=== PATIENT | female | born 1940 | race Caucasian/White ===

== ENCOUNTER 2016-04-15 19:35 | Emergency (ER) | payer OTHER ==
[~2016-04-15] VITALS: Ht 162.6 cm; Wt 80.0 kg
[~2016-04-15 19:35] MED LIST: ASPI81TA28 PO; CHOL100010 PO; CPR500 PO; FURO-85 PO; GABA800T PO; GLC5 PO; LVMI SC; MAGN400T6 PO; NORT10CA4 PO; PRAV20TA PO; SACC250C PO; ZNTT/150 PO
[2016-04-15 19:46] VITALS: TEMP 36.6; Ht 162.6 cm; Wt 80.0 kg
[2016-04-15] MEDS ORDERED: GLIP1TAB85 PO (20:13)
--- NOTE | 2016-04-15 20:48 | DIAGNOSTIC IMAGING REPORT ---
RIGHT TIBIA/FIBULA 2 VIEWS ROUTINE CLINICAL HISTORY: Right leg pain COMPARISON: None. DISCUSSION: No fractures are visualized. There are no erosive or destructive changes. There are postsurgical changes of a total right knee arthroplasty. THERE IS NO EVIDENCE FOR SOFT TISSUE SWELLING. IMPRESSION: 1. Postsurgical changes 2. No evidence of fracture. No destructive lesions are visualized. Electronically signed by: Brandon Kaye M.D. 04/15/2016 8:47 PM Dictated Date/Time: 04/15/2016 8:46 PM
--- NOTE | 2016-04-15 20:50 | DIAGNOSTIC IMAGING REPORT ---
RIGHT FOOT MIN 3 VIEWS ROUTINE CLINICAL HISTORY: Right foot pain COMPARISON: None. 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 There are osteophytic changes the level of the distal interphalangeal joints of the third and fourth toes. There are no acute fractures. Degenerative changes are also present the level the second metatarsal phalangeal joint. Also degenerative changes the level the first tarsometatarsal joint. There is slight flattening the plantar arch. There is a prominent plantar calcaneal spur. IMPRESSION: Degenerative and postsurgical changes. No acute fractures. Electronically signed by: Brandon Kaye M.D. 04/15/2016 8:48 PM Dictated Date/Time: 04/15/2016 8:47 PM
--- NOTE | 2016-04-15 21:06 | DIAGNOSTIC IMAGING REPORT ---
ULTRASOUND RIGHT VENOUS DOPP LOWER EXT UNILAT CLINICAL HISTORY: Right leg pain COMPARISON STUDY: No previous studies for comparison. FINDINGS: Real-time and color flow Doppler imaging were performed. Flow was seen within the femoral, popliteal and calf veins with no intraluminal thrombus demonstrated. The saphenous vein is patent. There is a 34 x 24 x 8 mm right popliteal fossa cyst IMPRESSION: No evidence of right lower extremity DVT. Electronically signed by: Brandon Kaye M.D. 04/15/2016 9:04 PM Dictated Date/Time: 04/15/2016 9:03 PM
[2016-04-15] MEDS ORDERED: AMOX500C3 PO (21:50)
[2016-04-15] MEDS ORDERED: NORCO 5/325MG HOME PACK PO STA (22:13)
--- NOTE | 2016-04-15 22:16 | EMERGENCY ROOM VISIT NOTE ---
History First contact with patient: 19:54 Chief Complaint: FOOT PAIN Stated Complaint: STABBING R FOOT PAIN UP THE LEG, CONFUSION History of Present Illness The patient is a 75 year old female who presents to the Emergency Room via private vehicle with complaints of "stabbing right foot pain up the leg, confusion". The patient is accompanied by her daughter and both state that the patient has been complaining of pain in the right lateral foot that radiates up the leg that is intermittent. This has begun within the past day. No trauma is noted. She has an appointment tomorrow with the diabetic foot Center and try to keep that but was unable to do so secondary to pain and therefore her daughter brought her here for evaluation. The patient is unable to put weight on this leg. Pain radiates up into the mid schmidt region. The patient also has an appointment with her infectious disease doctor, Dr. Sullivan tomorrow. The patient's foot pain is worse with standing but is now much better when sitting. The pain began overnight. Again there is no trauma or fall, and no urinary symptoms. I asked the daughter about the confusion she states that on the way here her mother was saying some odd words. The patient is currently on medication for a UTI and has been for the past few years. She rotates between 3 UTI meds each week. She just finished Cefdinir and is beginning amoxicillin. Review of Systems A complete 6-point Review of Systems was discussed with the patient, with pertinent positives and negatives listed in the History of Present Illness. All remaining Review of Systems questions can be considered negative unless otherwise specified. Past Medical/Surgical History Medical Problems: (1) DIAB W NEURO MANIFEST, TYPE II OR UNSPEC TYPE, UNCONTROLLED (2) Diabetic foot infection (3) Diabetic neuropathy (4) HYPERLIPIDEMIA NEC/NOS (5) SCIATICA Family History Diabetes mellitus Social History Smoking Status: Never Smoker Alcohol Use: none Drug Use: none Marital Status: Housing Status: lives with significant other Occupation Status: unemployed Current/Historical Medications Scheduled Amoxicillin (Amoxil), 500 MG PO DAILY Aspirin (Aspirin Ec), 81 MG PO QAM Cholecalciferol (Vitamin D), 2,000 INTER.UNIT PO QAM Gabapentin (Neurontin), 800 MG PO TID Glipizide Xl (Glucotrol Xl), 10 MG PO DAILY Insulin Detemir (Levemir), 20 UNITS SC QAM Insulin Detemir (Levemir), 10 UNITS SC QPM Magnesium Oxide (Mag-Ox), 400 MG PO DAILY Nortriptyline HCl (Nortriptyline HCl), 10 MG PO DAILY Pravastatin (Pravachol ), 20 MG PO QPM Ranitidine (Zantac), 1 TAB PO BID Saccharomyces Boulardii (Florastor), 250 MG PO DAILY Allergies Coded Allergies: Iodinated Diagnostic Agents (Verified Allergy, Unknown, HIVES AND HOT FLASHES, 04/15/16) Macrolides (Verified Allergy, Unknown, ERYTHROMYCIN, 04/15/16) Oxycodone (Verified Adverse Reaction, Severe, CONFUSION LAKSHMI WHEN SHE TAKES 2 TABS- , 04/15/16) PT HAD TO COME TO ED AFTER TAKING 2 TABS -SO CONFUSED Physical Exam Vital Signs Date Time Temp Pulse Resp B/P Pulse Ox O2 Delivery O2 Flow Rate FiO2 04/15/16 22:34 97 18 158/73 97 04/15/16 21:33 102 18 168/76 96 Room Air 04/15/16 19:46 36.6 89 20 178/73 97 Room Air Physical Exam VITAL SIGNS - Vital signs and nursing notes were reviewed. Patient is afebrile , she is hypertensive at 178/73, she is not tachycardic and is saturating well on room air 97%. GENERAL -75-year-old female appearing her stated age who is in no acute distress. Communicates well with provider and answers questions appropriately. SKIN - Without rashes. There is slight erythema to the left lateral foot at the base of the fifth metatarsal that extends into the superior portion of the foot. There is a small little edematous area region noted. HEAD - NC/AT. EYES - PERRL with EOMI bilaterally. Sclera anicteric. Palpebral conjunctiva pink and moist with no injection noted. EARS - No deformities of external structures noted on gross examination bilaterally. NOSE - Midline and without cyanosis. No epistaxis or purulent drainage noted. Septum midline without deviation or septal hematoma noted. MOUTH/OROPHARYNX - Without perioral cyanosis. LUNGS - Chest wall symmetric without accessory muscle use, intercostals retractions, or central cyanosis. Normal vesicular breath sounds CTA B/L. No wheezes, rales, or rhonchi appreciated. CARDIAC - RRR with S1/S2. No murmur, rubs, or gallops appreciated. EXTREMITIES - No clubbing or peripheral cyanosis. No pretibial edema present. Patient is vascularly intact. +5/5 strength noted in UE/LE bilaterally. No evidence of neurologic deficit appreciated throughout the body. There is evidence of diabetic peripheral neuropathy. There is no tenderness to palpation overlying the patient is experiencing pain in. NEUROLOGIC - Cranial nerves II through XII grossly intact. PSYCH - A&Ox3 and cooperates fully with examiner. Pt is very pleasant and interacts well with examiner. Patient was able to recall where she is at, the year and her date of . Medical Decision & Procedures ER Provider Diagnostic Interpretation: RIGHT FOOT MIN 3 VIEWS ROUTINE CLINICAL HISTORY: Right foot pain COMPARISON: None. 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 There are osteophytic changes the level of the distal interphalangeal joints of the third and fourth toes. There are no acute fractures. Degenerative changes are also present the level the second metatarsal phalangeal joint. Also degenerative changes the level the first tarsometatarsal joint. There is slight flattening the plantar arch. There is a prominent plantar calcaneal spur. IMPRESSION: Degenerative and postsurgical changes. No acute fractures. Electronically signed by: Brandon Kaye M.D. 04/15/2016 8:48 PM Dictated Date/Time: 04/15/2016 8:47 PM ULTRASOUND RIGHT VENOUS DOPP LOWER EXT UNILAT CLINICAL HISTORY: Right leg pain COMPARISON STUDY: No previous studies for comparison. FINDINGS: Real-time and color flow Doppler imaging were performed. Flow was seen within the femoral, popliteal and calf veins with no intraluminal thrombus demonstrated. The saphenous vein is patent. There is a 34 x 24 x 8 mm right popliteal fossa cyst IMPRESSION: No evidence of right lower extremity DVT. Electronically signed by: Brandon Kaye M.D. 04/15/2016 9:04 PM Dictated Date/Time: 04/15/2016 9:03 PM RIGHT TIBIA/FIBULA 2 VIEWS ROUTINE CLINICAL HISTORY: Right leg pain COMPARISON: None. DISCUSSION: No fractures are visualized. There are no erosive or destructive changes. There are postsurgical changes of a total right knee arthroplasty. THERE IS NO EVIDENCE FOR SOFT TISSUE SWELLING. IMPRESSION: 1. Postsurgical changes 2. No evidence of fracture. No destructive lesions are visualized. Electronically signed by: Brandon Kaye M.D. 04/15/2016 8:47 PM Dictated Date/Time: 04/15/2016 8:46 PM Medications Administered Medications (Trade) Dose Ordered Sig/Claudia Route Start Time Stop Time Status Last Admin Dose Admin Acetaminophen/ Hydrocodone Bitart ([place] 5/325mg Home Pack) 1 [facility] UD STAT PO 04/15/16 22:13 04/15/16 22:14 DC 04/15/16 22:25 1 [facility] Medical Decision Patient was seen and evaluated as above. The patient appears to be experiencing pain in the right leg that is nontraumatic in nature and may be related to diabetic peripheral neuropathy. I wanted to rule out any fractures therefore radiographs were obtained of the affected regions an ultrasound was obtained to rule out blood clot as the patient had noted some pain in the calf region. These were both negative. Results were discussed with the patient. I did discuss the case with my attending. I suspect the patient is experiencing an exacerbation of her diabetic peripheral neuropathy. I do not suspect any emergent or surgical nature the patient's pain at this time. In regard to the confusion the patient was alert and oriented here and did not appear to have any neurologic deficits to indicate emergent or surgical nature. I do suspect the patient can be followed up in the outpatient setting I her to specialist tomorrow. She is to keep this appointment. Both her daughter and patient seen With plan of care. She was given a home pack for [place]. Patient states she can take hydrocodone. She had a prescription for Vicodin at home that this was old. She was instructed upon how to take this medication. They're both educated upon management. They were educated upon worrisome symptoms in which to return and were discharged home in good condition. The popliteal cyst was discussed with the patient this appears to be a chronic finding. In evaluation treatment this patient the following differential diagnoses were entertained: Right foot fracture, DVT, diabetic peripheral neuropathy, among others. I suspect at this time she is experiencing exacerbation of her diabetic peripheral neuropathy. Impression Primary Impression: Foot pain Departure Information Dispostion Home / Self-Care Condition GOOD Referrals Андрей Enrique M.D. (PCP) Patient Instructions My [facility] Additional Instructions You have been treated in the Emergency Department for right foot pain.. You have been prescribed [place] to be used for pain control. This is a narcotic medication. You cannot drive or consume alcohol while on this medicine. This medicine should only be used for pain that cannot be controlled with over-the- counter pain medicines. 1 tab every 6 hours. DO NOT TAKE WITH TYLENOL> If this is a recent injury (<24 hrs), ice can be applied to the area of pain for the first 3 days to help decrease pain and inflammation. Please keep your scheduled appointments for tomorrow. Please ambulate as you're able. Return to the Emergency Department if your current symptoms worsen despite treatment course outlined above, or if you develop any of the following symptoms : intractable pain despite aforementioned treatment course or new onset of numbness or tingling of the foot. Please return to emergency department with any new/concerning symptoms. Problem Qualifiers Primary Impression: Foot pain Laterality: right Qualified Codes: M79.671 - Pain in right foot
[2016-04-15 22:34] VITALS: BP 158/73; PULSE 97; O2SAT 97
--- NOTE | 2016-04-16 00:54 | EMERGENCY ROOM VISIT NOTE ---
ED Visit Note First contact with patient: 19:54 I have personally evaluated this patient examined her and reviewed the pertinent labs and data. I have discussed the case with the physician assistant professor of marine biology and agree with the plan. Please refer to the PA note This patient comes in with right foot pain with walking. On exam, she has normal neurologic exam. She's had partial toes amputated on that foot before. there is no ulcers. She appears well-perfused. ultrasound shows no evidence of DVT. X-rays do not show acute fractures. She is going to be seen by the diabetic foot clinic tomorrow and was told to try to stay off of it until then and to use an anti-inflammatories and pain medication. The patient and her daughter on plan and she was discharged to home.
[2016-06-17] MEDS ORDERED: SULF800T23 PO (10:25)
== END 2016-04-15 22:36 | disposition home or self-care (01) ==
LOC: C.EDB 19:37 → C.EDD 22:36
DX: M79.671 Pain in right foot (principal); E78.5 Hyperlipidemia, unspecified; E11.40 Type 2 diabetes mellitus with diabetic neuropathy, unspecified; Z87.440 Personal history of urinary (tract) infections; Z79.82 Long term (current) use of aspirin; Z79.4 Long term (current) use of insulin; Z79.899 Other long term (current) drug therapy; Z88.5 Allergy status to narcotic agent; Z88.8 Allergy status to other drugs, medicaments and biological substances; Z91.041 Radiographic dye allergy status; Z83.3 Family history of diabetes mellitus

== ENCOUNTER → 2016-04-19 | Outpatient (CLI) | payer OTHER ==
[~2016-04-19] MED LIST changes: +AMOX250C3 PO; +AMOX500C3 PO; +CEFD1CAP14 PO; +CHOL20007 PO; -CPR500 PO; +CRAN1CAP6 PO; -FURO-85 PO; -GLC5 PO; +GLIP1TAB85 PO; +LACT1CAP6 PO; +NORT10CA2 PO; +SULF400T7 PO; +SULF800T23 PO
[2016-04-19 18:40] LABS: URINE APPEARANCE CLEAR (CLEAR); URINE BILIRUBIN NEG (NEG); URINE COLOR YELLOW; URINE EPITHELIAL CELL AUTO >30 /lpf (0-5); URINE NITRITE NEG (NEG); URINE SPECIFIC GRAVITY 1.018 (1.000-1.030); UROBILINOGEN NEG (NEG); ZZUR CULT IF INDIC CLEAN CATCH NO
[2016-04-19 18:47] LABS: MANUAL MICROSCOPIC REQUIRED? NO; REVIEW REQ? NO
== END | disposition home or self-care (01) ==
LOC: C.LABSPEC 16:46
PROVIDERS: ATTEND Internal Medicine Infectious Disease
DX: R39.9 Unspecified symptoms and signs involving the genitourinary system (principal)

== ENCOUNTER → 2016-07-05 | Outpatient (CLI) | payer OTHER ==
[~2016-07-05] MED LIST changes: -AMOX500C3 PO
--- NOTE | 2016-07-08 09:04 | MAMMOGRAPHY REPORT ---
BILATERAL DIGITAL DIAGNOSTIC MAMMOGRAM TOMOSYNTHESIS WITH CAD: 07/05/2016 CLINICAL HISTORY: 75-year-old woman presents for follow-up of probably benign groupings of microcalc ifications in each breast. TECHNIQUE: Bilateral CC and MLO 2-D digital and tomosynthesis images, spot magnification CC and ML views of each breast were obtained. Current study was also evaluated with a Computer Aided Detection (CAD) system. COMPARISON: Comparison is made to exams dated: 01/05/2016 mammogram, 06/12/2012 mammogram, 09/15/2010 mammogram, 03/11/2009 mammogram - [facility], and 03/22/2007. BREAST COMPOSITION: There are scattered areas of fibroglandular density in both breasts. FINDINGS: There are at least 3 stable circumscribed masses in the right breast, and stable benign po pcorn calcifications. One stable circumscribed mass is seen in the left upper outer quadrant. Ther e are groupings of coarse heterogeneous calcifications in the right upper outer quadrant, and left u pper inner quadrant that are stable comparing to the spot magnification views dated 01/05/2016. A f ew other loosely grouped and scattered rodlike, punctate and round calcifications are also stable. No new suspicious spiculated or irregular mass, developing asymmetry, new calcifications or architec tural distortion is seen bilaterally. Bilateral diagnostic mammograms with repeat spot magnificatio n views are recommended in 6 months to ensure longer stability of the calcifications. IMPRESSION: ACR-BI-RADS CATEGORY 3: PROBABLY BENIGN Stable bilateral mammograms, including coarse heterogeneous groupings/clusters of microcalcification s in each breast. Although these most likely represent benign calcifications, given the interval in crease since the 2013 mammograms, longer stability is needed and repeat bilateral diagnostic mammogr ams including spot magnification views are recommended in 6 more months. These results and recommendations were discussed with the patient at the time of the exam. Approximately 10% of breast cancers are not detected with mammography. A negative mammographic repor t should not delay biopsy if a clinically suggestive mass is present. Frida Escobedo M.D. ay/:07/05/2016 13:53:47 Buck Swamper: Nati TORRES(Maykel)([place]), [facility] letter sent: Follow Up Recommended 3 BI-RADS Code: ACR-BI-RADS Category 3: Probably Benign
== END | disposition home or self-care (01) ==
LOC: C.MAMM 10:53
PROVIDERS: ATTEND Family Medicine
DX: R92.0 Mammographic microcalcification found on diagnostic imaging of breast (principal)

== ENCOUNTER 2016-10-13 16:43 | Emergency (ER) | payer OTHER ==
[~2016-10-13] VITALS: Ht 162.6 cm; Wt 78.0 kg
[~2016-10-13 16:43] MED LIST changes: -AMOX250C3 PO; -CEFD1CAP14 PO; -CHOL20007 PO; -CRAN1CAP6 PO; -LACT1CAP6 PO; -NORT10CA2 PO; -SULF400T7 PO
[2016-10-13 16:48] VITALS: Ht 162.6 cm; Wt 78.0 kg
[2016-10-13] MEDS ORDERED: CRAN1CAP6 PO (17:30)
[2016-10-13] MEDS ORDERED: NORT10CA2 PO (17:33)
[2016-10-13] MEDS ORDERED: SODIUM CHLORIDE 0.9% 1000ML 1,000 ML IV STA (17:36)
[2016-10-13] MEDS ORDERED: CHOL20007 PO (17:36)
[2016-10-13] MEDS ORDERED: SULF400T7 PO (17:44)
[2016-10-13] MEDS ORDERED: CEFD1CAP14 PO (17:46)
[2016-10-13] MEDS ORDERED: AMOX250C3 PO (17:49)
[2016-10-13] MEDS ORDERED: LACT1CAP6 PO (17:51)
[2016-10-13 18:05] LABS: BASO % 0.2 %; BASO ABS # 0.01 K/uL (0-0.2); COMPLETE YES; HEMATOCRIT 39.8 % (37-47); IG% 0.2 %; LYMPH % 24.3 %; LYMPH ABS # 1.12 K/uL (1.2-3.4); MEAN CELL VOLUME 87.1 fL (80-100); MEAN CORPUSCULAR HGB CONC 32.2 g/dl (32-36); MEAN PLATELET VOLUME 10.5 fL (7.4-10.4); MONO % 9.6 %; NEUT % 60.7 %; PLATELET COUNT 169 K/uL (130-400); RED BLOOD COUNT 4.57 M/uL (4.2-5.4)
[2016-10-13 18:10] VITALS: TEMP 36.4
--- NOTE | 2016-10-13 18:21 | DIAGNOSTIC IMAGING REPORT ---
CHEST ONE VIEW PORTABLE CLINICAL HISTORY: 75 years-old Female presenting with cough, confusion. TECHNIQUE: Portable upright AP view of the chest was obtained. COMPARISON: 02/15/2016. FINDINGS: Cardiomediastinal silhouette normal. Few scattered dense punctate nodules could represent old granulomatous disease. Lungs and pleural spaces clear. Multilevel degenerative changes of the thoracic spine. Upper abdomen normal. IMPRESSION: 1. No acute cardiopulmonary disease. Electronically signed by: Rony Sanchez M.D. 10/13/2016 6:20 PM Dictated Date/Time: 10/13/2016 6:19 PM
[2016-10-13 18:25] LABS: ALT/SGPT 32 U/L (12-78); AST/SGOT 25 U/L (15-37); BLOOD UREA NITROGEN 18 mg/dl (7-18); BUN/CREATININE RATIO 22.3 (10-20); CALCIUM 9.3 mg/dl (8.5-10.1); CARBON DIOXIDE 27 mmol/L (21-32); CHLORIDE 108 mmol/L (98-107); CREATININE 0.82 mg/dl (0.60-1.20); GLUCOSE 141 mg/dl (70-99); MAGNESIUM 2.2 mg/dl (1.8-2.4); POTASSIUM 3.8 mmol/L (3.5-5.1); SODIUM 142 mmol/L (136-145)
[2016-10-13 18:29] LABS: ALB/GLOB RATIO 1.2 (0.9-2)
[2016-10-13 18:30] LABS: ALKALINE PHOSPHATASE 102 U/L (45-117)
--- NOTE | 2016-10-13 18:44 | DIAGNOSTIC IMAGING REPORT ---
CT OF THE HEAD WITHOUT CONTRAST CLINICAL HISTORY: Confusion. COMPARISON STUDY: Head CT October 04, 2011 and MRI of the brain October 05, 2011. CT DOSE: 537.48 mGy.cm TECHNIQUE: Helical axial images of the head were obtained without IV contrast. Automated exposure control was utilized for the study. FINDINGS: No acute intracranial hemorrhage, midline shift or mass effect is present. Ventricular system is unremarkable for age. Basilar cisterns are patent. There are no extra axial collections. White matter hypodensity suggests small vessel disease. There are no findings to suggest acute dural sinus thrombosis or acute territorial infarct. There are no significant calvarial abnormalities. There is minimal mucosal thickening of the ethmoid sinuses. IMPRESSION: No acute intracranial findings. Electronically signed by: Fabian Porter M.D. 10/13/2016 6:43 PM Dictated Date/Time: 10/13/2016 6:41 PM
[2016-10-13 19:07] LABS: URINE APPEARANCE CLOUDY (CLEAR); URINE BILIRUBIN NEG (NEG); URINE COLOR YELLOW; URINE NITRITE NEG (NEG); URINE SPECIFIC GRAVITY 1.021 (1.000-1.030); UROBILINOGEN NEG (NEG)
[2016-10-13 19:12] LABS: MANUAL MICROSCOPIC REQUIRED? NO; REVIEW REQ? NO
--- NOTE | 2016-10-13 19:44 | EMERGENCY ROOM VISIT NOTE ---
History Report prepared by Deana: Hector Clark Under the Supervision of: Dr. Adrienne Villavicencio D.O. First contact with patient: 17:22 Chief Complaint: INFECTION Stated Complaint: HALLUCINATING, CONFUSION, EMOTIONAL DEFENSIVE Nursing Triage Summary: per family pt has recurrent urinary tract infections She has been seen by MD [facility] for her UTI's Per family when she gets UTI's she gets confused she is currently confused, family called [facility] to see if culture was needed [facility] sent patient here to be seen She rotates Between Cefdinir one week and then the next to Amoxicillin for one week and then to Bactrim for a week History of Present Illness The patient is a 75 year old female who presents to the Emergency Room with a constant, altered mental status beginning this morning. The patient's daughter states that the patient has a history of UTIs, and her last UTI was in February. She reports that the patient was in the hospital and was severely dehydrated, even though she was drinking fluids regularly. The daughter notes that her dehydration was related to her medication. She states that the patient' s current symptoms are similar to when she had a UTI. The patient reports that 5 years ago the patient had a knee replacement that was infected due to a UTI. She notes that she was put on amoxicillin, Bactrim, and Cefdinir. The daughter states that the patient has been on antibiotics daily. She reports that the patient called her, and she seem "out of whack". The daughter notes that patient did not think she was doing anything wrong. She states the patient claimed she was getting dressed for a that was non-existent. The patient complains of a headache, cough, and chills. She denies abdominal pain, new back pain, fevers, changes in appetite, rhinorrhea, and a sorethroat. Source of History: patient, other (daughter) Onset: this morning Position: other (global) Quality: other (altered mental status) Timing: constant Associated Symptoms: + chills, + headache, + cough, No fevers, No sorethroat , No abdominal pain, No back pain Note: Denies: changes in appetite and rhinorrhea Review of Systems See HPI for pertinent positives & negatives. A total of 10 systems reviewed and were otherwise negative. Past Medical & Surgical Medical Problems: (1) DIAB W NEURO MANIFEST, TYPE II OR UNSPEC TYPE, UNCONTROLLED (2) Diabetic foot infection (3) Diabetic neuropathy (4) HYPERLIPIDEMIA NEC/NOS (5) SCIATICA Family History Diabetes mellitus Social History Smoking Status: Never Smoker Alcohol Use: none Drug Use: none Marital Status: Housing Status: lives with significant other Occupation Status: unemployed Current/Historical Medications Scheduled Amoxicillin (Amoxil), 1 CAP PO DAILY Aspirin (Aspirin Ec), 81 MG PO QAM Cefdinir (Omnicef), 1 CAP PO DAILY Cholecalciferol (Vitamin D3), 1 TAB PO DAILY Cranberry (Vaccinium Macrocarp (Cranberry), 4 CAP PO DAILY Gabapentin (Neurontin), 800 MG PO TID Insulin Detemir (Levemir), 20 UNITS SC QAM Lactobacillus (Probiotic), 1 CAP PO DAILY Magnesium Oxide (Mag-Ox), 400 MG PO DAILY Nortriptyline (Pamelor), 10 MG PO HS Pravastatin (Pravachol ), 20 MG PO QPM Ranitidine (Zantac), 1 TAB PO BID Sulfamethoxazole-Trimethoprim (Bactrim 400MG/80MG), 1 TAB PO DAILY Allergies Coded Allergies: Iodinated Diagnostic Agents (Verified Allergy, Unknown, HIVES AND HOT FLASHES, 10/13/16) Macrolides (Verified Allergy, Unknown, ERYTHROMYCIN, 10/13/16) Oxycodone (Verified Adverse Reaction, Severe, CONFUSION LAKSHMI WHEN SHE TAKES 2 TABS- , 10/13/16) PT HAD TO COME TO ED AFTER TAKING 2 TABS -SO CONFUSED Physical Exam Vital Signs Date Time Temp Pulse Resp B/P (MAP) Pulse Ox O2 Delivery O2 Flow Rate FiO2 10/13/16 19:49 101 20 169/89 97 Room Air 10/13/16 19:08 99 10/13/16 19:06 96 20 179/90 98 Room Air 10/13/16 18:40 94 16 171/111 99 Room Air 10/13/16 18:10 36.4 99 16 218/118 96 Room Air 10/13/16 16:48 36.7 113 20 198/90 98 Room Air Physical Exam GENERAL: alert, well appearing, well nourished, no distress, non-toxic EYE EXAM: normal conjunctiva, PERRL and EOM's grossly intact OROPHARYNX: no exudate, no erythema, lips, buccal mucosa, and tongue normal and mucous membranes are moist NECK: supple, no nuchal rigidity, no adenopathy, non-tender LUNGS: Clear to auscultation. Normal chest wall mechanics HEART: no murmurs, S1 normal and S2 normal ABDOMEN: abdomen soft, non-tender, normo-active bowel sounds, no masses, no rebound or guarding. BACK: Back is symmetrical on inspection and there is no deformity, no midline tenderness, no CVA tenderness. SKIN: no rashes and no bruising UPPER EXTREMITIES: upper extremities are grossly normal. LOWER EXTREMITIES: No pitting edema. NEURO EXAM: Normal sensorium, cranial nerves II-XII grossly intact, normal speech, no gross weakness of arms, no gross weakness of legs. Confused but recognizes family. Disoriented to date and chronological events. Medical Decision & Procedures ER Provider Diagnostic Interpretation: Radiology results have been interpreted by the radiologist and reviewed by me. CT OF THE HEAD WITHOUT CONTRAST CLINICAL HISTORY: Confusion. COMPARISON STUDY: Head CT October 04, 2011 and MRI of the brain October 05, 2011. CT DOSE: 537.48 mGy.cm TECHNIQUE: Helical axial images of the head were obtained without IV contrast. Automated exposure control was utilized for the study. FINDINGS: No acute intracranial hemorrhage, midline shift or mass effect is present. Ventricular system is unremarkable for age. Basilar cisterns are patent. There are no extra axial collections. White matter hypodensity suggests small vessel disease. There are no findings to suggest acute dural sinus thrombosis or acute territorial infarct. There are no significant calvarial abnormalities. There is minimal mucosal thickening of the ethmoid sinuses. IMPRESSION: No acute intracranial findings. Electronically signed by: Fabian Porter M.D. 10/13/2016 6:43 PM Dictated Date/Time: 10/13/2016 6:41 PM CHEST ONE VIEW PORTABLE CLINICAL HISTORY: 75 years-old Female presenting with cough, confusion. TECHNIQUE: Portable upright AP view of the chest was obtained. COMPARISON: 02/15/2016. FINDINGS: Cardiomediastinal silhouette normal. Few scattered dense punctate nodules could represent old granulomatous disease. Lungs and pleural spaces clear. Multilevel degenerative changes of the thoracic spine. Upper abdomen normal. IMPRESSION: 1. No acute cardiopulmonary disease. Electronically signed by: Rony Sanchez M.D. 10/13/2016 6:20 PM Dictated Date/Time: 10/13/2016 6:19 PM Laboratory Results 10/13/16 17:50 Red Blood Count 4.57, Mean Corpuscular Volume 87.1, Mean Corpuscular Hemoglobin 28.0, Mean Corpuscular Hemoglobin Concent 32.2, Mean Platelet Volume 10.5, Neutrophils (%) (Auto) 60.7, Lymphocytes (%) (Auto) 24.3, Monocytes (%) (Auto) 9.6, Eosinophils (%) (Auto) 5.0, Basophils (%) (Auto) 0.2, Neutrophils # (Auto) 2.79, Lymphocytes # (Auto) 1.12, Monocytes # (Auto) 0.44, Eosinophils # (Auto) 0.23, Basophils # (Auto) 0.01 10/13/16 17:50 Test 10/13/16 17:50 10/13/16 18:05 White Blood Count 4.60 K/uL (4.8-10.8) Red Blood Count 4.57 M/uL (4.2-5.4) Hemoglobin 12.8 g/dL (12.0-16.0) Hematocrit 39.8 % (37-47) Mean Corpuscular Volume 87.1 fL (80-100) Mean Corpuscular Hemoglobin 28.0 pg (25-34) Mean Corpuscular Hemoglobin Concent 32.2 g/dl (32-36) Platelet Count 169 K/uL (130-400) Mean Platelet Volume 10.5 fL (7.4-10.4) Neutrophils (%) (Auto) 60.7 % Lymphocytes (%) (Auto) 24.3 % Monocytes (%) (Auto) 9.6 % Eosinophils (%) (Auto) 5.0 % Basophils (%) (Auto) 0.2 % Neutrophils # (Auto) 2.79 K/uL (1.4-6.5) Lymphocytes # (Auto) 1.12 K/uL (1.2-3.4) Monocytes # (Auto) 0.44 K/uL (0.11-0.59) Eosinophils # (Auto) 0.23 K/uL (0-0.5) Basophils # (Auto) 0.01 K/uL (0-0.2) RDW Standard Deviation 43.3 fL (36.4-46.3) RDW Coefficient of Variation 13.6 % (11.5-14.5) Immature Granulocyte % (Auto) 0.2 % Immature Granulocyte # (Auto) 0.01 K/uL (0.00-0.02) Anion Gap 7.0 mmol/L (3-11) Est Creatinine Clear Calc Drug Dose 59.9 ml/min Estimated GFR () 81.1 Estimated GFR (Non- 70.0 BUN/Creatinine Ratio 22.3 (10-20) Calcium Level 9.3 mg/dl (8.5-10.1) Magnesium Level 2.2 mg/dl (1.8-2.4) Total Bilirubin 0.2 mg/dl (0.2-1) Aspartate Amino Transf (AST/SGOT) 25 U/L (15-37) Alanine Aminotransferase (ALT/SGPT) 32 U/L (12-78) Alkaline Phosphatase 102 U/L (45-117) Troponin I < 0.015 ng/ml (0-0.045) Total Protein 7.1 gm/dl (6.4-8.2) Albumin 3.8 gm/dl (3.4-5.0) Globulin 3.3 gm/dl (2.5-4.0) Albumin/Globulin Ratio 1.2 (0.9-2) Urine Color YELLOW Urine Appearance CLOUDY (CLEAR) Urine pH 7.0 (4.5-7.5) Urine Specific [place] 1.021 (1.000-1.030) Urine Protein 2+ (NEG) Urine Glucose (UA) 1+ (NEG) Urine Ketones NEG (NEG) Urine Occult Blood NEG (NEG) Urine Nitrite NEG (NEG) Urine Bilirubin NEG (NEG) Urine Urobilinogen NEG (NEG) Urine Leukocyte Esterase NEG (NEG) Urine WBC (Auto) 1-5 /hpf (0-5) Urine RBC (Auto) 0-4 /hpf (0-4) Urine Hyaline Casts (Auto) 0 /lpf (0-5) Urine Epithelial Cells (Auto) 5-10 /lpf (0-5) Urine Bacteria (Auto) NEG (NEG) Laboratory results per my review. Medications Administered Medications (Trade) Dose Ordered Sig/Claudia Route Start Time Stop Time Status Last Admin Dose Admin Sodium Chloride 1,000 ml @ 250 mls/hr Q4H STAT IV 10/13/16 17:36 10/13/16 20:54 DC 10/13/16 18:34 250 MLS/HR ECG Indication: altered mental status Rate (beats per minute): 86 Rhythm: sinus rhythm Findings: 1st degree AV block, PVC, Q waves (V1 and V2), no acute ischemic change, other (Normal QRS and QTC, normal axis) ED Course 1724: The patient was evaluated in room B03B. A complete history and physical exam was performed. 1735: Ordered Sodium Chloride 1000 ml @ 250 mls/hr IV 1928: I updated the patient and her family of her exam findings and test results. I had an extensive bed-side conversation with her family regarding disposition. The family would like to take her home via AMA because they refuse admission. 1942: I discussed the patient's case with case management. They will help the patient find additional treatment as an outpatient. Medical Decision Differential diagnoses includes but is not limited to toxic, metabolic, infectious, traumatic, cardiac, neurologic, hematologic, psychiatric and inflammatory etiologies. Medication Reconciliation: I attest that I have personally reviewed the patient' s current medication list. Blood pressure screening: Patient was found to have an elevated blood pressure and was referred to their primary doctor for recheck and further treatment. While labs, urinalysis, and imaging reassuring, patient altered from her typical baseline mentation. I had extensive bedside discussion with the patient 's and daughter regarding my concern for this and need for admission. After discussion of potential differential diagnosis, other evaluation and treatment that she would benefit from during admission, they decided that they wanted to take the patient home. Patient lives with the and he is comfortable assuming responsibility for her. Daughter states he will take care of her and she will call and check up on them. I discussed with him at length the patient's condition could continue to worsen and put her at risk for her mental disability or even . They verbalized understanding of this and are willing to assume that risk. The patient's and daughter signed the AMA form. Patient stable vital signs were in the emergency room. Impression Primary Impression: Altered mental status Scribe Attestation The scribe's documentation has been prepared under my direction and personally reviewed by me in its entirety. I confirm that the note above accurately reflects all work, treatment, procedures, and medical decision making performed by me. Departure Information Dispostion Home / Self-Care Referrals Андрей Enrique M.D. (PCP) Patient Instructions My [facility] Additional Instructions You are welcome to return to the ER at any time. By leaving against medical advise, you are assuming responsibility for the patient's condition. This may include deteriorating mental status, stroke, heart attack, overwhelming infection, permanent physical disability, or even . Please follow-up with your family doctor as soon as possible. Please continue your regular medications. Please eat and drink regularly. Please return to the emergency room for any persistent or changing conditions, any concerning symptoms. Problem Qualifiers Primary Impression: Altered mental status Altered mental status type: unspecified Qualified Codes: R41.82 - Altered mental status, unspecified
[2016-10-13 19:49] VITALS: BP 169/89; PULSE 101; O2SAT 97
== END 2016-10-13 20:21 | disposition left against medical advice (07) ==
LOC: C.EDB 16:45
DX: R41.82 Altered mental status, unspecified (principal); E11.40 Type 2 diabetes mellitus with diabetic neuropathy, unspecified; E78.5 Hyperlipidemia, unspecified; M54.30 Sciatica, unspecified side; Z83.3 Family history of diabetes mellitus; Z79.2 Long term (current) use of antibiotics; Z79.82 Long term (current) use of aspirin; Z79.899 Other long term (current) drug therapy

== ENCOUNTER → 2016-12-27 | Outpatient (CLI) | payer OTHER ==
[~2016-12-27] MED LIST changes: +AMOX250C3 PO; +CEFD1CAP14 PO; -CHOL100010 PO; +CHOL20007 PO; +CRAN1CAP6 PO; -GLIP1TAB85 PO; +LACT1CAP6 PO; +NORT10CA2 PO; -NORT10CA4 PO; -SACC250C PO; +SULF400T7 PO; -SULF800T23 PO
== END | disposition home or self-care (01) ==
LOC: C.RDSM 13:56
PROVIDERS: ATTEND Physical Medicine & Rehabilitation Sports Medicine
DX: M79.672 Pain in left foot (principal)

== ENCOUNTER → 2017-01-24 | Outpatient (CLI) | payer OTHER ==
--- NOTE | 2017-01-24 15:36 | MAMMOGRAPHY REPORT ---
BILATERAL DIGITAL DIAGNOSTIC MAMMOGRAM TOMOSYNTHESIS WITH CAD: 01/24/2017 CLINICAL HISTORY: Close follow-up of clusters of coarse heterogeneous calcifications in both breasts. TECHNIQUE: Bilateral breast tomosynthesis in addition to standard 2D mammography was performed. Spot magnification CC and MLO views of each breast were also obtained. Current study was also evaluated with a Computer Aided Detection (CAD) system. COMPARISON: Comparison is made to exams dated: 07/05/2016 mammogram, 01/05/2016 mammogram, 01/05/2016 ul trasound, 06/12/2012 mammogram, 09/15/2010 mammogram, and 03/11/2009 mammogram - [facility] enter. BREAST COMPOSITION: There are scattered areas of fibroglandular density in both breasts. FINDINGS: Multiple bilateral circumscribed benign masses are again seen in the breasts. Some of the masses have associated benign popcorn calcification, suggesting degenerating fibroadenomas. There ar e multiple bilateral groupings of coarse heterogeneous calcifications in both breasts, that are new c omparing to more remote mammograms but have coarsened comparing to the spot magnification views [place] on 01/05/2016, confirming benignity. These most likely represent additional fibroadenomas/fibroa denomatoid change. There is currently no suspicious grouping or cluster of calcifications in either breast. No focal area of architectural distortion, new suspicious mass or asymmetry. Recommend rout ine screening in 1 year. IMPRESSION: ACR BI-RADS CATEGORY 2: BENIGN The multiple bilateral groupings of coarse heterogeneous calcifications in both breasts have continue d to coarsen, confirming benignity. There is no mammographic evidence of malignancy. Return to [facility] mammogram screening schedule is recommended. The patient has been verbally notified of the results . Approximately 10% of breast cancers are not detected with mammography. A negative mammographic report should not delay biopsy if a clinically suggestive mass is present. Frida Escobedo M.D. ay/:01/24/2017 14:21:58 Administrative Tech: Criss PHILIPPE)(M), [facility] letter sent: Normal 1/2 BI-RADS Code: ACR BI-RADS Category 2: Benign
== END | disposition home or self-care (01) ==
LOC: C.MAMM 13:40
PROVIDERS: ATTEND Family Medicine
DX: R92.1 Mammographic calcification found on diagnostic imaging of breast (principal)

== ENCOUNTER → 2017-03-04 | Outpatient (CLI) | payer OTHER ==
--- NOTE | 2017-03-04 14:22 | DIAGNOSTIC IMAGING REPORT ---
RIGHT FOREFOOT MRI HISTORY: HX OF DIABETIC RT FOOT ULCER TECHNIQUE: Multiplanar multisequence MRI of the right forefoot was performed without the use of intravenous contrast due to the patient's reported contrast allergy. COMPARISON STUDY: Right foot 04/15/2016. FINDINGS: Patient is status post amputation of the distal phalanx of the first toe. There is trace fluid at the head of the proximal phalanx of the first toe. However, there is no marrow signal abnormality or cortical destruction at this time to suggest osteomyelitis. Degenerative changes seen within the DIP and PIP joints of the toes. Remaining osseous structures show no significant signal abnormality to suggest osteomyelitis. Small foci of subchondral cystic change at the proximal findings of the second toe are likely due to degenerative change. Mild soft tissue edema at the plantar fascia. This is likely chronic. IMPRESSION: 1. 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 2. There is trace fluid at the head of the proximal phalanx of the first toe. However, there is no marrow signal abnormality or cortical destruction at this time to suggest osteomyelitis. Electronically signed by: Marvin Huddleston M.D. 03/04/2017 2:20 PM Dictated Date/Time: 03/04/2017 2:16 PM
== END | disposition home or self-care (01) ==
LOC: C.MRIBC 12:59
PROVIDERS: ATTEND Podiatrist
DX: Z86.31 Personal history of diabetic foot ulcer (principal); L97.501 Non-pressure chronic ulcer of other part of unspecified foot limited to breakdown of skin; Z89.411 Acquired absence of right great toe

== ENCOUNTER → 2017-03-30 | Outpatient (CLI) | payer OTHER ==
[~2017-03-30] MED LIST changes: +ACET-1047 PO; +ACET-1311 PO; +AMOX500C3 PO; +CEPH500C2 PO; +CHOL100010 PO; +CIPR1TAB11 PO; +CRAN400C PO; +CYM20 PO; +GABA-113 PO; +HYDR-5688 PO; +KFL500HP PO; +LEVO1TAB35 PO; +LVMI INJ; +LVMI SQ; +MISCCAP80 PO; +NORT10CA4 PO; +NRN600 PO; +NRN800 PO; +PRT/20 PO; +PRVC/20 PO; +RANI150T2 PO; +RANI150T85 PO; +SULF1TAB92 PO; +SULF800T23 PO; +ULT50X PO; +VITACAP9 PO; -ZNTT/150 PO
--- NOTE | 2017-03-30 15:46 | DIAGNOSTIC IMAGING REPORT ---
L FOOT MIN 3 VIEWS ROUTINE CLINICAL HISTORY: 76 years-old Female presenting with LEFT HALLUX ULCER. TECHNIQUE: Frontal, oblique, and lateral views of the left foot were obtained. COMPARISON: 07/31/2014. FINDINGS: Degenerative changes and valgus malalignment at the interphalangeal joint of the first toe. Mild degenerative changes at the first metatarsophalangeal articulation. Loss of height of the longitudinal arch. Prominent bone spur at the inferior calcaneus. Osteopenia may be present. No acute fracture. IMPRESSION: 1. Pes planus. 2. Degenerative changes of the interphalangeal joint of the first toe with valgus malalignment of the distal phalanx. Electronically signed by: Rony Sanchez M.D. 03/30/2017 3:44 PM Dictated Date/Time: 03/30/2017 3:42 PM
== END | disposition home or self-care (01) ==
LOC: C.RAD1850 15:20
PROVIDERS: ATTEND Podiatrist
DX: M21.42 Flat foot [pes planus] (acquired), left foot (principal); M19.072 Primary osteoarthritis, left ankle and foot; L97.529 Non-pressure chronic ulcer of other part of left foot with unspecified severity

== ENCOUNTER 2017-05-16 15:44 | Emergency (ER) | payer OTHER ==
[~2017-05-16] VITALS: Ht 160 cm; Wt 75.0 kg
[~2017-05-16 15:44] MED LIST changes: -ACET-1047 PO; -ACET-1311 PO; -AMOX500C3 PO; -CEPH500C2 PO; -CHOL100010 PO; -CIPR1TAB11 PO; -CRAN400C PO; -CYM20 PO; -GABA-113 PO; -HYDR-5688 PO; -KFL500HP PO; -LEVO1TAB35 PO; -LVMI INJ; -LVMI SQ; -MISCCAP80 PO; -NORT10CA4 PO; -NRN600 PO; -NRN800 PO; -PRT/20 PO; -PRVC/20 PO; -RANI150T2 PO; -SULF1TAB92 PO; -SULF800T23 PO; -ULT50X PO; -VITACAP9 PO
[2017-05-16 16:03] VITALS: TEMP 36.9; Ht 160 cm; Wt 75.0 kg
[2017-05-16] MEDS ORDERED: SODIUM CHLORIDE 0.9% 500ML 500 ML IV STA (17:42)
[2017-05-16] MEDS ORDERED: NORT10CA2 PO (18:11)
[2017-05-16] MEDS ORDERED: PRAV20TA PO (18:11)
[2017-05-16] MEDS ORDERED: RANI150T85 PO (18:11)
[2017-05-16] MEDS ORDERED: GABA800T PO (18:11)
--- NOTE | 2017-05-16 18:45 | DIAGNOSTIC IMAGING REPORT ---
CHEST ONE VIEW PORTABLE HISTORY: 76 years-old Female cough acute cough COMPARISON: Chest radiograph 10/13/2016 TECHNIQUE: Portable AP view of the chest FINDINGS: Cardiomediastinal and hilar silhouettes are within normal limits. No pneumothorax, pleural effusion, focal airspace consolidation or overt pulmonary edema. Minimal linear subsegmental bibasilar atelectasis. Degenerative changes are noted within the shoulders and spine. IMPRESSION: No acute process. The above report was generated using voice recognition software. It may contain grammatical, syntax or spelling errors. Electronically signed by: Dany Ross M.D. 05/16/2017 6:43 PM Dictated Date/Time: 05/16/2017 6:42 PM
[2017-05-16 19:34] LABS: BASO % 0.2 %; BASO ABS # 0.01 K/uL (0-0.2); EOS % 0.9 %; EOS ABS # 0.06 K/uL (0-0.5); IG# 0.02 K/uL (0.00-0.02); LYMPH % 7.6 %; MEAN CELL VOLUME 87.1 fL (80-100); MEAN CORPUSCULAR HEMOGLOBIN 29.7 pg (25-34); MEAN CORPUSCULAR HGB CONC 34.1 g/dl (32-36); MEAN PLATELET VOLUME 10.5 fL (7.4-10.4); MONO % 4.4 %; MONO ABS # 0.29 K/uL (0.11-0.59); NEUT % 86.6 %; NEUT ABS # 5.66 K/uL (1.4-6.5); PLATELET COUNT 156 K/uL (130-400); RED CELL DISTRIBUTION WIDTH CV 14.3 % (11.5-14.5); RED CELL DISTRIBUTION WIDTH SD 45.3 fL (36.4-46.3); WHITE BLOOD COUNT 6.54 K/uL (4.8-10.8)
[2017-05-16 19:57] LABS: ALBUMIN 3.6 gm/dl (3.4-5.0); CALCIUM 8.5 mg/dl (8.5-10.1); CREATININE 0.77 mg/dl (0.60-1.20); POTASSIUM 3.9 mmol/L (3.5-5.1); TOTAL PROTEIN 7.3 gm/dl (6.4-8.2)
--- NOTE | 2017-05-16 20:04 | DIAGNOSTIC IMAGING REPORT ---
HEAD WITHOUT CONTRAST (CT) CLINICAL HISTORY: 76 years-old Female with ams . Acute altered mental status TECHNIQUE: Multiple axial CT images of the head were obtained without contrast. A dose lowering technique was utilized adhering to the principles of ALARA. CT DOSE: 537.48 mGy.cm COMPARISON: CT head 10/13/2016. FINDINGS: No acute intracranial hemorrhage, midline shift, intracranial mass, hydrocephalus, territorial ischemia or abnormal extra-axial collection. Moderate atrophy with chronic microvascular ischemic changes. The calvarium is intact. The paranasal sinuses, mastoid air cells, and middle ear cavities are clear. IMPRESSION: No acute intracranial abnormality. The above report was generated using voice recognition software. It may contain grammatical, syntax or spelling errors. Electronically signed by: Dany Ross M.D. 05/16/2017 8:03 PM Dictated Date/Time: 05/16/2017 8:00 PM
[2017-05-16 20:14] LABS: INFLUENZA B ANTIGEN Neg for Influ B (NEG)
[2017-05-16 21:15] VITALS: BP 167/72; PULSE 88; O2SAT 98
--- NOTE | 2017-05-16 22:00 | EMERGENCY ROOM VISIT NOTE ---
History Report prepared by Deana: Lowell Desai Under the Supervision of: Dr. Carlitos Jackson D.O. First contact with patient: 17:30 Chief Complaint: HYPERGLYCEMIA Stated Complaint: DELUSIONAL, HIGH GLUCOSE, LIKELY UTI Nursing Triage Summary: Pt presents with daughter who reports elevated BSG the past couple days. Confusion x 3 days "which usually means she has a UTI. Dr. Sullivan gave her an order for a urine sample, but when she got there she couldn't go. She usually needs to be catherized. The last two mornings her blood sugar was 249 and it's usually 130-140. Right before we came it was 251. She has had horrific indigestion the past two days." Reports urinary freq. Denies pain with urination. History of Present Illness The patient is a 76 year old female who presents to the Emergency Room with complaints of persistent confusion for the past three days. The patient is currently on suppressive antibiotics due to having an infected knee replacement , and she rotates amoxicillin, Bactrim, and cefdinir weekly. She went to her PCP this morning, and she was unable to urinate and told her to come to the ED for evaluation. The patient's daughter states that the patient has been telling stories about "trick or treating, parades and her parents' house". The patient additionally states that she has been having on and off burning abdominal pain for the past two days, and it feels like her usual indigestion. The daughter additionally states that the patient's blood sugar has been 250-260 compared to her normal 130-140. Pt denies headache, change in vision, fevers, new ear pain, sore throat, chest pain, shortness of breath, nausea, vomiting, diarrhea, pain with urination, and melena. Source of History: patient Onset: three days ago Position: other (global) Quality: other (confusion) Timing: other (persistent ) Associated Symptoms: + abdominal pain, No sorethroat Note: Associated symptoms: Blood sugar 250-260 Review of Systems See HPI for pertinent positives & negatives. A total of 10 systems reviewed and were otherwise negative. Past Medical & Surgical Medical Problems: (1) DIAB W NEURO MANIFEST, TYPE II OR UNSPEC TYPE, UNCONTROLLED (2) Diabetic foot infection (3) Diabetic neuropathy (4) HYPERLIPIDEMIA NEC/NOS (5) SCIATICA Family History Diabetes mellitus Social History Smoking Status: Never Smoker Alcohol Use: none Drug Use: none Marital Status: Housing Status: lives with significant other Occupation Status: unemployed Current/Historical Medications Scheduled Amoxicillin (Amoxil), 500 MG PO UD Cefdinir (Omnicef), 300 MG PO UD Cholecalciferol (Vitamin D), 2,000 UNITS PO DAILY Cranberry (Vaccinium Macrocarp (Cranberry), 4 CAP PO DAILY Gabapentin (Neurontin), 800 MG PO TID Insulin Detemir (Levemir), 24 UNITS SC QAM Magnesium Oxide (Mag-Ox), 400 MG PO DAILY Nortriptyline (Pamelor), 10 MG PO HS Pravastatin (Pravachol ), 20 MG PO QPM Ranitidine (Zantac), 150 MG PO BID Trimethoprim/Sulfamethoxazole (Bactrim 400MG/80MG), 1 TAB PO UD Allergies Coded Allergies: Iodinated Diagnostic Agents (Verified Allergy, Unknown, HIVES AND HOT FLASHES, 05/16/17) Macrolides (Verified Allergy, Unknown, ERYTHROMYCIN, 05/16/17) Oxycodone (Verified Adverse Reaction, Severe, CONFUSION LAKSHMI WHEN SHE TAKES 2 TABS- , 05/16/17) PT HAD TO COME TO ED AFTER TAKING 2 TABS -SO CONFUSED Physical Exam Vital Signs Date Time Temp Pulse Resp B/P (MAP) Pulse Ox O2 Delivery O2 Flow Rate FiO2 05/16/17 21:15 88 16 167/72 98 05/16/17 20:17 107 16 183/92 98 Room Air 05/16/17 18:10 90 16 153/83 99 05/16/17 16:03 36.9 108 16 144/71 98 Room Air Physical Exam GENERAL: Sitting up in bed, disheveled, no acute distress, and non-toxic EYE EXAM: normal conjunctiva. PERRL and EOM's intact. OROPHARYNX: no exudate, no erythema, lips, buccal mucosa, and tongue normal and mucous membranes are moist NECK: supple, no nuchal rigidity, no adenopathy, non-tender LUNGS: Clear to auscultation. Normal chest wall mechanics HEART: systolic ejection murmur, S1 normal and S2 normal ABDOMEN: abdomen soft, non-tender, normo-active bowel sounds, no masses, no rebound or guarding. BACK: Back is symmetrical on inspection and there is no deformity, no midline tenderness, no CVA tenderness. SKIN: no rashes and no bruising UPPER EXTREMITIES: upper extremities are grossly normal. LOWER EXTREMITIES: No pitting edema. NEURO EXAM: Awake, alert, not oriented to year but following commands, cranial nerves II-XII intact, normal speech, no weakness of arms, no weakness of legs. Unable to perform drift with the left upper extremity secondary to rotator cuff. Gross sensation intact. Medical Decision & Procedures ER Provider Diagnostic Interpretation: Radiology results as stated below per my review and the radiologist's interpretation: CHEST ONE VIEW PORTABLE HISTORY: 76 years-old Female cough acute cough COMPARISON: Chest radiograph 10/13/2016 TECHNIQUE: Portable AP view of the chest FINDINGS: Cardiomediastinal and hilar silhouettes are within normal limits. No pneumothorax, pleural effusion, focal airspace consolidation or overt pulmonary edema. Minimal linear subsegmental bibasilar atelectasis. Degenerative changes are noted within the shoulders and spine. IMPRESSION: No acute process. The above report was generated using voice recognition software. It may contain grammatical, syntax or spelling errors. Electronically signed by: Dany Ross M.D. 05/16/2017 6:43 PM Dictated Date/Time: 05/16/2017 6:42 PM HEAD WITHOUT CONTRAST (CT) CLINICAL HISTORY: 76 years-old Female with ams . Acute altered mental status TECHNIQUE: Multiple axial CT images of the head were obtained without contrast. A dose lowering technique was utilized adhering to the principles of ALARA. CT DOSE: 537.48 mGy.cm COMPARISON: CT head 10/13/2016. FINDINGS: No acute intracranial hemorrhage, midline shift, intracranial mass, hydrocephalus, territorial ischemia or abnormal extra-axial collection. Moderate atrophy with chronic microvascular ischemic changes. The calvarium is intact. The paranasal sinuses, mastoid air cells, and middle ear cavities are clear. IMPRESSION: No acute intracranial abnormality. The above report was generated using voice recognition software. It may contain grammatical, syntax or spelling errors. Electronically signed by: Dany Ross M.D. 05/16/2017 8:03 PM Dictated Date/Time: 05/16/2017 8:00 PM Laboratory Results 05/16/17 19:12 Red Blood Count 5.05, Mean Corpuscular Volume 87.1, Mean Corpuscular Hemoglobin 29.7, Mean Corpuscular Hemoglobin Concent 34.1, Mean Platelet Volume 10.5, Neutrophils (%) (Auto) 86.6, Lymphocytes (%) (Auto) 7.6, Monocytes (%) (Auto) 4.4, Eosinophils (%) (Auto) 0.9, Basophils (%) (Auto) 0.2, Neutrophils # (Auto) 5.66, Lymphocytes # (Auto) 0.50, Monocytes # (Auto) 0.29, Eosinophils # (Auto) 0.06, Basophils # (Auto) 0.01 05/16/17 19:12 Test 05/16/17 18:16 05/16/17 19:12 05/16/17 19:33 05/16/17 19:39 Urine Color YELLOW Urine Appearance CLEAR (CLEAR) Urine pH 5.0 (4.5-7.5) Urine Specific [place] 1.030 (1.000-1.030) Urine Protein 2+ (NEG) Urine Glucose (UA) 2+ (NEG) Urine Ketones NEG (NEG) Urine Occult Blood NEG (NEG) Urine Nitrite NEG (NEG) Urine Bilirubin NEG (NEG) Urine Urobilinogen NEG (NEG) Urine Leukocyte Esterase TRACE (NEG) Urine WBC (Auto) 1-5 /hpf (0-5) Urine RBC (Auto) 0-4 /hpf (0-4) Urine Hyaline Casts (Auto) 1-5 /lpf (0-5) Urine Epithelial Cells (Auto) >30 /lpf (0-5) Urine Bacteria (Auto) NEG (NEG) White Blood Count 6.54 K/uL (4.8-10.8) Red Blood Count 5.05 M/uL (4.2-5.4) Hemoglobin 15.0 g/dL (12.0-16.0) Hematocrit 44.0 % (37-47) Mean Corpuscular Volume 87.1 fL (80-100) Mean Corpuscular Hemoglobin 29.7 pg (25-34) Mean Corpuscular Hemoglobin Concent 34.1 g/dl (32-36) Platelet Count 156 K/uL (130-400) Mean Platelet Volume 10.5 fL (7.4-10.4) Neutrophils (%) (Auto) 86.6 % Lymphocytes (%) (Auto) 7.6 % Monocytes (%) (Auto) 4.4 % Eosinophils (%) (Auto) 0.9 % Basophils (%) (Auto) 0.2 % Neutrophils # (Auto) 5.66 K/uL (1.4-6.5) Lymphocytes # (Auto) 0.50 K/uL (1.2-3.4) Monocytes # (Auto) 0.29 K/uL (0.11-0.59) Eosinophils # (Auto) 0.06 K/uL (0-0.5) Basophils # (Auto) 0.01 K/uL (0-0.2) RDW Standard Deviation 45.3 fL (36.4-46.3) RDW Coefficient of Variation 14.3 % (11.5-14.5) Immature Granulocyte % (Auto) 0.3 % Immature Granulocyte # (Auto) 0.02 K/uL (0.00-0.02) Anion Gap 9.0 mmol/L (3-11) Est Creatinine Clear Calc Drug Dose 60.3 ml/min Estimated GFR () 86.9 Estimated GFR (Non- 75.0 BUN/Creatinine Ratio 31.4 (10-20) Calcium Level 8.5 mg/dl (8.5-10.1) Total Bilirubin 0.5 mg/dl (0.2-1) Direct Bilirubin mg/dl (0-0.2) Aspartate Amino Transf (AST/SGOT) 32 U/L (15-37) Alanine Aminotransferase (ALT/SGPT) 32 U/L (12-78) Alkaline Phosphatase 109 U/L (45-117) Total Protein 7.3 gm/dl (6.4-8.2) Albumin 3.6 gm/dl (3.4-5.0) Lipase 113 U/L (73-393) Chemistry Specimen Hemolysis Bedside Glucose 147 mg/dl (70-90) Influenza Type A Antigen Neg for Influ A (NEG) Influenza Type B Antigen Neg for Influ B (NEG) Laboratory results per my review. Medications Administered Medications (Trade) Dose Ordered Sig/Claudia Route Start Time Stop Time Status Last Admin Dose Admin Sodium Chloride 500 ml @ 999 mls/hr Q31M STAT IV 05/16/17 17:42 05/16/17 18:12 DC 05/16/17 19:05 999 MLS/HR ED Course ED COURSE: Vital signs were reviewed and showed hypertension and tachycardia The patients medical record was reviewed The above diagnostic studies were performed and reviewed. ED treatments and interventions as stated above. 1729: The patient was evaluated in room A4. A complete history and physical examination was performed. 1741: Sodium Chloride 500 ml @ 999 mls/hr IV 1940: I reevaluated the patient, and I updated her and her family. 2051: Upon reevaluation, the patient is doing well. I recommended admission, and she refused. The daughter notes that the patient is back at baseline and has an appointment in two days.I discussed my findings with the patient and she understands and agrees with the treatment plan. Based on the patients age, coexisting illnesses, exam and lab findings the decision to treat as an outpatient was made. The patient remained stable while under my care. The patient appeared well at the time of discharge. Medical Decision Differential diagnoses includes but is not limited to toxic, metabolic, infectious, traumatic, cardiac, neurologic, hematologic, psychiatric and inflammatory etiologies. Patient is a 76-year-old female who presents to ER referred in by Dr. Sullivan as she is on suppressive antibiotics for a previous septic knee. Daughter notes that the patient has been intermittently confused today. She has been syncopal that aren't there and having conversations with people that aren't there. No new medications. No fevers. CBC along with BMP, LFTs, bilirubin and lipase was unremarkable. UA was negative. Influenza was unremarkable. Chest x-ray unremarkable. CT head was negative. EKG was unremarkable as well. I had a long discussion with the patient and her daughter. After fluids they note that she is back to baseline. They recommended observation overnight and they declined. Daughter notes that she is back to baseline this has happened multiple times before in the past. She wishes to take her mom home. I explained risk and benefits. They both agreed that they will return if anything worsens. She was discharged following informed refusal of care. Discussed with Pt/daughter concerning signs and symptoms to watch out for. Pt/ daughter was instructed to follow up with their PCP and discussed with the patient/daughter their option to return to the ED at anytime for persistent or worsening symptoms. The appropriate anticipatory guidance and out-patient management, including indications for return to the emergency department, were explained at length to the patient/daughter and understood. Medication Reconcilliation Current Medication List: was personally reviewed by me Blood Pressure Screening Patient's blood pressure: Elevated blood pressure Blood pressure disposition: Elevated BP felt to be situational Impression Primary Impression: Altered mental status, unspecified Scribe Attestation The scribe's documentation has been prepared under my direction and personally reviewed by me in its entirety. I confirm that the note above accurately reflects all work, treatment, procedures, and medical decision making performed by me. Departure Information Dispostion Home / Self-Care Referrals Sebastián Sanchez M.D. (PCP) Forms HOME CARE DOCUMENTATION FORM, IMPORTANT VISIT INFORMATION, WORK / SCHOOL INSTRUCTIONS Patient Instructions ED Confusion, My [facility] Additional Instructions Please follow up with your primary care doctor with in the next 24 hours. Any worsening of your symptoms, please return to the ED immediately. This includes any fevers greater than 100.4, worsening pain, chest pain, shortness breath, persistent nausea, vomiting, unable to eat or drink, or any other concerning signs or symptoms from your standpoint. Any fevers above 100.4 or any change in mentation please return immediately to the ER. Problem Qualifiers Primary Impression: Altered mental status, unspecified Altered mental status type: unspecified Qualified Codes: R41.82 - Altered mental status, unspecified
[2017-05-17] MEDS ORDERED: CEFD1CAP14 PO (18:11)
[2017-05-17] MEDS ORDERED: CHOL100010 PO (18:11)
[2017-05-17] MEDS ORDERED: MAGN400T6 PO (18:11)
[2017-05-17] MEDS ORDERED: SULF1TAB92 PO (18:11)
[2017-05-17] MEDS ORDERED: CRAN400C PO (18:11)
[2017-05-17] MEDS ORDERED: LVMI SC (18:11)
[2017-05-17] MEDS ORDERED: AMOX500C3 PO (18:11)
[2017-05-17] MEDS ORDERED: RANI150T2 PO (19:07)
[2017-05-17] MEDS ORDERED: NORT10CA4 PO (19:07)
[2017-05-17] MEDS ORDERED: PRVC/20 PO (19:07)
[2017-05-17] MEDS ORDERED: NRN800 PO (19:07)
[2017-05-17] MEDS ORDERED: ASPI81TA28 PO (19:15)
== END 2017-05-16 21:16 | disposition home or self-care (01) ==
LOC: C.EDB 15:45 → C.EDA 21:16
DX: R41.82 Altered mental status, unspecified (principal); E11.65 Type 2 diabetes mellitus with hyperglycemia; E11.40 Type 2 diabetes mellitus with diabetic neuropathy, unspecified; E78.5 Hyperlipidemia, unspecified; Z86.19 Personal history of other infectious and parasitic diseases; Z79.2 Long term (current) use of antibiotics; Z79.4 Long term (current) use of insulin; Z91.041 Radiographic dye allergy status; Z88.1 Allergy status to other antibiotic agents; Z88.5 Allergy status to narcotic agent; Z83.3 Family history of diabetes mellitus

== ENCOUNTER 2017-05-17 18:17 | Emergency (ER) | payer OTHER ==
[~2017-05-17] VITALS: Ht 160 cm; Wt 79.4 kg
[~2017-05-17 18:17] MED LIST changes: -AMOX250C3 PO; +AMOX500C3 PO; -ASPI81TA28 PO; +CHOL100010 PO; -CHOL20007 PO; -CRAN1CAP6 PO; +CRAN400C PO; -LACT1CAP6 PO; +SULF1TAB92 PO; -SULF400T7 PO
[2017-05-17 18:20] VITALS: TEMP 37.6; Ht 160 cm; Wt 79.4 kg
[2017-05-17] MEDS ORDERED: MoRPHine SULFATE 4 MG/ML 1 ML CARP\\VIAL IV STA (18:27)
[2017-05-17] MEDS ORDERED: ONDANSETRON INJ 2 MG/ML 2 ML VIAL IV STA (18:27)
[2017-05-17] MEDS ORDERED: SODIUM CHLORIDE 0.9% 1000ML 1,000 ML IV STA ×2 (18:27→20:10)
[2017-05-17 18:43] LABS: HEMATOCRIT 38.8 % (37-47); HEMOGLOBIN 13.4 g/dL (12.0-16.0); IG# 0.01 K/uL (0.00-0.02); LYMPH % 8.8 %; LYMPH ABS # 0.71 K/uL (1.2-3.4); MEAN CELL VOLUME 84.3 fL (80-100); MEAN CORPUSCULAR HEMOGLOBIN 29.1 pg (25-34); MEAN CORPUSCULAR HGB CONC 34.5 g/dl (32-36); MEAN PLATELET VOLUME 10.1 fL (7.4-10.4); MONO % 8.6 %; MONO ABS # 0.69 K/uL (0.11-0.59); NEUT % 82.5 %; NEUT ABS # 6.65 K/uL (1.4-6.5); PLATELET COUNT 189 K/uL (130-400); RED CELL DISTRIBUTION WIDTH SD 43.2 fL (36.4-46.3); WHITE BLOOD COUNT 8.06 K/uL (4.8-10.8)
[2017-05-17] MEDS ORDERED: GI COCKTAIL PO ONE (18:45)
--- NOTE | 2017-05-17 18:55 | DIAGNOSTIC IMAGING REPORT ---
CHEST ONE VIEW PORTABLE HISTORY: 76 years-old Female cp acute atypical chest pain with confusion COMPARISON: Chest radiograph 05/16/2017 TECHNIQUE: Portable AP view of the chest FINDINGS: Cardiomediastinal and hilar silhouettes are within normal limits. No pneumothorax, pleural effusion, focal airspace consolidation or overt pulmonary edema. Mild right hemidiaphragmatic elevation with subsegmental patchy bibasilar opacities suggesting atelectasis. Bones of the chest appear grossly intact. Cholecystectomy clips noted. Ill-defined calcifications project over the right breast. IMPRESSION: 1. Subsegmental bibasilar opacities suggest atelectasis. 2. Mild right hemidiaphragmatic elevation. The above report was generated using voice recognition software. It may contain grammatical, syntax or spelling errors. Electronically signed by: Dany Ross M.D. 05/17/2017 6:54 PM Dictated Date/Time: 05/17/2017 6:53 PM
[2017-05-17] MEDS ORDERED: NRN800 PO (19:07)
[2017-05-17] MEDS ORDERED: NORT10CA4 PO (19:07)
[2017-05-17] MEDS ORDERED: ALUMINUM/MAGNESIUM SUSP 30 ML UDC ONE (19:07)
[2017-05-17] MEDS ORDERED: RANI150T2 PO (19:07)
[2017-05-17] MEDS ORDERED: PRVC/20 PO (19:07)
[2017-05-17] MEDS ORDERED: LIDOCAINE HCL 2% VISC SOLN 20 ML UDC ONE (19:07)
[2017-05-17] MEDS ORDERED: ASPI81TA28 PO (19:15)
[2017-05-17] MEDS ORDERED: MoRPHine SULFATE 10 MG/ML CARP/VIAL IV STA (19:27)
[2017-05-17 19:28] LABS: ALBUMIN 3.5 gm/dl (3.4-5.0); ALKALINE PHOSPHATASE 102 U/L (45-117); ALT/SGPT 36 U/L (12-78); BLOOD UREA NITROGEN 20 mg/dl (7-18); CALCIUM 8.4 mg/dl (8.5-10.1); CARBON DIOXIDE 21 mmol/L (21-32); CREATININE 0.71 mg/dl (0.60-1.20); GLUCOSE 142 mg/dl (70-99); LIPASE 70 U/L (73-393); SODIUM 133 mmol/L (136-145)
[2017-05-17] MEDS ORDERED: GABAPENTIN 600 MG TAB PO STA (19:28)
--- NOTE | 2017-05-17 19:40 | DIAGNOSTIC IMAGING REPORT ---
ABD/PELVIS NO IV OR ORAL CONT CLINICAL HISTORY: 76 years-old Female presenting with rlq abd pain . TECHNIQUE: Multidetector CT of the abdomen and pelvis was performed without the use of intravenous contrast. IV contrast: None. A dose lowering technique was used consistent with the principles of ALARA (as low as reasonably achievable). COMPARISON: None. CT DOSE (mGy.cm): The estimated cumulative dose is 613.28 mGy.cm. FINDINGS: Motion artifact degrades evaluation limiting diagnostic sensitivity. 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 Additional surgical clip projects over the right lower quadrant. Lung bases: Lungs and pleural spaces clear allowing for respiratory motion artifact. Normal heart size. Coronary artery calcification. No pericardial or pleural effusion. Liver: Normal morphology. Density consistent with hepatic steatosis. Biliary: Mild biliary ductal prominence likely a reservoir effect in the post cholecystectomy state. Gallbladder surgically absent. Pancreas: Normal noncontrast appearance. Spleen: Normal noncontrast appearance. Adrenal glands: Normal noncontrast appearance. Kidneys and ureters: Normal noncontrast appearance. No nephrolithiasis. No hydronephrosis. Normal ureters. Bladder: The bladder contains an air-fluid level possibly from recent catheterization. Pelvic organs: Uterus surgically absent. No adnexal mass. Bowel: Diverticulosis of the sigmoid and descending colon. Fluid in the colon could suggest a diarrheal state. Surgical clip noted in the right lower quadrant possibly from prior appendectomy. No bowel obstruction. Small hiatal hernia suspected. Peritoneal cavity: No free fluid or intraperitoneal gas. Lymph nodes: No gross lymphadenopathy allowing for noncontrast technique. Vasculature: Atherosclerosis of the normal caliber abdominal aorta. Abdominal wall: Focal skin thickening and subcutaneous infiltration noted in the infraumbilical anterior abdominal wall. Musculoskeletal: Asymmetric atrophy of the right psoas muscle. Degenerative changes of the spine. IMPRESSION: 1. Evaluation degraded by motion artifact, which limits diagnostic sensitivity. Allowing for this, fluid in the colon suggests a diarrheal state. No bowel obstruction. 2. Surgical clip in the right lower quadrant likely from prior appendectomy. 3. Diverticulosis without evidence of diverticulitis. 4. Air-fluid level within the bladder likely relates to recent catheterization. 5. Limited skin thickening and subcutaneous infiltration in the infraumbilical anterior abdominal wall. Correlate clinically to exclude cellulitis. Electronically signed by: Rony Sanchez M.D. 05/17/2017 7:39 PM Dictated Date/Time: 05/17/2017 7:33 PM
[2017-05-17] MEDS ORDERED: GABAPENTIN 800 MG TAB PO ONE (19:45)
[2017-05-17 20:40] LABS: POTASSIUM 3.3 mmol/L (3.5-5.1)
--- NOTE | 2017-05-17 23:38 | EMERGENCY ROOM VISIT NOTE ---
History Report prepared by Deana: Juan Castro Under the Supervision of: Dr. Carlitos Jackson D.O. First contact with patient: 18:19 Stated Complaint: CONFUSION, PAIN History of Present Illness The patient is a 76 year old female who presents to the Emergency Room with complaints of constant bilateral leg pain that began today. She describes the pain as a burning and sharp sensation. The patient is accompanied by her daughter who states that the patient was in the ED recently for confusion. She states that the patient was intermittently confused for a week. Per the patient' s report, the patient was diagnosed with a UTI and was referred to admission. The patient declined admission and went home. She states the patient was back to her normal self after visiting the hospital last night. Her daughter states that the patient started to experience bilateral leg pain today that she describes as sharp. She reports that the patient has been grabbing at her groin all day and has been agitated. The patient states that she has also been experiencing a headache today. Her daughter states that she called the home health nurse this afternoon to evaluate the patient. She states that the nurse told her to come to the ED due to a concern for DVT. The patient states that she is still experiencing pain and feels as if "she needs to move them". She reports that her feet are worse now than they were before. The patient's daughter states that the patient has a history of neuropathy, which she takes Gabapentin for. She states that the patient missed her 3 doses of gabapentin since yesterday. The patient states that her symptoms she is experiencing now is similar to her neuropathy symptoms. The patient denies headache, change in vision, fevers, chest pain, shortness of breath, nausea, vomiting, diarrhea, pain with urination, and melena. Source of History: patient, family Onset: this morning Position: leg (bilateral) Quality: burning, sharp Timing: constant Associated Symptoms: No fevers, No headache, No chest pain, No SOB, No nausea, No vomiting, No melena, No diarrhea, No urinary symptoms Review of Systems See HPI for pertinent positives & negatives. A total of 10 systems reviewed and were otherwise negative. Past Medical & Surgical Medical Problems: (1) DIAB W NEURO MANIFEST, TYPE II OR UNSPEC TYPE, UNCONTROLLED (2) Diabetic foot infection (3) Diabetic neuropathy (4) HYPERLIPIDEMIA NEC/NOS (5) SCIATICA Family History Diabetes mellitus Social History Smoking Status: Never Smoker Alcohol Use: none Drug Use: none Marital Status: Housing Status: lives with significant other Occupation Status: unemployed Current/Historical Medications Scheduled Amoxicillin (Amoxil), 500 MG PO UD Aspirin (Aspirin Ec), 81 MG PO DAILY Cefdinir (Omnicef), 300 MG PO UD Cholecalciferol (Vitamin D), 2,000 INTER.UNIT PO DAILY Cranberry (Vaccinium Macrocarp (Cranberry), 2-3 CAP PO DAILY Gabapentin (Gabapentin), 800 MG PO TID Insulin Detemir (Levemir), 24 UNITS SC QAM Magnesium Oxide (Mag-Ox), 400 MG PO DAILY Nortriptyline HCl (Nortriptyline HCl), 10 MG PO HS Pravastatin Sod (Pravastatin Sodium), 20 MG PO QPM Ranitidine HCl (Ranitidine HCl), 150 MG PO BID Trimethoprim/Sulfamethoxazole (Bactrim 400MG/80MG), 1 TAB PO UD Allergies Coded Allergies: Iodinated Diagnostic Agents (Verified Allergy, Unknown, HIVES AND HOT FLASHES, 05/16/17) Macrolides (Verified Allergy, Unknown, ERYTHROMYCIN, 05/16/17) Oxycodone (Verified Adverse Reaction, Severe, CONFUSION LAKSHMI WHEN SHE TAKES 2 TABS- , 05/16/17) PT HAD TO COME TO ED AFTER TAKING 2 TABS -SO CONFUSED Physical Exam Vital Signs Date Time Temp Pulse Resp B/P (MAP) Pulse Ox O2 Delivery O2 Flow Rate FiO2 05/17/17 22:46 94 05/17/17 22:30 95 17 136/69 94 Room Air 05/17/17 21:47 100 20 134/64 96 Room Air 05/17/17 21:00 104 16 150/69 96 Nasal Cannula 2.0 05/17/17 20:33 107 20 150/125 96 Nasal Cannula 2.0 05/17/17 20:31 107 05/17/17 20:19 109 16 95 Room Air 05/17/17 19:53 110 24 169/88 98 Room Air 05/17/17 19:17 99 20 182/94 100 Room Air 05/17/17 18:20 37.6 118 24 168/113 100 Room Air Physical Exam GENERAL: Sitting up in bed, in mild distress, complaining of leg pain EYE EXAM: normal conjunctiva. PERRL and EOM's grossly intact. OROPHARYNX: no exudate, no erythema, lips, buccal mucosa, and tongue normal and mucous membranes are moist NECK: supple, no nuchal rigidity, no adenopathy, non-tender LUNGS: Clear to auscultation. Normal chest wall mechanics HEART: tachycardic, no murmurs, S1 normal and S2 normal ABDOMEN: abdomen soft, non-tender, normo-active bowel sounds, no masses, no rebound or guarding. BACK: Back is symmetrical on inspection and there is no deformity, no midline tenderness, no CVA tenderness. SKIN: no rashes and no bruising UPPER EXTREMITIES: upper extremities are grossly normal. LOWER EXTREMITIES: No pitting edema. Flexion and extension of hip, knee, ankle, and EHL 5/5, gross sensation intact. NEURO EXAM: Normal sensorium, Alert and Oriented to person, place, and year, cranial nerves II-XII intact, normal speech, no weakness of arms, no weakness of legs. Gross sensation intact. Medical Decision & Procedures ER Provider Diagnostic Interpretation: Radiology results as stated below per my review and the radiologist's interpretation: ABD/PELVIS NO IV OR ORAL CONT CLINICAL HISTORY: 76 years-old Female presenting with rlq abd pain . TECHNIQUE: Multidetector CT of the abdomen and pelvis was performed without the use of intravenous contrast. IV contrast: None. A dose lowering technique was used consistent with the principles of ALARA (as low as reasonably achievable). COMPARISON: None. CT DOSE (mGy.cm): The estimated cumulative dose is 613.28 mGy.cm. FINDINGS: Motion artifact degrades evaluation limiting diagnostic sensitivity. Deckhand Clam Dredge topogram: Cholecystectomy clips. Additional surgical clip projects over the right lower quadrant. Lung bases: Lungs and pleural spaces clear allowing for respiratory motion artifact. Normal heart size. Coronary artery calcification. No pericardial or pleural effusion. Liver: Normal morphology. Density consistent with hepatic steatosis. Biliary: Mild biliary ductal prominence likely a reservoir effect in the post cholecystectomy state. Gallbladder surgically absent. Pancreas: Normal noncontrast appearance. Spleen: Normal noncontrast appearance. Adrenal glands: Normal noncontrast appearance. Kidneys and ureters: Normal noncontrast appearance. No nephrolithiasis. No hydronephrosis. Normal ureters. Bladder: The bladder contains an air-fluid level possibly from recent catheterization. Pelvic organs: Uterus surgically absent. No adnexal mass. Bowel: Diverticulosis of the sigmoid and descending colon. Fluid in the colon could suggest a diarrheal state. Surgical clip noted in the right lower quadrant possibly from prior appendectomy. No bowel obstruction. Small hiatal hernia suspected. Peritoneal cavity: No free fluid or intraperitoneal gas. Lymph nodes: No gross lymphadenopathy allowing for noncontrast technique. Vasculature: Atherosclerosis of the normal caliber abdominal aorta. Abdominal wall: Focal skin thickening and subcutaneous infiltration noted in the infraumbilical anterior abdominal wall. Musculoskeletal: Asymmetric atrophy of the right psoas muscle. Degenerative changes of the spine. IMPRESSION: 1. Evaluation degraded by motion artifact, which limits diagnostic sensitivity. Allowing for this, fluid in the colon suggests a diarrheal state. No bowel obstruction. 2. Surgical clip in the right lower quadrant likely from prior appendectomy. 3. Diverticulosis without evidence of diverticulitis. 4. Air-fluid level within the bladder likely relates to recent catheterization. 5. Limited skin thickening and subcutaneous infiltration in the infraumbilical anterior abdominal wall. Correlate clinically to exclude cellulitis. Electronically signed by: Rony Sanchez M.D. 05/17/2017 7:39 PM Dictated Date/Time: 05/17/2017 7:33 PM CHEST ONE VIEW PORTABLE HISTORY: 76 years-old Female cp acute atypical chest pain with confusion COMPARISON: Chest radiograph 05/16/2017 TECHNIQUE: Portable AP view of the chest FINDINGS: Cardiomediastinal and hilar silhouettes are within normal limits. No pneumothorax, pleural effusion, focal airspace consolidation or overt pulmonary edema. Mild right hemidiaphragmatic elevation with subsegmental patchy bibasilar opacities suggesting atelectasis. Bones of the chest appear grossly intact. Cholecystectomy clips noted. Ill-defined calcifications project over the right breast. IMPRESSION: 1. Subsegmental bibasilar opacities suggest atelectasis. 2. Mild right hemidiaphragmatic elevation. The above report was generated using voice recognition software. It may contain grammatical, syntax or spelling errors. Electronically signed by: Dany Ross M.D. 05/17/2017 6:54 PM Dictated Date/Time: 05/17/2017 6:53 PM Laboratory Results 05/17/17 18:30 Red Blood Count 4.60, Mean Corpuscular Volume 84.3, Mean Corpuscular Hemoglobin 29.1, Mean Corpuscular Hemoglobin Concent 34.5, Mean Platelet Volume 10.1, Neutrophils (%) (Auto) 82.5, Lymphocytes (%) (Auto) 8.8, Monocytes (%) (Auto) 8.6, Eosinophils (%) (Auto) 0.0, Basophils (%) (Auto) 0.0, Neutrophils # (Auto) 6.65, Lymphocytes # (Auto) 0.71, Monocytes # (Auto) 0.69, Eosinophils # (Auto) 0.00, Basophils # (Auto) 0.00 05/17/17 18:30 05/17/17 20:02 Test 05/17/17 18:30 05/17/17 20:02 White Blood Count 8.06 K/uL (4.8-10.8) Red Blood Count 4.60 M/uL (4.2-5.4) Hemoglobin 13.4 g/dL (12.0-16.0) Hematocrit 38.8 % (37-47) Mean Corpuscular Volume 84.3 fL (80-100) Mean Corpuscular Hemoglobin 29.1 pg (25-34) Mean Corpuscular Hemoglobin Concent 34.5 g/dl (32-36) Platelet Count 189 K/uL (130-400) Mean Platelet Volume 10.1 fL (7.4-10.4) Neutrophils (%) (Auto) 82.5 % Lymphocytes (%) (Auto) 8.8 % Monocytes (%) (Auto) 8.6 % Eosinophils (%) (Auto) 0.0 % Basophils (%) (Auto) 0.0 % Neutrophils # (Auto) 6.65 K/uL (1.4-6.5) Lymphocytes # (Auto) 0.71 K/uL (1.2-3.4) Monocytes # (Auto) 0.69 K/uL (0.11-0.59) Eosinophils # (Auto) 0.00 K/uL (0-0.5) Basophils # (Auto) 0.00 K/uL (0-0.2) RDW Standard Deviation 43.2 fL (36.4-46.3) RDW Coefficient of Variation 14.0 % (11.5-14.5) Immature Granulocyte % (Auto) 0.1 % Immature Granulocyte # (Auto) 0.01 K/uL (0.00-0.02) Anion Gap 10.0 mmol/L (3-11) Est Creatinine Clear Calc Drug Dose 67.2 ml/min Estimated GFR () 95.9 Estimated GFR (Non- 82.7 BUN/Creatinine Ratio 28.0 (10-20) Calcium Level 8.4 mg/dl (8.5-10.1) Total Bilirubin 0.5 mg/dl (0.2-1) Alanine Aminotransferase (ALT/SGPT) 36 U/L (12-78) Alkaline Phosphatase 102 U/L (45-117) Troponin I < 0.015 ng/ml (0-0.045) Total Protein 7.0 gm/dl (6.4-8.2) Albumin 3.5 gm/dl (3.4-5.0) Lipase 70 U/L (73-393) Direct Bilirubin 0.3 mg/dl (0-0.2) Aspartate Amino Transf (AST/SGOT) 119 U/L (15-37) Laboratory results per my review. Medications Administered Medications (Trade) Dose Ordered Sig/Claudia Route Start Time Stop Time Status Last Admin Dose Admin Morphine Sulfate (MoRPHine SULFATE INJ) 4 mg NOW STAT IV 05/17/17 18:27 05/17/17 18:28 DC 05/17/17 18:43 4 MG Ondansetron HCl (Zofran Inj) 4 mg NOW STAT IV 05/17/17 18:27 05/17/17 18:28 DC 05/17/17 18:42 4 MG Sodium Chloride 1,000 ml @ 999 mls/hr Q1H1M STAT IV 05/17/17 18:27 05/17/17 19:27 DC 05/17/17 18:43 999 MLS/HR Al Hydroxide/Mg Hydroxide (Maalox Susp) 30 ml STK-MED ONCE .ROUTE 05/17/17 19:07 05/17/17 19:08 DC 05/17/17 19:15 30 ML Lidocaine HCl (Viscous Lidocaine 2% Soln) 20 ml STK-MED ONCE .ROUTE 05/17/17 19:07 05/17/17 19:08 DC 05/17/17 19:15 20 ML Morphine Sulfate (MoRPHine SULFATE INJ) 6 mg NOW STAT IV 05/17/17 19:27 05/17/17 19:28 DC 05/17/17 19:56 6 MG Gabapentin (Neurontin Tab) 800 mg NOW ONCE PO 05/17/17 19:45 05/17/17 19:46 DC 05/17/17 19:57 800 MG Sodium Chloride 1,000 ml @ 999 mls/hr Q1H1M STAT IV 05/17/17 20:10 05/17/17 21:10 DC 05/17/17 20:18 999 MLS/HR ECG Indication: weakness Rate (beats per minute): 107 Rhythm: sinus tachycardia Findings: 1st degree AV block, Q waves (Septal), left axis deviation, other ( poor baseline) Comparison ECG Date: 04/15/16 Change: no significant change ED Course ED COURSE: Vital signs were reviewed and showed tachycardic, hypertensive The patients medical record was reviewed The above diagnostic studies were performed and reviewed. ED treatments and interventions as stated above. 1817: The patient was evaluated in room B09. A complete history and physical examination was performed. 2010: I reevaluated the patient and she is resting comfortably. The patient's daughter requested another liter of fluid. After the patient has her fluid she will be able to go home. 8: Upon reevaluation, the patient is more awake and has been hypoxic for an hour. I discussed my findings with the patient and she understands and agrees with the treatment plan. Based on the patients age, coexisting illnesses, exam and lab findings the decision to treat as an outpatient was made. The patient remained stable while under my care. The patient appeared well at the time of discharge. Medical Decision Prior records reviewed and summarized above. Triage Nursing notes reviewed. Additional history obtained from the family. The patient's history was concerning for swelling and pain in the leg. Differential diagnosis: Etiologies such as DVT, musculoskeletal, infection, joint effusion, trauma, lymphedema, idiopathic, CHF, as well as others were entertained. Patient is a 76-year-old female who presents to the ER for bilateral leg pain. She was here yesterday for confusion. At that time showed a complete workup on her confusion resolved. I recommended admission but they declined. Since she was here in the ER she missed 3 doses of gabapentin. She is now complaining of severe bilateral leg burning and she feels as though she is to keep moving them. She notes that this feels like her previous neuropathy although she has not had this for a long time. CBC was unremarkable. BMP with LFTs, bilirubin and lipase were remarkable for an AST of 119. Chest x-ray and CT abdomen pelvis were unremarkable for any acute pathology. EKG was unchanged from previous. Patient was given a total of 10 mg of morphine. She did become slightly hypoxic. She was observed in the ER for 5 hours. The hypoxia resolved and she was watched for an additional hour following this. Consider DVT but based on presentation and history feel this is very consistent with neuropathy. She was discharged comfortably home per patient and family's request again. She was at baseline mentally. She will restart her gabapentin tomorrow morning. Discussed with Pt concerning signs and symptoms to watch out for. Pt was instructed to follow up with their PCP and discussed with the patient their option to return to the ED at anytime for persistent or worsening symptoms. The appropriate anticipatory guidance and out-patient management, including indications for return to the emergency department, were explained at length to the patient and understood. Medication Reconcilliation Current Medication List: was personally reviewed by me Blood Pressure Screening Patient's blood pressure: Elevated blood pressure Blood pressure disposition: Elevated BP felt to be situational Impression Primary Impression: Neuropathy Additional Impression: Bilateral leg pain Scribe Attestation The scribe's documentation has been prepared under my direction and personally reviewed by me in its entirety. I confirm that the note above accurately reflects all work, treatment, procedures, and medical decision making performed by me. Departure Information Dispostion Home / Self-Care Referrals Sebastián Sanchez M.D. (PCP) Forms HOME CARE DOCUMENTATION FORM, IMPORTANT VISIT INFORMATION Patient Instructions ED Neuropathy Peripheral, My [facility] Additional Instructions Please follow up with your primary care doctor with in the next 24 hours. Any worsening of your symptoms, please return to the ED immediately. This includes any fevers greater than 100.4, worsening pain, chest pain, shortness breath, persistent nausea, vomiting, unable to eat or drink, or any other concerning signs or symptoms from your standpoint. Tomorrow morning please restart your Neurontin at the regular dosing. Please continue pain medications tomorrow morning as well. Problem Qualifiers
[2017-05-17 23:40] VITALS: BP 164/90; PULSE 102; O2SAT 96
== END 2017-05-17 23:42 | disposition home or self-care (01) ==
LOC: EDBD 18:17 → C.EDB 18:18
DX: E11.40 Type 2 diabetes mellitus with diabetic neuropathy, unspecified (principal); E78.5 Hyperlipidemia, unspecified; R51 Headache; Z83.3 Family history of diabetes mellitus; Z79.82 Long term (current) use of aspirin; Z79.899 Other long term (current) drug therapy

== ENCOUNTER → 2017-05-19 | Outpatient (CLI) | payer OTHER ==
[~2017-05-19] MED LIST changes: +ACET-1047 PO; +ASPI81TA28 PO; -GABA800T PO; +KFL500HP PO; +LEVO1TAB35 PO; +MISCCAP80 PO; -NORT10CA2 PO; +NORT10CA4 PO; +NRN800 PO; -PRAV20TA PO; +PRVC/20 PO; +RANI150T2 PO; -RANI150T85 PO; +SULF400T7 PO; +ULT50X PO
== END | disposition home or self-care (01) ==
LOC: C.RDSM 16:33
PROVIDERS: ATTEND Podiatrist
DX: E11.621 Type 2 diabetes mellitus with foot ulcer (principal); L60.0 Ingrowing nail

== ENCOUNTER 2017-05-25 14:22 | Inpatient (IN) | payer OTHER ==
[~2017-05-25] VITALS: Ht 157.5 cm; Wt 75.0 kg
[~2017-05-25 14:22] MED LIST changes: -ACET-1047 PO; -ASPI81TA28 PO; -CHOL100010 PO; -CRAN400C PO; -KFL500HP PO; -LEVO1TAB35 PO; -LVMI SC; -MAGN400T6 PO; -MISCCAP80 PO; -NORT10CA4 PO; -NRN800 PO; -PRVC/20 PO; -RANI150T2 PO; -SULF400T7 PO; -ULT50X PO
[2017-05-25] MEDS ORDERED: VANCOMYCIN INJ 1,500 MG in SODIUM CHLORIDE 0.9% 500ML 500 ML IV STA (15:49)
[2017-05-25] MEDS ORDERED: VANCOMYCIN CONSULT ACTIVE PRN ×2 (16:00→18:00)
[2017-05-25] MEDS ORDERED: MoRPHine SULFATE 4 MG/ML 1 ML CARP\\VIAL IV STA (16:45)
[2017-05-25 16:52] LABS: BASO % 0.3 %; BASO ABS # 0.02 K/uL (0-0.2); EOS % 3.4 %; EOS ABS # 0.24 K/uL (0-0.5); HEMATOCRIT 38.3 % (37-47); HEMOGLOBIN 13.2 g/dL (12.0-16.0); IG# 0.01 K/uL (0.00-0.02); LYMPH % 18.2 %; LYMPH ABS # 1.27 K/uL (1.2-3.4); MEAN CELL VOLUME 84.9 fL (80-100); MEAN CORPUSCULAR HEMOGLOBIN 29.3 pg (25-34); MEAN CORPUSCULAR HGB CONC 34.5 g/dl (32-36); MONO % 9.8 %; MONO ABS # 0.68 K/uL (0.11-0.59); NEUT % 68.2 %; NEUT ABS # 4.74 K/uL (1.4-6.5); PLATELET COUNT 272 K/uL (130-400); RED CELL DISTRIBUTION WIDTH CV 13.7 % (11.5-14.5); RED CELL DISTRIBUTION WIDTH SD 42.4 fL (36.4-46.3); WHITE BLOOD COUNT 6.96 K/uL (4.8-10.8)
[2017-05-25] MEDS ORDERED: KFL500HP PO (17:11)
[2017-05-25] MEDS ORDERED: MISCCAP80 PO (17:11)
[2017-05-25 17:22] LABS: ALBUMIN 3.5 gm/dl (3.4-5.0); CALCIUM 9.8 mg/dl (8.5-10.1); CREATININE 0.83 mg/dl (0.60-1.20); POTASSIUM 4.5 mmol/L (3.5-5.1); TOTAL PROTEIN 8.2 gm/dl (6.4-8.2)
--- NOTE | 2017-05-25 17:30 | EMERGENCY ROOM VISIT NOTE ---
History Report prepared by Deana: Praveen Martinez Under the Supervision of: Dr. Juan C Gregorio D.O. First contact with patient: 15:41 Chief Complaint: LEG PAIN,LEG INJURY Stated Complaint: RED,HOT,SWOLLEN LEG/FOOT WITH SHOOTING PAIN History of Present Illness The patient is a 76 year old female who presents to the Emergency Room with complaints of severe and worsening pain and swelling in her left foot that began on Tuesday, four days prior to arrival. The Patient's daughter notes that she first noticed the swelling on Tuesday, and took her to the Donor Relations Coordinator on Tuesday. On Tuesday the patient had an in-grown toenail removed. After the ingrown toenail removal she was given Keflex 3x per day for 7 days. The daughter also notes that since 2011 the patient has been on a rotation of chronic antibiotics due to an infection in a knee replacement in the left leg. She rotates on Amoxicillin 500 mg, Bactrim, and Cefdinir 300 mg for 7 day periods. This rotation was stopped and the Keflex was started when she saw the valet parking attendant. The daughter added that the patient is currently running a subjective fever of 99.4 degrees. She has been having chills as well. Source of History: patient, transfer records Onset: Four days prior to arrival Position: foot (left) Symptom Intensity: severe Quality: other (Swelling) Timing: worsening Associated Symptoms: + chills Review of Systems See HPI for pertinent positives & negatives. A total of 10 systems reviewed and were otherwise negative. Past Medical & Surgical Medical Problems: (1) Cellulitis of left lower extremity (2) DIAB W NEURO MANIFEST, TYPE II OR UNSPEC TYPE, UNCONTROLLED (3) Diabetic foot infection (4) Diabetic neuropathy (5) HYPERLIPIDEMIA NEC/NOS (6) Osteomyelitis of left lower extremity (7) SCIATICA Family History Diabetes mellitus Social History Smoking Status: Never Smoker Alcohol Use: none Drug Use: none Marital Status: Housing Status: lives with significant other Occupation Status: unemployed Current/Historical Medications Scheduled Amoxicillin (Amoxil), 500 MG PO UD Aspirin (Aspirin Ec), 81 MG PO DAILY Cefdinir (Omnicef), 300 MG PO UD Cephalexin Monohydrate (Cephalexin), 1 TAB PO TID Cranberry (Vaccinium Macrocarp (Cranberry), 2-3 CAP PO DAILY Gabapentin (Gabapentin), 800 MG PO TID Insulin Detemir (Levemir), 24 UNITS SC QAM Nortriptyline HCl (Nortriptyline HCl), 10 MG PO HS Pravastatin Sod (Pravastatin Sodium), 20 MG PO QPM Probiotic Product (Probiotic), 1 CAP PO Q2D Ranitidine HCl (Ranitidine HCl), 150 MG PO BID Trimethoprim/Sulfamethoxazole (Bactrim 400MG/80MG), 1 TAB PO UD Allergies Coded Allergies: Iodinated Diagnostic Agents (Verified Allergy, Unknown, HIVES AND HOT FLASHES, 05/16/17) Macrolides (Verified Allergy, Unknown, ERYTHROMYCIN, 05/16/17) Oxycodone (Verified Adverse Reaction, Severe, CONFUSION LAKSHMI WHEN SHE TAKES 2 TABS- , 05/16/17) PT HAD TO COME TO ED AFTER TAKING 2 TABS -SO CONFUSED Physical Exam Vital Signs Date Time Temp Pulse Resp B/P (MAP) Pulse Ox O2 Delivery O2 Flow Rate FiO2 05/25/17 17:15 94 22 162/101 97 Room Air 05/25/17 16:25 97 05/25/17 16:15 96 15 173/87 97 05/25/17 14:26 36.7 97 20 177/94 99 Room Air Physical Exam CONSTITUTIONAL/VITAL SIGNS: Reviewed / noted above. GENERAL: Non-toxic in appearance. INTEGUMENTARY: Warm, dry, and [place]. HEAD: Normocephalic. EYES: without scleral icterus or trauma. ENT/OROPHARYNX: clear and moist. LYMPHADENOPATHY/NECK: Is supple without lymphadenopathy or meningismus. RESPIRATORY: Lungs clear and equal. CARDIOVASCULAR: Regular rate and rhythm. GI/ABDOMEN: Soft and nontender. No organomegaly or pulsatile mass. No rebound or guarding. Normal bowel sounds. EXTREMITIES: There is erythema to the right foot and distal leg. There is evidence of a recent ingrown toenail removed from the first left great toe. BACK: No CVA tenderness. NEUROLOGICAL: Intact without focal deficits. PSYCHIATRIC: normal affect. MUSCULOSKELETAL: Normally developed with good muscle tone. Medical Decision & Procedures Laboratory Results 05/25/17 16:33 Red Blood Count 4.51, Mean Corpuscular Volume 84.9, Mean Corpuscular Hemoglobin 29.3, Mean Corpuscular Hemoglobin Concent 34.5, Mean Platelet Volume 10.0, Neutrophils (%) (Auto) 68.2, Lymphocytes (%) (Auto) 18.2, Monocytes (%) (Auto) 9.8, Eosinophils (%) (Auto) 3.4, Basophils (%) (Auto) 0.3, Neutrophils # (Auto) 4.74, Lymphocytes # (Auto) 1.27, Monocytes # (Auto) 0.68, Eosinophils # (Auto) 0.24, Basophils # (Auto) 0.02 05/25/17 16:33 Test 05/25/17 16:33 White Blood Count 6.96 K/uL (4.8-10.8) Red Blood Count 4.51 M/uL (4.2-5.4) Hemoglobin 13.2 g/dL (12.0-16.0) Hematocrit 38.3 % (37-47) Mean Corpuscular Volume 84.9 fL (80-100) Mean Corpuscular Hemoglobin 29.3 pg (25-34) Mean Corpuscular Hemoglobin Concent 34.5 g/dl (32-36) Platelet Count 272 K/uL (130-400) Mean Platelet Volume 10.0 fL (7.4-10.4) Neutrophils (%) (Auto) 68.2 % Lymphocytes (%) (Auto) 18.2 % Monocytes (%) (Auto) 9.8 % Eosinophils (%) (Auto) 3.4 % Basophils (%) (Auto) 0.3 % Neutrophils # (Auto) 4.74 K/uL (1.4-6.5) Lymphocytes # (Auto) 1.27 K/uL (1.2-3.4) Monocytes # (Auto) 0.68 K/uL (0.11-0.59) Eosinophils # (Auto) 0.24 K/uL (0-0.5) Basophils # (Auto) 0.02 K/uL (0-0.2) RDW Standard Deviation 42.4 fL (36.4-46.3) RDW Coefficient of Variation 13.7 % (11.5-14.5) Immature Granulocyte % (Auto) 0.1 % Immature Granulocyte # (Auto) 0.01 K/uL (0.00-0.02) Anion Gap 6.0 mmol/L (3-11) Est Creatinine Clear Calc Drug Dose 54.7 ml/min Estimated GFR () 79.4 Estimated GFR (Non- 68.5 BUN/Creatinine Ratio 16.1 (10-20) Calcium Level 9.8 mg/dl (8.5-10.1) Total Bilirubin 0.4 mg/dl (0.2-1) Direct Bilirubin mg/dl (0-0.2) Aspartate Amino Transf (AST/SGOT) 34 U/L (15-37) Alanine Aminotransferase (ALT/SGPT) 41 U/L (12-78) Alkaline Phosphatase 134 U/L (45-117) Total Protein 8.2 gm/dl (6.4-8.2) Albumin 3.5 gm/dl (3.4-5.0) Chemistry Specimen Hemolysis Laboratory results as stated above per my review. Medications Administered Medications (Trade) Dose Ordered Sig/Claudia Route Start Time Stop Time Status Last Admin Dose Admin Vancomycin HCl 1500 mg/Sodium Chloride 530 ml @ 200 mls/hr ONE STAT IV 05/25/17 15:49 05/25/17 18:27 05/25/17 16:40 200 MLS/HR Morphine Sulfate (MoRPHine SULFATE INJ) 4 mg NOW STAT IV 05/25/17 16:45 05/25/17 16:47 DC 05/25/17 17:12 4 MG ED Course 1543: Previous medical records were reviewed. The patient was evaluated in room A2. A complete history and physical examination was performed. 1549: Ordered Vancomycin HCl 530 mL @ 200 mL/hr IV. 1645: Ordered Morphine Sulfate 4 mg IV. 1712: I discussed the case with Yusra Galaviz. She will evaluate the patient for further treatment. Medical Decision Differential includes cellulitis, osteomyelitis, systemic infection. This is a 76-year-old female who presents to the ED with a chief complaint of left foot and leg discomfort and redness. The patient was started on Keflex 3 days ago. She also had an ingrown toenail removed. The patient's symptoms worsened over the past several days and she saw her valet parking attendant again today who did an x-ray that revealed first distal phalanx osteomyelitis. The patient's exam reveals erythema and edema to the distal left leg and foot as well as some postsurgical changes of the left great toe. CBC is normal. Chemistry panel was unremarkable. The patient was given IV morphine for pain and IV vancomycin. I spoke with the hospitalist, who will see the patient for further inpatient evaluation and care. Consults Time Called: 165 Consulting Physician: Orthopedics Returned Call: 1700 I discussed the case with orthopedics at this time. They stated that they are not on-call and I should call [facility]. Additional Consults: Time Called: 170 Consulted Physician: Yusra Galaviz Returned Call: 171 Additional Comments: I discussed the case with Yusra Galaviz. She will evaluate the patient for further treatment. Impression Primary Impression: Osteomyelitis of ankle or foot, left, acute Additional Impression: Cellulitis of leg, left Scribe Attestation The scribe's documentation has been prepared under my direction and personally reviewed by me in its entirety. I confirm that the note above accurately reflects all work, treatment, procedures, and medical decision making performed by me. Departure Information Dispostion Being Evaluated By Hospitalist Referrals Sebastián Sanchez M.D. (PCP) Patient Instructions My [facility] Problem Qualifiers
--- NOTE | 2017-05-25 17:59 | History and Physical ---
History & Physical Date & Time of Service: May 25, 2017 at 17:55 Chief Complaint: Red,Hot,Swollen Leg/Foot With Shooting Pain Primary Care Physician: Sebastián Sanchez M.D. History of Present Illness Source: patient, family This is a 76 yo F with PMHx of DM II with diabetic neuropathy, hx of chronic antibiotic use for recurrent L knee replacement and UTIs per Dr. Sullivan, rotating on Bactrim, cefdinir, and amoxicillin and most recently was on Bactrim, HLD, GERD and Vit D deficiency who presents to the ER with worsening Left foot/great toe erythema and edema which began on Tuesday. She was seen in office by podiatry, Dr. Jolley on Tuesday and was placed on a 7 day course of keflex for Left great toe ingrown toenail, and told to stop her other rotating antibiotics. She was then seen today by Dr. Reddy for the increasing pain. An MRI of the LLE was done and showed osteomyelitis which was confirmed by the pt's outside cutter. The patient has had multiple amputations of the toes for nonhealing diabetic ulcers by podiatry, the most recent was only about 2 months ago. She admits to some chills and sweats. She notes the redness has increased in the past 24 hours. Her pain at this time is significant despite IV morphine which was administered within the hour. Here in the ER pt VSS, she has no leukocytosis, and CMP is wnl. Past Medical/Surgical History Medical Problems: (1) DIAB W NEURO MANIFEST, TYPE II OR UNSPEC TYPE, UNCONTROLLED (2) Diabetic foot infection (3) Diabetic neuropathy (4) HYPERLIPIDEMIA NEC/NOS (5) SCIATICA Chronic Left knee infection Recurrent UTIs GERD Vit D Deficiency Surgical Hx: Multiple toe amputations Cholecystectomy Hysterectomy w/ oophrectomy Left knee replacement Repair of ruptured achilles tendon Shoulder surgery Sinus surgery Family History Diabetes mellitus Social History Smoking Status: Never Smoker Smokeless Tobacco Use: No Drug Use: none Marital Status: Housing status: lives with family Occupational Status: unemployed Immunizations History of Influenza Vaccine: Yes Influenza Vaccine Date: Jan 13, 2012 History of Tetanus Vaccine?: Yes History of Pneumococcal: Unknown History of Hepatitis B Vaccine: Yes Multi-Drug Resistant Organisms History of MDRO: Yes Type of MDRO: MRSA Allergies Coded Allergies: Iodinated Diagnostic Agents (Verified Allergy, Unknown, HIVES AND HOT FLASHES, 05/16/17) Macrolides (Verified Allergy, Unknown, ERYTHROMYCIN, 05/16/17) Oxycodone (Verified Adverse Reaction, Severe, CONFUSION LAKSHMI WHEN SHE TAKES 2 TABS- , 05/16/17) PT HAD TO COME TO ED AFTER TAKING 2 TABS -SO CONFUSED Home Medications Scheduled Amoxicillin (Amoxil), 500 MG PO UD Aspirin (Aspirin Ec), 81 MG PO DAILY Cefdinir (Omnicef), 300 MG PO UD Cephalexin Monohydrate (Cephalexin), 1 TAB PO TID Cranberry (Vaccinium Macrocarp (Cranberry), 2-3 CAP PO DAILY Gabapentin (Gabapentin), 800 MG PO TID Insulin Detemir (Levemir), 24 UNITS SC QAM Nortriptyline HCl (Nortriptyline HCl), 10 MG PO HS Pravastatin Sod (Pravastatin Sodium), 20 MG PO QPM Probiotic Product (Probiotic), 1 CAP PO Q2D Ranitidine HCl (Ranitidine HCl), 150 MG PO BID Trimethoprim/Sulfamethoxazole (Bactrim 400MG/80MG), 1 TAB PO UD Review of Systems Constitutional: + fever, + chills, + sweats, No fatigue ENT: No unusual epistaxis, No nasal symptoms Respiratory: No cough, No sputum, No wheezing Cardiovascular: No chest pain, No edema, No claudication Abdomen: No pain, No nausea, No vomiting, No diarrhea, No constipation Musculoskeletal: + swelling, + problem reported (See HPI), No joint pain Neurologic: + problem reported (neuropathy in BLE), No numbness/tingling Psychiatric: No depression symptoms, No anxiety Endocrine: No fatigue Integumentary: No rash, No itch Physical Exam Vital Signs Date Time Temp Pulse Resp B/P (MAP) Pulse Ox O2 Delivery O2 Flow Rate FiO2 05/25/17 17:15 94 22 162/101 97 Room Air 05/25/17 16:25 97 05/25/17 16:15 96 15 173/87 97 05/25/17 14:26 36.7 97 20 177/94 99 Room Air General Appearance: WD/WN, + mild distress Head: normocephalic, atraumatic ENT: hearing grossly normal, pharynx normal, + pertinent finding (mucous membranes very dry) Neck: supple, no JVD Respiratory/Chest: lungs clear, no respiratory distress, no accessory muscle use, + pertinent finding (on RA) Cardiovascular: regular rate, rhythm, no murmur, normal peripheral pulses Abdomen/GI: normal bowel sounds, non tender, soft Back: normal inspection Extremities/Musculoskelatal: + pertinent finding (LLE great toe with splitting of the skin on medial aspect, + erythema tracking up the LLE to mid tibial range circumferentially, + warmth) Neurologic/Psych: alert, oriented x 3, + pertinent finding Skin: normal color, warm/dry Diagnostics Laboratory Results Results Past 24 Hours Test 05/25/17 16:33 Range/Units White Blood Count 6.96 4.8-10.8 K/uL Red Blood Count 4.51 4.2-5.4 M/uL Hemoglobin 13.2 12.0-16.0 g/dL Hematocrit 38.3 37-47 % Mean Corpuscular Volume 84.9 80-100 fL Mean Corpuscular Hemoglobin 29.3 25-34 pg Mean Corpuscular Hemoglobin Concent 34.5 32-36 g/dl Platelet Count 272 130-400 K/uL Mean Platelet Volume 10.0 7.4-10.4 fL Neutrophils (%) (Auto) 68.2 % Lymphocytes (%) (Auto) 18.2 % Monocytes (%) (Auto) 9.8 % Eosinophils (%) (Auto) 3.4 % Basophils (%) (Auto) 0.3 % Neutrophils # (Auto) 4.74 1.4-6.5 K/uL Lymphocytes # (Auto) 1.27 1.2-3.4 K/uL Monocytes # (Auto) 0.68 0.11-0.59 K/uL Eosinophils # (Auto) 0.24 0-0.5 K/uL Basophils # (Auto) 0.02 0-0.2 K/uL RDW Standard Deviation 42.4 36.4-46.3 fL RDW Coefficient of Variation 13.7 11.5-14.5 % Immature Granulocyte % (Auto) 0.1 % Immature Granulocyte # (Auto) 0.01 0.00-0.02 K/uL Sodium Level 135 136-145 mmol/L Potassium Level 4.5 3.5-5.1 mmol/L Chloride Level 100 98-107 mmol/L Carbon Dioxide Level 29 21-32 mmol/L Anion Gap 6.0 3-11 mmol/L Blood Urea Nitrogen 13 7-18 mg/dl Creatinine 0.83 0.60-1.20 mg/dl Est Creatinine Clear Calc Drug Dose 54.7 ml/min Estimated GFR () 79.4 Estimated GFR (Non- 68.5 BUN/Creatinine Ratio 16.1 10-20 Random Glucose 150 70-99 mg/dl Calcium Level 9.8 8.5-10.1 mg/dl Total Bilirubin 0.4 0.2-1 mg/dl Direct Bilirubin 0-0.2 mg/dl Aspartate Amino Transf (AST/SGOT) 34 15-37 U/L Alanine Aminotransferase (ALT/SGPT) 41 12-78 U/L Alkaline Phosphatase 134 45-117 U/L Total Protein 8.2 6.4-8.2 gm/dl Albumin 3.5 3.4-5.0 gm/dl Chemistry Specimen Hemolysis Microbiology Results 05/25/17 Blood Culture, Received Pending 05/25/17 Blood Culture, Received Pending Impression Assessment and Plan This is a 76 yo F with PMHx of DM II with diabetic neuropathy, hx of chronic antibiotic use for recurrent L knee replacement and UTIs per Dr. Sullivan, rotating on Bactrim, cefdinir, and amoxicillin and most recently was on Bactrim, HLD, GERD and Vit D deficiency who presents to the ER with worsening Left foot/great toe erythema and edema which began on Tuesday. She was seen in office by podiatry, Dr. Jolley on Tuesday and was placed on a 7 day course of keflex for Left great toe ingrown toenail, and told to stop her other rotating antibiotics. She was then seen today by Dr. Reddy for the increasing pain. An MRI of the LLE was done and showed osteomyelitis which was confirmed by the pt's outside cutter. LLE osteomyelitis, cellulitis, Left great toe infection - Admit to med/surg - Consult Dr. Reddy with ortho - Consulte Dr. Jolley with podiatry as she follows the patient and has performed multiple toe amputations on the patient in the past. Pt has adequate pulse in the LLE dorsalis pedis. - Consult ID -Hold PO antibiotics: was most recently on Bactrim for her normal rotating schedule of antibiotics, then was started on Keflex on Tuesday 05/23. She typically alternates between amoxicillin, bactrim and cefdinir per Dr. Sullivan - Will continue on IV vancomycin at this time - Probiotics QID - MRI per outpatient records - Allow diet at this time and make NPO after midnight except meds in case of surgical procedure. DM Diabetic Neuropathy - ISS with accuchecks achs, continue levemir 24 U QPM - check A1C with am labs - Continue gabapentin 800 mg TID, will order a dose for now since she missed her 1600 meds. HLD - Continue pravastatin GERD - Continue ranitidine DVT ppx: Teds, scds, no chemical anticoagulation at this time due to possible surgical procedure CODE STATUS: FULL CODE Disposition: From home, lives with , CM to assist with dc planning. Level of Care Med/Surg Resuscitation Status FULL RESUSCITATION VTE Prophylaxis Risk Level: Low Given or contraindicated: [place], SCD's Reviewed: Pt Seen/Exam by Me History Pt was seen by podiatry today and concerns for worsening L great toe cellulitis. Pt takes abx alternating for L knee replacement infection. Daughter states she has been "telling stories" lately. Pt with hx of recurrent UTI, UA neg x2. Has been tolerating PO. Has had diarrhea x1. Takes probiotics regularly. Daughter states that pt has some confusion when she is alone in the hospital. One to one requested for after she leaves. Agree with HPI/ROS as noted. General Appearance: WD/WN, no apparent distress Eye Exam: bilateral eye normal inspection, bilateral eye other (nml sclera) Respiratory: normal breath sounds, no respiratory distress Cardiovascular: normal peripheral pulses, regular rate, rhythm Gastrointestinal: non tender, soft Extremities: non-tender, pedal edema Neurologic/Psychiatric: alert, oriented x 3 Skin Characteristics: warm/dry, other (L LE with redness to midcalf, open ulceration along medial great toe. Lines placed around erythema, increaded warmth) Assessment/Plan Agree with plan as outlined above L toe osteomyelitis on XR as outpt, failed outpt management Dr. Reddy and Dr. Jolley have both performed other surgeries on pt, however there is some thought that Dr. Jolley cannot operate on pt due to some sort of non-compete. [facility] One to one when daughter is not present.
[2017-05-25] MEDS ORDERED: DEXTROSE 50% 50 ML SYR IV PRN (18:00)
[2017-05-25] MEDS ORDERED: GLUCOSE 40% GEL 15 GM TUBE PO PRN (18:00)
[2017-05-25] MEDS ORDERED: ACETAMINOPHEN 325 MG TAB PO PRN (18:00)
[2017-05-25] MEDS ORDERED: POLYETHYLENE (MIRALAX) 17 GM PACK PO PRN (18:00)
[2017-05-25] MEDS ORDERED: NON-FORMULARY MEDICATION (Probiotic Product (Probiotic) 1 CAP) PO SCH (18:00)
[2017-05-25] MEDS ORDERED: GLUCOSE 10 TABS/TUBE PO PRN (18:00)
[2017-05-25] MEDS ORDERED: GLUCAGON FOR INJ 1 MG VIAL SQ PRN (18:00)
[2017-05-25] MEDS ORDERED: ONDANSETRON INJ 2 MG/ML 2 ML VIAL IV PRN (18:00)
[2017-05-25] MEDS ORDERED: CRAN400C PO (18:11)
[2017-05-25] MEDS ORDERED: CHOL100010 PO (18:11)
[2017-05-25] MEDS ORDERED: LVMI SC (18:11)
[2017-05-25] MEDS ORDERED: MAGN400T6 PO (18:11)
[2017-05-25] MEDS ORDERED: GABAPENTIN 800 MG TAB PO ONE (19:00)
[2017-05-25] MEDS ORDERED: NORT10CA4 PO (19:07)
[2017-05-25] MEDS ORDERED: NRN800 PO (19:07)
[2017-05-25] MEDS ORDERED: RANI150T2 PO (19:07)
[2017-05-25] MEDS ORDERED: PRVC/20 PO (19:07)
[2017-05-25] MEDS ORDERED: ASPI81TA28 PO (19:15)
[2017-05-25 20:40] VITALS: BP 166/80; PULSE 99; TEMP 37.5; O2SAT 93; Ht 157.5 cm; Wt 75.0 kg
[2017-05-25] MEDS ORDERED: INSULIN ASPART 100 UNITS/ML 3 ML PEN SC SCH (21:00)
--- NOTE | 2017-05-25 21:57 | Pharmacy Progress Note ---
Pharmacy Antibiotic Consult Date of Service: May 25, 2017. Pharmacy Dosing Scope Pharmacy is consulted to initiate VANCOMYCIN IV dosing therapy, order appropriate labs and adjust drug dose/frequency. Subjective The patient is a 76 year old female admitted on May 25, 2017 at 18:19 with increasing redness LLE. History of recurrent L knee replacement infection and UTI's, DM, multiple toe amputations. Objective Height (Feet): 5 Height (Inches): 2.00 Weight (Kilograms): 75.000 Lab Results (24hrs): Test 05/25/17 16:33 White Blood Count 6.96 K/uL (4.8-10.8) Red Blood Count 4.51 M/uL (4.2-5.4) Hemoglobin 13.2 g/dL (12.0-16.0) Hematocrit 38.3 % (37-47) Mean Corpuscular Volume 84.9 fL (80-100) Mean Corpuscular Hemoglobin 29.3 pg (25-34) Mean Corpuscular Hemoglobin Concent 34.5 g/dl (32-36) Platelet Count 272 K/uL (130-400) Mean Platelet Volume 10.0 fL (7.4-10.4) Neutrophils (%) (Auto) 68.2 % Lymphocytes (%) (Auto) 18.2 % Monocytes (%) (Auto) 9.8 % Eosinophils (%) (Auto) 3.4 % Basophils (%) (Auto) 0.3 % Neutrophils # (Auto) 4.74 K/uL (1.4-6.5) Lymphocytes # (Auto) 1.27 K/uL (1.2-3.4) Monocytes # (Auto) 0.68 K/uL (0.11-0.59) Eosinophils # (Auto) 0.24 K/uL (0-0.5) Basophils # (Auto) 0.02 K/uL (0-0.2) RDW Standard Deviation 42.4 fL (36.4-46.3) RDW Coefficient of Variation 13.7 % (11.5-14.5) Immature Granulocyte % (Auto) 0.1 % Immature Granulocyte # (Auto) 0.01 K/uL (0.00-0.02) Sodium Level 135 mmol/L (136-145) Potassium Level 4.5 mmol/L (3.5-5.1) Chloride Level 100 mmol/L (98-107) Carbon Dioxide Level 29 mmol/L (21-32) Anion Gap 6.0 mmol/L (3-11) Blood Urea Nitrogen 13 mg/dl (7-18) Creatinine 0.83 mg/dl (0.60-1.20) Est Creatinine Clear Calc Drug Dose 54.7 ml/min Estimated GFR () 79.4 Estimated GFR (Non- 68.5 BUN/Creatinine Ratio 16.1 (10-20) Random Glucose 150 mg/dl (70-99) Calcium Level 9.8 mg/dl (8.5-10.1) Total Bilirubin 0.4 mg/dl (0.2-1) Direct Bilirubin mg/dl (0-0.2) Aspartate Amino Transf (AST/SGOT) 34 U/L (15-37) Alanine Aminotransferase (ALT/SGPT) 41 U/L (12-78) Alkaline Phosphatase 134 U/L (45-117) Total Protein 8.2 gm/dl (6.4-8.2) Albumin 3.5 gm/dl (3.4-5.0) Chemistry Specimen Hemolysis Micro Results: 05/25 blood x2 pending Recent Pertinent Medications Item Value Date Time Vancomycin HCl 270 ml @ 125 mls/hr 05/26/17 0400 1000 mg/Sodium Q16H/IV Chloride Vancomycin HCl 530 ml @ 200 mls/hr 05/25/17 1549 1500 mg/Sodium ONE STAT/IV 05/25/17 1640 Chloride Reported to be rotating amoxicillin, cefdinir, Bactrim chronically. Recent cephalexin. Assessment & Plan Modified loading dose: vancomycin 1500 mg IV X 1 dose (~20 mg/kg) then: vancomycin 1000 mg IV every 16 hours. Goal peak level estimate: between 25-40 mcg/mL. Goal trough level estimate: between 15-20 mcg/mL. Trough has been ordered for: 05/27/17 before 1200 dose. Pharmacy will continue to follow and will adjust dose/frequency as necessary. Thank you
[2017-05-25] MEDS: RANITIDINE HCL 150 MG TAB PO SCH (22:05)
[2017-05-25] MEDS: LACTOBACILLUS ACIDOPHILUS (FLORANEX) TAB PO SCH (22:05)
[2017-05-25] MEDS: PRAVASTATIN SOD 20 MG TAB PO SCH (22:06)
[2017-05-25] MEDS: NORTRIPTYLINE HCL 10 MG CAP PO SCH (22:06)
[2017-05-25] MEDS ORDERED: NURSING VERBAL MED ORDER ONE (22:45)
[2017-05-25 23:14] VITALS: BP 158/75; PULSE 101; TEMP 37.3; O2SAT 95
[2017-05-26 00:30] VITALS: O2SAT 93
[2017-05-26] MEDS: VANCOMYCIN INJ 1,000 MG in SODIUM CHLORIDE 0.9% 250ML 250 ML IV SCH ×2 (04:01→20:27)
[2017-05-26] MEDS: INSULIN ASPART 100 UNITS/ML 3 ML PEN SC SCH ×6 (06:00→23:43)
[2017-05-26 06:43] LABS: BASO % 0.6 %; BASO ABS # 0.03 K/uL (0-0.2); EOS % 6.5 %; EOS ABS # 0.31 K/uL (0-0.5); HEMATOCRIT 31.2 % (37-47); HEMOGLOBIN 10.6 g/dL (12.0-16.0); IG# 0.01 K/uL (0.00-0.02); LYMPH % 20.6 %; LYMPH ABS # 0.98 K/uL (1.2-3.4); MEAN CELL VOLUME 85.5 fL (80-100); MEAN PLATELET VOLUME 9.1 fL (7.4-10.4); MONO % 14.1 %; MONO ABS # 0.67 K/uL (0.11-0.59); NEUT ABS # 2.76 K/uL (1.4-6.5); PLATELET COUNT 210 K/uL (130-400); RED CELL DISTRIBUTION WIDTH CV 13.8 % (11.5-14.5); RED CELL DISTRIBUTION WIDTH SD 43.7 fL (36.4-46.3); WHITE BLOOD COUNT 4.76 K/uL (4.8-10.8)
[2017-05-26 07:20] LABS: CALCIUM 8.2 mg/dl (8.5-10.1); CREATININE 0.77 mg/dl (0.60-1.20); POTASSIUM 3.9 mmol/L (3.5-5.1)
[2017-05-26 07:39] VITALS: BP 153/84; PULSE 83; TEMP 36.7; O2SAT 95
[2017-05-26] MEDS: ASPIRIN 81 MG ECTAB PO SCH (07:49)
[2017-05-26] MEDS: GABAPENTIN 800 MG TAB PO SCH ×3 (07:49→20:29)
[2017-05-26] MEDS: RANITIDINE HCL 150 MG TAB PO SCH ×2 (07:49→20:30)
[2017-05-26] MEDS: LACTOBACILLUS ACIDOPHILUS (FLORANEX) TAB PO SCH ×4 (07:50→20:30)
--- NOTE | 2017-05-26 07:50 | Orthopedic Consultation ---
Orthopedic Consultation Date of Consultation: May 26, 2017. Attending Physician: Yusra Galaviz DO Reason for Consultation: Left great toe osteomyelitis History of Present Illness Patient is a 76-year-old female who was admitted to the hospital last evening for increasing pain and swelling of her left great toe. She states that his been bothering her for many months. This was confirmed with her daughter, Rosalba. She states that she has been treated for her left great toe by Dr. Lazara You and Vinayak. Back in February she had an MRI of her left great toe, according to her daughter. She also has a recurrent ulcer on her right great toe and an MRI was done of that in March and showed no evidence of osteomyelitis. That toe is currently not a problem. On Tuesday she saw Dr. Lazara You and minor procedure was performed to remove an ingrown toenail. They thought this would potentially take care of the problem. Her pain increased. Her toe became more red and swollen. She had x-rays done of her left great toe at [facility] sports medicine yesterday in the office and that was concern for osteomyelitis from Dr. Jolley. She was instructed to go to the emergency room for admission and need for possible amputation of her left great toe. Sounds like according to her daughter, an MRI was recently performed a left great toe at [facility]. I will try to obtain this MRI. She currently is nothing by mouth. She states that she has pain when the toe is touched. There is been redness and warmth that his been on the top of her foot and into her ankle. It is painful with walking. She has been keeping it elevated. She denies any fevers or chills. She has a history of multiple toe amputations. She has been on antibiotics and most recently Keflex. She is currently on IV vancomycin in the hospital. Past Medical/Surgical History Medical Problems: (1) Altered mental status Status: Acute (2) Altered mental status, unspecified Status: Acute (3) Bilateral leg pain Status: Acute (4) Cellulitis of leg, left Status: Acute (5) Cellulitis of right lower extremity Status: Acute (6) Cellulitis of second toe, right Status: Acute (7) Diabetic foot ulcer Status: Acute (8) E. coli UTI Status: Acute (9) Foot pain Status: Acute (10) Neuropathy Status: Acute (11) Orthostatic hypotension Status: Acute (12) Osteomyelitis of ankle or foot, left, acute Status: Acute (13) Ulcer Status: Acute Family History Diabetes mellitus Social History Smoking Status: Never Smoker Smokeless Tobacco Use: No Drug Use: none Marital Status: Housing Status: lives with significant other Occupation Status: unemployed Allergies Coded Allergies: Erythromycin (Verified Allergy, Unknown, `, 05/25/17) Iodinated Diagnostic Agents (Verified Allergy, Unknown, HIVES AND HOT FLASHES, 05/16/17) Oxycodone (Verified Adverse Reaction, Severe, CONFUSION LAKSHMI WHEN SHE TAKES 2 TABS- , 05/16/17) PT HAD TO COME TO ED AFTER TAKING 2 TABS -SO CONFUSED Home Medications Scheduled Amoxicillin (Amoxil), 500 MG PO UD Aspirin (Aspirin Ec), 81 MG PO DAILY Cefdinir (Omnicef), 300 MG PO UD Cephalexin Monohydrate (Cephalexin), 1 TAB PO TID Cranberry (Vaccinium Macrocarp (Cranberry), 2-3 CAP PO DAILY Gabapentin (Gabapentin), 800 MG PO TID Insulin Detemir (Levemir), 24 UNITS SC QAM Nortriptyline HCl (Nortriptyline HCl), 10 MG PO HS Pravastatin Sod (Pravastatin Sodium), 20 MG PO QPM Probiotic Product (Probiotic), 1 CAP PO Q2D Ranitidine HCl (Ranitidine HCl), 150 MG PO BID Trimethoprim/Sulfamethoxazole (Bactrim 400MG/80MG), 1 TAB PO UD Current Inpatient Medications Current Inpatient Medications Medications (Trade) Dose Ordered Sig/Claudia Route Start Time Stop Time Status Last Admin Dose Admin Acetaminophen (Tylenol Tab) 650 mg Q4H PRN PO 05/25/17 18:00 06/24/17 17:59 Polyethylene (Miralax Powder Packet) 17 gm DAILY PRN PO 05/25/17 18:00 06/24/17 17:59 Ondansetron HCl (Zofran Inj) 4 mg Q6H PRN IV 05/25/17 18:00 06/24/17 17:59 Aspirin (Ecotrin Tab) 81 mg DAILY PO 05/26/17 09:00 06/25/17 08:59 Gabapentin (Neurontin Tab) 800 mg TID PO 05/26/17 09:00 06/25/17 08:59 Nortriptyline HCl (Pamelor Cap) 10 mg HS PO 05/25/17 21:00 06/24/17 20:59 05/25/17 22:06 10 MG Pravastatin Sodium (Pravachol Tab) 20 mg QPM PO 05/25/17 21:00 06/24/17 20:59 Ranitidine HCl (zANTac TAB) 150 mg BID PO 05/25/17 21:00 06/24/17 20:59 05/25/17 22:05 150 MG Insulin Detemir (Levemir Flexpen/ FlexTouch) 24 units QAM SC 05/26/17 09:00 06/25/17 08:59 Glucose (Glucose 40% Gel) 15-30 GRAMS 15 GRAMS... UD PRN PO 05/25/17 18:00 06/24/17 17:59 Glucose (Glucose Chew Tab) 4-8 Tablets 4 Tabl... UD PRN PO 05/25/17 18:00 06/24/17 17:59 Dextrose (Dextrose 50% 50ML Syringe) 25-50ML OF 50% DW IV FOR... UD PRN IV 05/25/17 18:00 06/24/17 17:59 Glucagon (Glucagon Inj) 1 mg UD PRN SQ 05/25/17 18:00 06/24/17 17:59 Vancomycin HCl 1000 mg/Sodium Chloride 270 ml @ 125 mls/hr Q16H IV 05/26/17 04:00 07/06/17 15:59 05/26/17 04:01 125 MLS/HR Miscellaneous Information (Consult) 1 ea UD PRN N/A 05/25/17 18:00 06/24/17 17:59 Lactobacillus Acidophilus (Floranex Tab) 4 tab QIDM PO 05/25/17 20:00 06/24/17 19:59 05/25/17 22:05 4 TAB Insulin Aspart (novoLOG ASPART) SLIDING SCALE If C... Q6 SC 05/26/17 00:00 06/25/17 00:00 Review of Systems Constitutional: No fever, No chills, No fatigue ENT: No hearing loss Respiratory: No wheezing, No shortness of breath Cardiovascular: No chest pain, No edema Abdomen: No pain, No nausea, No vomiting Musculoskeletal: + joint pain (left great toe), + swelling (left great toe), No calf pain Genitourinary - Female: No dysuria Hematologic / Lymphatic: No abnormal bleeding/bruising, No clotting problems Physical Exam Date Time Temp Pulse Resp B/P (MAP) Pulse Ox O2 Delivery O2 Flow Rate FiO2 05/26/17 00:30 93 Room Air 05/25/17 23:14 37.3 101 16 158/75 (102) 95 Room Air 05/25/17 20:40 37.5 99 16 166/80 93 Room Air 05/25/17 20:17 99 20 195/112 99 05/25/17 19:57 99 20 180/101 Room Air 05/25/17 18:00 93 20 179/119 99 Room Air 05/25/17 17:15 94 22 162/101 97 Room Air 05/25/17 16:25 97 05/25/17 16:15 96 15 173/87 97 05/25/17 14:26 36.7 97 20 177/94 99 Room Air General Appearance: WD/WN, no apparent distress Eyes: normal inspection ENT: hearing grossly normal Extremities/Musculoskelatal: no calf tenderness, normal range of motion, + pertinent finding (exam of the left great toe: Toe is swollen and mildly erythematous. There is a lot of dried and hardened callus on the top of the toe. Her nail is in place. Toe is bulbous. No active drainage. Pain with palpation. She tolerates passive range of motion DIP joint. She has erythema throughout the dorsum of her foot and up into her ankle. Tolerates gentle range of motion of her ankle. The skin is painful with palpation. She is a trace dorsalis pedis pulse. Capillary refill is about 2 seconds. She moves her toes well without significant pain. There is no appreciated ulcer but evidence of recent ingrown toenail removal. She does have decreased sensation with light touch throughout her entire foot up to about the mid foot area. Strength of her left foot is maintained. Exam of bilateral knees reveals no erythema, ecchymosis, pain with palpation. She tolerates range of motion about both knees without discomfort. There is no significant effusion laterally. Previous incisions are healed nicely. The erythematous area of her left foot had been marked with a marker.) Neurologic/Psych: alert, normal mood/affect, oriented x 3 Skin: normal color, warm/dry, no rash Laboratory Results Last 24 Hours Test 05/25/17 16:33 05/25/17 18:50 05/25/17 22:03 05/26/17 00:23 White Blood Count 6.96 K/uL Red Blood Count 4.51 M/uL Hemoglobin 13.2 g/dL Hematocrit 38.3 % Mean Corpuscular Volume 84.9 fL Mean Corpuscular Hemoglobin 29.3 pg Mean Corpuscular Hemoglobin Concent 34.5 g/dl Platelet Count 272 K/uL Mean Platelet Volume 10.0 fL Neutrophils (%) (Auto) 68.2 % Lymphocytes (%) (Auto) 18.2 % Monocytes (%) (Auto) 9.8 % Eosinophils (%) (Auto) 3.4 % Basophils (%) (Auto) 0.3 % Neutrophils # (Auto) 4.74 K/uL Lymphocytes # (Auto) 1.27 K/uL Monocytes # (Auto) 0.68 K/uL Eosinophils # (Auto) 0.24 K/uL Basophils # (Auto) 0.02 K/uL RDW Standard Deviation 42.4 fL RDW Coefficient of Variation 13.7 % Immature Granulocyte % (Auto) 0.1 % Immature Granulocyte # (Auto) 0.01 K/uL Sodium Level 135 mmol/L Potassium Level 4.5 mmol/L Chloride Level 100 mmol/L Carbon Dioxide Level 29 mmol/L Anion Gap 6.0 mmol/L Blood Urea Nitrogen 13 mg/dl Creatinine 0.83 mg/dl Est Creatinine Clear Calc Drug Dose 54.7 ml/min Estimated GFR () 79.4 Estimated GFR (Non- 68.5 BUN/Creatinine Ratio 16.1 Random Glucose 150 mg/dl Calcium Level 9.8 mg/dl Total Bilirubin 0.4 mg/dl Direct Bilirubin mg/dl Aspartate Amino Transf (AST/SGOT) 34 U/L Alanine Aminotransferase (ALT/SGPT) 41 U/L Alkaline Phosphatase 134 U/L Total Protein 8.2 gm/dl Albumin 3.5 gm/dl Chemistry Specimen Hemolysis Bedside Glucose 83 mg/dl 125 mg/dl 139 mg/dl Test 05/26/17 06:24 White Blood Count 4.76 K/uL Red Blood Count 3.65 M/uL Hemoglobin 10.6 g/dL Hematocrit 31.2 % Mean Corpuscular Volume 85.5 fL Mean Corpuscular Hemoglobin 29.0 pg Mean Corpuscular Hemoglobin Concent 34.0 g/dl Platelet Count 210 K/uL Mean Platelet Volume 9.1 fL Neutrophils (%) (Auto) 58.0 % Lymphocytes (%) (Auto) 20.6 % Monocytes (%) (Auto) 14.1 % Eosinophils (%) (Auto) 6.5 % Basophils (%) (Auto) 0.6 % Neutrophils # (Auto) 2.76 K/uL Lymphocytes # (Auto) 0.98 K/uL Monocytes # (Auto) 0.67 K/uL Eosinophils # (Auto) 0.31 K/uL Basophils # (Auto) 0.03 K/uL RDW Standard Deviation 43.7 fL RDW Coefficient of Variation 13.8 % Immature Granulocyte % (Auto) 0.2 % Immature Granulocyte # (Auto) 0.01 K/uL Sodium Level 138 mmol/L Potassium Level 3.9 mmol/L Chloride Level 105 mmol/L Carbon Dioxide Level 28 mmol/L Anion Gap 5.0 mmol/L Blood Urea Nitrogen 11 mg/dl Creatinine 0.77 mg/dl Est Creatinine Clear Calc Drug Dose 58.9 ml/min Estimated GFR () 86.9 Estimated GFR (Non- 75.0 BUN/Creatinine Ratio 14.4 Random Glucose 142 mg/dl Calcium Level 8.2 mg/dl Assessment & Plan Assessment: Left great toe pain suspect osteomyelitis Plan: Patient is currently nothing by mouth and most likely will need to undergo left great toe amputation later this afternoon. She does seem to understand this and agrees with the plan of care. I will attempt to locate the MRI to further review with Dr. Reddy. This apparently was done at [facility]. I discussed the plan with her daughter which she also agrees with partial amputation. She states that she has responded well to the past with the amputations and recovers nicely from those. I also discuss the plan with Dr. Lazara Tamayo. She is currently on the OR schedule for later today. We'll keep her nothing by mouth. An EKG has been ordered. She understands and agrees with the plan. I will further discuss my findings with Dr. Reddy. The daughter will be updated appropriately. Informed consent will be obtained by Dr. Reddy later today.
[2017-05-26] MEDS: INSULIN DETEMIR FLEXPEN/FLEX TOUCH 100 UNITS/ML 3ML SC SCH (07:53)
--- NOTE | 2017-05-26 09:49 | Progress Note ---
Subjective Date of Service: May 26, 2017. Subjective this pt is slightly sleepy she has improved foot swelling and less pain. planning on surgery for osteomyelitis by Dr Reddy Problem List Medical Problems: (1) Altered mental status Status: Acute (2) Altered mental status, unspecified Status: Acute (3) Bilateral leg pain Status: Acute (4) Cellulitis of leg, left Status: Acute (5) Cellulitis of right lower extremity Status: Acute (6) Cellulitis of second toe, right Status: Acute (7) Diabetic foot ulcer Status: Acute (8) E. coli UTI Status: Acute (9) Foot pain Status: Acute (10) Neuropathy Status: Acute (11) Orthostatic hypotension Status: Acute (12) Osteomyelitis of ankle or foot, left, acute Status: Acute (13) Ulcer Status: Acute Review of Systems Constitutional: No fever, No chills, No weakness Respiratory: No cough, No shortness of breath Cardiac: No chest pain, No edema Abdomen: No pain, No vomiting, No diarrhea Musculoskeletal: No joint pain, No muscle pain Neurologic: No memory loss, No weakness Psychiatric: No depression symptoms, No anxiety Objective Vital Signs Date Time Temp Pulse Resp B/P (MAP) Pulse Ox O2 Delivery O2 Flow Rate FiO2 05/26/17 09:03 Room Air 05/26/17 07:39 36.7 83 16 153/84 (107) 95 Room Air 05/26/17 00:30 93 Room Air 05/25/17 23:14 37.3 101 16 158/75 (102) 95 Room Air 05/25/17 20:40 37.5 99 16 166/80 93 Room Air 05/25/17 20:17 99 20 195/112 99 05/25/17 19:57 99 20 180/101 Room Air 05/25/17 18:00 93 20 179/119 99 Room Air 05/25/17 17:15 94 22 162/101 97 Room Air 05/25/17 16:25 97 05/25/17 16:15 96 15 173/87 97 05/25/17 14:26 36.7 97 20 177/94 99 Room Air Physical Exam General Appearance: WD/WN, + moderate distress Eyes: normal inspection, sclerae normal Neck: supple Respiratory/Chest: chest non-tender, lungs clear Cardiovascular: regular rate, rhythm, no murmur Abdomen: normal bowel sounds, non tender, soft Extremities: + pertinent finding (some swelling and open area to tip of great toe) Neurologic/Psychiatric: alert, oriented x 3 Laboratory Results Last 24 Hours Test 05/25/17 16:33 05/25/17 18:50 05/25/17 22:03 05/26/17 00:23 White Blood Count 6.96 K/uL Red Blood Count 4.51 M/uL Hemoglobin 13.2 g/dL Hematocrit 38.3 % Mean Corpuscular Volume 84.9 fL Mean Corpuscular Hemoglobin 29.3 pg Mean Corpuscular Hemoglobin Concent 34.5 g/dl Platelet Count 272 K/uL Mean Platelet Volume 10.0 fL Neutrophils (%) (Auto) 68.2 % Lymphocytes (%) (Auto) 18.2 % Monocytes (%) (Auto) 9.8 % Eosinophils (%) (Auto) 3.4 % Basophils (%) (Auto) 0.3 % Neutrophils # (Auto) 4.74 K/uL Lymphocytes # (Auto) 1.27 K/uL Monocytes # (Auto) 0.68 K/uL Eosinophils # (Auto) 0.24 K/uL Basophils # (Auto) 0.02 K/uL RDW Standard Deviation 42.4 fL RDW Coefficient of Variation 13.7 % Immature Granulocyte % (Auto) 0.1 % Immature Granulocyte # (Auto) 0.01 K/uL Sodium Level 135 mmol/L Potassium Level 4.5 mmol/L Chloride Level 100 mmol/L Carbon Dioxide Level 29 mmol/L Anion Gap 6.0 mmol/L Blood Urea Nitrogen 13 mg/dl Creatinine 0.83 mg/dl Est Creatinine Clear Calc Drug Dose 54.7 ml/min Estimated GFR () 79.4 Estimated GFR (Non- 68.5 BUN/Creatinine Ratio 16.1 Random Glucose 150 mg/dl Calcium Level 9.8 mg/dl Total Bilirubin 0.4 mg/dl Direct Bilirubin mg/dl Aspartate Amino Transf (AST/SGOT) 34 U/L Alanine Aminotransferase (ALT/SGPT) 41 U/L Alkaline Phosphatase 134 U/L Total Protein 8.2 gm/dl Albumin 3.5 gm/dl Chemistry Specimen Hemolysis Bedside Glucose 83 mg/dl 125 mg/dl 139 mg/dl Test 05/26/17 06:24 05/26/17 08:15 White Blood Count 4.76 K/uL Red Blood Count 3.65 M/uL Hemoglobin 10.6 g/dL Hematocrit 31.2 % Mean Corpuscular Volume 85.5 fL Mean Corpuscular Hemoglobin 29.0 pg Mean Corpuscular Hemoglobin Concent 34.0 g/dl Platelet Count 210 K/uL Mean Platelet Volume 9.1 fL Neutrophils (%) (Auto) 58.0 % Lymphocytes (%) (Auto) 20.6 % Monocytes (%) (Auto) 14.1 % Eosinophils (%) (Auto) 6.5 % Basophils (%) (Auto) 0.6 % Neutrophils # (Auto) 2.76 K/uL Lymphocytes # (Auto) 0.98 K/uL Monocytes # (Auto) 0.67 K/uL Eosinophils # (Auto) 0.31 K/uL Basophils # (Auto) 0.03 K/uL RDW Standard Deviation 43.7 fL RDW Coefficient of Variation 13.8 % Immature Granulocyte % (Auto) 0.2 % Immature Granulocyte # (Auto) 0.01 K/uL Sodium Level 138 mmol/L Potassium Level 3.9 mmol/L Chloride Level 105 mmol/L Carbon Dioxide Level 28 mmol/L Anion Gap 5.0 mmol/L Blood Urea Nitrogen 11 mg/dl Creatinine 0.77 mg/dl Est Creatinine Clear Calc Drug Dose 58.9 ml/min Estimated GFR () 86.9 Estimated GFR (Non- 75.0 BUN/Creatinine Ratio 14.4 Random Glucose 142 mg/dl Calcium Level 8.2 mg/dl Urine Color YELLOW Urine Appearance CLEAR Urine pH 7.5 Urine Specific [place] 1.008 Urine Protein NEG Urine Glucose (UA) 1+ Urine Ketones NEG Urine Occult Blood NEG Urine Nitrite NEG Urine Bilirubin NEG Urine Urobilinogen NEG Urine Leukocyte Esterase NEG Assessment and Plan 76 yo F with 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 An MRI of the LLE was done and showed osteomyelitis which was confirmed by the pt's cutter brake lining. LLE osteomyelitis, cellulitis, Left great toe infection - Dr. Reddy with ortho, Consult Dr. Jolley with podiatry - Consult ID - IV vancomycin at this time- Probiotics QID - MRI per outpatient records DM Diabetic Neuropathy- ISS with accu checks achs, continue levemir 24 U QPM ( 1 /2 dose if needed ) - check A1C with am labs gabapentin 800 mg TID, HLD pravastatin GERD ranitidine DVT ppx: Teds, scds, no chemical anticoagulation at this time due to possible surgical procedure CODE STATUS: FULL CODE
--- NOTE | 2017-05-26 10:38 | Medical Consult ---
Consultation Date of Consultation: May 26, 2017. Attending Physician: Yusra Galaviz DO Reason for Consultation: Left great toe osteomyelitis History of Present Illness 76-year-old female well known to me for management of recurrent urinary tract infections, who has been recently followed by Podiatry had had treatment for with possible ingrown toenail of left great toe. Over the last several days developed increasing redness and swelling, was given cephalexin, and x-ray yesterday reportedly showed osteomyelitis. She developed worsening redness and swelling of the lower leg and so was admitted for further management. She was started on vancomycin, had shown significant improvement over the last 12 hours. Currently afebrile. Has been tolerating antibiotic without apparent difficulty. Previously on rotating antibiotics for suppression of urinary tract infection with amoxicillin, Bactrim, and cefdinir. No recent urinary symptoms. Past Medical/Surgical History Medical Problems: (1) Altered mental status Status: Acute (2) Altered mental status, unspecified Status: Acute (3) Bilateral leg pain Status: Acute (4) Cellulitis of leg, left Status: Acute (5) Cellulitis of right lower extremity Status: Acute (6) Cellulitis of second toe, right Status: Acute (7) Diabetic foot ulcer Status: Acute (8) E. coli UTI Status: Acute (9) Foot pain Status: Acute (10) Neuropathy Status: Acute (11) Orthostatic hypotension Status: Acute (12) Osteomyelitis of ankle or foot, left, acute Status: Acute (13) Ulcer Status: Acute Medical Problems: (1) Cellulitis of left lower extremity (2) DIAB W NEURO MANIFEST, TYPE II OR UNSPEC TYPE, UNCONTROLLED (3) Diabetic foot infection (4) Diabetic neuropathy (5) HYPERLIPIDEMIA NEC/NOS (6) Osteomyelitis of left lower extremity (7) SCIATICA Family History Diabetes mellitus Social History Smoking Status: Never Smoker Smokeless Tobacco Use: No Drug Use: none Marital Status: Housing Status: lives with significant other Occupation Status: unemployed Allergies Coded Allergies: Erythromycin (Verified Allergy, Unknown, `, 05/25/17) Iodinated Diagnostic Agents (Verified Allergy, Unknown, HIVES AND HOT FLASHES, 05/16/17) Oxycodone (Verified Adverse Reaction, Severe, CONFUSION LAKSHMI WHEN SHE TAKES 2 TABS- , 05/16/17) PT HAD TO COME TO ED AFTER TAKING 2 TABS -SO CONFUSED Current Inpatient Medications Current Inpatient Medications Medications (Trade) Dose Ordered Sig/Claudia Route Start Time Stop Time Status Last Admin Dose Admin Acetaminophen (Tylenol Tab) 650 mg Q4H PRN PO 05/25/17 18:00 06/24/17 17:59 Polyethylene (Miralax Powder Packet) 17 gm DAILY PRN PO 05/25/17 18:00 06/24/17 17:59 Ondansetron HCl (Zofran Inj) 4 mg Q6H PRN IV 05/25/17 18:00 06/24/17 17:59 Aspirin (Ecotrin Tab) 81 mg DAILY PO 05/26/17 09:00 06/25/17 08:59 05/26/17 07:49 81 MG Gabapentin (Neurontin Tab) 800 mg TID PO 05/26/17 09:00 06/25/17 08:59 05/26/17 07:49 800 MG Nortriptyline HCl (Pamelor Cap) 10 mg HS PO 05/25/17 21:00 06/24/17 20:59 05/25/17 22:06 10 MG Pravastatin Sodium (Pravachol Tab) 20 mg QPM PO 05/25/17 21:00 06/24/17 20:59 Ranitidine HCl (zANTac TAB) 150 mg BID PO 05/25/17 21:00 06/24/17 20:59 05/26/17 07:49 150 MG Insulin Detemir (Levemir Flexpen/ FlexTouch) 24 units QAM SC 05/26/17 09:00 06/25/17 08:59 05/26/17 07:53 24 UNITS Glucose (Glucose 40% Gel) 15-30 GRAMS 15 GRAMS... UD PRN PO 05/25/17 18:00 06/24/17 17:59 Glucose (Glucose Chew Tab) 4-8 Tablets 4 Tabl... UD PRN PO 05/25/17 18:00 06/24/17 17:59 Dextrose (Dextrose 50% 50ML Syringe) 25-50ML OF 50% DW IV FOR... UD PRN IV 05/25/17 18:00 06/24/17 17:59 Glucagon (Glucagon Inj) 1 mg UD PRN SQ 05/25/17 18:00 06/24/17 17:59 Vancomycin HCl 1000 mg/Sodium Chloride 270 ml @ 125 mls/hr Q16H IV 05/26/17 04:00 07/06/17 15:59 05/26/17 04:01 125 MLS/HR Miscellaneous Information (Consult) 1 ea UD PRN N/A 05/25/17 18:00 06/24/17 17:59 Lactobacillus Acidophilus (Floranex Tab) 4 tab QIDM PO 05/25/17 20:00 06/24/17 19:59 05/26/17 07:50 4 TAB Insulin Aspart (novoLOG ASPART) SLIDING SCALE If C... Q6 SC 05/26/17 00:00 06/25/17 00:00 Review of Systems Constitutional: + fever, + chills Eyes: No problem reported ENT: No problem reported Respiratory: No problem reported Cardiovascular: No problem reported Abdomen: No problem reported Musculoskeletal: + joint pain, + swelling Genitourinary - Female: No problem reported Neurologic: No problem reported Psychiatric: No problem reported Endocrine: No problem reported Hematologic / Lymphatic: No problem reported Integumentary: + new/changing skin lesions Allergic / Immunologic: No problem reported Physical Exam Date Time Temp Pulse Resp B/P (MAP) Pulse Ox O2 Delivery O2 Flow Rate FiO2 05/26/17 09:03 Room Air 05/26/17 07:39 36.7 83 16 153/84 (107) 95 Room Air 05/26/17 00:30 93 Room Air 05/25/17 23:14 37.3 101 16 158/75 (102) 95 Room Air 05/25/17 20:40 37.5 99 16 166/80 93 Room Air 05/25/17 20:17 99 20 195/112 99 05/25/17 19:57 99 20 180/101 Room Air 05/25/17 18:00 93 20 179/119 99 Room Air 05/25/17 17:15 94 22 162/101 97 Room Air 05/25/17 16:25 97 05/25/17 16:15 96 15 173/87 97 05/25/17 14:26 36.7 97 20 177/94 99 Room Air General Appearance: WD/WN, no apparent distress Head: normocephalic, atraumatic Eyes: normal inspection, EOMI, sclerae normal ENT: normal ENT inspection, hearing grossly normal, pharynx normal Neck: supple, no adenopathy, thyroid normal, trachea midline Respiratory/Chest: chest non-tender, lungs clear, normal breath sounds, no respiratory distress Cardiovascular: regular rate, rhythm, no gallop, no murmur Abdomen/GI: normal bowel sounds, non tender, soft, no organomegaly Back: normal inspection, no CVA tenderness Extremities/Musculoskelatal: no calf tenderness, normal capillary refill, + inflammation (Left great toe and lower leg), + swelling (Left great toe and lower leg.) Neurologic/Psych: alert, normal mood/affect, oriented x 3 Skin: normal color, no rash, + pertinent finding (Left great toe ulcerated with erythema and swelling, fading erythema left lower leg) Lymphatic: no adenopathy Laboratory Results Date/Time Source Procedure Growth Status 05/25/17 16:33 Blood Blood Culture Pending Received 05/25/17 16:03 Blood Blood Culture Pending Received Last 24 Hours Test 05/25/17 16:33 05/25/17 18:50 05/25/17 22:03 05/26/17 00:23 White Blood Count 6.96 K/uL Red Blood Count 4.51 M/uL Hemoglobin 13.2 g/dL Hematocrit 38.3 % Mean Corpuscular Volume 84.9 fL Mean Corpuscular Hemoglobin 29.3 pg Mean Corpuscular Hemoglobin Concent 34.5 g/dl Platelet Count 272 K/uL Mean Platelet Volume 10.0 fL Neutrophils (%) (Auto) 68.2 % Lymphocytes (%) (Auto) 18.2 % Monocytes (%) (Auto) 9.8 % Eosinophils (%) (Auto) 3.4 % Basophils (%) (Auto) 0.3 % Neutrophils # (Auto) 4.74 K/uL Lymphocytes # (Auto) 1.27 K/uL Monocytes # (Auto) 0.68 K/uL Eosinophils # (Auto) 0.24 K/uL Basophils # (Auto) 0.02 K/uL RDW Standard Deviation 42.4 fL RDW Coefficient of Variation 13.7 % Immature Granulocyte % (Auto) 0.1 % Immature Granulocyte # (Auto) 0.01 K/uL Sodium Level 135 mmol/L Potassium Level 4.5 mmol/L Chloride Level 100 mmol/L Carbon Dioxide Level 29 mmol/L Anion Gap 6.0 mmol/L Blood Urea Nitrogen 13 mg/dl Creatinine 0.83 mg/dl Est Creatinine Clear Calc Drug Dose 54.7 ml/min Estimated GFR () 79.4 Estimated GFR (Non- 68.5 BUN/Creatinine Ratio 16.1 Random Glucose 150 mg/dl Calcium Level 9.8 mg/dl Total Bilirubin 0.4 mg/dl Direct Bilirubin mg/dl Aspartate Amino Transf (AST/SGOT) 34 U/L Alanine Aminotransferase (ALT/SGPT) 41 U/L Alkaline Phosphatase 134 U/L Total Protein 8.2 gm/dl Albumin 3.5 gm/dl Chemistry Specimen Hemolysis Bedside Glucose 83 mg/dl 125 mg/dl 139 mg/dl Test 05/26/17 06:24 05/26/17 08:15 White Blood Count 4.76 K/uL Red Blood Count 3.65 M/uL Hemoglobin 10.6 g/dL Hematocrit 31.2 % Mean Corpuscular Volume 85.5 fL Mean Corpuscular Hemoglobin 29.0 pg Mean Corpuscular Hemoglobin Concent 34.0 g/dl Platelet Count 210 K/uL Mean Platelet Volume 9.1 fL Neutrophils (%) (Auto) 58.0 % Lymphocytes (%) (Auto) 20.6 % Monocytes (%) (Auto) 14.1 % Eosinophils (%) (Auto) 6.5 % Basophils (%) (Auto) 0.6 % Neutrophils # (Auto) 2.76 K/uL Lymphocytes # (Auto) 0.98 K/uL Monocytes # (Auto) 0.67 K/uL Eosinophils # (Auto) 0.31 K/uL Basophils # (Auto) 0.03 K/uL RDW Standard Deviation 43.7 fL RDW Coefficient of Variation 13.8 % Immature Granulocyte % (Auto) 0.2 % Immature Granulocyte # (Auto) 0.01 K/uL Sodium Level 138 mmol/L Potassium Level 3.9 mmol/L Chloride Level 105 mmol/L Carbon Dioxide Level 28 mmol/L Anion Gap 5.0 mmol/L Blood Urea Nitrogen 11 mg/dl Creatinine 0.77 mg/dl Est Creatinine Clear Calc Drug Dose 58.9 ml/min Estimated GFR () 86.9 Estimated GFR (Non- 75.0 BUN/Creatinine Ratio 14.4 Random Glucose 142 mg/dl Calcium Level 8.2 mg/dl Urine Color YELLOW Urine Appearance CLEAR Urine pH 7.5 Urine Specific [place] 1.008 Urine Protein NEG Urine Glucose (UA) 1+ Urine Ketones NEG Urine Occult Blood NEG Urine Nitrite NEG Urine Bilirubin NEG Urine Urobilinogen NEG Urine Leukocyte Esterase NEG Assessment & Plan Probable osteomyelitis of the left great toe with improving cellulitis of the left lower leg. Patient should be continued on IV vancomycin for now, awaiting surgical consultation regarding possible distal amputation. Await further culture results. Will follow.
[2017-05-26] MEDS ORDERED: MIDAZOLAM HCL 1 MG/ML 2ML VIAL ONE (13:29)
[2017-05-26] MEDS ORDERED: FENTANYL CITRATE INJ 50 MCG/1 ML 2 ML VIAL ONE (13:29)
[2017-05-26] MEDS ORDERED: NURSING VERBAL MED ORDER ONE ×2 (15:15→23:00)
[2017-05-26] MEDS ORDERED: HYDROCODONE/ACETAMINOPHEN 7.5/325MG TAB PO PRN (15:30)
[2017-05-26 15:38] VITALS: BP 143/83; PULSE 89; TEMP 36.5; O2SAT 94
--- NOTE | 2017-05-26 16:29 | Anesthesiology Progress Note ---
Anesthesia Progress Note Date of Service May 26, 2017. Progress Notes The patient is a 76 y/o female for a L great toe amputation. She has had a L leg/foot cellulitis for several weeks with a history of multiple toe amputations. PMH includes atelectasis, PVD, orthostatic hypotension, GERD, OA, peripheral neuropathy, DM type 2 on insulin, anemia, MRSA, and obesity. She has no chest pain or SOB at rest. CXR shows atelectasis, EKG shows SR with 1st degree AV block. Labs are significant for WBC 4.8 and hgb 10.6. On exam she has a MP 3 airway but is edentulous. Lungs are clear. Heart is RRR with a 1/6 systolic murmur. Carotids are negative for bruits. She is an ASA 3. She was consented for MAC sedation vs ankle block vs general anesthesia which will be determined tomorrow by her anesthesiologist. She was counseled to remain NPO after midnight except for sips of water with pills.
[2017-05-26] MEDS: NORTRIPTYLINE HCL 10 MG CAP PO SCH (20:29)
[2017-05-26] MEDS: PRAVASTATIN SOD 20 MG TAB PO SCH (20:30)
--- NOTE | 2017-05-26 21:08 | ORTHOPEDIC CONSULTATION ---
DATE OF CONSULTATION: 05/26/2017 The patient is known to me from outpatient treatment and prior surgeries. She has been dealing with an infected ingrown toenail on her left big toe. This has been treated by Dr. Jolley. The last several days the foot has gotten progressively red, swollen and painful. An x-ray done by Dr. Jolley as an outpatient yesterday showed evidence of osteomyelitis and she was admitted to the hospital. The interim ingrown toenails were removed about a week ago. The patient is seen in conjunction with Stefania Schmidt. For further details, refer to her dictation. She and I saw and evaluated this patient together and I am agreeable with the plan. The left big toe shows some distal callosity. There is fluctuance medially and part of the nails been removed. There is mild erythema up to the IP joint with positive skin wrinkles. She can flex and extend the toe but the IP joint appears to be slightly unstable. The plantar skin looks okay except for a large callus. She has impaired sensation. She can flex and extend her ankle with normal strength. Dorsalis pedis is trace palpable. Capillary refill less than 2 seconds in all digits. No other open wounds. I do not palpate the posterior tib pulse. Erythema in the foot and ankle was largely resolved. Radiographs of the big toe show bony destruction consistent with osteomyelitis. She is afebrile. Her white count is normal. She is on vancomycin. I think that the infection has subsided to the point where a surgery is likely to be able to be done tomorrow. She will be n.p.o. after midnight. She is not on any anticoagulation. PLAN: Will be for a partial amputation. Possibly a Syme amputation, although I might have to take this further proximal into the proximal phalanx depending on skin quality.
[2017-05-27] VITALS (10 sets, daily range): BP systolic 149–197; BP diastolic 73–105; PULSE 88–133; TEMP 36.2–37; O2SAT 94–100
[2017-05-27] MEDS ORDERED: LORAZEPAM INJ 1 MG in SYRINGE 0.5 ML IV STA (00:24)
[2017-05-27] MEDS: INSULIN ASPART 100 UNITS/ML 3 ML PEN SC SCH ×3 (05:56→21:32)
[2017-05-27] MEDS: GABAPENTIN 800 MG TAB PO SCH ×4 (07:30→22:02)
[2017-05-27] MEDS: RANITIDINE HCL 150 MG TAB PO SCH ×2 (07:30→21:33)
[2017-05-27] MEDS: ASPIRIN 81 MG ECTAB PO SCH (07:30)
[2017-05-27] MEDS: LACTOBACILLUS ACIDOPHILUS (FLORANEX) TAB PO SCH ×4 (07:30→21:34)
[2017-05-27 08:56] LABS: BASO % 0.4 %; BASO ABS # 0.02 K/uL (0-0.2); EOS % 3.8 %; EOS ABS # 0.21 K/uL (0-0.5); HEMATOCRIT 36.7 % (37-47); HEMOGLOBIN 12.4 g/dL (12.0-16.0); IG# 0.01 K/uL (0.00-0.02); LYMPH % 17.7 %; LYMPH ABS # 0.97 K/uL (1.2-3.4); MEAN CELL VOLUME 86.2 fL (80-100); MEAN CORPUSCULAR HEMOGLOBIN 29.1 pg (25-34); MEAN CORPUSCULAR HGB CONC 33.8 g/dl (32-36); MEAN PLATELET VOLUME 9.6 fL (7.4-10.4); MONO % 11.9 %; MONO ABS # 0.65 K/uL (0.11-0.59); NEUT ABS # 3.62 K/uL (1.4-6.5); PLATELET COUNT 271 K/uL (130-400); RED CELL DISTRIBUTION WIDTH CV 13.9 % (11.5-14.5); RED CELL DISTRIBUTION WIDTH SD 43.8 fL (36.4-46.3); WHITE BLOOD COUNT 5.48 K/uL (4.8-10.8)
[2017-05-27] MEDS: INSULIN DETEMIR FLEXPEN/FLEX TOUCH 100 UNITS/ML 3ML SC SCH (09:02)
--- NOTE | 2017-05-27 09:22 | Orthopedic Progress Note ---
Orthopedic Progress Note Date of Service May 27, 2017. Subjective Post OP Day: Hospital admission day 1 Reports: feeling well (Pleasantly confused), pain controlled w PO medications, Denies: complaints, chest pain, SOB, nausea / vomiting, light headedness, calf pain, using SNOUT PULLER Objective calves soft nontender, N/V intact, capillary refill less than 2 sec., toes mobile, CMS intact A&O x 2 with confusion. Left great toe: Area of cellulitis in Lt foot and ankle has receded significantly. Mild pain w/ passive ankle ROM. fluctuant area over medial portion of toe where ingrown nail was removed. Mild edema, erythema, warmth and tenderness to palpation. Able to actively flex/extend at IP and MTP joint with pain. No open areas or active drainage. Significant callous formation around nail and plantar surface of great toe. Faintly palpable dorsalis pedis pulse. Unable to appreciate post tibial pulse. Date Time Temp Pulse Resp B/P (MAP) Pulse Ox O2 Delivery O2 Flow Rate FiO2 05/27/17 07:38 154/81 (105) 05/27/17 06:55 36.2 98 20 171/94 (119) 94 Room Air 05/27/17 03:29 36.2 96 17 165/74 (104) 95 Room Air 05/27/17 00:28 36.8 133 18 197/91 (126) 97 Room Air 05/27/17 00:20 Room Air 05/26/17 15:45 Room Air 05/26/17 15:38 36.5 89 14 143/83 (103) 94 Room Air Laboratory Results 24 Hours: Test 05/27/17 08:17 White Blood Count 5.48 K/uL Red Blood Count 4.26 M/uL Hemoglobin 12.4 g/dL Hematocrit 36.7 % Mean Corpuscular Volume 86.2 fL Mean Corpuscular Hemoglobin 29.1 pg Mean Corpuscular Hemoglobin Concent 33.8 g/dl Platelet Count 271 K/uL Mean Platelet Volume 9.6 fL Neutrophils (%) (Auto) 66.0 % Lymphocytes (%) (Auto) 17.7 % Monocytes (%) (Auto) 11.9 % Eosinophils (%) (Auto) 3.8 % Basophils (%) (Auto) 0.4 % Neutrophils # (Auto) 3.62 K/uL Lymphocytes # (Auto) 0.97 K/uL Monocytes # (Auto) 0.65 K/uL Eosinophils # (Auto) 0.21 K/uL Basophils # (Auto) 0.02 K/uL Assessment & Plan Assessment: Left great toe osteomyelitis Plan: Keep NPO Plan on Left 1st distal phalanx amputation (possible partial prox phalanx) this afternoon with Dr. Reddy Appreciate ID input for IV ABX Cont to monitor medically by hospitalist Inform consent obtained yesterday Daughter is present and is thankful for visit this AM and Pending surgery this PM
[2017-05-27 09:25] LABS: CALCIUM 9.2 mg/dl (8.5-10.1); CREATININE 0.72 mg/dl (0.60-1.20); POTASSIUM 3.8 mmol/L (3.5-5.1)
[2017-05-27] MEDS ORDERED: VANCOMYCIN TROUGH ONE (11:30)
[2017-05-27] MEDS: VANCOMYCIN INJ 1,000 MG in SODIUM CHLORIDE 0.9% 250ML 250 ML IV SCH (12:18)
--- NOTE | 2017-05-27 14:31 | Infectious Disease Progress Nt ---
Progress Note Date of Service May 27, 2017. Subjective Pt evaluation today including: conversation w/ patient, conversation w/ family , physical exam, chart review, lab review, review of studies, conversation w/ business information consultant, review of inpatient medication list Awaiting amputation of toe. Offers no new complaints today. Remains afebrile. Tolerating antibiotic without apparent difficulty. All Other Systems: Reviewed and Negative Medications Current Inpatient Medications Medications (Trade) Dose Ordered Sig/Claudia Route Start Time Stop Time Status Last Admin Dose Admin Acetaminophen (Tylenol Tab) 650 mg Q4H PRN PO 05/25/17 18:00 06/24/17 17:59 05/26/17 12:42 650 MG Polyethylene (Miralax Powder Packet) 17 gm DAILY PRN PO 05/25/17 18:00 06/24/17 17:59 Ondansetron HCl (Zofran Inj) 4 mg Q6H PRN IV 05/25/17 18:00 06/24/17 17:59 Aspirin (Ecotrin Tab) 81 mg DAILY PO 05/26/17 09:00 06/25/17 08:59 05/27/17 07:30 81 MG Gabapentin (Neurontin Tab) 800 mg TID PO 05/26/17 09:00 06/25/17 08:59 05/27/17 07:30 800 MG Nortriptyline HCl (Pamelor Cap) 10 mg HS PO 05/25/17 21:00 06/24/17 20:59 05/26/17 20:29 10 MG Pravastatin Sodium (Pravachol Tab) 20 mg QPM PO 05/25/17 21:00 06/24/17 20:59 05/26/17 20:30 20 MG Ranitidine HCl (zANTac TAB) 150 mg BID PO 05/25/17 21:00 06/24/17 20:59 05/27/17 07:30 150 MG Insulin Detemir (Levemir Flexpen/ FlexTouch) 24 units QAM SC 05/26/17 09:00 06/25/17 08:59 05/27/17 09:02 12 UNITS Glucose (Glucose 40% Gel) 15-30 GRAMS 15 GRAMS... UD PRN PO 05/25/17 18:00 06/24/17 17:59 Glucose (Glucose Chew Tab) 4-8 Tablets 4 Tabl... UD PRN PO 05/25/17 18:00 06/24/17 17:59 Dextrose (Dextrose 50% 50ML Syringe) 25-50ML OF 50% DW IV FOR... UD PRN IV 05/25/17 18:00 06/24/17 17:59 Glucagon (Glucagon Inj) 1 mg UD PRN SQ 05/25/17 18:00 06/24/17 17:59 Vancomycin HCl 1000 mg/Sodium Chloride 270 ml @ 125 mls/hr Q16H IV 05/26/17 04:00 07/06/17 15:59 05/27/17 12:18 125 MLS/HR Miscellaneous Information (Consult) 1 ea UD PRN N/A 05/25/17 18:00 06/24/17 17:59 Lactobacillus Acidophilus (Floranex Tab) 4 tab QIDM PO 05/25/17 20:00 06/24/17 19:59 05/27/17 07:30 4 TAB Acetaminophen/ Hydrocodone Bitart ([place] 7.5/325 Tab) 1 tab Q6H PRN PO 05/26/17 15:30 06/09/17 15:29 Insulin Aspart (novoLOG ASPART) SLIDING SCALE If C... Q6 SC 05/27/17 00:00 06/26/17 00:00 Objective Vital Signs Date Time Temp Pulse Resp B/P (MAP) Pulse Ox O2 Delivery O2 Flow Rate FiO2 05/27/17 08:00 Room Air 05/27/17 07:38 154/81 (105) 05/27/17 06:55 36.2 98 20 171/94 (119) 94 Room Air 05/27/17 03:29 36.2 96 17 165/74 (104) 95 Room Air 05/27/17 00:28 36.8 133 18 197/91 (126) 97 Room Air 05/27/17 00:20 Room Air 05/26/17 15:45 Room Air 05/26/17 15:38 36.5 89 14 143/83 (103) 94 Room Air Physical Exam General Appearance: WD/WN, no apparent distress Eyes: normal inspection, EOMI, sclerae normal ENT: normal ENT inspection, pharynx normal Neck: supple, no adenopathy, thyroid normal, trachea midline Respiratory/Chest: chest non-tender, lungs clear, normal breath sounds, no respiratory distress Cardiovascular: regular rate, rhythm, no gallop, no murmur Abdomen: normal bowel sounds, non tender, soft, no organomegaly Extremities: non-tender, no calf tenderness Neurologic/Psychiatric: alert, oriented x 3 Skin: normal color, no rash, + pertinent finding (Improved lower extremity cellulitis) Lymphatic: no adenopathy Laboratory Results Last 24 Hours Test 05/26/17 16:24 05/26/17 21:00 05/26/17 23:36 05/27/17 05:48 Bedside Glucose 80 mg/dl 128 mg/dl 93 mg/dl 103 mg/dl Test 05/27/17 08:17 05/27/17 11:37 White Blood Count 5.48 K/uL Red Blood Count 4.26 M/uL Hemoglobin 12.4 g/dL Hematocrit 36.7 % Mean Corpuscular Volume 86.2 fL Mean Corpuscular Hemoglobin 29.1 pg Mean Corpuscular Hemoglobin Concent 33.8 g/dl Platelet Count 271 K/uL Mean Platelet Volume 9.6 fL Neutrophils (%) (Auto) 66.0 % Lymphocytes (%) (Auto) 17.7 % Monocytes (%) (Auto) 11.9 % Eosinophils (%) (Auto) 3.8 % Basophils (%) (Auto) 0.4 % Neutrophils # (Auto) 3.62 K/uL Lymphocytes # (Auto) 0.97 K/uL Monocytes # (Auto) 0.65 K/uL Eosinophils # (Auto) 0.21 K/uL Basophils # (Auto) 0.02 K/uL RDW Standard Deviation 43.8 fL RDW Coefficient of Variation 13.9 % Immature Granulocyte % (Auto) 0.2 % Immature Granulocyte # (Auto) 0.01 K/uL Sodium Level 139 mmol/L Potassium Level 3.8 mmol/L Chloride Level 107 mmol/L Carbon Dioxide Level 25 mmol/L Anion Gap 7.0 mmol/L Blood Urea Nitrogen 14 mg/dl Creatinine 0.72 mg/dl Est Creatinine Clear Calc Drug Dose 63.0 ml/min Estimated GFR () 94.3 Estimated GFR (Non- 81.3 BUN/Creatinine Ratio 19.8 Random Glucose 120 mg/dl Calcium Level 9.2 mg/dl Vancomycin Level Trough 12.0 mcg/ml Assessment and Plan Probable osteomyelitis of the left great toe with improving cellulitis of the left lower leg. Patient should be continued on IV vancomycin for now, awaiting amputation of toe later today. Will follow.
[2017-05-27] MEDS ORDERED: LIDOCAINE HCL 1% 20 ML VIAL ONE (14:49)
[2017-05-27] MEDS ORDERED: BUPIVACAINE 0.5 % 5 MG/1 ML MPF 30ML VIAL ONE (14:49)
[2017-05-27] MEDS ORDERED: POVIDONE-IODINE OP SOLN 30 ML BTL ONE (14:50)
--- NOTE | 2017-05-27 14:59 | Pharmacy Progress Note ---
Pharmacy Abx Dose Short Note Date of Service May 27, 2017. Assessment & Plan Assessment * 76 year old female receiving IV Vancomycin for treatment of LLE cellulitis, probable osteomyelitis of the L great toe. Pt to OR today for amputation of toe. * Day #3 of antimicrobial therapy. Plan Vancomycin * Trough level of 12 mcg/mL is subtherapeutic * Change to Vancomycin 1000 mg IV every 12 hours * Goal trough level for osteo: 18 to 20 mcg/mL * Will consider re-evaluating another trough level in a couple of days if patient remains on vancomycin and/or renal function changes. Pharmacy will continue to follow and will adjust dose/frequency as necessary. Thank you.
[2017-05-27] MEDS ORDERED: FENTANYL CITRATE INJ 50 MCG/1 ML 2 ML VIAL ONE (15:04)
[2017-05-27] MEDS ORDERED: PHENYLEPHRINE 100MCG/ML 5ML SYR IV PRN (15:15)
[2017-05-27] MEDS ORDERED: FENTANYL CITRATE INJ 50 MCG/1 ML 2 ML VIAL IV PRN (15:15)
[2017-05-27] MEDS ORDERED: ONDANSETRON INJ 2 MG/ML 2 ML VIAL IV PRN (15:15)
[2017-05-27] MEDS ORDERED: ATROPINE SULFATE 0.1 MG/ML 5ML SYR IV PRN (15:15)
[2017-05-27] MEDS ORDERED: EpHEDrine SULFATE INJ 50 MG/ML AMP IV PRN (15:15)
[2017-05-27] MEDS ORDERED: HYDROmorphone INJ 1 MG/ML SYR IV PRN (15:15)
[2017-05-27] MEDS ORDERED: LIDOCAINE/EPINEPHRINE 1% 20 ML VIAL ONE (15:58)
[2017-05-27] MEDS ORDERED: LIDOCAINE HCL 2% 2 ML VIAL (20MG/ML) ONE (16:14)
[2017-05-27] MEDS ORDERED: LABETALOL HCL IV 5 MG/ML 20ML IV ONE (16:14)
[2017-05-27] MEDS ORDERED: PROPOFOL IV EMULSION 10 MG/ML 20 ML VIAL IV ONE (16:14)
[2017-05-27] MEDS ORDERED: METOPROLOL TARTRATE 1 MG/ML VIAL ONE (16:39)
--- NOTE | 2017-05-27 16:41 | [facility] Post Operative Brief Note ---
Immediate Operative Summary Operative Date May 27, 2017. Pre-Operative Diagnosis left big toe osteomyelitis Post-Operative Diagnosis same Procedure(s) Performed left big toe partial amputation, irrigation and debridement Surgeon Dr. Reddy Credit Negotiator Surgeon(s) Stefania Paulino Estimated Blood Loss 5 Findings Consistent with Post-Op Diagnosis Specimens Micro #1: Left big toe for gram stain, culture and sensitivity, aerobic, anaerobic #A:Distal phalanx left big toe for culture and biopsy Drains None Anesthesia Type MAC Complication(s) none Disposition Accompanied Pt To Recover: no Disposition: Recovery Room / PACU
--- NOTE | 2017-05-27 17:03 | [facility] Operative Report ---
Operative Report Operative Date May 27, 2017. Pre-Operative Diagnosis left big toe osteomyelitis Post-Operative Diagnosis same Procedure(s) Performed left big toe partial amputation, irrigation and debridement Surgeon Dr. Reddy Bottle Washing Machine Operator Surgeon(s) Stefania Paulino Estimated Blood Loss 5 Findings purulence left toe Specimens Micro #1: Left big toe for gram stain, culture and sensitivity, aerobic, anaerobic #A:Distal phalanx left big toe for culture and biopsy Drains None Anesthesia Type MAC Complication(s) none Disposition no Recovery Room / PACU Indications Patient presented to the ED two days ago with complaints of increasing left great toe redness, swelling and pain after undergoing left in grown toe nail removal. She was admitted for evaluation. X-rays were consistent with osteomyelitis left great toe. Surgical intervention recommended. Risks and complications were explained to the patient, she agreed to proceed with surgery and informed consent was obtained. Description of Procedure Patient was taken to the operating room and placed under IV sedation and given local anesthetic. She was given 2 g of IV Ancef for surgical prophylaxis. She was on IV vancomycin preoperatively. Timeout was performed. She was prepped and draped in routine sterile fashion. I was present during the entire case, please see Dr. Reddy's operative report for further detail. Patient was awakened and transferred to recovery room in stable condition. I attest to the content of the Intraoperative Record and any orders documented therein. Any exceptions are noted below.
--- NOTE | 2017-05-27 17:09 | Anesthesiology Progress Note ---
Anesthesia Post Op Note Date & Time May 27, 2017 at 17:09 Vital Signs Pain Intensity: 0 Vital Signs Past 12 Hours Date Time Temp Pulse Resp B/P (MAP) Pulse Ox O2 Delivery O2 Flow Rate FiO2 05/27/17 17:00 36.4 89 16 144/88 100 Oxymask 7 05/27/17 16:51 36.4 90 16 142/88 100 Oxymask 7 05/27/17 08:00 Room Air 05/27/17 07:38 154/81 (105) 05/27/17 06:55 36.2 98 20 171/94 (119) 94 Room Air Notes Mental Status: alert / awake / arousable, participated in evaluation Pt Amnestic to Procedure: Yes Nausea / Vomiting: adequately controlled Pain: adequately controlled Airway Patency, RR, SpO2: stable & adequate BP & HR: stable & adequate Hydration State: stable & adequate Anesthetic Complications: no major complications apparent
--- NOTE | 2017-05-27 17:31 | OPERATIVE REPORT ---
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 POSTOPERATIVE DIAGNOSIS: Same. PROCEDURE: Partial amputation of the left big toe through the interphalangeal joint, i.e., a Syme type amputation with sharp excisional debridement and irrigation. SURGEON: Dr. Reddy. HAND STONECUTTER: Stefania Schmidt. No resident or fellow available. ANESTHESIA: Local with IV sedation. INDICATIONS OF PROCEDURE: The patient is a 76-year-old female with diabetes. She has had multiple other toes amputated secondary to diabetic foot ulcerations. She has been under the care of one of our podiatrists. She had been treated for an ingrown toenail. Her symptoms have progressively gotten worse and she has developed osteomyelitis confirmed by repeat radiographs showing bony destruction of the distal phalanx. PROCEDURE IN DETAIL: Informed consent was obtained. The patient was identified as Renay Keys. She identified the operative site as the left big toe. I marked with my initials and a preop surgical time-out was performed. A preop dose of IV antibiotics was given. She was taken to the operating room, positioned supine on the operating room table. IV sedation was administered along with a digital block using 1% lidocaine with epinephrine. DVT prophylaxis will be done with early patient mobility and was not necessary intraoperatively. She had a large callus on the plantar aspect of the toe which was peeled back and this revealed a 0.5 cm ulceration out of which came a mixture of blood and pus. The leg was prescrubbed and then prepped with Betadine and draped in usual sterile fashion. A tourniquet was applied nonsterilely prior to prepping and draping, below the level of the peroneal nerve at the fibular neck. She received a preop dose of IV antibiotics. The interphalangeal joint of the toe was floppy and the tuft of the toe itself was mushy. The limb was exsanguinated with gravity and tourniquet inflated to 225 mmHg. A longitudinal incision was made in the midline just proximal to the nail fold. The nail was removed. The germinal matrix and nailbed were excised. The disintegrated distal phalanx was noted beneath it. There was some normal appearing bone towards the medial aspect, but largely the bone was soft and fragmented. This was completely excised. The extensor tendon was excised. The flexor tendon was pulled into the wound and amputated and allowed to retract. No purulent pockets were noted. Sharp excisional debridement with scalpel and rongeur was then performed to remove any granulation tissue that was present. The wound was irrigated with Betadine solution. The tourniquet was let down after 15 minutes of inflation. There was minimal bleeding. She did have good bleeding at the level of the skin preoperatively when the callus was being debrided. The skin was trimmed as necessary. The plantar ulcer was excised in doing so. The plantar flap was brought up dorsally and skin closure of the T-shaped incision was performed using interrupted 3-0 nylon sutures. The incision was closed loosely so as to allow some drainage. The wound edges were well approximated. Leg was cleaned with wet and dry sponges. A bulky soft sterile dressing was applied. Fluffs between the toes, Xeroform, 4 x 4's, ABD and a postoperative shoe. The patient was awakened from anesthesia without difficulty and taken to the recovery room in stable condition. There were no complications. The resected bone and tissue was sent for biopsy and culture. A swab culture was also obtained of the osteomyelitis site. Counts were correct at the end of the case. Blood loss was approximately 5 mL . At the conclusion of the operation, I spoke to patient's family and informed them of my findings and postoperative instructions were given. PLAN: Plan will be for her to weightbear as tolerated. Elevation. Continue postop IV antibiotics. Will follow up on healing of the wound as well as cultures. I checked the proximal phalanx with a hypodermic needle and there were no areas of softness in the cartilage or exposed bone. I attest to the content of the Intraoperative Record and any orders documented therein. Any exception s are noted below.
[2017-05-27] MEDS ORDERED: NURSING VERBAL MED ORDER ONE (17:45)
[2017-05-27] MEDS ORDERED: LORAZEPAM INJ 1 MG in SYRINGE 0.5 ML IV PRN (18:00)
[2017-05-27] MEDS ORDERED: LORAZEPAM 0.5 MG TAB PO PRN (18:00)
[2017-05-27] MEDS ORDERED: LORAZEPAM 2 MG/ML 1 ML VIAL IV PRN ×2 (18:00)
--- NOTE | 2017-05-27 19:13 | Progress Note ---
Subjective Date of Service: May 27, 2017. Subjective this pt is anxious and is now status post right toe surgery associated with a diabetic foot infection and osteomyelitis Problem List Medical Problems: (1) Altered mental status Status: Acute (2) Altered mental status, unspecified Status: Acute (3) Bilateral leg pain Status: Acute (4) Cellulitis of leg, left Status: Acute (5) Cellulitis of right lower extremity Status: Acute (6) Cellulitis of second toe, right Status: Acute (7) Diabetic foot ulcer Status: Acute (8) E. coli UTI Status: Acute (9) Foot pain Status: Acute (10) Neuropathy Status: Acute (11) Orthostatic hypotension Status: Acute (12) Osteomyelitis of ankle or foot, left, acute Status: Acute (13) Ulcer Status: Acute Review of Systems Constitutional: No fever, No chills Respiratory: No cough, No shortness of breath, No dyspnea on exertion Cardiac: No chest pain, No PND, No edema Abdomen: No pain, No nausea, No vomiting, No diarrhea Musculoskeletal: + joint pain, + swelling Female : No dysuria, No urinary frequency Neurologic: No memory loss, No paralysis Psychiatric: + anxiety, No depression symptoms Objective Vital Signs Date Time Temp Pulse Resp B/P (MAP) Pulse Ox O2 Delivery O2 Flow Rate FiO2 05/27/17 18:15 37.0 93 20 152/91 (111) 97 Room Air 05/27/17 17:45 100 Room Air 05/27/17 17:45 100 Room Air 05/27/17 17:15 37.0 97 22 172/83 (112) 100 Room Air 05/27/17 17:08 36.4 90 16 152/89 99 Room Air 05/27/17 17:00 36.4 89 16 144/88 100 Oxymask 7 05/27/17 16:51 36.4 90 16 142/88 100 Oxymask 7 05/27/17 08:00 Room Air 05/27/17 07:38 154/81 (105) 05/27/17 06:55 36.2 98 20 171/94 (119) 94 Room Air 05/27/17 03:29 36.2 96 17 165/74 (104) 95 Room Air 05/27/17 00:28 36.8 133 18 197/91 (126) 97 Room Air 05/27/17 00:20 Room Air Physical Exam General Appearance: WD/WN, + mild distress Eyes: normal inspection, sclerae normal Neck: supple, no JVD Respiratory/Chest: chest non-tender, lungs clear, normal breath sounds Cardiovascular: regular rate, rhythm, no murmur Abdomen: normal bowel sounds, non tender, soft Extremities: + pedal edema, + swelling Neurologic/Psychiatric: alert, oriented x 3 Laboratory Results Last 24 Hours Test 05/26/17 21:00 05/26/17 23:36 05/27/17 05:48 05/27/17 08:17 Bedside Glucose 128 mg/dl 93 mg/dl 103 mg/dl White Blood Count 5.48 K/uL Red Blood Count 4.26 M/uL Hemoglobin 12.4 g/dL Hematocrit 36.7 % Mean Corpuscular Volume 86.2 fL Mean Corpuscular Hemoglobin 29.1 pg Mean Corpuscular Hemoglobin Concent 33.8 g/dl Platelet Count 271 K/uL Mean Platelet Volume 9.6 fL Neutrophils (%) (Auto) 66.0 % Lymphocytes (%) (Auto) 17.7 % Monocytes (%) (Auto) 11.9 % Eosinophils (%) (Auto) 3.8 % Basophils (%) (Auto) 0.4 % Neutrophils # (Auto) 3.62 K/uL Lymphocytes # (Auto) 0.97 K/uL Monocytes # (Auto) 0.65 K/uL Eosinophils # (Auto) 0.21 K/uL Basophils # (Auto) 0.02 K/uL RDW Standard Deviation 43.8 fL RDW Coefficient of Variation 13.9 % Immature Granulocyte % (Auto) 0.2 % Immature Granulocyte # (Auto) 0.01 K/uL Sodium Level 139 mmol/L Potassium Level 3.8 mmol/L Chloride Level 107 mmol/L Carbon Dioxide Level 25 mmol/L Anion Gap 7.0 mmol/L Blood Urea Nitrogen 14 mg/dl Creatinine 0.72 mg/dl Est Creatinine Clear Calc Drug Dose 63.0 ml/min Estimated GFR () 94.3 Estimated GFR (Non- 81.3 BUN/Creatinine Ratio 19.8 Random Glucose 120 mg/dl Calcium Level 9.2 mg/dl Test 05/27/17 08:40 05/27/17 11:37 05/27/17 12:21 05/27/17 16:58 Bedside Glucose 116 mg/dl 108 mg/dl 96 mg/dl Vancomycin Level Trough 12.0 mcg/ml Assessment and Plan 76 yo F with 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 An MRI of the LLE was done and showed osteomyelitis which was confirmed by the pt's personal care worker. LLE osteomyelitis, cellulitis, Left great toe infection - Dr. Reddy surgery 05/27 - Consult ID - IV vancomycin at this time- Probiotics QID - MRI per outpatient records suggest osteomyelitis DM Diabetic Neuropathy- ISS with accu checks achs, continue levemir 24 U QPM ( 1 /2 dose if needed ) - check A1C with am labs gabapentin 800 mg TID, HLD pravastatin GERD ranitidine DVT ppx: Teds, scds, no chemical anticoagulation at this time due to possible surgical procedure CODE STATUS: FULL CODE
[2017-05-27] MEDS ORDERED: HydrALAZINE HCL 20 MG/ML VIAL IV PRN (19:15)
[2017-05-27] MEDS: LORAZEPAM INJ 0.5 MG in SYRINGE 0.75 ML IV PRN ×2 (19:24→20:47)
[2017-05-27] MEDS: QUETIAPINE FUMARATE 25 MG TAB PO SCH (21:33)
[2017-05-27] MEDS: PRAVASTATIN SOD 20 MG TAB PO SCH (21:33)
[2017-05-27] MEDS: NORTRIPTYLINE HCL 10 MG CAP PO SCH (21:34)
[2017-05-27] MEDS ORDERED: HALOPERIDOL LACTATE 5 MG/ML 1 ML VIAL IM ONE (22:15)
[2017-05-28] MEDS: VANCOMYCIN INJ 1,000 MG in SODIUM CHLORIDE 0.9% 250ML 250 ML IV SCH ×3 (00:35→23:56)
[2017-05-28] MEDS: TRAMADOL HCL 50 MG TAB PO PRN ×4 (02:29→23:02)
[2017-05-28 03:05] VITALS: BP 153/70; PULSE 87; TEMP 36.7; O2SAT 94
[2017-05-28 07:01] VITALS: BP 158/75; PULSE 81; TEMP 36.6; O2SAT 97
--- NOTE | 2017-05-28 07:50 | Progress Note ---
Subjective Date of Service: May 28, 2017. Subjective pt had a rough night and now is tired, she has good pain control Problem List Medical Problems: (1) Altered mental status Status: Acute (2) Altered mental status, unspecified Status: Acute (3) Bilateral leg pain Status: Acute (4) Cellulitis of leg, left Status: Acute (5) Cellulitis of right lower extremity Status: Acute (6) Cellulitis of second toe, right Status: Acute (7) Diabetic foot ulcer Status: Acute (8) E. coli UTI Status: Acute (9) Foot pain Status: Acute (10) Neuropathy Status: Acute (11) Orthostatic hypotension Status: Acute (12) Osteomyelitis of ankle or foot, left, acute Status: Acute (13) Ulcer Status: Acute Review of Systems Constitutional: + weakness, + fatigue, No fever, No chills Respiratory: No cough, No shortness of breath Cardiac: No chest pain, No PND, No edema Abdomen: No pain, No nausea, No vomiting, No diarrhea Musculoskeletal: + joint pain, + muscle pain Psychiatric: No depression symptoms, No anxiety Objective Vital Signs Date Time Temp Pulse Resp B/P (MAP) Pulse Ox O2 Delivery O2 Flow Rate FiO2 05/28/17 07:01 36.6 81 16 158/75 (102) 97 Room Air 05/28/17 03:05 36.7 87 20 153/70 (97) 94 Room Air 05/28/17 00:45 Room Air 05/27/17 22:17 88 150/78 (102) 05/27/17 21:51 109 197/105 (135) 05/27/17 19:10 36.8 94 20 149/82 (104) 95 Room Air 05/27/17 18:15 37.0 93 20 152/91 (111) 97 Room Air 05/27/17 17:45 36.7 91 18 152/73 (99) 98 Room Air 05/27/17 17:45 100 Room Air 05/27/17 17:45 100 Room Air 05/27/17 17:15 37.0 97 22 172/83 (112) 100 Room Air 05/27/17 17:08 36.4 90 16 152/89 99 Room Air 05/27/17 17:00 36.4 89 16 144/88 100 Oxymask 7 05/27/17 16:51 36.4 90 16 142/88 100 Oxymask 7 05/27/17 08:00 Room Air Physical Exam General Appearance: WD/WN, + mild distress Eyes: normal inspection, sclerae normal Respiratory/Chest: chest non-tender, lungs clear, normal breath sounds Cardiovascular: regular rate, rhythm, no murmur Abdomen: normal bowel sounds, non tender, soft Extremities: no calf tenderness, + pertinent finding (tenderness) Neurologic/Psychiatric: alert, oriented x 3 Laboratory Results Last 24 Hours Test 05/27/17 08:17 05/27/17 08:40 05/27/17 11:37 05/27/17 12:21 White Blood Count 5.48 K/uL Red Blood Count 4.26 M/uL Hemoglobin 12.4 g/dL Hematocrit 36.7 % Mean Corpuscular Volume 86.2 fL Mean Corpuscular Hemoglobin 29.1 pg Mean Corpuscular Hemoglobin Concent 33.8 g/dl Platelet Count 271 K/uL Mean Platelet Volume 9.6 fL Neutrophils (%) (Auto) 66.0 % Lymphocytes (%) (Auto) 17.7 % Monocytes (%) (Auto) 11.9 % Eosinophils (%) (Auto) 3.8 % Basophils (%) (Auto) 0.4 % Neutrophils # (Auto) 3.62 K/uL Lymphocytes # (Auto) 0.97 K/uL Monocytes # (Auto) 0.65 K/uL Eosinophils # (Auto) 0.21 K/uL Basophils # (Auto) 0.02 K/uL RDW Standard Deviation 43.8 fL RDW Coefficient of Variation 13.9 % Immature Granulocyte % (Auto) 0.2 % Immature Granulocyte # (Auto) 0.01 K/uL Sodium Level 139 mmol/L Potassium Level 3.8 mmol/L Chloride Level 107 mmol/L Carbon Dioxide Level 25 mmol/L Anion Gap 7.0 mmol/L Blood Urea Nitrogen 14 mg/dl Creatinine 0.72 mg/dl Est Creatinine Clear Calc Drug Dose 63.0 ml/min Estimated GFR () 94.3 Estimated GFR (Non- 81.3 BUN/Creatinine Ratio 19.8 Random Glucose 120 mg/dl Calcium Level 9.2 mg/dl Bedside Glucose 116 mg/dl 108 mg/dl Vancomycin Level Trough 12.0 mcg/ml Test 05/27/17 16:58 05/27/17 18:32 05/27/17 20:58 2/24/18 04:44 Bedside Glucose 96 mg/dl 105 mg/dl 145 mg/dl Assessment and Plan 76 yo F with 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 An MRI of the LLE was done and showed osteomyelitis which was confirmed by the pt's digital data analyst. pt had surgical amputation 05/27 LLE osteomyelitis, cellulitis, Left great toe infection - Dr. Reddy surgery 05/27 partial amputation of left great toe through the interphalangeal joint - Consult ID is following - IV vancomycin at this time- Probiotics QID - DM Diabetic Neuropathy- ISS with accu checks achs, continue levemir 24 U - check A1C with am labs gabapentin 800 mg TID, HLD pravastatin GERD ranitidine DVT ppx: Teds, scds, will consider chemical prevention if surgery is satisfied with hemostasis CODE STATUS: FULL CODE
[2017-05-28] MEDS: INSULIN ASPART 100 UNITS/ML 3 ML PEN SC SCH ×4 (08:00→21:00)
[2017-05-28 08:20] LABS: BASO % 0.3 %; BASO ABS # 0.02 K/uL (0-0.2); EOS % 3.7 %; EOS ABS # 0.23 K/uL (0-0.5); HEMATOCRIT 36.2 % (37-47); HEMOGLOBIN 11.8 g/dL (12.0-16.0); IG# 0.02 K/uL (0.00-0.02); LYMPH % 15.3 %; LYMPH ABS # 0.94 K/uL (1.2-3.4); MEAN CELL VOLUME 86.6 fL (80-100); MEAN CORPUSCULAR HEMOGLOBIN 28.2 pg (25-34); MEAN CORPUSCULAR HGB CONC 32.6 g/dl (32-36); MEAN PLATELET VOLUME 9.3 fL (7.4-10.4); MONO % 8.6 %; MONO ABS # 0.53 K/uL (0.11-0.59); NEUT % 71.8 %; PLATELET COUNT 261 K/uL (130-400); RED CELL DISTRIBUTION WIDTH CV 13.9 % (11.5-14.5); WHITE BLOOD COUNT 6.14 K/uL (4.8-10.8)
[2017-05-28 08:52] LABS: CREATININE 0.71 mg/dl (0.60-1.20)
[2017-05-28] MEDS: GABAPENTIN 800 MG TAB PO SCH ×3 (09:00→21:20)
[2017-05-28] MEDS: LACTOBACILLUS ACIDOPHILUS (FLORANEX) TAB PO SCH ×4 (10:09→21:20)
[2017-05-28] MEDS: RANITIDINE HCL 150 MG TAB PO SCH ×2 (10:09→21:20)
[2017-05-28] MEDS: ASPIRIN 81 MG ECTAB PO SCH (10:10)
[2017-05-28] MEDS: INSULIN DETEMIR FLEXPEN/FLEX TOUCH 100 UNITS/ML 3ML SC SCH (10:26)
[2017-05-28 15:01] VITALS: BP 151/76; PULSE 96; TEMP 37.3; O2SAT 97
--- NOTE | 2017-05-28 19:03 | PROGRESS NOTE ---
DATE: 05/28/2017 She is sitting up in her chair. She had a difficult night secondary to delirium. Otherwise, the toe is minimally painful. Cultures are pending. She is afebrile. She is voiding regularly. Her dressing is clean and dry. She is awake and appropriate at this point. Family is with her. We will change dressing tomorrow. Continue elevation. Pain medication if needed. We will follow up on cultures. Continue intravenous antibiotics. She is on subQ heparin for DVT prophylaxis and vancomycin. She may weightbear as tolerated. Waiting Dr. Sullivan's recommendations regarding route and length of antibiotics.
[2017-05-28] MEDS: PRAVASTATIN SOD 20 MG TAB PO SCH (21:20)
[2017-05-28] MEDS: QUETIAPINE FUMARATE 25 MG TAB PO SCH (21:20)
[2017-05-28] MEDS: NORTRIPTYLINE HCL 10 MG CAP PO SCH (21:21)
[2017-05-28] MEDS: HEPARIN SOD 5000 UNIT/0.5 ML CARP SQ SCH (21:35)
[2017-05-28 22:47] VITALS: BP 161/85; PULSE 105; TEMP 37.3; O2SAT 95
[2017-05-29] MEDS: TRAMADOL HCL 50 MG TAB PO PRN (05:49)
[2017-05-29 06:52] VITALS: BP 144/75; PULSE 99; TEMP 36.6; O2SAT 95
[2017-05-29 06:56] LABS: HEMATOCRIT 31.5 % (37-47); HEMOGLOBIN 10.7 g/dL (12.0-16.0); MEAN CELL VOLUME 84.9 fL (80-100); MEAN CORPUSCULAR HEMOGLOBIN 28.8 pg (25-34); MEAN PLATELET VOLUME 9.4 fL (7.4-10.4); PLATELET COUNT 245 K/uL (130-400); RED CELL DISTRIBUTION WIDTH CV 13.7 % (11.5-14.5); RED CELL DISTRIBUTION WIDTH SD 42.3 fL (36.4-46.3); WHITE BLOOD COUNT 4.62 K/uL (4.8-10.8)
[2017-05-29 07:31] LABS: CALCIUM 8.5 mg/dl (8.5-10.1); CREATININE 0.61 mg/dl (0.60-1.20); POTASSIUM 3.5 mmol/L (3.5-5.1)
[2017-05-29] MEDS: INSULIN ASPART 100 UNITS/ML 3 ML PEN SC SCH ×4 (08:00→21:23)
[2017-05-29] MEDS: LACTOBACILLUS ACIDOPHILUS (FLORANEX) TAB PO SCH ×4 (08:30→20:38)
[2017-05-29] MEDS: RANITIDINE HCL 150 MG TAB PO SCH ×2 (09:00→20:38)
[2017-05-29] MEDS: ASPIRIN 81 MG ECTAB PO SCH (09:00)
[2017-05-29] MEDS: GABAPENTIN 800 MG TAB PO SCH ×3 (09:00→20:36)
[2017-05-29] MEDS ORDERED: HALOPERIDOL LACTATE 5 MG/ML 1 ML VIAL IV PRN (10:00)
[2017-05-29] MEDS ORDERED: HALOPERIDOL LACTATE 5 MG/ML 1 ML VIAL ONE (10:38)
[2017-05-29] MEDS ORDERED: HALOPERIDOL LACTATE 5 MG/ML 1 ML VIAL IM PRN (10:45)
[2017-05-29] MEDS ORDERED: VANCOMYCIN TROUGH ONE (11:30)
[2017-05-29] MEDS: INSULIN DETEMIR FLEXPEN/FLEX TOUCH 100 UNITS/ML 3ML SC SCH (11:37)
[2017-05-29] MEDS: HEPARIN SOD 5000 UNIT/0.5 ML CARP SQ SCH ×2 (11:38→20:37)
[2017-05-29 12:00] VITALS: BP 158/76; PULSE 94; TEMP 36.7; O2SAT 95
--- NOTE | 2017-05-29 12:04 | Progress Note ---
Subjective Date of Service: May 29, 2017. Subjective pt is having an hospital delerim this day, maybe from ultram or last pm seroquel or nortriptyline. she thinks she is at the [facility] and was home yesterday Problem List Medical Problems: (1) Altered mental status Status: Acute (2) Altered mental status, unspecified Status: Acute (3) Bilateral leg pain Status: Acute (4) Cellulitis of leg, left Status: Acute (5) Cellulitis of right lower extremity Status: Acute (6) Cellulitis of second toe, right Status: Acute (7) Diabetic foot ulcer Status: Acute (8) E. coli UTI Status: Acute (9) Foot pain Status: Acute (10) Neuropathy Status: Acute (11) Orthostatic hypotension Status: Acute (12) Osteomyelitis of ankle or foot, left, acute Status: Acute (13) Ulcer Status: Acute Review of Systems Constitutional: + weakness, + fatigue, No fever, No chills Respiratory: No cough, No shortness of breath Cardiac: No chest pain, No edema Abdomen: No pain, No nausea, No vomiting Musculoskeletal: + joint pain, + muscle pain Neurologic: + memory loss, + problem reported (delerium) Psychiatric: + anxiety, No depression symptoms Objective Vital Signs Date Time Temp Pulse Resp B/P (MAP) Pulse Ox O2 Delivery O2 Flow Rate FiO2 05/29/17 06:52 36.6 99 17 144/75 (98) 95 Room Air 05/29/17 00:30 Room Air 05/28/17 22:47 37.3 105 18 161/85 (110) 95 Room Air 05/28/17 19:45 Room Air 05/28/17 15:01 37.3 96 18 151/76 (101) 97 Room Air Physical Exam General Appearance: WD/WN, + moderate distress Eyes: normal inspection, PERRL, EOMI, sclerae normal Respiratory/Chest: chest non-tender, lungs clear, normal breath sounds Cardiovascular: regular rate, rhythm, no murmur Abdomen: normal bowel sounds, soft Extremities: + pertinent finding (dressing on left foot) Laboratory Results Last 24 Hours Test 05/28/17 12:03 05/28/17 16:50 05/28/17 17:34 05/28/17 21:32 Bedside Glucose 150 mg/dl 105 mg/dl 146 mg/dl Prothrombin Time 10.4 SECONDS Prothromb Time International Ratio 1.0 Test 05/29/17 06:15 05/29/17 07:04 05/29/17 11:25 White Blood Count 4.62 K/uL Red Blood Count 3.71 M/uL Hemoglobin 10.7 g/dL Hematocrit 31.5 % Mean Corpuscular Volume 84.9 fL Mean Corpuscular Hemoglobin 28.8 pg Mean Corpuscular Hemoglobin Concent 34.0 g/dl RDW Standard Deviation 42.3 fL RDW Coefficient of Variation 13.7 % Platelet Count 245 K/uL Mean Platelet Volume 9.4 fL Sodium Level 139 mmol/L Potassium Level 3.5 mmol/L Chloride Level 108 mmol/L Carbon Dioxide Level 22 mmol/L Anion Gap 9.0 mmol/L Blood Urea Nitrogen 12 mg/dl Creatinine 0.61 mg/dl Est Creatinine Clear Calc Drug Dose 74.4 ml/min Estimated GFR () 102.1 Estimated GFR (Non- 88.1 BUN/Creatinine Ratio 19.7 Random Glucose 82 mg/dl Calcium Level 8.5 mg/dl Bedside Glucose 91 mg/dl Assessment and Plan 76 yo F with 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 pt had surgical amputation 05/27 Hospital delerium, maybe toxic encephalopathy from medications, she did recieve a few doses of ultram, last pm Seroquel and her usual nortriptyline LLE osteomyelitis, cellulitis, Left great toe infection - Dr. Reddy surgery 05/27 partial amputation of left great toe through the interphalangeal joint - Consult ID has not decided on final antibiotic or duration - IV vancomycin at this time- Probiotics QID - DM Diabetic Neuropathy-has been stable on ISS with accu checks achs, continue levemir 24 U - check A1C with am labs gabapentin 800 mg TID, HLD continues as at home pravastatin GERD ranitidine DVT ppx: Teds, scds, will consider chemical prevention if surgery is satisfied with hemostasis CODE STATUS: FULL CODE
--- NOTE | 2017-05-29 12:58 | Pharmacy Progress Note ---
Pharmacy Abx Dose Short Note Date of Service May 29, 2017. Assessment & Plan Assessment 76 year old female receiving Vancomycin for treatment of osteomyelitis Day # 5 of antimicrobial therapy. Item Value Date Time Vancomycin Level Trough 16.5 mcg/ml 05/29/17 1125 Plan Vancomycin * Trough level of 16.6 mcg/mL is therapeutic. * Continue dose of 1000 mg IV every 12 hours * Goal trough level for osteomyelitis : 15 to 20 mcg/mL * No additional levels ordered at this time. Pharmacy will continue to follow and will adjust dose/frequency as necessary. Thank you.
[2017-05-29] MEDS: VANCOMYCIN INJ 1,000 MG in SODIUM CHLORIDE 0.9% 250ML 250 ML IV SCH ×2 (13:52→23:36)
--- NOTE | 2017-05-29 14:00 | PROGRESS NOTE ---
DATE: 05/29/2017 She is resting comfortably in bed. She was a little bit confused last night, but not as bad as before. She is afebrile. Her vital signs are stable. Her labs are noted. The dressing is changed. There is minimal active bleeding. Erythema is largely resolving. Skin wrinkles are present. Swelling is minimal. The wound is well approximated without dehiscence. New dressing is applied. Left foot first toe partial amputation secondary to diabetic foot ulcer. Tissue and blood cultures are no growth to date. PLAN: Continue elevation. She can weightbear as tolerated with a postop shoe. Once the antibiotics are determined, she can be discharged from my perspective. She should follow up with me later this week for a wound check. If there are any problems with pain, swelling, fevers, drainage, erythema, etc., return sooner. She will need a pain pill, stool softener, her regular medications plus her antibiotics. Home nursing can change her dressing daily or every other day. She does not need a wound VAC.
[2017-05-29 15:08] VITALS: BP 163/72; PULSE 98; TEMP 36.6; O2SAT 94
[2017-05-29] MEDS: PRAVASTATIN SOD 20 MG TAB PO SCH (20:38)
[2017-05-29 23:04] VITALS: BP 175/82; PULSE 100; TEMP 36.9; O2SAT 95
[2017-05-30 06:59] VITALS: BP 156/81; PULSE 79; TEMP 36.7; O2SAT 97
[2017-05-30 07:48] VITALS: BP 153/65; PULSE 78; TEMP 36.7; O2SAT 96
[2017-05-30 07:49] VITALS: O2SAT 96
--- NOTE | 2017-05-30 08:06 | Anesthesiology Progress Note ---
Anesthesia Post Op Note Date & Time May 30, 2017 at 08:05 Vital Signs Pain Intensity: 0.0 Vital Signs Past 12 Hours Date Time Temp Pulse Resp B/P (MAP) Pulse Ox O2 Delivery O2 Flow Rate FiO2 05/30/17 07:49 96 Room Air 05/30/17 07:48 36.7 78 14 153/65 (94) 96 Room Air 05/30/17 06:59 36.7 79 18 156/81 (106) 97 Room Air 05/29/17 23:35 Room Air 05/29/17 23:04 36.9 100 18 175/82 (113) 95 Room Air Notes Mental Status: alert / awake / arousable, participated in evaluation Pt Amnestic to Procedure: Yes Nausea / Vomiting: adequately controlled Pain: adequately controlled Airway Patency, RR, SpO2: stable & adequate BP & HR: stable & adequate Hydration State: stable & adequate Anesthetic Complications: no major complications apparent
[2017-05-30] MEDS: ASPIRIN 81 MG ECTAB PO SCH (08:36)
[2017-05-30] MEDS: GABAPENTIN 800 MG TAB PO SCH ×2 (08:37→13:31)
[2017-05-30] MEDS: RANITIDINE HCL 150 MG TAB PO SCH (08:38)
[2017-05-30] MEDS: LACTOBACILLUS ACIDOPHILUS (FLORANEX) TAB PO SCH ×2 (08:50→12:22)
[2017-05-30] MEDS: INSULIN ASPART 100 UNITS/ML 3 ML PEN SC SCH ×2 (09:08→13:26)
[2017-05-30] MEDS: INSULIN DETEMIR FLEXPEN/FLEX TOUCH 100 UNITS/ML 3ML SC SCH (09:10)
[2017-05-30] MEDS: HEPARIN SOD 5000 UNIT/0.5 ML CARP SQ SCH (09:11)
[2017-05-30 12:02] VITALS: BP 138/66; PULSE 95; TEMP 36.8; O2SAT 95
[2017-05-30] MEDS: VANCOMYCIN INJ 1,000 MG in SODIUM CHLORIDE 0.9% 250ML 250 ML IV SCH (12:14)
--- NOTE | 2017-05-30 14:58 | Consultant Recommendations ---
[employer] Recommendations Date of Service May 30, 2017. [employer] Recommendations Post op shoe when out of bed/ambulating left foot Keep dressings on left foot. Elevate left foot above heart to relieve pain/swelling. She may weight bear as tolerated left foot with post op shoe on with ambulation. Change dressings left toe daily. Follow up with Dr. Reddy as scheduled, call [phone] to confirm or change appointment.
--- NOTE | 2017-05-30 15:11 | Infectious Disease Progress Nt ---
Progress Note Date of Service May 30, 2017. Subjective Pt evaluation today including: conversation w/ patient, conversation w/ family , physical exam, chart review, lab review, review of studies, conversation w/ chain sales consultant, review of inpatient medication list Patient status post partial amputation of the left great toe. Offers no new complaints. Hemodynamically stable postop. Remains afebrile. Cultures from the OR growing alpha strep. All Other Systems: Reviewed and Negative Medications Current Inpatient Medications Medications (Trade) Dose Ordered Sig/Claudia Route Start Time Stop Time Status Last Admin Dose Admin Acetaminophen (Tylenol Tab) 650 mg Q4H PRN PO 05/25/17 18:00 06/24/17 17:59 05/26/17 12:42 650 MG Polyethylene (Miralax Powder Packet) 17 gm DAILY PRN PO 05/25/17 18:00 06/24/17 17:59 Ondansetron HCl (Zofran Inj) 4 mg Q6H PRN IV 05/25/17 18:00 06/24/17 17:59 Aspirin (Ecotrin Tab) 81 mg DAILY PO 05/26/17 09:00 06/25/17 08:59 05/30/17 08:36 81 MG Gabapentin (Neurontin Tab) 800 mg TID PO 05/26/17 09:00 06/25/17 08:59 05/30/17 13:31 800 MG Nortriptyline HCl (Pamelor Cap) 10 mg HS PO 05/25/17 21:00 06/24/17 20:59 Future Hold 05/28/17 21:21 10 MG Pravastatin Sodium (Pravachol Tab) 20 mg QPM PO 05/25/17 21:00 06/24/17 20:59 05/29/17 20:38 20 MG Ranitidine HCl (zANTac TAB) 150 mg BID PO 05/25/17 21:00 06/24/17 20:59 05/30/17 08:38 150 MG Insulin Detemir (Levemir Flexpen/ FlexTouch) 24 units QAM SC 05/26/17 09:00 06/25/17 08:59 05/30/17 09:10 24 UNITS Glucose (Glucose 40% Gel) 15-30 GRAMS 15 GRAMS... UD PRN PO 05/25/17 18:00 06/24/17 17:59 Glucose (Glucose Chew Tab) 4-8 Tablets 4 Tabl... UD PRN PO 05/25/17 18:00 06/24/17 17:59 Dextrose (Dextrose 50% 50ML Syringe) 25-50ML OF 50% DW IV FOR... UD PRN IV 05/25/17 18:00 06/24/17 17:59 Glucagon (Glucagon Inj) 1 mg UD PRN SQ 05/25/17 18:00 06/24/17 17:59 Miscellaneous Information (Consult) 1 ea UD PRN N/A 05/25/17 18:00 06/24/17 17:59 Lactobacillus Acidophilus (Floranex Tab) 4 tab QIDM PO 05/25/17 20:00 06/24/17 19:59 05/30/17 12:22 4 TAB Acetaminophen/ Hydrocodone Bitart ([place] 7.5/325 Tab) 1 tab Q6H PRN PO 05/26/17 15:30 06/09/17 15:29 Vancomycin HCl 1000 mg/Sodium Chloride 270 ml @ 125 mls/hr Q12H IV 05/28/17 00:00 07/09/17 00:00 05/30/17 12:14 125 MLS/HR Tramadol HCl (Ultram Tab) 50 mg for pain 1-5 100mg ... Q4H PRN PO 05/27/17 17:00 06/26/17 16:59 Future Hold 05/29/17 05:49 50 MG Insulin Aspart (novoLOG ASPART) SLIDING SCALE If C... ACHS SC 05/27/17 21:00 06/26/17 20:59 05/30/17 13:26 4 UNITS Lorazepam (Ativan Inj) 1 mg Q4H PRN IV 05/27/17 18:00 06/26/17 17:59 Lorazepam (Ativan Inj) 0.5 mg Q4H PRN IV 05/27/17 18:00 06/26/17 17:59 Lorazepam (Ativan Tab) 0.5 mg Q6 PRN PO 05/27/17 18:00 06/26/17 17:59 05/29/17 14:05 0.5 MG Quetiapine Fumarate (seroQUEL TAB) 25 mg HS PO 05/27/17 21:00 3/25/18 20:59 Future Hold 05/28/17 21:20 25 MG Lorazepam 1 mg/ Syringe 1 ml @ 1 mls/min Q4H PRN IV 05/27/17 18:00 06/26/17 17:59 Lorazepam 0.5 mg/ Syringe 1 ml @ 1 mls/min Q4H PRN IV 05/27/17 18:15 06/26/17 18:14 05/27/17 20:47 1 MLS/MIN Hydralazine HCl (HydrALAZINE INJ) 10 mg Q4H PRN IV 05/27/17 19:15 06/26/17 19:14 Heparin Sodium (Porcine) (Heparin Sq 5000 Unit/0.5ml) 5,000 unit Q12 SQ 05/28/17 21:00 06/27/17 20:59 05/30/17 09:11 5,000 UNIT Haloperidol Lactate (Haldol Inj) 5 mg Q6 PRN IM 05/29/17 10:45 06/28/17 09:59 Objective Vital Signs Date Time Temp Pulse Resp B/P (MAP) Pulse Ox O2 Delivery O2 Flow Rate FiO2 05/30/17 13:43 Room Air 05/30/17 12:02 36.8 95 16 138/66 (90) 95 Room Air 05/30/17 07:49 96 Room Air 05/30/17 07:48 36.7 78 14 153/65 (94) 96 Room Air 05/30/17 06:59 36.7 79 18 156/81 (106) 97 Room Air 05/29/17 23:35 Room Air 05/29/17 23:04 36.9 100 18 175/82 (113) 95 Room Air 05/29/17 15:40 Room Air Physical Exam General Appearance: WD/WN, no apparent distress Eyes: normal inspection, EOMI, sclerae normal ENT: normal ENT inspection, hearing grossly normal, pharynx normal Neck: supple, no adenopathy, thyroid normal, trachea midline Respiratory/Chest: chest non-tender, lungs clear, normal breath sounds, no respiratory distress Cardiovascular: regular rate, rhythm, no gallop, no murmur Abdomen: normal bowel sounds, non tender, soft, no organomegaly Extremities: non-tender, no calf tenderness Neurologic/Psychiatric: alert, oriented x 3 Skin: normal color, no rash, + pertinent finding (Surgical dressing intact left great toe, cellulitis essentially resolved) Lymphatic: no adenopathy Laboratory Results RUN DATE: 05/30/17 [facility] LAB PAGE 1 RUN TIME: 1438 Specimen Inquiry PATIENT: QUINTIN MCKENZIE LOC: JUNE U # : [id number] AGE/SX: 76/F ROOM: [facility] REG : 05/25/[address]: Roger Porras MD, PhD : 1940 BED: 2 DIS : STATUS: ADM IN TLOC: SPEC #: [id number] JEREMIAH: 05/27/17 STATUS: RES REQ #: [id number] RECD: 05/27/17 [facility] DR: Rony Reddy M.D. SOURCE: TISSUE ENTR: 05/27/[address] [facility] DR: Jaquan Cole M.D. SPDESC: TOE L1 Jennifer. Kumari D.O. Rowe-Bauer, Christina L., Yusra Elkins , Sebastián Saavedra M.D. ORDERED: AER/ALVINO CULTSMR Procedure Result Verified Site GRAM STAIN Final 05/28/17-929 RESULT NO ORGANISMS SEEN NO WBCs SEEN OR AER/ALVINO CULT Preliminary 05/30/17-1437 Organism 1 ALPHA STREP. NOT ENTEROCOCCUS QUANITY UNABLE TO QUANTITATE SENS NO SENSITIVITY TO FOLLOW Last 24 Hours Test 05/29/17 17:51 05/29/17 20:47 05/30/17 07:59 Bedside Glucose 86 mg/dl 171 mg/dl 90 mg/dl Assessment and Plan Probable osteomyelitis of the left great toe with cellulitis of the left lower leg. Infected bone now removed, cellulitis essentially resolved. Cultures growing alpha strep. I think patient can be safely transition to oral Bactrim plus levofloxacin, likely in the range of 2 weeks.
[2017-05-30] MEDS ORDERED: SULF400T7 PO (15:22)
[2017-05-30] MEDS ORDERED: ULT50X PO (15:22)
[2017-05-30] MEDS ORDERED: LEVO1TAB35 PO (15:22)
[2017-05-30] MEDS ORDERED: ACET-1047 PO (15:22)
--- NOTE | 2017-05-30 15:23 | Orthopedic Progress Note ---
Orthopedic Progress Note Date of Service May 30, 2017. Subjective Post OP Day: 3 Reports: feeling well, pain controlled w PO medications, Denies: complaints, chest pain, SOB, nausea / vomiting, light headedness, calf pain Objective calves soft nontender, capillary refill less than 2 sec., dressing C/D/I, incision C/D/I, A&O x3, toes mobile incision clean, dry, intact. Mild erythema, edema. No active drainage, good cap refill. Sutures retained. Mild edema/erythema left foot - improved Date Time Temp Pulse Resp B/P (MAP) Pulse Ox O2 Delivery O2 Flow Rate FiO2 05/30/17 13:43 Room Air 05/30/17 12:02 36.8 95 16 138/66 (90) 95 Room Air 05/30/17 07:49 96 Room Air 05/30/17 07:48 36.7 78 14 153/65 (94) 96 Room Air 05/30/17 06:59 36.7 79 18 156/81 (106) 97 Room Air 05/29/17 23:35 Room Air 05/29/17 23:04 36.9 100 18 175/82 (113) 95 Room Air 05/29/17 15:40 Room Air 05/29/17 15:08 36.6 98 18 163/72 (102) 94 Room Air Assessment & Plan Assessment: Left great toe osteomyelitis - POD 3 left great toe amputation Plan: May be out of bed, WBAT LLE with post op shoe on left foot. Elevate left foot above heart to relieve pain/swelling. Appreciate ID input for IV ABX Cont to monitor medically by hospitalist Discharge when medically stable Okay for discharge from orthopaedic standpoint. Plan for discharge to home today. Will discuss findings with Dr. Reddy. Follow up with Dr. Reddy as scheduled. Call [phone] with any questions.
--- NOTE | 2017-05-30 15:27 | Discharge Instructions ---
Discharge Instructions Date of Service May 30, 2017. Admission Reason for Admission: Cellulitis Of Left Lower Extremity Discharge Discharge Diagnosis / Problem: Cellulitis of Left Leg Discharge Goals Goal(s): Decrease discomfort, Improve function, Increase independence Activity Recommendations Activity Limitations: resume your previous activity . Instructions / Follow-Up Instructions / Follow-Up Bone Infection with Partial Toe Amputation: - Plan to use Bactrim twice a day and Levaquin once a day for 14 days. You can start these antibiotics tonight. - Recommend to continue your probiotics especially while on antibiotics - Recommend to use tylenol for pain but will give a small amount of Tramadol for severe pain. This medication can make you not act your normal self and would encourage to not use this if it is not needed and to use Tylenol first You may continue all your previous medications as prescribed. Would recommend to use the Bactrim and Levaquin until complete then resume your UTI prophylaxis antibiotics after finishing this course Follow-Up: "Please, follow up with Dr. Reddy on TuesdayJune 07 at 8:45 am. *This office is located in [address] [facility] beside this [place] [facility]. If you need to change this appointment, you can call the office at . Please, follow up at Dr. Sanchez's office with his associate, Dr. Joseph, on TuesdayJune 07 at 10:30 am. *If you need to change this appointment, you can call their office at [phone]. Please, follow up with Dr. Sullivan (infectious disease specialist) on TuesdayJune 14 at 1:00 pm. *If you need to change this appointment, you can call his office at ." Per Orthopedic Doctors: Post op shoe when out of bed/ambulating left foot Keep dressings on left foot. Elevate left foot above heart to relieve pain/swelling. She may weight bear as tolerated left foot with post op shoe on with ambulation. Change dressings left toe daily. Follow up with Dr. Reddy as scheduled, call [phone] to confirm or change appointment. Current Hospital Diet Patient's current hospital diet: Diabetes Type 2 Diet Discharge Diet Recommended Diet: Diabetes Type 2 Diet Procedures Procedures Performed: left big toe partial amputation, irrigation and debridement Pending Studies Studies pending at discharge: no Laboratory Results Hemoglobin A1c Test 05/29/17 06:15 Range/Units Estimated Average Glucose 183 mg/dl Hemoglobin A1c 8.0 H 4.5-5.6 % Medical Emergencies . Who to Call and When: Medical Emergencies: If at any time you feel your situation is an emergency, please call 911 immediately. . Non-Emergent Contact Non-Emergency issues call your: Primary Care Provider Call Non-Emergent contact if: you have a fever, your pain is concerning you, you have any medication questions . . "Provider Documentation" section prepared by Linda Jim. . Mobility Specialist Recommendations Mobility Specialist Recommendations: Post op shoe when out of bed/ambulating left foot Keep dressings on left foot. Elevate left foot above heart to relieve pain/swelling. She may weight bear as tolerated left foot with post op shoe on with ambulation. Change dressings left toe daily. Follow up with Dr. Reddy as scheduled, call [phone] to confirm or change appointment. VTE Core Measure Inpt VTE Proph given/why not?: [place] Stockings, SCD's
[2017-05-30 15:28] VITALS: BP 150/76; PULSE 95; TEMP 36.7; O2SAT 96
[2017-05-30 16:02] VITALS: BP 150/76; PULSE 95; TEMP 36.7; O2SAT 96
--- NOTE | 2017-05-30 17:13 | Discharge Summary ---
Discharge Summary Date of Service May 30, 2017. Discharge Summary Admission Date: May 25, 2017 at 18:19 Discharge Date: May 30, 2017 Discharge Disposition: Home with services Principal Diagnosis: L Great Toe Infection/Cellulitis with Osteomyelitis Problems/Secondary Diagnoses: Medical Problems: (1) Cellulitis of left lower extremity (2) DIAB W NEURO MANIFEST, TYPE II OR UNSPEC TYPE, UNCONTROLLED (3) Diabetic foot infection (4) Diabetic neuropathy (5) HYPERLIPIDEMIA NEC/NOS (6) Osteomyelitis of left lower extremity (7) SCIATICA Immunizations: Have You Had Influenza Vaccine: Yes Influenza Vaccine Date: Jan 13, 2012 History of Tetanus Vaccine?: Yes History of Pneumococcal: Unknown History of Hepatitis B Vaccine: Yes Consultations: 1. Orthopedics 2. Infectious Disease Medication Reconciliation New Medications: Levofloxacin (Levaquin) 750 Mg Tab 750 MG PO DAILY for 14 Days, #14 TAB Sulfamethoxazole-Trimethoprim (Bactrim 400MG/80MG) 1 Tab Tab 1 TAB PO Q12H for 14 Days, #28 TAB Acetaminophen (Mapap) 325 Mg Tab 650 MG PO Q4H PRN for Pain or Fever for 14 Days, #112 TAB Tramadol HCl (Tramadol HCl) 50 Mg Tab 25 MG PO Q8H PRN for Pain for 3 Days, #5 TAB Continued Medications: Amoxicillin (Amoxil) 500 Mg Cap 500 MG PO UD TAKE AMOXICILLIN ONCE DAILY FOR 7 DAYS THEN STOP AND START TAKING BACTRIM ONCE DAILY FOR 7 DAYS AFTER BACTRIN START TAKING CEFDINIR ONCE DAILY FOR 7 DAYS THEN REPEAT THE ALTERNATING 7 DAY CYCLES OF EACH Aspirin (Aspirin Ec) 81 Mg Tab 81 MG PO DAILY Cefdinir (Omnicef) 300 Mg Cap 300 MG PO UD TAKE AMOXICILLIN ONCE DAILY FOR 7 DAYS THEN STOP AND START TAKING BACTRIM ONCE DAILY FOR 7 DAYS AFTER BACTRIN START TAKING CEFDINIR ONCE DAILY FOR 7 DAYS THEN REPEAT THE ALTERNATING 7 DAY CYCLES OF EACH Cranberry (Vaccinium Macrocarp (Cranberry) Unknown Strength Cap 2-3 CAP PO DAILY Gabapentin (Gabapentin) 800 Mg Tab 800 MG PO TID Insulin Detemir (Levemir) 100 Units/Ml Inj 24 UNITS SC QAM Nortriptyline HCl (Nortriptyline HCl) 10 Mg Cap 10 MG PO HS Pravastatin Sod (Pravastatin Sodium) 20 Mg Tab 20 MG PO QPM Probiotic Product (Probiotic) 1 Cap Cap 1 CAP PO Q2D Ranitidine HCl (Ranitidine HCl) 150 Mg Tab 150 MG PO BID Trimethoprim/Sulfamethoxazole (Bactrim 400MG/80MG) Tab 1 TAB PO UD TAKE AMOXICILLIN ONCE DAILY FOR 7 DAYS THEN STOP AND START TAKING BACTRIM ONCE DAILY FOR 7 DAYS AFTER BACTRIN START TAKING CEFDINIR ONCE DAILY FOR 7 DAYS THEN REPEAT THE ALTERNATING 7 DAY CYCLES OF EACH Discontinued Medications: Cephalexin Monohydrate (Cephalexin) 1 Homepack Ea 1 TAB PO TID Discharge Exam Review of Systems: Constitutional: No fever, No chills ENT: No nasal symptoms, No sore throat Respiratory: No cough, No shortness of breath Cardiovascular: No chest pain Abdomen: No pain, No nausea, No vomiting, No diarrhea, No constipation Musculoskeletal: No swelling, No calf pain Genitourinary - Female: No dysuria Integumentary: No rash Physical Exam: General Appearance: WD/WN, no apparent distress Eyes: sclerae normal ENT: hearing grossly normal Neck: supple, no JVD, trachea midline Respiratory/Chest: lungs clear, normal breath sounds, no respiratory distress, no accessory muscle use Cardiovascular: regular rate, rhythm Abdomen / GI: normal bowel sounds, non tender, soft Extremities: no pedal edema, + pertinent finding (wrap and boot to L foot that is c/d/i) Neurologic/Psychiatric: alert Hospital Course ADMISSION: This is a 76 yo F with PMHx of DM II with diabetic neuropathy, hx of chronic antibiotic use for recurrent L knee replacement and UTIs per Dr. Sullivan, rotating on Bactrim, cefdinir, and amoxicillin and most recently was on Bactrim , HLD, GERD and Vit D deficiency who presents to the ER with worsening Left foot /great toe erythema and edema which began on Tuesday. She was seen in office by podiatry, Dr. Jolley on Tuesday and was placed on a 7 day course of keflex for Left great toe ingrown toenail, and told to stop her other rotating antibiotics. She was then seen today by Dr. Reddy for the increasing pain. An MRI of the LLE was done and showed osteomyelitis which was confirmed by the pt's forensic structural engineer. The patient has had multiple amputations of the toes for nonhealing diabetic ulcers by podiatry, the most recent was only about 2 months ago. She admits to some chills and sweats. She notes the redness has increased in the past 24 hours. Her pain at this time is significant despite IV morphine which was administered within the hour. Here in the ER pt VSS, she has no leukocytosis, and CMP is wnl. HOSPITAL COURSE: LLE Osteomyelitis, Cellulitis, Left Great Toe Infection S/P Partial Amputation of L Great Toe on 05/[address] Reddy - Plan for Bactrim BID and Levaquin daily x 14 days with ID F/U to consider further Abx course - Plan for F/U within the week for wound check with Dr. Reddy - Orthopedics plan if for WBAT with post-op shoe and elevation when at rest - Had some hospital delirium vs toxic encephalopathy from pain medications - currently resolved but per daughter she has sundowned in the past - encouraged to use Tylenol first for pain and only use stronger medications if necessary Total Time Spent: Greater than 30 minutes This includes examination of the patient, discharge planning, medication reconciliation, and communication with other providers. Discharge Instructions Please refer to the electronic Patient Visit Report (Discharge Instructions) for additional information. Additional Copies To Maria G Rivers M.D.; Sebastián Sanchez M.D.
--- NOTE | 2017-06-02 11:02 | Podiatry Consultation ---
Podiatry Consultation Date of Consultation: Jun 02, 2017. Attending Physician: Roger Porras MD, PhD Reason for Consultation: left foot cellulitis History of Present Illness patient was not seen by me, but was seen by my colleague Dr. Reddy in my group [facility]. Past Medical/Surgical History Medical Problems: (1) Altered mental status Status: Acute (2) Altered mental status, unspecified Status: Acute (3) Bilateral leg pain Status: Acute (4) Cellulitis of leg, left Status: Acute (5) Cellulitis of right lower extremity Status: Acute (6) Cellulitis of second toe, right Status: Acute (7) Diabetic foot ulcer Status: Acute (8) E. coli UTI Status: Acute (9) Foot pain Status: Acute (10) Neuropathy Status: Acute (11) Orthostatic hypotension Status: Acute (12) Osteomyelitis of ankle or foot, left, acute Status: Acute (13) Ulcer Status: Acute Family History Diabetes mellitus Social History Smoking Status: Never Smoker Smokeless Tobacco Use: No Drug Use: none Marital Status: Housing Status: lives with significant other Occupation Status: unemployed Allergies Coded Allergies: Erythromycin (Verified Allergy, Unknown, `, 05/25/17) Iodinated Diagnostic Agents (Verified Allergy, Unknown, HIVES AND HOT FLASHES, 05/16/17) Oxycodone (Verified Adverse Reaction, Severe, CONFUSION LAKSHMI WHEN SHE TAKES 2 TABS- , 05/16/17) PT HAD TO COME TO ED AFTER TAKING 2 TABS -SO CONFUSED Home Medications Scheduled Amoxicillin (Amoxil), 500 MG PO UD Aspirin (Aspirin Ec), 81 MG PO DAILY Cefdinir (Omnicef), 300 MG PO UD Cranberry (Vaccinium Macrocarp (Cranberry), 2-3 CAP PO DAILY Gabapentin (Gabapentin), 800 MG PO TID Insulin Detemir (Levemir), 24 UNITS SC QAM Levofloxacin (Levaquin), 750 MG PO DAILY Nortriptyline HCl (Nortriptyline HCl), 10 MG PO HS Pravastatin Sod (Pravastatin Sodium), 20 MG PO QPM Probiotic Product (Probiotic), 1 CAP PO Q2D Ranitidine HCl (Ranitidine HCl), 150 MG PO BID Sulfamethoxazole-Trimethoprim (Bactrim 400MG/80MG), 1 TAB PO Q12H Trimethoprim/Sulfamethoxazole (Bactrim 400MG/80MG), 1 TAB PO UD Scheduled PRN Acetaminophen (Mapap), 650 MG PO Q4H PRN for Pain or Fever Tramadol HCl (Tramadol HCl), 25 MG PO Q8H PRN for Pain
== END 2017-05-30 16:50 | disposition home health service (06) | DRG 617 ==
LOC: C.EDB 14:23 → C.MSN 18:19 → EDBEDREQ 18:42 → ENRESERV 20:04
PROVIDERS: ADMIT Family Medicine; ATTEND Hospitalist
PROC: 0Y6Q0Z3 Detachment at Left 1st Toe, Low, Open Approach (ICD-10-PCS; principal; 2017-05-27 07:30)
DX: E11.69 Type 2 diabetes mellitus with other specified complication (principal); L03.116 Cellulitis of left lower limb; M86.8X7 Other osteomyelitis, ankle and foot; E11.40 Type 2 diabetes mellitus with diabetic neuropathy, unspecified; E78.5 Hyperlipidemia, unspecified; Z79.82 Long term (current) use of aspirin; Z79.4 Long term (current) use of insulin; Z91.041 Radiographic dye allergy status; Z88.1 Allergy status to other antibiotic agents; Z88.5 Allergy status to narcotic agent; Z87.440 Personal history of urinary (tract) infections; K21.9 Gastro-esophageal reflux disease without esophagitis; E55.9 Vitamin D deficiency, unspecified; Z96.652 Presence of left artificial knee joint; I95.1 Orthostatic hypotension

== ENCOUNTER → 2017-07-21 | Outpatient (CLI) | payer OTHER ==
[~2017-07-21] MED LIST changes: +ACET-1047 PO; +ASPI81TA28 PO; +CRAN400C PO; +LVMI SC; +MISCCAP80 PO; +NORT10CA4 PO; +NRN800 PO; +PRVC/20 PO; +RANI150T2 PO; +ULT50X PO
== END | disposition home or self-care (01) ==
LOC: C.RDSM 13:20
PROVIDERS: ATTEND Podiatrist
DX: E11.621 Type 2 diabetes mellitus with foot ulcer (principal); M79.671 Pain in right foot; Z89.419 Acquired absence of unspecified great toe; E11.40 Type 2 diabetes mellitus with diabetic neuropathy, unspecified

== ENCOUNTER → 2017-08-23 | Outpatient (CLI) | payer OTHER ==
[~2017-08-23] MED LIST changes: +LVMI INJ; +SULF800T23 PO; +VITACAP9 PO
--- NOTE | 2017-08-23 14:57 | DIAGNOSTIC IMAGING REPORT ---
L FOOT MIN 3 VIEWS ROUTINE HISTORY: 76 years-old Female N79.672 PAIN IN LEFT FOOT, Z87.39 acute left foot pain COMPARISON: Left foot radiographs 05/25/2017 TECHNIQUE: 3 views of the left foot FINDINGS: Postoperative changes from interval resection of the first distal phalanx. There is soft tissue prominence at the amputation stump. 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 There is flattening of the second metatarsal head suggesting osteonecrosis changes. Surgically absent third middle and distal phalanges. Bones appear least mildly demineralized. No erosive changes to suggest acute osteomyelitis. No acute fracture or dislocation. Pes planus deformity with large spurs about the calcaneus. Peripheral arterial calcifications are noted. Degenerative changes about the midfoot upper unchanged. Decreased soft tissue swelling about the forefoot from comparison. IMPRESSION: 1. Postoperative changes from recent amputation involving the first distal phalanx with decreased soft tissue swelling of the forefoot from comparison. 2. Additional chronic changes as above without acute fracture or dislocation. 3. Peripheral arterial disease. The above report was generated using voice recognition software. It may contain grammatical, syntax or spelling errors. Electronically signed by: Dany Ross M.D. 08/23/2017 2:55 PM Dictated Date/Time: 08/23/2017 2:52 PM
== END | disposition home or self-care (01) ==
LOC: C.RAD1850 14:01
PROVIDERS: ATTEND Family Medicine
DX: M79.672 Pain in left foot (principal); Z89.421 Acquired absence of other right toe(s); Z87.39 Personal history of other diseases of the musculoskeletal system and connective tissue

== ENCOUNTER 2017-08-24 17:22 | Emergency (ER) | payer OTHER ==
[~2017-08-24] VITALS: Ht 162.6 cm; Wt 77.1 kg
[~2017-08-24 17:22] MED LIST changes: -LVMI INJ; -SULF800T23 PO; -VITACAP9 PO
[2017-08-24 17:34] VITALS: TEMP 36.8; Ht 162.6 cm; Wt 77.1 kg
[2017-08-24] MEDS ORDERED: SODIUM CHLORIDE 0.9% 1000ML 1,000 ML IV STA (17:59)
[2017-08-24] MEDS ORDERED: SODIUM CHLORIDE 0.9% 1000ML 1,000 ML IV ONE (17:59)
[2017-08-24] MEDS ORDERED: VITACAP9 PO (18:04)
[2017-08-24] MEDS ORDERED: SULF800T23 PO (18:11)
--- NOTE | 2017-08-24 18:12 | EMERGENCY ROOM VISIT NOTE ---
History Report prepared by Deana: Lowell Desai Under the Supervision of: Dr. Thomas Fields M.D. First contact with patient: 17:41 Chief Complaint: REFERRED BY DOCTOR Stated Complaint: DEHYDRATION History of Present Illness The patient is a 76 year old female who presents to the Emergency Room with complaints of constant dehydration for the past couple of days. Per the patient' s daughter, the patient has been more confused as well and hallucinating, and she was seen by her PCP earlier today, and they referred her to the ED for evaluation and IV fluids. The patient is a diabetic, and her sugars have been okay recently. 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 The patient additionally has a toe amputated 6 weeks ago, and then she was put on Levaquin, though this has been finished. The patient has a history of dehydration, and chronic UTIs as well. The patient had lab work and cultures done this morning. The patient's family states that the patient has been having headaches, a cough, and burning with urination. She denies any falls, chest pain, and shortness of breath. The patient's family states that the patient has been drinking a lot of fluids. Source of History: patient Onset: the past couple of days Position: other (global) Quality: other (dehydration) Timing: constant Associated Symptoms: + headache, + cough, No chest pain, No SOB Note: Associated symptoms: burning with urination Review of Systems See HPI for pertinent positives & negatives. A total of 10 systems reviewed and were otherwise negative. Past Medical & Surgical Medical Problems: (1) Cellulitis of left lower extremity (2) DIAB W NEURO MANIFEST, TYPE II OR UNSPEC TYPE, UNCONTROLLED (3) Diabetic foot infection (4) Diabetic neuropathy (5) HYPERLIPIDEMIA NEC/NOS (6) Osteomyelitis of left lower extremity (7) SCIATICA Old medical records were reviewed. Nurse's notes were reviewed and I agree with. Family History Diabetes mellitus Social History Smoking Status: Never Smoker Alcohol Use: none Drug Use: none Marital Status: Housing Status: lives with significant other Occupation Status: unemployed Current/Historical Medications Scheduled Amoxicillin (Amoxil), 500 MG PO UD Aspirin (Aspirin Ec), 81 MG PO DAILY Cefdinir (Omnicef), 300 MG PO UD Gabapentin (Gabapentin), 800 MG PO TID Insulin Detemir (Levemir), 24 UNITS SC QAM Nortriptyline HCl (Nortriptyline HCl), 10 MG PO HS Pravastatin Sod (Pravastatin Sodium), 20 MG PO QPM Probiotic Product (Probiotic), 1 CAP PO DAILY Ranitidine HCl (Ranitidine HCl), 150 MG PO BID Sulfa/Trimethoprim (Bactrim Ds 800MG/160MG), 1 TAB PO UD Vitamins C & E (Cranberry Urinary Comfort), 8,400 MG PO BID Scheduled PRN Acetaminophen (Mapap), 650 MG PO Q4H PRN for Pain or Fever Allergies Coded Allergies: Erythromycin (Verified Allergy, Unknown, `, 08/24/17) Iodinated Diagnostic Agents (Verified Allergy, Unknown, HIVES AND HOT FLASHES, 08/24/17) Oxycodone (Verified Adverse Reaction, Severe, CONFUSION LAKSHMI WHEN SHE TAKES 2 TABS- , 08/24/17) PT HAD TO COME TO ED AFTER TAKING 2 TABS -SO CONFUSED Physical Exam Vital Signs Date Time Temp Pulse Resp B/P (MAP) Pulse Ox O2 Delivery O2 Flow Rate FiO2 08/24/17 19:02 78 18 179/81 95 Room Air 08/24/17 17:34 36.8 98 16 166/78 98 Room Air Physical Exam General: Non-ill appearing older female in no acute distress. HEENT: Normal cephalic atraumatic. Pupils are equal round and reactive to light. Extraocular movements are intact. Oropharynx is pink with mildly dry mucous membranes. No swelling of the mouth lips or tongue. Neck: Supple with a midline trachea. No meningeal signs or stiffness, no JVD or bruits. No Stridor. Chest: Clear to auscultation bilaterally. No wheezes or rhonchi. No increased work of breathing. Heart: regular rate and rhythm. Abdomen: Soft nontender, nondistended without rebound guarding or rigidity. Extremities: No cyanosis clubbing or edema. No calf tenderness or assymetry Spine/Back. Non tender to palpation. No CVA tenderness Skin: Good turgor without rashes. Neurologic exam: Alert to person and place. Some difficulty with the date. Cranial nerves two through 12 are intact. Motor and sensation are intact and symmetrical throughout. Medical Decision & Procedures ER Provider Diagnostic Interpretation: Radiology results as stated below per my review and radiologist interpretation: CT SCAN OF THE BRAIN WITHOUT IV CONTRAST CLINICAL HISTORY: Change in mental status. COMPARISON STUDY: CT of the brain dated 05/16/2017. TECHNIQUE: Unenhanced axial CT scan of the brain is performed from the vertex to the skull base. A dose lowering technique was utilized adhering to the principles of ALARA. CT DOSE: 537.48 mGy.cm FINDINGS: Brain parenchyma: There are age-related involutional changes noting moderate patchy subcortical and periventricular microangiopathic change. There is no hemorrhage, mass effect, or evidence of acute territorial ischemia by CT criteria. Yanez-white matter is preserved. No extra-axial fluid collection is seen. Ventricles, sulci, cisterns: Prominent secondary to involutional change. Intracranial vasculature: There is atherosclerotic calcification of the cavernous carotid arteries. Calvarium: Unremarkable. Sinuses and mastoids: The visualized paranasal sinuses are clear. The mastoid air cells are well pneumatized. Orbits: The bony orbits are grossly intact. There are bilateral ocular lens implants. IMPRESSION: There is no hemorrhage, mass effect, or evidence of acute territorial ischemia by CT criteria. Electronically signed by: Curly Lee M.D. 08/24/2017 7:24 PM Dictated Date/Time: 08/24/2017 7:22 PM SINGLE VIEW CHEST CLINICAL HISTORY: Atypical chest pain. FINDINGS: An AP, portable, upright chest radiograph is compared to study dated 05/17/2017. Correlation is made with chest CT dated 03/16/2013. The examination is degraded by portable technique and apical lordotic positioning. The heart is top normal for projection and there is atherosclerotic calcification of the thoracic aorta. The pulmonary vasculature is noncongested. Chronic interstitial thickening is similar to previous. No airspace consolidation or large pleural effusion is identified. There is no pneumothorax. The skeletal structures are osteopenic. The bony thorax is grossly intact. Degenerative change is seen throughout the thoracic spine and in the shoulders. IMPRESSION: No acute cardiopulmonary abnormality. Electronically signed by: Curly Lee M.D. 08/24/2017 6:58 PM Dictated Date/Time: 08/24/2017 6:56 PM Laboratory Results 08/24/17 18:30 Red Blood Count 4.47, Mean Corpuscular Volume 85.9, Mean Corpuscular Hemoglobin 28.9, Mean Corpuscular Hemoglobin Concent 33.6, Mean Platelet Volume 10.0, Neutrophils (%) (Auto) 60.8, Lymphocytes (%) (Auto) 24.2, Monocytes (%) (Auto) 10.4, Eosinophils (%) (Auto) 4.2, Basophils (%) (Auto) 0.2, Neutrophils # (Auto ) 2.76, Lymphocytes # (Auto) 1.10, Monocytes # (Auto) 0.47, Eosinophils # (Auto ) 0.19, Basophils # (Auto) 0.01 08/24/17 18:30 Test 08/24/17 18:30 08/24/17 18:39 08/24/17 18:51 08/24/17 19:36 White Blood Count 4.54 K/uL (4.8-10.8) Red Blood Count 4.47 M/uL (4.2-5.4) Hemoglobin 12.9 g/dL (12.0-16.0) Hematocrit 38.4 % (37-47) Mean Corpuscular Volume 85.9 fL (80-100) Mean Corpuscular Hemoglobin 28.9 pg (25-34) Mean Corpuscular Hemoglobin Concent 33.6 g/dl (32-36) Platelet Count 178 K/uL (130-400) Mean Platelet Volume 10.0 fL (7.4-10.4) Neutrophils (%) (Auto) 60.8 % Lymphocytes (%) (Auto) 24.2 % Monocytes (%) (Auto) 10.4 % Eosinophils (%) (Auto) 4.2 % Basophils (%) (Auto) 0.2 % Neutrophils # (Auto) 2.76 K/uL (1.4-6.5) Lymphocytes # (Auto) 1.10 K/uL (1.2-3.4) Monocytes # (Auto) 0.47 K/uL (0.11-0.59) Eosinophils # (Auto) 0.19 K/uL (0-0.5) Basophils # (Auto) 0.01 K/uL (0-0.2) RDW Standard Deviation 43.8 fL (36.4-46.3) RDW Coefficient of Variation 13.9 % (11.5-14.5) Immature Granulocyte % (Auto) 0.2 % Immature Granulocyte # (Auto) 0.01 K/uL (0.00-0.02) Erythrocyte Sedimentation Rate 9 mm/hr (0-21) Anion Gap 3.0 mmol/L (3-11) Est Creatinine Clear Calc Drug Dose 61.7 ml/min Estimated GFR () 85.6 Estimated GFR (Non- 73.8 BUN/Creatinine Ratio 22.9 (10-20) Calcium Level 8.9 mg/dl (8.5-10.1) Total Bilirubin 0.3 mg/dl (0.2-1) Direct Bilirubin < 0.1 mg/dl (0-0.2) Aspartate Amino Transf (AST/SGOT) 26 U/L (15-37) Alanine Aminotransferase (ALT/SGPT) 31 U/L (12-78) Alkaline Phosphatase 91 U/L (45-117) C-Reactive Protein < 0.29 mg/dl (0-0.29) Total Protein 7.2 gm/dl (6.4-8.2) Albumin 3.9 gm/dl (3.4-5.0) Lipase 115 U/L (73-393) Bedside Troponin I 0.030 ng/ml (0-0.045) Bedside Lactic Acid Venous 2.30 mmol/L (0.90-1.70) Urine Color YELLOW Urine Appearance CLEAR (CLEAR) Urine pH 6.0 (4.5-7.5) Urine Specific [place] 1.023 (1.000-1.030) Urine Protein 1+ (NEG) Urine Glucose (UA) 3+ (NEG) Urine Ketones NEG (NEG) Urine Occult Blood NEG (NEG) Urine Nitrite NEG (NEG) Urine Bilirubin NEG (NEG) Urine Urobilinogen NEG (NEG) Urine Leukocyte Esterase NEG (NEG) Urine WBC (Auto) 1-5 /hpf (0-5) Urine RBC (Auto) 0-4 /hpf (0-4) Urine Hyaline Casts (Auto) 1-5 /lpf (0-5) Urine Epithelial Cells (Auto) 5-10 /lpf (0-5) Urine Bacteria (Auto) NEG (NEG) Laboratory studies as stated above per my review. Medications Administered Medications (Trade) Dose Ordered Sig/Claudia Route Start Time Stop Time Status Last Admin Dose Admin Sodium Chloride 1,000 ml @ 999 mls/hr Q1H1M STAT IV 5/23/18 17:59 08/24/17 18:59 DC 08/24/17 19:01 999 MLS/HR Sodium Chloride 1,000 ml @ 150 mls/hr Q6H40M ONCE IV 08/24/17 17:59 08/25/17 00:38 08/24/17 17:59 150 MLS/HR ECG Per My Interpretation Indication: altered mental status, other (dehydration) Rate (beats per minute): 92 Rhythm: normal sinus Findings: 1st degree AV block, PVC (occasional), other (Poor R wave progression ) Comparison ECG Date: 05/26/17 Change: Poor R wave progression is now present, but it was present and unchanged from ED Course 1740: Past medical records reviewed. The patient was evaluated in room B10, and a complete history and physical examination were performed. 1758: Sodium Chloride 1000 ml @ 150 mls/hr IV, Sodium Chloride 1000 ml @ 999 mls /hr IV 1850: I reevaluated the patient, and she was stable, and her IV was established. 1914: I talked to the patient's , and he said that the patient gets mildly confused when dehydrated. 1938: I reevaluated the patient, and she was resting comfortably. 2005: I reassessed the patient, and she is feeling much better, and she would like to go home. Medical Decision Differentials include, but are not limited to; infection, dehydration, UTI, electrolyte or metabolic abnormality, intracranial process. This patient comes in as described above. She was placed in room B 10. She is here for treatment and evaluation of dehydration. Her daughter thinks that she is dehydrated. She tends to get dehydrated and starting fused when she does she says he gets this way every time. She is seen by regular doctor and blood work which was essentially unremarkable and was sent here for possible dehydration. She has been confused in light is a do do it CAT scan of her head multiple blood testing was obtained as well as a cath urinalysis and culture. She has had osteomyelitis of her toes and saw her foot surgeon recently. They look well on exam is no redness or warmth. IV access established and blood culture was obtained as well as blood work including lactic acid. She was reassessed frequently. I also did EKG and chest x-ray. EKG does not show any definite acute ischemic changes. Chest x-ray does not show any definite pneumonia. She has no white count or fever. Her lactic acid is mildly elevated in the mid 2 range. She has no electrolyte or metabolic abnormalities. She has some confusion but has a nonfocal neurologic exam otherwise and a negative CAT scan of her brain. Urinalysis was obtained by cath specimen it does not suggest a UTI with a culture pending. The patient is doing significantly better after receiving IV fluids. She has no source of infection and no fever or white count or elevated sed rate to suggest infection. Her lactic acid is mildly elevated and I do not find any evidence to suggest sepsis. She feels good would like to go home I think this is reasonable with close follow-up. I discussed with daughter who agrees. The patient to rest and drink plenty of fluids. Return if: worsening of symptoms, not like self, any new problems or concerns. Medication Reconcilliation Current Medication List: was personally reviewed by me Blood Pressure Screening Patient's blood pressure: Elevated blood pressure Impression Primary Impression: Altered mental status Additional Impression: Dehydration Scribe Attestation The scribe's documentation has been prepared under my direction and personally reviewed by me in its entirety. I confirm that the note above accurately reflects all work, treatment, procedures, and medical decision making performed by me. Departure Information Referrals No Doctor, Assigned (PCP) Patient Instructions My [facility] Problem Qualifiers
[2017-08-24] MEDS ORDERED: LVMI INJ (18:14)
[2017-08-24 18:43] LABS: BASO % 0.2 %; BASO ABS # 0.01 K/uL (0-0.2); EOS % 4.2 %; EOS ABS # 0.19 K/uL (0-0.5); HEMATOCRIT 38.4 % (37-47); HEMOGLOBIN 12.9 g/dL (12.0-16.0); IG# 0.01 K/uL (0.00-0.02); LYMPH % 24.2 %; MEAN CELL VOLUME 85.9 fL (80-100); MEAN CORPUSCULAR HEMOGLOBIN 28.9 pg (25-34); MEAN CORPUSCULAR HGB CONC 33.6 g/dl (32-36); MONO % 10.4 %; MONO ABS # 0.47 K/uL (0.11-0.59); NEUT % 60.8 %; NEUT ABS # 2.76 K/uL (1.4-6.5); PLATELET COUNT 178 K/uL (130-400); RED CELL DISTRIBUTION WIDTH CV 13.9 % (11.5-14.5); RED CELL DISTRIBUTION WIDTH SD 43.8 fL (36.4-46.3); WHITE BLOOD COUNT 4.54 K/uL (4.8-10.8)
--- NOTE | 2017-08-24 18:59 | DIAGNOSTIC IMAGING REPORT ---
SINGLE VIEW CHEST CLINICAL HISTORY: Atypical chest pain. FINDINGS: An AP, portable, upright chest radiograph is compared to study dated 05/17/2017. Correlation is made with chest CT dated 03/16/2013. The examination is degraded by portable technique and apical lordotic positioning. The heart is top normal for projection and there is atherosclerotic calcification of the thoracic aorta. The pulmonary vasculature is noncongested. Chronic interstitial thickening is similar to previous. No airspace consolidation or large pleural effusion is identified. There is no pneumothorax. The skeletal structures are osteopenic. The bony thorax is grossly intact. Degenerative change is seen throughout the thoracic spine and in the shoulders. IMPRESSION: No acute cardiopulmonary abnormality. Electronically signed by: Curly Lee M.D. 08/24/2017 6:58 PM Dictated Date/Time: 08/24/2017 6:56 PM
[2017-08-24 19:08] LABS: ALBUMIN 3.9 gm/dl (3.4-5.0); ALKALINE PHOSPHATASE 91 U/L (45-117); ALT/SGPT 31 U/L (12-78); AST/SGOT 26 U/L (15-37); BLOOD UREA NITROGEN 18 mg/dl (7-18); CALCIUM 8.9 mg/dl (8.5-10.1); CARBON DIOXIDE 30 mmol/L (21-32); CREATININE 0.78 mg/dl (0.60-1.20); GLUCOSE 221 mg/dl (70-99); LIPASE 115 U/L (73-393); POTASSIUM 3.8 mmol/L (3.5-5.1); SODIUM 140 mmol/L (136-145); TOTAL PROTEIN 7.2 gm/dl (6.4-8.2)
--- NOTE | 2017-08-24 19:26 | DIAGNOSTIC IMAGING REPORT ---
CT SCAN OF THE BRAIN WITHOUT IV CONTRAST CLINICAL HISTORY: Change in mental status. COMPARISON STUDY: CT of the brain dated 05/16/2017. TECHNIQUE: Unenhanced axial CT scan of the brain is performed from the vertex to the skull base. A dose lowering technique was utilized adhering to the principles of ALARA. CT DOSE: 537.48 mGy.cm FINDINGS: Brain parenchyma: There are age-related involutional changes noting moderate patchy subcortical and periventricular microangiopathic change. There is no hemorrhage, mass effect, or evidence of acute territorial ischemia by CT criteria. Yanez-white matter is preserved. No extra-axial fluid collection is seen. Ventricles, sulci, cisterns: Prominent secondary to involutional change. Intracranial vasculature: There is atherosclerotic calcification of the cavernous carotid arteries. Calvarium: Unremarkable. Sinuses and mastoids: The visualized paranasal sinuses are clear. The mastoid air cells are well pneumatized. Orbits: The bony orbits are grossly intact. There are bilateral ocular lens implants. IMPRESSION: There is no hemorrhage, mass effect, or evidence of acute territorial ischemia by CT criteria. Electronically signed by: Curly Lee M.D. 08/24/2017 7:24 PM Dictated Date/Time: 08/24/2017 7:22 PM
[2017-08-24 21:00] VITALS: BP 183/93; PULSE 84; O2SAT 95
--- NOTE | 2017-08-25 16:54 | EMERGENCY ROOM VISIT NOTE ---
ED Visit Note First contact with patient: 17:41 This is a follow-up note. Dated 08/25/17 at 4:50 PM The patient's blood culture came back positive for gram-positive cocci on one the other was still incubating. It may be that this is a contaminant. At this point it is difficult to tell. Our nurse called and talked to the daughter and recommended that she bring her back to the ER for evaluation. The daughter showed up to the ER without her mother and wanted to talk about this. I talked to her at length. The patient has an appointment to see Dr. Sullivan tomorrow and is on chronic antibiotics for UTIs. She says her mother is doing great at home. She has had no fever she is active and has no complaints and she does not feel she needs to come in. I told her that this could be as significant infection or could be a contaminant it is too early to tell but with her doing well. I am okay with this plan particularly considering she is an appointment to see Dr. Sullivan tomorrow and has an MRI scheduled of her foot to ensure that she has no chronic osteo-there. The daughter does not wish to bring in the hospital as she sundowns and does not do well. She was happy with the plan is to follow-up with Dr. Sullivan in the morning.
== END 2017-08-24 21:10 | disposition home or self-care (01) ==
LOC: C.EDB 17:23
DX: E86.0 Dehydration (principal); R41.82 Altered mental status, unspecified; E11.40 Type 2 diabetes mellitus with diabetic neuropathy, unspecified; Z96.659 Presence of unspecified artificial knee joint; E78.5 Hyperlipidemia, unspecified; Z83.3 Family history of diabetes mellitus; Z79.82 Long term (current) use of aspirin; Z79.899 Other long term (current) drug therapy; Z88.1 Allergy status to other antibiotic agents; Z88.5 Allergy status to narcotic agent; Z91.041 Radiographic dye allergy status

== ENCOUNTER 2017-11-05 13:40 | Emergency (ER) | payer OTHER ==
[~2017-11-05] VITALS: Ht 162.6 cm; Wt 74.0 kg
[~2017-11-05 13:40] MED LIST changes: -ACET-1047 PO; +ACET-1311 PO; -CRAN400C PO; +GABA-113 PO; -LVMI SC; +LVMI SQ; -NORT10CA4 PO; +NRN600 PO; -NRN800 PO; +PRT/20 PO; -SULF1TAB92 PO; +SULF800T23 PO; -ULT50X PO
[2017-11-05 13:42] VITALS: TEMP 36.7; Ht 162.6 cm; Wt 74.0 kg
[2017-11-05] MEDS ORDERED: SODIUM CHLORIDE 0.9% 500ML 500 ML IV STA (13:53)
--- NOTE | 2017-11-05 14:03 | EMERGENCY ROOM VISIT NOTE ---
History Report prepared by Deana: Jaquan Car Under the Supervision of: Dr. David Navarro M.D. First contact with patient: 13:46 Chief Complaint: DEHYDRATION Stated Complaint: DEHYDRATION, AGITATED, UTI, CONFUSED History of Present Illness The patient is a 76 year old female who presents to the Emergency Room with complaints of intermittent confusion and restlessness for the the past 2 weeks. Patient is present with her daughter. Daughter states the patient has been telling "delusional stories". Daughter states the patient was seen by her PCP 2 days ago for a possible UTI. She states the patient was started on Cipro and that the patient's cultures have not come back yet. Daughter states the patient' s symptoms have worsened today as she has been more "jittery" walking around with increased confusion. Patient states she is worried that the Cipro medication is not treating the patient's UTI. She adds the patient was started on Cymbalta recently for pain and anxiety. She adds the patient is currently taking both Cymbalta and Gabapentin. Daughter adds the patient has a history of confusion with infections and medications. Patient lives with her and has a visiting nursing twice a week. Patient denies fevers or taking any blood thinners. Source of History: patient Onset: 2 weeks ago Position: head Timing: intermittent Modifying Factors (Relieving): other (None) Associated Symptoms: No fevers Note: Positive delusions. Review of Systems See HPI for pertinent positives and negatives. A total of ten systems were reviewed and were otherwise negative. Past Medical & Surgical Medical Problems: (1) Cellulitis of left lower extremity (2) DIAB W NEURO MANIFEST, TYPE II OR UNSPEC TYPE, UNCONTROLLED (3) Diabetic foot infection (4) Diabetic neuropathy (5) HYPERLIPIDEMIA NEC/NOS (6) Osteomyelitis of left lower extremity (7) SCIATICA Surgical Problems: (1) Amputated toe Family History Diabetes mellitus Social History Smoking Status: Never Smoker Alcohol Use: none Drug Use: none Marital Status: Housing Status: lives with significant other Occupation Status: retired Current/Historical Medications Scheduled Aspirin (Aspirin Ec), 81 MG PO DAILY Cephalexin Monohydrate (Keflex), 500 MG PO BID Ciprofloxacin Tab (Cipro), 250 MG PO BID Duloxetine HCl (Duloxetine HCl), 1 CAP PO DAILY Gabapentin (Gabapentin), 600 MG PO HS Gabapentin (Neurontin), 300 MG PO QAM Insulin Detemir (Levemir), 20 UNITS SQ BID Pravastatin Sod (Pravastatin Sodium), 20 MG PO QPM Ranitidine HCl (Ranitidine HCl), 150 MG PO BID Allergies Coded Allergies: Iodinated Diagnostic Agents (Verified Allergy, Severe, HIVES AND HOT FLASHES, 11/05/17) Erythromycin (Verified Allergy, Unknown, UNKNOWN, 11/05/17) Oxycodone (Verified Adverse Reaction, Severe, CONFUSION LAKSHMI WHEN SHE TAKES 2 TABS- , 11/05/17) PT HAD TO COME TO ED AFTER TAKING 2 TABS -SO CONFUSED Physical Exam Vital Signs Date Time Temp Pulse Resp B/P (MAP) Pulse Ox O2 Delivery O2 Flow Rate FiO2 11/05/17 14:40 76 18 112/76 96 Room Air 11/05/17 13:42 36.7 76 18 153/71 96 Room Air Physical Exam GENERAL: Awake, alert, well-appearing, in no distress HENT: Normocephalic, atraumatic. Oropharynx unremarkable. Mucous membranes are dry. EYES: Normal conjunctiva. Sclera non-icteric. NECK: Supple. No nuchal rigidity. FROM. No JVD. RESPIRATORY: Clear to auscultation. CARDIAC: Regular rate, normal rhythm. Extremities warm and well perfused. Pulses equal. ABDOMEN: Soft, non-distended. No tenderness to palpation. No rebound or guarding. No masses. RECTAL: Deferred. MUSCULOSKELETAL: Chest examination reveals no tenderness. The back is symmetrical on inspection without obvious abnormality. There is no CVA tenderness to palpation. No joint edema. LOWER EXTREMITIES: Calves are equal size bilaterally and non-tender. No edema. No discoloration. NEURO: Normal sensorium. No sensory or motor deficits noted. Normal cerebellar function with hecdcn-db-ayag, alternating palms, bqyx-ur-tdej. SKIN: No rash or jaundice noted. Medical Decision & Procedures ER Provider Diagnostic Interpretation: Radiology results as stated below per my review and radiologist interpretation: SINGLE VIEW CHEST CLINICAL HISTORY: Atypical chest pain. FINDINGS: An AP, portable, upright chest radiograph is compared to study dated 10/10/2017. Correlation is made with chest CT dated 09/07/2017. The examination is degraded by portable technique and apical lordotic positioning. The heart is mildly enlarged and there is atherosclerotic calcification of the thoracic aorta. The pulmonary vasculature is noncongested. Chronic interstitial thickening is similar to previous. No airspace consolidation or large pleural effusion is identified. There is mild bibasilar atelectasis. No pneumothorax is seen. The skeletal structures are osteopenic. The bony thorax is grossly intact. Degenerative change is seen throughout the thoracic spine and in the shoulders. There is chronic widening of the acromioclavicular joints. Superior subluxation of the humeral head suggests chronic rotator cuff injuries. IMPRESSION: Mild cardiac enlargement with no acute cardiopulmonary abnormality. Electronically signed by: Curly Lee M.D. 11/05/2017 2:[address] SCAN OF THE BRAIN WITHOUT IV CONTRAST CLINICAL HISTORY: Change in mental status. COMPARISON STUDY: Prior CT scans of the brain, most recently dated 10/10/2017. TECHNIQUE: Unenhanced axial CT scan of the brain is performed from the vertex to the skull base. A dose lowering technique was utilized adhering to the principles of ALARA. CT DOSE: 537.48 mGy.cm FINDINGS: Brain parenchyma: There are age-related involutional changes noting moderate patchy subcortical and periventricular microangiopathic change. There is no hemorrhage, mass effect, or evidence of acute territorial ischemia by CT criteria. Yanez-white matter is preserved. No extra-axial fluid collection is seen. Ventricles, sulci, cisterns: Prominent secondary to involutional change. Intracranial vasculature: There is atherosclerotic calcification of the cavernous carotid arteries. Calvarium: Unremarkable. Sinuses and mastoids: The visualized paranasal sinuses are clear. The mastoid air cells are well pneumatized. Orbits: The bony orbits are grossly intact. There are bilateral ocular lens implants. IMPRESSION: There is no hemorrhage, mass effect, or evidence of acute territorial ischemia by CT criteria. Electronically signed by: Curly Lee M.D. 11/05/2017 2:30 PM Laboratory Results 11/05/17 14:07 Red Blood Count 4.42, Mean Corpuscular Volume 87.3, Mean Corpuscular Hemoglobin 28.5, Mean Corpuscular Hemoglobin Concent 32.6, Mean Platelet Volume 10.8, Neutrophils (%) (Auto) 65.4, Lymphocytes (%) (Auto) 20.0, Monocytes (%) (Auto) 11.6, Eosinophils (%) (Auto) 2.8, Basophils (%) (Auto) 0.2, Neutrophils # (Auto ) 3.05, Lymphocytes # (Auto) 0.93, Monocytes # (Auto) 0.54, Eosinophils # (Auto ) 0.13, Basophils # (Auto) 0.01 11/05/17 14:07 Test 11/05/17 14:07 11/05/17 14:48 White Blood Count 4.66 K/uL (4.8-10.8) Red Blood Count 4.42 M/uL (4.2-5.4) Hemoglobin 12.6 g/dL (12.0-16.0) Hematocrit 38.6 % (37-47) Mean Corpuscular Volume 87.3 fL (80-100) Mean Corpuscular Hemoglobin 28.5 pg (25-34) Mean Corpuscular Hemoglobin Concent 32.6 g/dl (32-36) Platelet Count 173 K/uL (130-400) Mean Platelet Volume 10.8 fL (7.4-10.4) Neutrophils (%) (Auto) 65.4 % Lymphocytes (%) (Auto) 20.0 % Monocytes (%) (Auto) 11.6 % Eosinophils (%) (Auto) 2.8 % Basophils (%) (Auto) 0.2 % Neutrophils # (Auto) 3.05 K/uL (1.4-6.5) Lymphocytes # (Auto) 0.93 K/uL (1.2-3.4) Monocytes # (Auto) 0.54 K/uL (0.11-0.59) Eosinophils # (Auto) 0.13 K/uL (0-0.5) Basophils # (Auto) 0.01 K/uL (0-0.2) RDW Standard Deviation 43.1 fL (36.4-46.3) RDW Coefficient of Variation 13.4 % (11.5-14.5) Immature Granulocyte % (Auto) 0.0 % Immature Granulocyte # (Auto) 0.00 K/uL (0.00-0.02) Anion Gap 6.0 mmol/L (3-11) Est Creatinine Clear Calc Drug Dose 59.7 ml/min Estimated GFR () 84.3 Estimated GFR (Non- 72.7 BUN/Creatinine Ratio 23.5 (10-20) Calcium Level 8.7 mg/dl (8.5-10.1) Phosphorus Level 3.3 mg/dl (2.5-4.9) Magnesium Level 2.2 mg/dl (1.8-2.4) Total Bilirubin 0.3 mg/dl (0.2-1) Direct Bilirubin < 0.1 mg/dl (0-0.2) Aspartate Amino Transf (AST/SGOT) 29 U/L (15-37) Alanine Aminotransferase (ALT/SGPT) 27 U/L (12-78) Alkaline Phosphatase 98 U/L (45-117) Troponin I < 0.015 ng/ml (0-0.045) Total Protein 6.6 gm/dl (6.4-8.2) Albumin 3.5 gm/dl (3.4-5.0) Lipase 128 U/L (73-393) Urine Color YELLOW Urine Appearance CLOUDY (CLEAR) Urine pH 5.0 (4.5-7.5) Urine Specific [place] 1.025 (1.000-1.030) Urine Protein 2+ (NEG) Urine Glucose (UA) 3+ (NEG) Urine Ketones NEG (NEG) Urine Occult Blood TRACE (NEG) Urine Nitrite NEG (NEG) Urine Bilirubin NEG (NEG) Urine Urobilinogen NEG (NEG) Urine Leukocyte Esterase SMALL (NEG) Urine WBC (Auto) >30 /hpf (0-5) Urine RBC (Auto) 0-4 /hpf (0-4) Urine Hyaline Casts (Auto) 1-5 /lpf (0-5) Urine Epithelial Cells (Auto) >30 /lpf (0-5) Urine Bacteria (Auto) 1+ (NEG) Urine Pathogenic Casts /lpf (0) Laboratory results reviewed by me Medications Administered Medications (Trade) Dose Ordered Sig/Claudia Route Start Time Stop Time Status Last Admin Dose Admin Sodium Chloride 500 ml @ 999 mls/hr Q31M STAT IV 11/05/17 13:53 11/05/17 14:23 DC 11/05/17 13:53 999 MLS/HR Cephalexin Monohydrate (Keflex Cap) 500 mg NOW STAT PO 11/05/17 15:34 11/05/17 15:36 DC 11/05/17 15:34 500 MG Cephalexin Monohydrate (Keflex 500MG Home Pack) 3 homepack STK-MED ONCE .ROUTE 8/4/18 16:25 11/05/17 16:26 DC 11/05/17 16:25 3 HOMEPACK ECG Per My Interpretation Indication: weakness Rate (beats per minute): 83 Rhythm: sinus rhythm Findings: 1st degree AV block, PVC (occasional PVCs), no acute ischemic change ED Course 1355: The patient was evaluated in room B4B. A complete history and physical exam was performed. 1540: I reevaluated the patient. Discussed results and discharge instructions. She verbalized understanding and agreement. The patient is ready for discharge. Medical Decision I reviewed the patient's past medical history, medications, and the nursing notes as described above. Differential diagnosis: Etiologies such as metabolic, infection, hypo/hyperglycemia, electrolyte abnormalities, cardiac sources, intracerebral event, toxicologic, neurologic, as well as others were entertained. The patient is a 76 yo woman with a pmhx of DM, HLD who presents to the emergency department with her daughter concerned fro intermittent confusion over the past week in the setting of being treated for UTI by pcp with cipro as well as being started on Cymbalta for neuropathic pain and being weaned off of her Gabapentin per HPI. On arrival the patient is in NAD, AFVSS. Neuro intact including normal cerebellar function with wyufja-qw-rdbt, alternating palms, kuli-at-gacf. CXR negative. CT head unremarkable. WBC wnl. BUN/Cr suggesting mild dehydration. UA with WBC > 30 with 1+bacteria but also epitheleal cells despite straight cath. Patient feeling improved after IVF hydration. Will treat UTI with Keflex. Plan for pcp f/u. Findings and plan for follow-up reviewed with patient and daughter. Patient and daughter agreeable and d/c'd per discharge instructions. Medication Reconcilliation Current Medication List: was personally reviewed by me Blood Pressure Screening Patient's blood pressure: Normal blood pressure Blood pressure disposition: Did not require urgent referral Impression Primary Impression: Intermittent confusion Additional Impressions: Dehydration UTI (urinary tract infection) Scribe Attestation The scribe's documentation has been prepared under my direction and personally reviewed by me in its entirety. I confirm that the note above accurately reflects all work, treatment, procedures, and medical decision making performed by me. Departure Information Dispostion Home / Self-Care Prescriptions Cephalexin Monohydrate (KEFLEX) 500 Mg Cap 500 MG PO BID for 7 Days, #14 CAP Prov: David Navarro M.D. 11/05/17 Referrals Sebastián Sanchez M.D. (PCP) Patient Instructions ED Confusion, ED Dehydration, My [facility] Additional Instructions Please follow up with your primary care physician on Tuesday for re-evaluation and to discuss your symptoms in relation to your medication changes. The cause of your symptoms is unclear at this time however may be due to a continued UTI with mild dehydration as well as your recent medication changes. Otherwise, your exam, EKG, chest xray, lab results, and CT scan did not show signs of an emergent condition at this time. Keflex as directed. Continue your probiotic. Drink plenty of fluids to ensure hydration. Return to the emergency department for worsening symptoms as described in the accompanying instructions. Problem Qualifiers
[2017-11-05 14:21] LABS: BASO % 0.2 %; BASO ABS # 0.01 K/uL (0-0.2); EOS % 2.8 %; EOS ABS # 0.13 K/uL (0-0.5); HEMATOCRIT 38.6 % (37-47); HEMOGLOBIN 12.6 g/dL (12.0-16.0); LYMPH ABS # 0.93 K/uL (1.2-3.4); MEAN CELL VOLUME 87.3 fL (80-100); MEAN CORPUSCULAR HEMOGLOBIN 28.5 pg (25-34); MEAN CORPUSCULAR HGB CONC 32.6 g/dl (32-36); MEAN PLATELET VOLUME 10.8 fL (7.4-10.4); MONO % 11.6 %; MONO ABS # 0.54 K/uL (0.11-0.59); NEUT % 65.4 %; NEUT ABS # 3.05 K/uL (1.4-6.5); PLATELET COUNT 173 K/uL (130-400); RED CELL DISTRIBUTION WIDTH CV 13.4 % (11.5-14.5); RED CELL DISTRIBUTION WIDTH SD 43.1 fL (36.4-46.3); WHITE BLOOD COUNT 4.66 K/uL (4.8-10.8)
--- NOTE | 2017-11-05 14:32 | DIAGNOSTIC IMAGING REPORT ---
CT SCAN OF THE BRAIN WITHOUT IV CONTRAST CLINICAL HISTORY: Change in mental status. COMPARISON STUDY: Prior CT scans of the brain, most recently dated 10/10/2017. TECHNIQUE: Unenhanced axial CT scan of the brain is performed from the vertex to the skull base. A dose lowering technique was utilized adhering to the principles of ALARA. CT DOSE: 537.48 mGy.cm FINDINGS: Brain parenchyma: There are age-related involutional changes noting moderate patchy subcortical and periventricular microangiopathic change. There is no hemorrhage, mass effect, or evidence of acute territorial ischemia by CT criteria. Yanez-white matter is preserved. No extra-axial fluid collection is seen. Ventricles, sulci, cisterns: Prominent secondary to involutional change. Intracranial vasculature: There is atherosclerotic calcification of the cavernous carotid arteries. Calvarium: Unremarkable. Sinuses and mastoids: The visualized paranasal sinuses are clear. The mastoid air cells are well pneumatized. Orbits: The bony orbits are grossly intact. There are bilateral ocular lens implants. IMPRESSION: There is no hemorrhage, mass effect, or evidence of acute territorial ischemia by CT criteria. Electronically signed by: Curly Lee M.D. 11/05/2017 2:30 PM Dictated Date/Time: 11/05/2017 2:29 PM
[2017-11-05] MEDS ORDERED: CYM20 PO (14:37)
[2017-11-05] MEDS ORDERED: CIPR1TAB11 PO (14:37)
[2017-11-05 14:40] VITALS: BP 112/76; PULSE 76; O2SAT 96
[2017-11-05 14:41] LABS: ALBUMIN 3.5 gm/dl (3.4-5.0); ALKALINE PHOSPHATASE 98 U/L (45-117); ALT/SGPT 27 U/L (12-78); AST/SGOT 29 U/L (15-37); BLOOD UREA NITROGEN 19 mg/dl (7-18); CALCIUM 8.7 mg/dl (8.5-10.1); CARBON DIOXIDE 29 mmol/L (21-32); CREATININE 0.79 mg/dl (0.60-1.20); GLUCOSE 173 mg/dl (70-99); LIPASE 128 U/L (73-393); PHOSPHORUS 3.3 mg/dl (2.5-4.9); SODIUM 140 mmol/L (136-145); TOTAL PROTEIN 6.6 gm/dl (6.4-8.2)
--- NOTE | 2017-11-05 14:43 | DIAGNOSTIC IMAGING REPORT ---
SINGLE VIEW CHEST CLINICAL HISTORY: Atypical chest pain. FINDINGS: An AP, portable, upright chest radiograph is compared to study dated 10/10/2017. Correlation is made with chest CT dated 09/07/2017. The examination is degraded by portable technique and apical lordotic positioning. The heart is mildly enlarged and there is atherosclerotic calcification of the thoracic aorta. The pulmonary vasculature is noncongested. Chronic interstitial thickening is similar to previous. No airspace consolidation or large pleural effusion is identified. There is mild bibasilar atelectasis. No pneumothorax is seen. The skeletal structures are osteopenic. The bony thorax is grossly intact. Degenerative change is seen throughout the thoracic spine and in the shoulders. There is chronic widening of the acromioclavicular joints. Superior subluxation of the humeral head suggests chronic rotator cuff injuries. IMPRESSION: Mild cardiac enlargement with no acute cardiopulmonary abnormality. Electronically signed by: Curly Lee M.D. 11/05/2017 2:41 PM Dictated Date/Time: 11/05/2017 2:40 PM
[2017-11-05] MEDS ORDERED: CEPHALEXIN MONOHYDRATE 250 MG CAP PO STA (15:34)
[2017-11-05] MEDS ORDERED: CEPH500C2 PO (15:36)
[2017-11-05] MEDS ORDERED: CEPHALEXIN 500MG HOME PACK 1 EA BTL ONE (16:25)
--- NOTE | 2017-11-07 18:50 | Pharmacy Progress Note ---
ED Pharmacist Culture FollowUp Date of Service: Nov 07, 2017. Patient was sent home with a prescription for cephalexin, which should cover the Proteus growing from the patient's urine culture, based on reported sensitivity to cefazolin.
== END 2017-11-05 16:52 | disposition home or self-care (01) ==
LOC: C.EDB 13:42
DX: R41.0 Disorientation, unspecified (principal); E86.0 Dehydration; N39.0 Urinary tract infection, site not specified; E11.40 Type 2 diabetes mellitus with diabetic neuropathy, unspecified; E78.5 Hyperlipidemia, unspecified; Z83.3 Family history of diabetes mellitus; Z79.4 Long term (current) use of insulin; Z79.82 Long term (current) use of aspirin; Z79.899 Other long term (current) drug therapy; Z91.041 Radiographic dye allergy status; Z88.1 Allergy status to other antibiotic agents; Z88.5 Allergy status to narcotic agent

== ENCOUNTER 2018-05-12 18:33 | Inpatient (IN) ==
--- NOTE | 2018-05-12 19:39 | XRay Report ---
XR chest 1V portable HISTORY: Sepsis COMPARISON: None. FINDINGS: No pleural effusions. No pneumothorax. The heart is borderline enlarged. No focal lung cons olidations to suggest pneumonia. No evidence for pulmonary edema. Degenerative changes within the sanjuana ulders. IMPRESSION: Borderline enlargement of the cardiac silhouette, unchanged. Otherwise, no acute process within the c hest. Electronically signed by: Marvin Huddleston M.D. 05/12/2018 7:38 PM
[2018-05-12 20:02] LABS: Basophils # (auto) 0.01 K/uL (0-0.2); Basophils % (auto) 0.2 %; Eosinophils # (auto) 0.16 K/uL (0-0.5); Eosinophils % (auto) 2.7 %; Hematocrit (blood only) 36.5 % (37-47); Immature Granulocytes # (auto) 0.02 K/uL (0.00-0.02); Immature Granulocytes % (auto) 0.3 %; Lymphocytes # (auto) 0.95 K/uL (1.2-3.4); Lymphocytes % (auto) 15.9 %; Mean Corpuscular Hgb Conc 32.9 g/dL (32-36); Mean Corpuscular Volume 86.3 fL (80-100); Monocytes # (auto) 0.78 K/uL (0.11-0.59); Monocytes % (auto) 13.1 %; Neutrophils # (auto) 4.05 K/uL (1.4-6.5); Neutrophils % (auto) 67.8 %; Platelet Count 166 K/uL (130-400); RDW Coefficient of Variation 13.9 % (11.5-14.5); RDW Standard Deviation 43.8 fL (36.4-46.3); Red Blood Count 4.23 M/uL (4.2-5.4); White Blood Count 5.97 K/uL (4.8-10.8)
[2018-05-12 20:20] LABS: Base Excess VBG 2.5 mEq/L; Oxygen Saturation VBG 79.4 %; pH VBG 7.42 (7.36-7.41)
[2018-05-12 20:27] LABS: Alanine Aminotransferase 28 U/L (12-78); Albumin Globulin Ratio 0.9 (0.9-2); Albumin Level 3.4 gm/dl (3.4-5.0); Alkaline Phosphatase 95 U/L (45-117); BUN Creatinine Ratio 21.1 (10-20); Bilirubin,Total 0.3 mg/dl (0.2-1); Blood Urea Nitrogen 23 mg/dl (7-18); Calcium 8.6 mg/dl (8.5-10.1); Carbon Dioxide 28 mmol/L (21-32); Chloride 104 mmol/L (98-107); Glucose 226 mg/dl (70-99); Total Protein 7.4 gm/dl (6.4-8.2)
[2018-05-12 20:32] LABS: Partial Thromboplastin Time 26.4 Seconds (21.0-31.0); Prothrombin Time 9.9 Seconds (9.0-12.0)
[2018-05-12] MEDS ORDERED: cefTRIAXone SODIUM 1,000 MG/50 ML BAG IV STA (20:34)
[2018-05-12] MEDS ORDERED: VANCOMYCIN CONSULT ACTIVE PRN (20:35)
[2018-05-12] MEDS ORDERED: VANCOMYCIN HCL 1,500 MG in SODIUM CHLORIDE 0.9% 500 ML IV ONE (20:35)
[2018-05-12 20:50] LABS: Aspartate Aminotransferase 21 U/L (15-37); Potassium 3.9 mmol/L (3.5-5.1); Sodium 139 mmol/L (136-145)
[2018-05-12] MEDS ORDERED: PIPERACILLIN/TAZOBACTAM 4.5 GM/120 ML BAG IV ONE (20:56)
[2018-05-12] MEDS ORDERED: SODIUM CHLORIDE 0.9% 1000ML 1,000 ML IV ONE (20:56)
[2018-05-12] MEDS ORDERED: PIPERACILL/TAZOBAC CONSULT ACTIVE PRN (20:56)
--- NOTE | 2018-05-12 22:46 | History & Physical Report ---
Date of Service May 12, 2018 Assessment & Plan (1) Bacteremia: Ms. Keys is a 77-year-old female with a past medical history of diabetes mellitus w/neuropathy, osteomyelitis s/p amputation of several of her toes, and hypertension, who was called back to the emergency department because of 1 out of 2 of her blood cultures growing MSSA. Patient received IV Rocephin , vancomycin, Zosyn and 1 L normal saline bolus in the emergency department. -Admit to telemetry given tachycardia and elevated blood pressure -1 out of 2 blood cultures positive for gram-positive cocci. Not felt to be due to contamination given it tested positive for staph aureus on PCR. Tested negative for MRSA, presumed to be MSSA -Afebrile, normal white cell count, normal lactate -Repeat blood cultures drawn today -Patient received Zosyn, Rocephin and vancomycin in the emergency department, we will continue Zosyn and vancomycin to ensure coverage for Pseudomonas, staph aureus, and gram negative organisms in urine -Given increased antibiotic usage, will treat with probiotics -Presumed source of bacteremia is her infected toe -ID consult -Patient will require PICC placement, unable to do this on admission given IV team does not place PICCs at night (2) Chronic osteomyelitis of left foot: -As above (3) UTI (urinary tract infection): -Urine culture from 05/11 growing gram-negative bacilli, awaiting sensitivities -Patient has had multiple urinary tract infections in the past year, with the most recent urine cultures having grown Proteus, E. coli, gram-positive bacilli -on zosyn/vanc -Patient denies history of bladder prolapse, however her prior CT abdomen/ pelvis on 09/19 does suggest pelvic ligamentous laxity. No colovesicular fistula seen at this time. (4) Diabetes mellitus with neuropathy: -Home insulin regimen includes 20 units in the morning and 8 units at night -Blood sugar checks AC/HS, Lantus 10 units twice daily and NovoLog sliding scale -Continue gabapentin for diabetic neuropathy (5) Altered mental status: -Patient currently alert and oriented x3 -Has a history of severe delirium when admitted to the hospital -One-to-one sitter ordered -Doxepin 10 mg ordered for sleep (patient takes this at home) (6) HTN (hypertension): -Patient recently started lisinopril 2.5 mg, continue this -Daughter reports patient blood pressure is usually further elevated when in the hospital -hydralazine ordered prn for systolic >180 (7) DVT prophylaxis: -Heparin 5000 units q12h CODE STATUS: Full Disposition: Admit to telemetry F/E/N: Diabetic diet. No electrolyte abnormalities noted. Received 1 L of normal saline in the emergency department History of Present Illness Primary Care Provider: Sebastián Sanchez MD Ms. Keys is a 77-year-old female with a past medical history of diabetes mellitus, osteomyelitis s/p amputation of several of her toes, and hypertension , who was called back to the emergency department because of 1 out of 2 of her blood cultures drawn on 05/11 growing MSSA. She was seen in the emergency department with her daughter yesterday due to her daughter's concerns that the patient was confused and had increased pain to her left foot. The patient had her left second digit amputated on May 05, and the daughter noticed that it looked erythematous and had increased drainage. She was discharged home with Augmentin to cover for this, as well as her urinary tract infection [growing gram-negative bacilli]. She had a follow-up appointment with Dr. Jolley earlier today, who prescribed her clindamycin due the culture of her toe growing Peptostreptococcus. The patient has had multiple urinary tract infections and episodes of osteomyelitis. The first episode of osteomyelitis occurred in her left great toe in January 2018. This toe was completely amputated. She subsequently had partial amputation of her right great toe in April 2018, and now her left second toe. The daughter notes that the left second toe has been increasingly red, painful, draining both blood and pus. The daughter also reports that the patient does not normally spike fevers, but becomes confused anytime she has an infection. She states that she has had recurrent chills since January. The patient is scheduled to see [facility] next week, due to multiple urinary tract infections as well as recurrent osteomyelitis. Of note, the patient was never treated with a full 6-week course of IV antibiotics for any episodes of osteomyelitis. She has also seen vascular surgery for concern regarding poor perfusion to her feet. She had ankle brachial indices done May 03, 2018. This showed borderline abnormal left EMANUEL and normal right EMANUEL. She follows with Dr. Jenkins. With regards to the patient's infectious history, she states that she has had multiple infections since she was a child. She used to have a history of recurrent UTIs, and was on Macrobid prophylaxis for this in the past. Her daughter states that this improved when she was taken off Lasix. She has, however, started having urinary tract infections more frequently again. She denies a history of bladder prolapse. Allergies Allergy/AdvReac Type Severity Reaction Status Date / Time hydrocodone Allergy Severe Confusion Verified 05/12/18 19:55 Iodinated Contrast- Oral and Allergy Intermediate HIVES AND Verified 05/12/18 19 :55 IV Dye HOT FLASHES Macrolide Antibiotics Allergy Mild UPSET Verified 05/12/18 19:55 STOMACH oxycodone AdvReac Severe CONFUSION Verified 05/12/18 19:55 LAKSHMI WHEN SHE TAKES 2 TABS- Home Medications Home Medications Medication Instructions Recorded Confirmed Type aspirin [Aspir-81] 81 mg PO QAM 01/23/18 05/12/18 History gabapentin 600 mg PO BID 01/23/18 05/12/18 History doxepin 10 mg PO HS PRN 01/28/18 05/12/18 History gabapentin 300 mg PO PM 01/28/18 05/12/18 History clindamycin HCl 300 mg PO TID 04/04/18 05/12/18 History insulin detemir U-100 8 unit SUBCUT HS 04/04/18 05/12/18 History insulin detemir U-100 20 unit SUBCUT QAM 04/04/18 05/12/18 History Saccharomyces boulardii [Florastor] 250 mg PO BIDM 04/24/18 05/12/18 History cranberry conc-ascorbic acid 1 cap PO BIDM 04/24/18 05/12/18 History amoxicillin-pot clavulanate 1 tab PO BID #20 tab 05/11/18 05/12/18 Rx [Augmentin] lisinopril 2.5 mg PO QAM 05/11/18 05/12/18 History Past Med/Surg History Medical History Osteomyelitis of left lower extremity Cellulitis of left lower extremity Foot pain (Acute) from neuropathy and osteomyelitis Altered mental status (Acute) Murmur, cardiac Acute osteomyelitis of toe of left foot HTN (hypertension) Diabetes mellitus, type 2 History of high cholesterol Taking no meds at this time Hx of deep venous thrombosis Peripheral neuropathy numbness, tingling and burning of both feet Surgical History History of shoulder surgery rotator cuff both shoulders History of Achilles tendon repair right History of left knee replacement History of cholecystectomy History of partial amputation of toe Multiple History of adenoidectomy History of amputation TOES - 6 partial amputations with a partial x2 on great toe resulting in complete amputation 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 History of appendectomy History of arthroscopy RT/LEFT SHOULDER History of cataract surgery RT/LEFT History of colonoscopy History of esophagogastroduodenoscopy (EGD) History of tonsillectomy History of tooth extraction History of total knee replacement RT/LEFT (LEFT REVISED X 1) Hx of hysterectomy, total Hx of sinus surgery Family History Other No pertinent family history Social History Current Living Situation: Spouse Feels Safe at Home: Yes Safety Concerns: Feels Safe At This Time Smoking Status: Never smoker Second Hand Exposure: No Hx Alcohol Use: No Hx Substance Use: No Beliefs That Will Affect Care: None Communication Ability: Effective Review of Systems Constitutional: + chills and + fatigue; no fever Respiratory: no cough and no wheezing Cardiovascular: no chest pain, no palpitations and no syncope Gastrointestinal: no abdominal pain, no nausea and no vomiting Poor appetite Genitourinary (Female): no dysuria, no urinary frequency, no urinary urgency, no hematuria, no flank pain and no prolapse symptoms Strong smelling urine reported Integumentary: + changing lesions (Left second toe) Neurologic: + behavioral changes (Delirium, hallucinations); no falls Physical Exam 2 Vital Signs (Past 24 Hours): Last Vital Signs Temp 36.6 C 05/12/18 18:36 Pulse 97 H 05/12/18 22:19 Resp 18 05/12/18 22:19 BP 166/111 H 05/12/18 22:19 Pulse Ox 95 05/12/18 22:19 Constitutional: WD/WN, vitals as above + well hydrated; no acute distress Respiratory: normal respiratory effort, lungs clear to auscultation Cardiovascular: RRR, no murmur, no edema Vessels: posterior tibial pulses present, dorsalis pedis pulses present and radial pulses present Extremities : no calf tenderness and no pedal edema Gastrointestinal (Abdomen): normal bowel sounds, soft, nontender, no hepatosplenomegaly Skin: Absent left hallux. Sutures noted to left second toe, which is erythematous. No drainage noted. Right foot with partial hallux and second toe amputations. Neurologic: Alert and oriented x3, answers questions appropriately Results & Data Laboratory Results Laboratory Results - last 24 hr 05/12/18 05/12/18 05/12/18 19:40 19:40 19:40 WBC 5.97 RBC 4.23 Hgb 12.0 Hct 36.5 L MCV 86.3 MCH 28.4 MCHC 32.9 RDW Std Deviation 43.8 RDW Coeff of Phil 13.9 Plt Count 166 MPV 11.0 H Immature Gran % (Auto) 0.3 Neut % (Auto) 67.8 Lymph % (Auto) 15.9 Pershing % (Auto) 13.1 Eos % (Auto) 2.7 Baso % (Auto) 0.2 Immature Gran # (Auto) 0.02 Neut # (Auto) 4.05 Lymph # (Auto) 0.95 L Pershing # (Auto) 0.78 H Eos # (Auto) 0.16 Baso # (Auto) 0.01 PT 9.9 INR 1.0 APTT 26.4 PTT Ratio 1.0 VBG pH VBG pCO2 VBG pO2 VBG HCO3 VBG O2 Saturation VBG Base Excess Barometric Pressure Sodium 139 Potassium 3.9 Chloride 104 Carbon Dioxide 28 Anion Gap 7.0 BUN 23 H Creatinine 1.07 Est Cr Clr Drug Dosing Not Reportable Est GFR ( Amer) 58.0 Est GFR (Non-Af Amer) 50.0 BUN/Creatinine Ratio 21.1 H Glucose 226 H Lactate Calcium 8.6 Total Bilirubin 0.3 AST 21 ALT 28 Alkaline Phosphatase 95 Total Protein 7.4 Albumin 3.4 Globulin 4.0 Albumin/Globulin Ratio 0.9 05/12/18 05/12/18 19:40 20:12 WBC RBC Hgb Hct MCV MCH MCHC RDW Std Deviation RDW Coeff of Phil Plt Count MPV Immature Gran % (Auto) Neut % (Auto) Lymph % (Auto) Pershing % (Auto) Eos % (Auto) Baso % (Auto) Immature Gran # (Auto) Neut # (Auto) Lymph # (Auto) Pershing # (Auto) Eos # (Auto) Baso # (Auto) PT INR APTT PTT Ratio VBG pH 7.42 H VBG pCO2 43 VBG pO2 43 VBG HCO3 27 VBG O2 Saturation 79.4 VBG Base Excess 2.5 Barometric Pressure 739.1 Sodium Potassium Chloride Carbon Dioxide Anion Gap BUN Creatinine Est Cr Clr Drug Dosing Est GFR ( Amer) Est GFR (Non-Af Amer) BUN/Creatinine Ratio Glucose Lactate 1.5 Calcium Total Bilirubin AST ALT Alkaline Phosphatase Total Protein Albumin Globulin Albumin/Globulin Ratio Medications Administered Current Inpatient Medications Vancomycin HCl 1,500 mg/ (Sodium Chloride) 530 mls @ 200 mls/hr IV NOW ONE Stop: 05/12/18 23:13 Last Admin: 05/12/18 22:04 Dose: 200 mls/hr Miscellaneous Information (Consult) 1 ea N/A UD PRN PRN Reason: Consult Stop: 06/11/18 20:34 Miscellaneous Information (Consult) 1 ea N/A UD PRN PRN Reason: Consult Stop: 06/11/18 20:55 Supervising Physician Co-Signing Physician Notes Attending addendum: I have physically seen this patient, have supervised the medical residents activities, and agree with the H&P unless as otherwise noted. Assessment and Plan: MSSA bacteremia on 05/11 / gram-negative bacilli in urine on 05/11-- Status post recent amputation of left second toe for osteomyelitis seen on MRI. Patient was given vancomycin IV and ceftriaxone IV in the ED. We will admit on vancomycin IV and Zosyn IV. Follow complete blood and urine culture and sensitivities. Hydrate with IV fluids. Patient had multiple urinary tract infections in the past including 03/02 E. coli, and 03/23 Proteus, and now today. Discussed possible scenarios such as bladder prolapse, colovesical fistula, and proper hygiene as potential causes or current contributions to causes. Consult ID. Remainder of orders and notations as noted. Resident Activity Tracking Resident Involvement: Resident Care Provided Care Provided: [facility] _ (1) UTI (urinary tract infection) Encounter type: Hematuria presence: Indwelling urinary catheter type: Urinary tract infection type: site unspecified
[2018-05-13] MEDS ORDERED: GLUCAGON FOR INJ 1 MG VIAL SQ PRN (00:10)
[2018-05-13] MEDS ORDERED: GLUCOSE 40% GEL 15 GM TUBE PO PRN (00:10)
[2018-05-13] MEDS ORDERED: GLUCOSE 10 TABS/TUBE PO PRN (00:10)
[2018-05-13] MEDS ORDERED: ACETAMINOPHEN 325 MG TAB PO PRN (00:10)
[2018-05-13] MEDS ORDERED: CARBOHYDRATES FOR HYPOGLYCEMIA PO PRN (00:10)
[2018-05-13] MEDS ORDERED: DEXTROSE 50% 50 ML SYRINGE IV PRN (00:10)
[2018-05-13] MEDS ORDERED: HydrALAZINE HCL 20 MG/ML VIAL IV PRN (00:56)
[2018-05-13] MEDS: INSULIN GLARGINE SOLOSTAR 100 UNITS/ML 3 ML PEN SC SCH ×3 (01:13→20:37)
[2018-05-13] MEDS: GABAPENTIN 600 MG TAB PO SCH ×3 (01:13→20:31)
[2018-05-13] MEDS: PIPERACILLIN/TAZOBACTAM 3.375 GM in DEXTROSE 5% 100 ML IV SCH ×3 (02:43→20:30)
[2018-05-13] MEDS ORDERED: [UNRECOGNIZED DRUG - OTHER] PO SCH (08:00)
[2018-05-13 08:16] LABS: Calcium 8.3 mg/dl (8.5-10.1); Est GFR (African American) 81.2; Est GFR (Non-African American) 70.1; Potassium 3.5 mmol/L (3.5-5.1)
[2018-05-13] MEDS: INSULIN ASPART 100 UNITS/ML 3 ML PEN SC SCH ×4 (08:20→20:47)
[2018-05-13] MEDS: LACTOBACILLUS ACIDOPHILUS (FLORANEX) TAB PO SCH ×4 (09:30→20:32)
[2018-05-13] MEDS: LISINOPRIL 2.5 MG TAB PO SCH (09:30)
[2018-05-13] MEDS: ASPIRIN 81 MG ECTAB PO SCH (09:30)
[2018-05-13] MEDS: HEPARIN SOD 5,000 UNIT/0.5 ML VIAL SQ SCH ×2 (09:31→20:36)
[2018-05-13] MEDS: VANCOMYCIN HCL 1,000 MG in SODIUM CHLORIDE 0.9% 250 ML IV SCH ×2 (09:35→22:14)
--- NOTE | 2018-05-13 10:31 | Family Medicine Progress Note ---
Date of Service May 13, 2018 Assessment & Plan (1) Bacteremia: Ms. Keys is a 77-year-old female with a past medical history of diabetes mellitus w/neuropathy, osteomyelitis s/p amputation of several of her toes, and hypertension, who was called back to the emergency department because of 1 out of 2 of her blood cultures growing MSSA. Patient received IV Rocephin , vancomycin, Zosyn and 1 L normal saline bolus in the emergency department. Bacteremia- preliminary staph aureus was grown in 1/2 blood cultures from . patient placed on vanc and zosyn, she currently has repeat blood cultures pending. It is likely that this bacteremia is from her osteomyelitis of her Left 2nd toe. We have consented the patient to get a PICC line placed and have consulted ID for antibiotic recommendations.Patient appears to be hemodyna Osteomyelitis of the left 2nd toe- this is clinically evident and is evident on recent XRAY done, she had a recent doppler which appeared to have adequate EMANUEL' s without any current need of intervention, she wears a diabetic boot and she follows with [place] [facility] in the outpatient setting. We will get a PICC line started and await cultures from wound culture. Will likely need 6 weeks of abx. Will await ID recommendations UTI- patient has grown ecoli from urine culture from 05/11/18. Currently sensitive to zosyn therefore will continue with this while in the hospital Diabetes mellitus with neuropathy- most recent HgbA1c was 7.3, patient on 10 units bid of lantus here in the hospital and ISS. Will continue to monitor sugars in hospital and adjust as seen necessary. continue gabapentin for peripheral neuropathy HTN (hypertension)- continue home lisinopril and hydralazine prn for systolic > 180 DVT prophylaxis- heparin Code- full Dispo- home tomorrow once PICC placed and IV abx set up Supervising Physician Co-Signing Physician Notes I personally examined the patient and verified all mcallister points of history and exam, discussed case, and agree with decision making with Dr Contreras. Doing okay, wants to get out of here, but understanding that IV antibiotics need to be set up first. Discussed with family extensively as well. Vitals noted, in general she is awake and alert pleasant no distress. HEENT normocephalic atraumatic mucous membranes moist. She shows no focal neuro deficits. OsteomyelitisPICC line is in, working towards home IV antibiotics once able. Otherwise as above Subjective Renay appears to be doing well this morning. She notes that she feels well but is very fatigued. She says she has had ongoing discussions with her PCP about having a PICC line placed but this has not been done. She notes her toe is not painful. She notes that she feels cold but denies any fevers or night sweats. She has been eating well and urinating without any issues. I spoke to the patients daughter over the phone to discuss the PICC line and she was in agreement with the plan. I also received written consent from the patient whom verbalized understanding. The patient denies any chest pain, shortness of breath, nausea, vomiting, ab pain, rashes, joint pain Review of Systems All systems reviewed & are unremarkable except as noted in HPI & below Physical Exam 2 Vital Signs (Past 24 Hours): Last Vital Signs Temp 37.2 C 05/13/18 07:55 Pulse 92 H 05/13/18 07:55 Resp 18 05/13/18 07:55 BP 145/73 H 05/13/18 07:55 Pulse Ox 97 05/13/18 07:55 Physical Exam: Gen: patient alert and orientated to person, place and time Cardiac: 2/6 murmur at LUSB, RRR, No JVD Resp: normal vesicular breath sounds without any wheezes or crackles Abdomen: soft and non tender with normal bowel sounds Lower extremities: strong peripheral pulses bilaterally, left foot with hallux missing and 2nd toe with partial amputation with stitches in place, the toe is erythematous but non tender, the R foot with the hallucx missing, plantar and dorsal aspect of the feet have heightened sensation to touch
--- NOTE | 2018-05-13 11:15 | Pharmacy Report ---
Pharmacy Abx Dose Short Note - Date of Service May 13, 2018 - Assessment & Plan Laboratory Tests 05/12/18 05/13/18 19:40 07:26 Creatinine 1.07 0.81 Est Cr Clr Drug Dosing 58.0 Assessment: 77 yo Female receiving VANC/Zosyn-IV for treatment of SSTI/osteo * Day # 2 of antimicrobial therapy. Pertinent PMH: DM2 Plan: Vanc-IV: * Estimated pharmacokinetics: Vd~0.7 L/kg, Ke~0.0525 hr-1, T 1/2~12 hrs * LOADING DOSE: VANC 1500mg (~20mg/kg) IV x 1, then * MAINTENANCE DOSE: VANC 1g (~13mg/kg) IV q 12 hours. * Goal trough level: 15 to 20 mcg/mL * VANC Trough level ordered @ [facility] prior to 05/14/17 1000 dose Zosyn: 4.5g IV x 1, then 3.375g IV CI q8h for est GFR >20mL/min Pharmacy will continue to follow and will adjust dose/frequency as necessary. Thank you.
--- NOTE | 2018-05-13 14:07 | Emergency Department Note ---
Entered by Alondra Kumari acting as a scribe for Cesar Sanchez MD History of Present Illness General Chief complaint: Referred by Doctor Stated complaint: Er call to return due to blood culture result Time Seen by Provider: 05/12/18 18:41 Source: patient History of Present Illness Provider complaint: need for evaluation following a positive blood culture Onset (ago): day(s) (today) Location: left and right Pain Consistency: + other (episode) Quality: + other (need for evaluation) Associated symptoms: + other (Associated symptoms: left foot redness, left foot swelling, left foot pain, confusion, chills, cough. Denies: fever, abdominal pain) The patient is a 77 white female w/ PMHx of diabetes, HTN, osteomyelitis, and multiple toe amputations who presents to the ED w/ CC of an episode for a need for evaluation following a positive blood culture beginning today. The patient was seen in the ED yesterday and placed on Rocephin and Augmentin to treat her foot as well as a UTI. She had a left toe amputation 7 days ago, which has not been healing properly and is increasingly red and swollen. Her daughter reports the patient has had severe left foot pain. She notes the patient has been acting confused, which is typical for her when she has a UTI. The patient notes chills and a cough. She denies fever or abdominal pain. Home Medications Home Medications Medication Instructions Recorded Confirmed Type aspirin [Aspir-81] 81 mg PO QAM 01/23/18 05/12/18 History gabapentin 600 mg PO BID 01/23/18 05/12/18 History doxepin 10 mg PO HS PRN 01/28/18 05/12/18 History gabapentin 300 mg PO PM 01/28/18 05/12/18 History clindamycin HCl 300 mg PO TID 04/04/18 05/12/18 History insulin detemir U-100 8 unit SUBCUT HS 04/04/18 05/12/18 History insulin detemir U-100 20 unit SUBCUT QAM 04/04/18 05/12/18 History Saccharomyces boulardii [Florastor] 250 mg PO BIDM 04/24/18 05/12/18 History cranberry conc-ascorbic acid 1 cap PO BIDM 04/24/18 05/12/18 History amoxicillin-pot clavulanate 1 tab PO BID #20 tab 05/11/18 05/12/18 Rx [Augmentin] lisinopril 2.5 mg PO QAM 05/11/18 05/12/18 History Allergies Allergy/AdvReac Type Severity Reaction Status Date / Time hydrocodone Allergy Severe Confusion Verified 05/12/18 19:55 Iodinated Contrast- Oral and Allergy Intermediate HIVES AND Verified 05/12/18 19 :55 IV Dye HOT FLASHES Macrolide Antibiotics Allergy Mild UPSET Verified 05/12/18 19:55 STOMACH oxycodone AdvReac Severe CONFUSION Verified 05/12/18 19:55 LAKSHMI WHEN SHE TAKES 2 TABS- Past Med/Surg History Medical History Osteomyelitis of left lower extremity Cellulitis of left lower extremity Foot pain (Acute) from neuropathy and osteomyelitis Altered mental status (Acute) Murmur, cardiac Acute osteomyelitis of toe of left foot HTN (hypertension) Diabetes mellitus, type 2 History of high cholesterol Taking no meds at this time Hx of deep venous thrombosis Peripheral neuropathy numbness, tingling and burning of both feet Surgical History History of shoulder surgery rotator cuff both shoulders History of Achilles tendon repair right History of left knee replacement History of cholecystectomy History of partial amputation of toe Multiple History of adenoidectomy History of amputation TOES - 6 partial amputations with a partial x2 on great toe resulting in complete amputation 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 History of appendectomy History of arthroscopy RT/LEFT SHOULDER History of cataract surgery RT/LEFT History of colonoscopy History of esophagogastroduodenoscopy (EGD) History of tonsillectomy History of tooth extraction History of total knee replacement RT/LEFT (LEFT REVISED X 1) Hx of hysterectomy, total Hx of sinus surgery Family History Other No pertinent family history Social History Current Living Situation: Spouse Feels Safe at Home: Yes Safety Concerns: Feels Safe At This Time Smoking Status: Never smoker Second Hand Exposure: No Hx Alcohol Use: No Hx Substance Use: No Beliefs That Will Affect Care: None Communication Ability: Effective Review of Systems See HPI for pertinent positives & negatives. and A total of 10 systems reviewed and were otherwise negative Physical Exam Vital Signs Vital Signs - 24 hr 05/12/18 18:36 05/12/18 19:03 05/12/18 19:57 Temperature 36.6 C Temperature Source Oral Sepsis Recent Fever Within 48 Hours No Sepsis New/Unexplained Change in Mental Status No Sepsis Action Taken by Nursing No Action Required Pulse Rate 78 94 H Pulse Rate [Apical] Pulse Rhythm [Apical] Pulse Strength [Apical] Respiratory Rate 20 19 Respiratory Effort / Characteristics Non-Labored Spontaneous Respiratory Depth Normal Respiratory Pattern Regular Blood Pressure 189/80 H 181/75 H Blood Pressure [Right Arm] Blood Pressure Mean 116 110 Blood Pressure Mean [Right Arm] Blood Pressure Position [Right Arm] Pulse Oximetry 99 95 Oxygen Delivery Method Room Air Room Air 05/12/18 20:00 05/12/18 21:07 05/12/18 22:19 Temperature Temperature Source Sepsis Recent Fever Within 48 Hours Sepsis New/Unexplained Change in Mental Status Sepsis Action Taken by Nursing Pulse Rate Pulse Rate [Apical] 97 H 100 H 97 H Pulse Rhythm [Apical] Regular Regular Regular Pulse Strength [Apical] Normal Normal Normal Respiratory Rate 18 20 18 Respiratory Effort / Characteristics Non-Labored Non-Labored Non-Labored Spontaneous Respiratory Depth Normal Normal Normal Respiratory Pattern Regular Regular Blood Pressure Blood Pressure [Right Arm] 185/75 H 187/88 H 166/111 H Blood Pressure Mean Blood Pressure Mean [Right Arm] 111 121 129 Blood Pressure Position [Right Arm] Lying Sitting Lying Pulse Oximetry 95 95 Oxygen Delivery Method Room Air Room Air 05/12/18 23:42 05/13/18 00:00 05/13/18 00:01 Temperature 37.4 C Temperature Source Oral Sepsis Recent Fever Within 48 Hours Sepsis New/Unexplained Change in Mental Status Sepsis Action Taken by Nursing Pulse Rate 97 H 97 H Pulse Rate [Apical] 91 H Pulse Rhythm [Apical] Pulse Strength [Apical] Respiratory Rate 17 20 Respiratory Effort / Characteristics Non-Labored Spontaneous Respiratory Depth Normal Respiratory Pattern Blood Pressure 130/106 H Blood Pressure [Right Arm] 186/76 H Blood Pressure Mean Blood Pressure Mean [Right Arm] 112 Blood Pressure Position [Right Arm] Pulse Oximetry 96 97 Oxygen Delivery Method Room Air Room Air Room Air 05/13/18 03:05 05/13/18 04:52 05/13/18 07:55 Temperature 37.4 C 37.2 C Temperature Source Oral Oral Sepsis Recent Fever Within 48 Hours Sepsis New/Unexplained Change in Mental Status Sepsis Action Taken by Nursing Pulse Rate Pulse Rate [Apical] 113 H 93 H 92 H Pulse Rhythm [Apical] Pulse Strength [Apical] Respiratory Rate 18 18 Respiratory Effort / Characteristics Respiratory Depth Respiratory Pattern Blood Pressure Blood Pressure [Right Arm] 181/80 H 155/69 H 145/73 H Blood Pressure Mean Blood Pressure Mean [Right Arm] 113 97 97 Blood Pressure Position [Right Arm] Lying Lying Pulse Oximetry 94 97 Oxygen Delivery Method Room Air Room Air 05/13/18 12:45 Temperature 37.3 C Temperature Source Oral Sepsis Recent Fever Within 48 Hours Sepsis New/Unexplained Change in Mental Status Sepsis Action Taken by Nursing Pulse Rate Pulse Rate [Apical] 88 Pulse Rhythm [Apical] Pulse Strength [Apical] Respiratory Rate 18 Respiratory Effort / Characteristics Respiratory Depth Respiratory Pattern Blood Pressure Blood Pressure [Right Arm] 130/73 Blood Pressure Mean Blood Pressure Mean [Right Arm] 92 Blood Pressure Position [Right Arm] Lying Pulse Oximetry 95 Oxygen Delivery Method Room Air .GENERAL: Well appearing, well nourished, NAD, non-toxic. EYE EXAM: Normal conjunctiva. PERRL, no anisocoria and EOM's grossly intact w/o pain. OROPHARYNX: No exudate, posterior pharynx is clear, no tonsillar/uvular deviation or swelling. NECK: Supple, no nuchal rigidity, no adenopathy, non-tender. No signs of meningismus. LUNGS: Clear to auscultation bilaterally. Normal chest wall mechanics. HEART: NSR, no MRG. ABDOMEN: Abdomen soft, non-tender, normo-active bowel sounds, no masses, no rebound or guarding. BACK: No CVA TTP. SKIN: No rashes and no bruising. UPPER EXTREMITIES: Upper extremities are grossly normal. LOWER EXTREMITIES: No pitting edema. No calf pain. Bilateral large toes absent. Not fully healed partially amputated left second digit, sutures in place. Small amount of drainage, mild warmth and erythema with extension the dorsal aspect of midfoot. NEURO EXAM: Cranial nerves II-XII grossly intact, normal speech, 5/5 strength in bilateral upper and lower extremities, no sensory deficits, moves all 4 extremities on command w/o issue. Course 1905: Past medical records reviewed. The patient was evaluated in room B10, and a complete history and physical examination were performed. 2055: I reviewed the patient's case with Dr. Clinton, [facility] hospitalist. He will evaluate the patient for further management. 2058: Upon reevaluation, the patient is resting. I discussed test results. They verbalized agreement with the treatment plan. ' Consultations Consultation #1: I reviewed the patient's case with Dr. Clinton, [facility] hospitalist. He will evaluate the patient for further management. Time: 20:56 Administered Medications Aspirin (Ecotrin Ectab) 81 mg PO QAM [facility] Stop: 06/12/18 08:59 Last Admin: 05/13/18 09:30 Dose: 81 mg Gabapentin (Neurontin) 600 mg PO BID [facility] Stop: 06/12/18 00:09 Last Admin: 05/13/18 09:30 Dose: 600 mg Admin: 05/13/18 01:13 Dose: 600 mg Heparin Sodium (Porcine) (Heparin Sodium (Porcine)) 5,000 units SQ Q12 [facility] Stop: 06/12/18 08:59 Last Admin: 05/13/18 09:31 Dose: 5,000 units Hydralazine HCl (Hydralazine Hcl) 10 mg IV Q4H PRN PRN Reason: Hypertension Stop: 06/12/18 00:55 Last Admin: 05/13/18 03:21 Dose: 10 mg Piperacillin Sod/Tazobactam (Sod 3.375 gm/ Dextrose) 115 mls @ 28.75 mls/hr IV Q8H [facility]; Protocol Stop: 05/23/18 03:59 Last Admin: 05/13/18 13:54 Dose: 28.8 mls/hr Infusion: 05/13/18 07:06 Dose: 0 mls/hr Admin: 05/13/18 02:43 Dose: 28.8 mls/hr Vancomycin HCl 1,000 mg/ (Sodium Chloride) 270 mls @ 125 mls/hr IV Q12H [facility] Stop: 05/23/18 09:59 Last Infusion: 05/13/18 13:57 Dose: 0 mls/hr Admin: 05/13/18 09:35 Dose: 125 mls/hr Insulin Aspart (Novolog Flexpen) 0 units SC ACHS [facility] Stop: 06/12/18 07:29 Last Admin: 05/13/18 13:56 Dose: Not Given Admin: 05/13/18 08:20 Dose: Not Given Insulin Glargine (Lantus Solostar Pen) 10 units SC Q12 [facility]ICIA Stop: 06/12/18 00:09 Last Admin: 05/13/18 09:31 Dose: 10 units Admin: 05/13/18 01:13 Dose: 10 units Lactobacillus Acidophilus (Floranex) 4 tab PO QIDM ALICIA Stop: 06/12/18 07:59 Last Admin: 05/13/18 13:54 Dose: 4 tab Admin: 05/13/18 09:30 Dose: 4 tab Lisinopril (Zestril) 2.5 mg PO QAM ALICIA Stop: 06/12/18 08:59 Last Admin: 05/13/18 09:30 Dose: 2.5 mg Discontinued Medications Ceftriaxone Sodium (Rocephin) 1,000 mg in 50 mls @ 100 mls/hr IV NOW STA Stop: 05/12/18 21:03 Last Admin: 05/12/18 20:55 Dose: Not Given Vancomycin HCl 1,500 mg/ (Sodium Chloride) 530 mls @ 200 mls/hr IV NOW ONE Stop: 05/12/18 23:13 Last Infusion: 05/13/18 00:53 Dose: 0 mls/hr Admin: 05/12/18 22:04 Dose: 200 mls/hr Piperacillin Sod/Tazobactam Sod (Zosyn) 4.5 gm in 120 mls @ 240 mls/hr IV NOW ONE Stop: 05/12/18 21:25 Last Infusion: 05/12/18 21:50 Dose: 0 mls/hr Admin: 05/12/18 21:02 Dose: 240 mls/hr Sodium Chloride (Nss 1000ml) 1,000 mls @ 999 mls/hr IV .Q1H1M ONE Stop: 05/12/18 21:56 Last Infusion: 05/12/18 23:23 Dose: 0 mls/hr Admin: 05/12/18 21:11 Dose: 999 mls/hr Medical Decision Making Medical Records Attestation: I reviewed the patient's medical records. Home Medications Current Medication List: was personally reviewed by me Laboratory Data Attestation: I reviewed the patient's lab results. Result diagrams: 05/12/18 19:40 05/13/18 07:26 Lab Results 05/12/18 05/12/18 05/12/18 Range/Units 19:40 19:40 19:40 WBC 5.97 (4.8-10.8) K/uL RBC 4.23 (4.2-5.4) M/uL Hgb 12.0 (12.0-16.0) g/dL Hct 36.5 L (37-47) % MCV 86.3 (80-100) fL MCH 28.4 (25-34) pg MCHC 32.9 (32-36) g/dL RDW Std Deviation 43.8 (36.4-46.3) fL RDW Coeff of Phil 13.9 (11.5-14.5) % Plt Count 166 (130-400) K/uL MPV 11.0 H (7.4-10.4) fL Immature Gran % (Auto) 0.3 % Neut % (Auto) 67.8 % Lymph % (Auto) 15.9 % Young % (Auto) 13.1 % Eos % (Auto) 2.7 % Baso % (Auto) 0.2 % Immature Gran # (Auto) 0.02 (0.00-0.02) K/uL Neut # (Auto) 4.05 (1.4-6.5) K/uL Lymph # (Auto) 0.95 L (1.2-3.4) K/uL Young # (Auto) 0.78 H (0.11-0.59) K/uL Eos # (Auto) 0.16 (0-0.5) K/uL Baso # (Auto) 0.01 (0-0.2) K/uL PT 9.9 (9.0-12.0) Seconds INR 1.0 (0.9-1.1) APTT 26.4 (21.0-31.0) Seconds PTT Ratio 1.0 VBG pH (7.36-7.41) VBG pCO2 (38-50) mmHg VBG pO2 mmHg VBG HCO3 mmol/L VBG O2 Saturation % VBG Base Excess mEq/L Barometric Pressure mm/Hg Sodium 139 (136-145) mmol/L Potassium 3.9 (3.5-5.1) mmol/L Chloride 104 (98-107) mmol/L Carbon Dioxide 28 (21-32) mmol/L Anion Gap 7.0 (3-11) BUN 23 H (7-18) mg/dl Creatinine 1.07 (0.6-1.2) mg/dl Est Cr Clr Drug Dosing Not Reportable Est GFR ( Amer) 58.0 Est GFR (Non-Af Amer) 50.0 BUN/Creatinine Ratio 21.1 H (10-20) Glucose 226 H (70-99) mg/dl POC Glucose (70-99) Lactate (0.4-2.0) mmol/L Calcium 8.6 (8.5-10.1) mg/dl Total Bilirubin 0.3 (0.2-1) mg/dl AST 21 (15-37) U/L ALT 28 (12-78) U/L Alkaline Phosphatase 95 (45-117) U/L Total Protein 7.4 (6.4-8.2) gm/dl Albumin 3.4 (3.4-5.0) gm/dl Globulin 4.0 (2.5-4.0) gm/dl Albumin/Globulin Ratio 0.9 (0.9-2) 05/12/18 05/12/18 05/13/18 Range/Units 19:40 20:12 07:26 WBC (4.8-10.8) K/uL RBC (4.2-5.4) M/uL Hgb (12.0-16.0) g/dL Hct (37-47) % MCV (80-100) fL MCH (25-34) pg MCHC (32-36) g/dL RDW Std Deviation (36.4-46.3) fL RDW Coeff of Phil (11.5-14.5) % Plt Count (130-400) K/uL MPV (7.4-10.4) fL Immature Gran % (Auto) % Neut % (Auto) % Lymph % (Auto) % Young % (Auto) % Eos % (Auto) % Baso % (Auto) % Immature Gran # (Auto) (0.00-0.02) K/uL Neut # (Auto) (1.4-6.5) K/uL Lymph # (Auto) (1.2-3.4) K/uL Young # (Auto) (0.11-0.59) K/uL Eos # (Auto) (0-0.5) K/uL Baso # (Auto) (0-0.2) K/uL PT (9.0-12.0) Seconds INR (0.9-1.1) APTT (21.0-31.0) Seconds PTT Ratio VBG pH 7.42 H (7.36-7.41) VBG pCO2 43 (38-50) mmHg VBG pO2 43 mmHg VBG HCO3 27 mmol/L VBG O2 Saturation 79.4 % VBG Base Excess 2.5 mEq/L Barometric Pressure 739.1 mm/Hg Sodium 140 (136-145) mmol/L Potassium 3.5 (3.5-5.1) mmol/L Chloride 106 (98-107) mmol/L Carbon Dioxide 26 (21-32) mmol/L Anion Gap 8.0 (3-11) BUN 17 (7-18) mg/dl Creatinine 0.81 (0.6-1.2) mg/dl Est Cr Clr Drug Dosing 58.0 Est GFR ( Amer) 81.2 Est GFR (Non-Af Amer) 70.1 BUN/Creatinine Ratio 21.0 H (10-20) Glucose 150 H (70-99) mg/dl POC Glucose (70-99) Lactate 1.5 (0.4-2.0) mmol/L Calcium 8.3 L (8.5-10.1) mg/dl Total Bilirubin (0.2-1) mg/dl AST (15-37) U/L ALT (12-78) U/L Alkaline Phosphatase (45-117) U/L Total Protein (6.4-8.2) gm/dl Albumin (3.4-5.0) gm/dl Globulin (2.5-4.0) gm/dl Albumin/Globulin Ratio (0.9-2) 05/13/18 Range/Units 13:55 WBC (4.8-10.8) K/uL RBC (4.2-5.4) M/uL Hgb (12.0-16.0) g/dL Hct (37-47) % MCV (80-100) fL MCH (25-34) pg MCHC (32-36) g/dL RDW Std Deviation (36.4-46.3) fL RDW Coeff of Phil (11.5-14.5) % Plt Count (130-400) K/uL MPV (7.4-10.4) fL Immature Gran % (Auto) % Neut % (Auto) % Lymph % (Auto) % Young % (Auto) % Eos % (Auto) % Baso % (Auto) % Immature Gran # (Auto) (0.00-0.02) K/uL Neut # (Auto) (1.4-6.5) K/uL Lymph # (Auto) (1.2-3.4) K/uL Young # (Auto) (0.11-0.59) K/uL Eos # (Auto) (0-0.5) K/uL Baso # (Auto) (0-0.2) K/uL PT (9.0-12.0) Seconds INR (0.9-1.1) APTT (21.0-31.0) Seconds PTT Ratio VBG pH (7.36-7.41) VBG pCO2 (38-50) mmHg VBG pO2 mmHg VBG HCO3 mmol/L VBG O2 Saturation % VBG Base Excess mEq/L Barometric Pressure mm/Hg Sodium (136-145) mmol/L Potassium (3.5-5.1) mmol/L Chloride (98-107) mmol/L Carbon Dioxide (21-32) mmol/L Anion Gap (3-11) BUN (7-18) mg/dl Creatinine (0.6-1.2) mg/dl Est Cr Clr Drug Dosing Est GFR ( Amer) Est GFR (Non-Af Amer) BUN/Creatinine Ratio (10-20) Glucose (70-99) mg/dl POC Glucose 163 H (70-99) Lactate (0.4-2.0) mmol/L Calcium (8.5-10.1) mg/dl Total Bilirubin (0.2-1) mg/dl AST (15-37) U/L ALT (12-78) U/L Alkaline Phosphatase (45-117) U/L Total Protein (6.4-8.2) gm/dl Albumin (3.4-5.0) gm/dl Globulin (2.5-4.0) gm/dl Albumin/Globulin Ratio (0.9-2) Imaging Data Radiologist's Impression: Radiology results as stated below per my review and the radiologist's interpretation: XR chest 1V portable HISTORY: Sepsis COMPARISON: None. FINDINGS: No pleural effusions. No pneumothorax. The heart is borderline enlarged. No focal lung consolidations to suggest pneumonia. No evidence for pulmonary edema. Degenerative changes within the shoulders. IMPRESSION: Borderline enlargement of the cardiac silhouette, unchanged. Otherwise, no acute process within the chest. Electronically signed by: Marvin Huddleston M.D. 05/12/2018 7:38 PM Blood Pressure Blood Pressure Findings: Elevated blood pressure Blood Pressure Disposition: further management by hospitalist WILLIAM Narrative The patient is a 77 white female w/ PMHx of diabetes, HTN, osteomyelitis, and multiple toe amputations who presents to the ED w/ CC of an episode for a need for evaluation following a positive blood culture beginning today. Etiologies such as viral syndrome, otitis, pharyngitis, pneumonia, influenza, meningitis, urinary tract infection, septic arthritis, soft tissue infectious process, intra-abdominal process, sepsis, bacteremia, as well as others were entertained. Patient was seen and evaluated the bedside. The patient had been recently seen and was started on Augmentin for issues with positive wound culture as well as MSSA gram-positive bacteremia. Patient is otherwise fairly well-appearing. The patient has a likely source given the recent partial phalanx amputation which does have some mild drainage and associated redness. The patient did receive IV antibiotics as well as additional blood work and the patient was admitted to the medicine service. Impression & Plan Bacteremia, Chronic osteomyelitis of left foot Discharge Plan Visit Data *Final* Discharge Date/Time: 05/12/18 23:42 Chief Complaint: Referred by Doctor Stated Complaint: Er call to return due to blood culture result ED Provider: Cesar Sanchez Discharge Problem: Bacteremia, Chronic osteomyelitis of left foot Patient Disposition: Admitted As Inpatient Discharge Instructions Interventions: ED Discharge Assessment Last Done: 05/12/18 23:42 The scribe's documentation has been prepared under my direction and personally reviewed by me in its entirety. I confirm that the note above accurately reflects all work, treatment, procedures, and medical decision making performed by me.
--- NOTE | 2018-05-13 16:07 | Infectious Disease Consult ---
Date of Consultation May 13, 2018 Assessment & Plan (1) MSSA bacteremia: 77-year-old female with probable chronic osteomyelitis of the toe of the left foot now with staph aureus bacteremia, methicillin sensitive. Patient will likely require prolonged IV antibiotics, and likely will be treated with daptomycin which will allow easiest outpatient therapy. Will adjust antibiotics tomorrow once final culture results available. Will discuss with all involved. Will follow. (2) Chronic osteomyelitis of left foot: History of Present Illness Reason for Consultation: Bacteremia Attending Physician: Carlitos Taylor DO History of Present Illness 77-year-old female well known to me from previous infectious disease consultations and follow-up, with history of diabetes mellitus with neuropathy, recurrent urinary tract infections, with chronic recurrent osteomyelitis involving her left foot. She has been having problems with her left 2nd toe since partial amputation, has had recent onset of increasing redness and swelling. She has had some change in mental status consistent with development of prior infections. She has now been found to have positive blood cultures for methicillin sensitive Staph aureus. X-ray of the toe shows postoperative changes, no obvious new bony destruction. Also has positive culture for gram- negative bacilli in urine, identification sensitivities are pending. Allergies Allergy/AdvReac Type Severity Reaction Status Date / Time hydrocodone Allergy Severe Confusion Verified 05/12/18 19:55 Iodinated Contrast- Oral and Allergy Intermediate HIVES AND Verified 05/12/18 19 :55 IV Dye HOT FLASHES Macrolide Antibiotics Allergy Mild UPSET Verified 05/12/18 19:55 STOMACH oxycodone AdvReac Severe CONFUSION Verified 05/12/18 19:55 LAKSHMI WHEN SHE TAKES 2 TABS- Home Medications Home Medications Medication Instructions Recorded Confirmed Type aspirin [Aspir-81] 81 mg PO QAM 01/23/18 05/12/18 History gabapentin 600 mg PO BID 01/23/18 05/12/18 History doxepin 10 mg PO HS PRN 01/28/18 05/12/18 History gabapentin 300 mg PO PM 01/28/18 05/12/18 History clindamycin HCl 300 mg PO TID 04/04/18 05/12/18 History insulin detemir U-100 8 unit SUBCUT HS 04/04/18 05/12/18 History insulin detemir U-100 20 unit SUBCUT QAM 04/04/18 05/12/18 History Saccharomyces boulardii [Florastor] 250 mg PO BIDM 04/24/18 05/12/18 History cranberry conc-ascorbic acid 1 cap PO BIDM 04/24/18 05/12/18 History amoxicillin-pot clavulanate 1 tab PO BID #20 tab 05/11/18 05/12/18 Rx [Augmentin] lisinopril 2.5 mg PO QAM 05/11/18 05/12/18 History Patient History Medical History Osteomyelitis of left lower extremity Cellulitis of left lower extremity Foot pain (Acute) from neuropathy and osteomyelitis Altered mental status (Acute) Murmur, cardiac Acute osteomyelitis of toe of left foot HTN (hypertension) Diabetes mellitus, type 2 History of high cholesterol Taking no meds at this time Hx of deep venous thrombosis Peripheral neuropathy numbness, tingling and burning of both feet Surgical History History of shoulder surgery rotator cuff both shoulders History of Achilles tendon repair right History of left knee replacement History of cholecystectomy History of partial amputation of toe Multiple History of adenoidectomy History of amputation TOES - 6 partial amputations with a partial x2 on great toe resulting in complete amputation 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 History of appendectomy History of arthroscopy RT/LEFT SHOULDER History of cataract surgery RT/LEFT History of colonoscopy History of esophagogastroduodenoscopy (EGD) History of tonsillectomy History of tooth extraction History of total knee replacement RT/LEFT (LEFT REVISED X 1) Hx of hysterectomy, total Hx of sinus surgery Family History Other No pertinent family history Social History Current Living Situation: Spouse Feels Safe at Home: Yes Safety Concerns: Feels Safe At This Time Smoking Status: Never smoker Second Hand Exposure: No Hx Alcohol Use: No Hx Substance Use: No Beliefs That Will Affect Care: None Communication Ability: Effective Physical Exam 2 Vital Signs (Past 24 Hours): Last Vital Signs Temp 36.7 C 05/13/18 15:43 Pulse 96 H 05/13/18 15:43 Resp 16 05/13/18 15:43 BP 129/70 05/13/18 15:43 Pulse Ox 97 05/13/18 15:43 Constitutional: WD/WN, vitals as above comfortable; no acute distress Eyes: PERRL, conjunctivae normal, anicteric sclerae ENMT: external ear and nose normal, oropharynx normal Neck: trachea midline, no thyromegaly neck nontender Respiratory: normal respiratory effort, lungs clear to auscultation normal percussion; does not use accessory muscles Cardiovascular: Rate/Rhythm: regular rate and regular rhythm Heart Sounds: normal S1 and normal S2; no gallop, no murmur and no cardiac rub Vessels: normal peripheral pulses; no JVD Gastrointestinal (Abdomen): normal bowel sounds, soft, nontender, no hepatosplenomegaly Musculoskeletal: no cyanosis or clubbing, extremities motor strength 5/5 Spine: thoracic spine normal to inspection and lumbar spine normal to inspection ; no cervical spinal tenderness Skin: no rashes, warm and dry normal turgor Left 2nd toe slightly erythematous and swollen Neurologic: patellar DTR's 2+ bilat, sensation intact no focal motor deficits Psychiatric: A+Ox3, euthymic affect Orientation: cooperative Lymphatic: no cervical or axillary lymphadenopathy no inguinal lymphadenopathy Results & Data Laboratory Results Short CBC 05/12/18 Range/Units 19:40 WBC 5.97 (4.8-10.8) K/uL Hgb 12.0 (12.0-16.0) g/dL Hct 36.5 L (37-47) % Plt Count 166 (130-400) K/uL BMP 05/12/18 05/13/18 19:40 07:26 Sodium 139 140 Potassium 3.9 3.5 Chloride 104 106 Carbon Dioxide 28 26 BUN 23 H 17 Creatinine 1.07 0.81 Glucose 226 H 150 H Calcium 8.6 8.3 L Liver Function 05/12/18 Range/Units 19:40 Total Bilirubin 0.3 (0.2-1) mg/dl AST 21 (15-37) U/L ALT 28 (12-78) U/L Alkaline Phosphatase 95 (45-117) U/L Albumin 3.4 (3.4-5.0) gm/dl Diagnostic Findings Microbiology 05/12/18 21:10 Toe,Left Second Gram Stain - Final 05/12/18 21:10 Toe,Left Second Wound Culture - Preliminary Staphylococcus aureus XR chest 1V portable HISTORY: Sepsis COMPARISON: None. FINDINGS: No pleural effusions. No pneumothorax. The heart is borderline enlarged. No focal lung consolidations to suggest pneumonia. No evidence for pulmonary edema. Degenerative changes within the shoulders. IMPRESSION: Borderline enlargement of the cardiac silhouette, unchanged. Otherwise, no acute process within the chest. Electronically signed by: Marvin Huddleston M.D. 05/12/2018 7:38 PM Dictated: 05/12/181936 Transcribed: 05/12/181936
[2018-05-13] MEDS: GABAPENTIN 300 MG CAP PO SCH (16:30)
[2018-05-13] MEDS: DOXEPIN HCL 10 MG CAPSULE PO PRN (22:14)
[2018-05-14 06:43] LABS: BUN Creatinine Ratio 22.1 (10-20); Calcium 8.6 mg/dl (8.5-10.1); Creatinine Clr Calc Pharmacy 61.9 ml/min; Est GFR (African American) 87.7; Est GFR (Non-African American) 75.7; Potassium 3.6 mmol/L (3.5-5.1)
[2018-05-14] MEDS: PIPERACILLIN/TAZOBACTAM 3.375 GM in DEXTROSE 5% 100 ML IV SCH ×2 (07:30→16:48)
[2018-05-14] MEDS: LACTOBACILLUS ACIDOPHILUS (FLORANEX) TAB PO SCH ×4 (07:41→21:01)
[2018-05-14] MEDS: ASPIRIN 81 MG ECTAB PO SCH (07:42)
[2018-05-14] MEDS: GABAPENTIN 600 MG TAB PO SCH ×2 (07:42→21:01)
[2018-05-14] MEDS: LISINOPRIL 2.5 MG TAB PO SCH (07:42)
[2018-05-14] MEDS ORDERED: VANCOMYCIN TROUGH ONE (09:30)
[2018-05-14] MEDS: INSULIN GLARGINE SOLOSTAR 100 UNITS/ML 3 ML PEN SC SCH ×2 (09:45→21:02)
[2018-05-14] MEDS: INSULIN ASPART 100 UNITS/ML 3 ML PEN SC SCH ×4 (09:46→21:02)
[2018-05-14] MEDS: HEPARIN SOD 5,000 UNIT/0.5 ML VIAL SQ SCH ×2 (09:53→21:06)
[2018-05-14] MEDS: VANCOMYCIN HCL 1,000 MG in SODIUM CHLORIDE 0.9% 250 ML IV SCH (10:44)
--- NOTE | 2018-05-14 12:22 | Pharmacy Report ---
Pharmacy Abx Dose Short Note - Date of Service May 14, 2018 - Assessment & Plan Microbiology 05/12/18 21:10 Toe,Left Second Gram Stain - Final 05/12/18 21:10 Toe,Left Second Wound Culture - Final Staphylococcus aureus 05/12/18 19:40 Blood Blood Culture - Preliminary No growth to date. 05/12/18 19:40 Blood Blood Culture - Preliminary No growth to date. Laboratory Tests 05/14/18 09:18 Vancomycin Trough 17.4 Assessment: 77 yo Female receiving VANC/Zosyn-IV for treatment of SSTI/osteo * Day # 3 of antimicrobial therapy. Pertinent PMH: DM2 Plan: Vanc-IV: * Trough level of 17.4 mcg/mL is therapeutic. * Continue MAINTENANCE DOSE VANC 1g (~13mg/kg) IV q 12 hours. * Goal trough level: 15 to 20 mcg/mL * Will recheck Vanc trough in 1-3 days Zosyn: Continue 3.375g IV CI q8h for est GFR >20mL/min Pharmacy will continue to follow and will adjust dose/frequency as necessary. Thank you.
[2018-05-14] MEDS: GABAPENTIN 300 MG CAP PO SCH (18:08)
--- NOTE | 2018-05-14 18:11 | Family Medicine Progress Note ---
Date of Service May 14, 2018 Assessment & Plan (1) MSSA bacteremia: Renay Keys is a 77-year-old female with a past medical history of diabetes mellitus w/neuropathy, osteomyelitis s/p amputation of several of her toes, and hypertension, admitted for MSSA positive blood cultures. Bacteremia -Likely secondary to osteomyelitis of left second toe - preliminary staph aureus in 1/2 blood cultures from 05/11/18 -Repeat blood cultures are pending -Currently on vanc and zosyn and PICC in place -Plan to discharge to home on 05/15/18 with IV Rocephin or Daptomycin, will ensure that Dr. Sullivan agrees with this plan -Has f/u appt with ID in [place] on 05/18 Osteomyelitis of the left 2nd toe -Found on MRI in outpt setting -s/p amputation on 05/05/18; sutures in place and drainage at site -WBC 5.97 -Wound care following -Will follow up with [facility] -Continue vanc/zosyn with likely discharge on 6wks IV Abx: Rocephin/Ertapenem UTI -Ecoli positive on urine culture -Has been treated with Zosyn during hospitalization Diabetes mellitus with neuropathy -Continue Lantus and SSI with accuchecks -Gabapentin for peripheral neuropathy HTN - continue home lisinopril - hydralazine prn for systolic >180 Mild Dementia -At baseline but has tendency of delirium when ill or in a new environment -Encouraged reorientation -1:1 sitter as needed FEN/GI Fluids: None Electrolytes: Monitor and replace as needed Nutrition: Diabetic, carb consistent DVT prophylaxis- heparin GI PPX: none Code- Full Dispo- continue inpatient admission. Discharge to home on 05/15/18. (2) Chronic osteomyelitis of left foot: (3) Urinary tract infection without hematuria: Supervising Physician Co-Signing Physician Notes I personally examined the patient and verified all mcallister points of history and exam, discussed case, and agree with decision making with Dr Nava. Feeling about the same. Got a little bit agitated last night but was able to be calm down. Much more calm and somewhat oriented now. Vitals noted, in general she is awake and alert pleasant no distress. HEENT normocephalic atraumatic mucous membranes moist. She shows no focal neuro deficits. Her toe is dressed, underneath the dressing there is incision, but surrounding erythematous and ulcerated tissue. The daughter notes that actually looks better Osteomyelitis and bacteremiaPICC line is in, working towards home IV antibiotics once able. Given MSSA, but also the need to cover for things such as Peptostreptococcus, and given his foot infection and likely polymicrobial, for now we will give consideration to Invanz 1 g daily, and then antibiotics can be further adjusted by infectious disease. Hopefully home tomorrow Otherwise as above Subjective Overnight she had an episode of delirium and required a sitter. This morning she is awake and alert with daughter at bedside. She does not recall overnight events. Denies pain to left foot. She is tolerating PO well and voiding without difficulty. Denies n/v/diarrhea. Constitutional: no fever and no chills Respiratory: no cough and no wheezing Cardiovascular: no chest pain, no palpitations and no edema Gastrointestinal: no abdominal pain, no cramping and no constipation Genitourinary (Female): no dysuria and no hematuria Musculoskeletal: no back pain, no neck pain and no joint pain Integumentary: no rash and no lesions Neurologic: no tingling and no numbness Physical Exam 2 Vital Signs (Past 24 Hours): Last Vital Signs Temp 36.7 C 05/14/18 15:13 Pulse 96 H 05/14/18 15:13 Resp 18 05/14/18 15:13 BP 152/81 H 05/14/18 15:13 Pulse Ox 98 05/14/18 15:13 Constitutional: well developed, well nourished and cooperative; no acute distress, not ill appearing, not disheveled and not combative Eyes: EOM intact bilaterally ENMT: external ear and nose normal, oropharynx normal Respiratory: normal respiratory effort, lungs clear to auscultation Auscultation: no crackles, no rales and no wheezes Cardiovascular: RRR, no murmur, no edema Heart Sounds: normal S1 and normal S2 Vessels: normal peripheral pulses Gastrointestinal (Abdomen): normal bowel sounds, soft, nontender, no hepatosplenomegaly Musculoskeletal: no cyanosis or clubbing, extremities motor strength 5/5 Extremities: + foot abnormality Bilateral (amputation of right great toe, amputation of portion of left great toe, left 2nd toe with eschar and sutures, drainage present, nttp) Skin: + eschar Neurologic: CN's II-XI intact bilaterally, awake and + confused Psychiatric: Orientation: alert, oriented to person and oriented to time; + not oriented to place _ (1) Urinary tract infection without hematuria Urinary tract infection type: site unspecified Qualified Code(s): N39.0 - Urinary tract infection, site not specified
[2018-05-14] MEDS: ERTAPENEM SODIUM 1,000 MG in SODIUM CHLORIDE 0.9% 50 ML IV SCH (18:12)
--- NOTE | 2018-05-14 19:20 | XRay Report ---
XR chest 1V portable CLINICAL HISTORY: PICC placement COMPARISON STUDY: Chest radiograph May 12, 2018. FINDINGS: Tip of right PICC projects over the mid SVC. There is no pneumothorax or pleural effusion. There is no consolidation or evidence for pulmonary edema. Cardiomediastinal silhouette is stable. Th ere are cholecystectomy clips. IMPRESSION: Tip of right PICC projects over the mid SVC. Electronically signed by: Fabian Porter M.D. 05/14/2018 7:18 PM
[2018-05-14] MEDS: DOXEPIN HCL 10 MG CAPSULE PO PRN (22:20)
[2018-05-15 06:11] LABS: Basophils # (auto) 0.01 K/uL (0-0.2); Basophils % (auto) 0.2 %; Eosinophils % (auto) 6.4 %; Hematocrit (blood only) 32.7 % (37-47); Hemoglobin 10.8 g/dL (12.0-16.0); Immature Granulocytes # (auto) 0.02 K/uL (0.00-0.02); Immature Granulocytes % (auto) 0.4 %; Lymphocytes # (auto) 1.08 K/uL (1.2-3.4); Lymphocytes % (auto) 23.2 %; Mean Corpuscular Volume 86.7 fL (80-100); Mean Platelet Volume 10.4 fL (7.4-10.4); Monocytes # (auto) 0.55 K/uL (0.11-0.59); Monocytes % (auto) 11.8 %; Platelet Count 175 K/uL (130-400); RDW Coefficient of Variation 13.8 % (11.5-14.5); RDW Standard Deviation 43.5 fL (36.4-46.3); Red Blood Count 3.77 M/uL (4.2-5.4); White Blood Count 4.66 K/uL (4.8-10.8)
[2018-05-15 06:41] LABS: BUN Creatinine Ratio 22.5 (10-20); Calcium 8.4 mg/dl (8.5-10.1); Creatinine Clr Calc Pharmacy 62.7 ml/min; Est GFR (African American) 89.1; Est GFR (Non-African American) 76.9; Potassium 3.4 mmol/L (3.5-5.1)
[2018-05-15] MEDS: ASPIRIN 81 MG ECTAB PO SCH (08:14)
[2018-05-15] MEDS: LACTOBACILLUS ACIDOPHILUS (FLORANEX) TAB PO SCH ×2 (08:14→12:30)
[2018-05-15] MEDS: LISINOPRIL 2.5 MG TAB PO SCH (08:15)
[2018-05-15] MEDS: GABAPENTIN 600 MG TAB PO SCH (08:15)
[2018-05-15] MEDS: INSULIN ASPART 100 UNITS/ML 3 ML PEN SC SCH ×2 (08:19→12:30)
[2018-05-15] MEDS: INSULIN GLARGINE SOLOSTAR 100 UNITS/ML 3 ML PEN SC SCH (08:20)
[2018-05-15] MEDS: HEPARIN SOD 5,000 UNIT/0.5 ML VIAL SQ SCH (08:20)
[2018-05-15] MEDS ORDERED: METOPROLOL TARTRATE 1 MG/ML VIAL IV STA (08:28)
[2018-05-15] MEDS ORDERED: METOPROLOL TARTRATE 25 MG TAB PO STA (08:35)
[2018-05-15] MEDS ORDERED: ALPRAZolam 0.25 MG TABLET PO ONE (10:00)
[2018-05-15] MEDS: ERTAPENEM SODIUM 1,000 MG in SODIUM CHLORIDE 0.9% 50 ML IV SCH (14:30)
[2018-05-15] MEDS: GABAPENTIN 300 MG CAP PO SCH (16:06)
--- NOTE | 2018-05-15 16:24 | Discharge Summary ---
Date of Service May 15, 2018 Admission HPI Per Admitting Provider Past medical history: diabetes mellitus, osteomyelitis s/p amputation of several of her toes, and hypertension, Ms. Keys is a 77-year-old female with a was called back to the emergency department because of 1 out of 2 of her blood cultures drawn on 05/11 growing MSSA. In addition, the patient was confused had increased pain of her left foot. She had a recent amputation of the second left digit. Patient was on Augmentin and clindamycin to cover for infection of the toe and for a recent UTI. She is being followed by Dr. Jones History of osteomyelitis: The first episode of osteomyelitis occurred in her left great toe in January 2018. This toe was completely amputated. She subsequently had partial amputation of her right great toe in April 2018, and now her left second toe. She states that she has had recurrent chills since January. The patient is scheduled to see [facility] next week, due to multiple urinary tract infections as well as recurrent osteomyelitis. She has also seen vascular surgery for concern regarding poor perfusion to her feet. She had ankle brachial indices done May 03, 2018. This showed borderline abnormal left EMANUEL and normal right EMANUEL. She follows with Dr. Jenkins. Principal Diagnosis Osteomyelitis of the second left digit status post amputation Gram-positive bacteremia Discharge Exam General; no acute distress, normocephalic/atraumatic HEENT; neck is soft supple, nontender, no LAD Cardio; 26 murmur of the left upper sternal border, regular rate and rhythm, no murmurs/rubs/gallops Respiratory; clear to auscultation bilaterally, no wheezing/rales/rhonci, normal respiratory effort GI; soft, nontender, normal bowel sounds MSK; clean intact bandage over the left distal extremity Neuro/psych; alert and oriented x3, answering questions appropriately, mildly anxious, cranial nerves grossly intact Discharge Data Allergies Allergy/AdvReac Type Severity Reaction Status Date / Time hydrocodone Allergy Severe Confusion Verified 05/12/18 19:55 Iodinated Contrast- Oral and Allergy Intermediate HIVES AND Verified 05/12/18 19 :55 IV Dye HOT FLASHES Macrolide Antibiotics Allergy Mild UPSET Verified 05/12/18 19:55 STOMACH oxycodone AdvReac Severe CONFUSION Verified 05/12/18 19:55 LAKSHMI WHEN SHE TAKES 2 TABS- Consultations 05/12/18 20:36 ED Decision to Admit Stat 05/13/18 00:10 Consult Case Management - Discharge Planning Routine 05/13/18 01:40 Consult Infectious Diseases Routine Procedures Performed XR chest 1V portable CLINICAL HISTORY: 77 years-old Female presenting with Sepsis. TECHNIQUE: Portable upright AP view of the chest was obtained. COMPARISON: 04/04/2018. FINDINGS: Atherosclerosis of the aortic arch. Cardiac silhouette mildly enlarged. Mild hyperinflation. No focal opacity. No pleural effusion or pneumothorax. Degenerative changes of the thoracic spine. Chronic widening of the acromioclavicular joints. IMPRESSION: 1. Mild cardiomegaly. No other convincing evidence of acute cardiopulmonary disease. XRay Report Patient: QUINTIN KEYS Date: 05/11/18 MR#: [id number]: [address] Acct ID:[id number]: [address] Date: [address] [place] [address] Zip: [place] [address] Age: 77Location: ED Sex: F Room/Bed: Att Phy: Diagnosis: POST SURGERY 05/05,INCISION SEEPING,CHILLS,DELIRIUM Fabienne Phy: Sebastián Sanchez M.D.Service Date: 05/11/18 Fam Phy: Rony Reddy M.D.Interpreting Phy: Elias Ross Admit Phy: Ordering Phy: Jaquan Orr MD cc: ~ XR foot LT min 3V routine HISTORY: 77 years-old Female left toe amputation eval for osteo chronic left foot pain and swelling COMPARISON: Right foot radiographs 04/13/2018, left foot radiographs 04/04/2018 TECHNIQUE: 3 views of the left foot FINDINGS: Postoperative changes from prior amputation of the first digit at the level of the metatarsal-phalangeal joint with prior amputation of the second and third digits at the level of the PIP joints, unchanged. Increased sclerosis about the second metatarsal head and proximal phalanx redemonstrated along with cortical/ periosteal thickening. Flattening of the second metatarsal head suggests prior Jessica infraction. No acute fracture or dislocation. No new bony erosive changes. Pes planus deformity with unchanged midfoot and hindfoot degenerative changes including prominent spurring about the calcaneus. Moderate soft tissue swelling about the forefoot. IMPRESSION: 1. Postoperative changes of the forefoot as above with moderate soft tissue swelling. 2. Sclerotic appearance with cortical/periosteal thickening about the second proximal phalanx appears unchanged suggesting sequela of chronic osteomyelitis. No new bony erosive changes identified. 3. Sclerosis and flattening of the second metatarsal head suggests Jessica infraction. The above report was generated using voice recognition software. It may contain grammatical, syntax or spelling errors. Hospital Course (1) Chronic osteomyelitis of left foot: 77-year-old female with past medical history of diabetes with peripheral neuropathy, osteomyelitis and amputation of several toes Gram-positive bacteremia secondary to osteomyelitis - admitted and treated for osteomyelitis of the second digit which was amputated on 05/05/2018. Blood cultures were positive for MSSA. Patient was treated for gram-positive bacteremia and osteomyelitis. PICC was established and the patient is going on 6 weeks of ertapenem, every 24 Follow-up with her 3 times daily on , 05/18/2018 Outpatient follow-up with Dr. Lazara Tamayo Home nursing for IV antibiotic administration and wound dressing changes Osteomyelitis of left second toe Continue IV antibiotics as discussed above UTI E. coli positive urine cultures, treated with Zosyn in the hospital Diabetes Continue home insulin Continue gabapentin for peripheral neuropathy Hypertension Continue lisinopril, increasing to 5 mg daily Mild dementia Continue cognitive testing the outpatient, /delirium experienced in the setting of acute infection (2) Bacteremia: (3) MSSA bacteremia: (4) Chronic kidney disease: Total Time Total Time Spent Total Time Spent (In Minutes): Greater than 30 minutes Total Time Includes: Examination of the Patient, Discharge Planning, Medication Reconciliation and Communication With Other Providers Discharge Plan Discharge Items Patient Disposition: Home - Home Health Services Reason For Visit: BACTEREMIA Discharge Diagnosis: Osteomyelitis and gram-positive bacteremia Condition: Good Discharge Goals: Improve disease control and Therapeutic intervention Activity: Resume your previous activity Non-emergency contact: Primary Care Provider Call non-emergency contact if: you have any medication questions, your temperature is above 101.5, your wound has increased redness, your wound has increased drainage and your wound pain has increased Follow-up/Referrals: Tonya Haile DPM [Physician] - (Please, follow up withDr. Salvador (apartment maintenance technician). The nurse will call you with the appointment information. *If you have any questions, call the office at [phone].) Sebastián Sanchez MD [Primary Care Provider] - 05/25/18 1:30 pm (Please, follow up with Dr. Sanchez on May 25 at 1:30 pm. *This office is located in [address] of [facility]. *If you need to change this appointment, call the office at [phone]. ) Diet: Carb Consistent or DM2 Addtl Provider Instructions: Ms. Keys, You came to the hospital and were found to have osteomyelitis of your left second toe. Osteomyelitis is an infection of the bone. In addition, you were found to have a blood infection. This was likely secondary to the infection of your toe. We treated you with IV antibiotics that were specific for the bugs that were causing the infection. We would like to continue this treatment at your home and that is why we put in a PICC line, which is a semipermanent IV. This will allow us to give you IV antibiotics at home. We are sending you home with an antibiotic called ertapenem. There will be a home health nurse that will come to your house each day starting on 05/16/2018 to help administer the medication. In addition, we would like you to follow-up with your apartment maintenance technician. You will be following up with Dr. Nuñez. Her office will be contacting you for the appointment. We would also like to give you some recommendations as far as wound care. The nurse that comes each day will be able to help you with the wound dressing changes. #1 cleaning the wounduse saline solution to irrigate the wound. Pat dry with clean sterile gauze. #2 Dressing the wound Apply Adaptic gauze and then apply 2 x 2's around the toe, followed by a 3 inch roll of gauze to wrap the area. Secure this around the back of the foot. Secure with tape. Prescriptions: New lisinopril 5 mg tablet 5 mg PO DAILY 31 Days Qty: 31 RF: 3 Continue doxepin 10 mg capsule 10 mg PO HS PRN (Reason: Anxiety) RF: 0 gabapentin 300 mg capsule 300 mg PO PM RF: 0 insulin detemir U-100 100 unit/mL solution 20 unit subcut QAM RF: 0 insulin detemir U-100 100 unit/mL solution 8 unit subcut HS RF: 0 Saccharomyces boulardii [Florastor] 250 mg Capsule 250 mg PO BIDM RF: 0 cranberry conc-ascorbic acid 12,600-20 mg Capsule 1 cap PO BIDM RF: 0 gabapentin 600 mg Tablet 600 mg PO BID RF: 0 aspirin [Aspir-81] 81 mg Tablet,Delayed Release (Dr/Ec) 81 mg PO QAM RF: 0 Discontinued lisinopril 2.5 mg tablet 2.5 mg PO QAM RF: 0 amoxicillin-pot clavulanate [Augmentin] 875-125 mg tablet 1 tab PO BID Qty: 20 RF: 0 clindamycin HCl 300 mg capsule 300 mg PO TID RF: 0 Stand-Alone Forms: [facility] Discharge Orders: Discharge Order (Routine); Ordered 05/15/18 Ordered By: Jordin Chandra Admission Data Admit Date/Time: 05/12/18 22:45 Attending Provider: Neeta Dean Admit Provider: Maria G Rivers Primary Care Provider: Sebastián Sanchez Other Providers: Baldo Clinton ; Denis Sullivan ; Stefania Kumari ; Carlitos Taylor Service: Medical Other Interventions: Discharge Summary Assessment (RN) Last Done: 05/15/18 16:34 Pending Studies at Discharge: No DC Date/Time DO NOT enter until pt leaves facility: 05/15/18 17:16 Supervising Physician Co-Signing Physician Notes Resident Physician Supervision Note: I independently interviewed and examined the patient and verified the mcallister history and physical, reviewed labs and image studies, discussed the case with the resident Dr. Chandra and agree with the findings and care plan. Time spent in discharge 35 min Resident Activity Tracking Resident Involvement: Resident Care Provided Care Provided: Adult Hospital Medicine
== END 2018-05-15 17:16 | disposition home health service (06) | DRG 872 ==
LOC: ED 18:33 → 2S 22:45 → SUATTDRO 22:45 → 2S 23:42 → 4E 05-13 18:33

== ENCOUNTER 2020-05-24 02:34 | Observation (INO) ==
[2020-05-24] MEDS ORDERED: fentaNYL citrate 100 MCG/2 ML VIAL IV STA ×2 (03:00→04:46)
[2020-05-24 03:50] LABS: Basophils # (auto) 0.01 K/uL (0-0.2); Basophils % (auto) 0.2 %; Eosinophils % (auto) 3.3 %; Hematocrit (blood only) 35.4 % (37-47); Hemoglobin 11.8 g/dL (12.0-16.0); Lymphocytes # (auto) 1.55 K/uL (1.2-3.4); Lymphocytes % (auto) 25.4 %; Mean Corpuscular Hemoglobin 29.1 pg (25-34); Mean Corpuscular Hgb Conc 33.3 g/dL (32-36); Mean Corpuscular Volume 87.2 fL (80-100); Monocytes # (auto) 0.65 K/uL (0.11-0.59); Monocytes % (auto) 10.6 %; Neutrophils % (auto) 60.5 %; Platelet Count 192 K/uL (130-400); RDW Coefficient of Variation 13.4 % (11.5-14.5); RDW Standard Deviation 43.1 fL (36.4-46.3); Red Blood Count 4.06 M/uL (4.2-5.4); White Blood Count 6.11 K/uL (4.8-10.8)
[2020-05-24 04:06] LABS: Appearance Urine Cloudy (Clear); Bacteria Urine Automated 4+ (Negative); Bilirubin Urine Negative (Negative); Blood Urine Negative (Negative); Color Urine Yellow; Glucose Urine UA Negative (Negative); Ketones Urine Negative (Negative); Leukocyte Esterase Urine Trace (Negative); Nitrite Urine Positive (Negative); Protein Urine Trace (Negative); RBC Urine Automated 0-4 /hpf (0-4); Specific Gravity Urine 1.015 (1.000-1.030); Urobilinogen Urine Negative (Negative); WBC Urine Automated >30 /hpf (0-5); pH Urine 6.5 (4.5-7.5)
[2020-05-24 04:14] LABS: Albumin Level 3.7 gm/dl (3.4-5.0); Creatinine Clr Calc Pharmacy 59.1 ml/min; Est GFR (African American) 86.5; Est GFR (Non-African American) 74.6
[2020-05-24 04:17] LABS: Albumin Globulin Ratio 1.2 (0.9-2); Bilirubin,Total 0.3 mg/dl (0.2-1); Total Protein 6.7 gm/dl (6.4-8.2)
--- NOTE | 2020-05-24 04:33 | Emergency Department Note ---
Impression & Plan Fall, Acute UTI, Acute dehydration ED Provider Note NAME: QUINTIN MCKENZIE AGE: 79 SEX: F ARRIVES VIA: Ambulance INFORMANT: Patient and her daughter who was at the bedside ED PROVIDER(S): Dorothea Ramírez DO CHIEF COMPLAINT: Fall PLAN: Disposition: Admitted to the [facility] service Condition: Fair MEDICAL DECISION MAKING: This is a 79-year-old female patient who fell this evening landing on her left knee. X-ray and CT of the left lower extremity reveals no fractures or loosening of the hardware. Patient has persistent left knee pain with spasms to the quadricep muscles. She is suffering from intractable pain. Laboratory studies reveal evidence of dehydration which may have led to her fall in the first place and she has evidence of urinary tract infection for which she is receiving IV Rocephin. Triage Nursing notes reviewed and agree them. Additional history obtained from the patient's daughter who accompanies her here in the ER Prior medical records reviewed Vital Signs: reviewed and remarkable for hypertension Differential diagnosis: Femur fracture, hip fracture, loosened hardware to the left knee ER treatment provided: IV fentanyl x2; IV Rocephin Diagnostics interpreted by me: ECG: Sinus bradycardia with a first-degree AV block at a rate of 54. No ST segment elevation or signs of ischemia and no ectopy. This is unchanged from a previous EKG from October 2019 Cardiac Monitoring: Sinus bradycardia at a rate of 56. Laboratory studies: See below Imaging studies: As per my interpretation X-ray left femur: No acute fracture appreciated X-ray left knee: Hardware in place with no obvious loosening or fractures CT left knee: As per stat read Total knee arthroplasty appears in satisfactory alignment. Extensive beam hardening artifact limits evaluation. Hardware appears intact. No definite acute fracture or malalignment. 3.4 x 6.8 x 6.8 cm hyperdense medial subcutaneous mass, likely hematoma with adjacent edema and hemorrhage. No radiopaque foreign body or soft tissue gas. Diffuse atherosclerotic arterial calcifications. HPI: 79/F arrives for evaluation of fall. According to the patient's daughter, the patient tripped and fell forward landing on her left knee. She has had that knee replaced but immediately had severe pain, swelling and hematoma formation in the left knee. The fall was witnessed by the patient's who stated that she did not strike her head or lose consciousness. Since that time, the left knee has swelled up and she has had severe pain. ROS: See above HPI for pertinent positives & negatives. A total of 10 systems reviewed and were otherwise negative. PAST MEDICAL HISTORY:See Below PAST SURGICAL HISTORY:See Below FAMILY HISTORY:See Below SOCIAL HISTORY:See Below HOME MEDICATIONS:See ALLERGIES:See list VITALS:See Below PHYSICAL EXAMINATION: HEENT: Head - normocephalic and atraumatic. Pupils are equal, round, and reactive to light. Extraocular eye muscles are intact and sclera are anicteric. Nose - moist nasal mucosa without evidence of trauma or discharge. Mouth -dry buccal mucosa with no trauma to the teeth or signs of malocclusion. Neck: The neck is supple and there is no pain to palpation over the posterior cervical spine and no obvious step-offs or deformities. There is no JVD or t virgilio deviation. Chest: There are no signs of deformities, contusions or abrasions to the chest wall. There is no obvious crepitus or paradoxical chest rise. Heart: Regular, rate, and rhythm. There is a normal S1 and S2 with no murmurs, clicks, or gallops appreciated. Lungs: Clear to auscultation bilaterally with no wheezes, rales, or rhonchi. Abdomen: Soft, completely nontender, nondistended, with good bowel sounds. There is no sign of trauma such as contusions, abrasions or penetrations. There are no palpable pulsatile masses or hepatosplenomegaly. There is no guarding, rigidity, or rebound noted. Pelvis: Stable to rock and compression. Extremities: Contusion noted to the lateral left shoulder. There is a large area of contusion and hematoma over the left knee. There is significant limited range of motion to the left knee because of pain and edema. Patient has had multiple toes on both feet amputated. She has palpable distal pulses in both feet. Neuro: The patient is awake and alert and easily able to follow commands. She does suffer from mild dementia. Muscle strength is 5 out of 5 in all 4 extremities. ED COURSE: Times/Reassessments: 0250: The patient was evaluated in room B7. A complete history and physical was performed. Much of the history was obtained from the patient's daughter who was at the bedside. An order was placed for continuous cardiac monitoring. The patient was in a sinus bradycardia at 56. Patient will go for plain x-rays of the left knee and left femur. She was given 50 mcg of IV fentanyl for her pain. X-rays show no obvious fractures to the left lower extremity or loosening of hardware. She will go for CT scan of the left knee. Upon returning from radiology, the patient is complaining of increasing pain to the left knee. She was given an additional 50 mcg of IV fentanyl. She was catheterized for a urine specimen. Laboratory studies reveal evidence of dehydration and the patient was bolused with 250 cc of normal saline solution. The urine does appear to be infected and the patient was treated with 1 g of IV Rocephin. I have kept the patient and her family abreast of the results. The patient continues to have persistent left knee pain with significant spasm to the quadriceps muscle. I do not think the patient will be able to to go home. I reviewed the results of the CT scan with the patient's family. I discussed the case with Dr. Alexis and he will evaluate the patient for further care. Dorothea Ramírez DO Past Med/Surg History Medical History Altered mental status occasionally, not all the time -- will get disoriented and forgetful. Cellulitis of left lower extremity Chronic kidney disease, stage IV (severe) pt's daughter denies Diabetes mellitus, type 2 uncontrolled (per daughter) Diabetic foot infection multiple amputation Foot pain from neuropathy and osteomyelitis GERD (gastroesophageal reflux disease) History of amputation of toe revision of Left second toe amputation done at [facility] 05/2018. History of high cholesterol Taking no meds at this time History of revision of total replacement of left knee joint HLD (hyperlipidemia) HTN (hypertension) Hx of deep venous thrombosis "long time ago" s/p foot injury -- no problems since. Murmur, cardiac Osteomyelitis of left lower extremity Peripheral neuropathy numbness, tingling and burning of both feet UTI (urinary tract infection) multiple Surgical History History of Achilles tendon repair right History of adenoidectomy History of amputation TOES - 6 partial amputations with a partial x2 on great toe resulting in complete amputation 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 History of appendectomy History of arthroscopy RT/LEFT SHOULDER History of cataract surgery RT/LEFT History of cholecystectomy History of colonoscopy History of esophagogastroduodenoscopy (EGD) History of partial amputation of toe Multiple History of shoulder surgery rotator cuff both shoulders History of tonsillectomy History of tooth extraction History of total knee replacement Bilateral Hx of hysterectomy, total Hx of sinus surgery Family History Other No family history of adverse response to anesthesia No family history of bleeding disorder No pertinent family history Social History Smoking Status: Never smoker Second Hand Exposure: No; Hx Alcohol Use: No Hx Substance Use: No Preferred Language: Sami Communication Ability: Effective Finished Cigar Maker Required: No Beliefs That Will Affect Care: None Current Living Situation: Spouse current occupational status: retired Feels Safe at Home: Yes Assistive Devices: Cane, Denture - Upper, Glasses, Walker and Wheelchair Allergies Allergies Allergy/AdvReac Type Severity Reaction Status Date / Time Iodinated Contrast Media Allergy Intermediate HIVES AND Verified 05/24/20 03:21 HOT FLASHES azithromycin Allergy Unknown Unknown Verified 05/24/20 03:21 hydrocodone AdvReac Severe Confusion Verified 05/24/20 03:21 oxycodone AdvReac Severe CONFUSION Verified 05/24/20 03:21 LAKSHMI WHEN SHE TAKES 2 TABS- Macrolide Antibiotics AdvReac Mild UPSET Verified 05/24/20 03:21 STOMACH Home Meds Home Medications Medication Instructions Recorded Confirmed Levemir U-100 Insulin 20 unit SUBCUT QAM 04/04/18 05/24/20 insulin detemir U-100 100 unit/mL 10 units SUBCUT HS ml 11/07/18 05/24/20 subcutaneous solution lisinopril 5 mg tablet 5 mg PO QAM 11/07/18 05/24/20 cyanocobalamin (vitamin B-12) 1,000 mcg PO QAM 10/27/19 05/24/20 [Vitamin B-12] gabapentin 300 mg PO BID 10/27/19 05/24/20 escitalopram oxalate 5 mg PO BID 05/24/20 05/24/20 Results & Data (ED) Vital Signs Vital Signs - 24 hr 05/24/20 02:39 05/24/20 02:41 05/24/20 02:42 Temperature 36.5 C Temperature Source Oral Pulse Rate 63 61 61 Pulse Rate from SpO2 Sensor 64 61 Respiratory Rate 16 20 22 Respiratory Effort / Characteristics Non-Labored Spontaneous Respiratory Depth Normal Respiratory Pattern Regular Blood Pressure 213/85 H 219/86 H 219/86 H Blood Pressure Mean 127 130 130 Blood Pressure Position Lying Pulse Oximetry 100 100 100 Oxygen Delivery Method Room Air Room Air Room Air Sepsis Recent Fever Within 48 Hours No Sepsis New/Unexplained Change in Mental Status No Sepsis Action Taken by Nursing No Action Required 05/24/20 02:50 05/24/20 03:04 05/24/20 03:06 Temperature Temperature Source Pulse Rate 55 L 56 L Pulse Rate from SpO2 Sensor 55 L 56 L Respiratory Rate 16 21 Respiratory Effort / Characteristics Non-Labored Spontaneous Respiratory Depth Normal Respiratory Pattern Regular Blood Pressure 208/84 H 171/86 H Blood Pressure Mean 125 114 Blood Pressure Position Pulse Oximetry 100 99 Oxygen Delivery Method Room Air Room Air Sepsis Recent Fever Within 48 Hours Sepsis New/Unexplained Change in Mental Status Sepsis Action Taken by Nursing 05/24/20 03:55 05/24/20 04:01 05/24/20 04:30 Temperature Temperature Source Pulse Rate 59 L 56 L 56 L Pulse Rate from SpO2 Sensor 58 L 56 L 53 L Respiratory Rate 19 16 14 Respiratory Effort / Characteristics Respiratory Depth Respiratory Pattern Blood Pressure 208/74 H 204/57 H 201/99 H Blood Pressure Mean 118 106 133 Blood Pressure Position Pulse Oximetry 100 100 98 Oxygen Delivery Method Room Air Room Air Sepsis Recent Fever Within 48 Hours Sepsis New/Unexplained Change in Mental Status Sepsis Action Taken by Nursing 05/24/20 05:01 05/24/20 05:28 05/24/20 05:30 Temperature Temperature Source Pulse Rate 56 L 70 57 L Pulse Rate from SpO2 Sensor 58 L 69 58 L Respiratory Rate 18 18 18 Respiratory Effort / Characteristics Respiratory Depth Respiratory Pattern Blood Pressure 185/91 H 197/134 H 203/104 H Blood Pressure Mean 122 155 137 Blood Pressure Position Pulse Oximetry 100 100 100 Oxygen Delivery Method Room Air Room Air Room Air Sepsis Recent Fever Within 48 Hours Sepsis New/Unexplained Change in Mental Status Sepsis Action Taken by Nursing Laboratory Data Result diagrams: 05/24/20 03:38 05/24/20 03:38 Lab Results 05/24/20 05/24/20 05/24/20 Range/Units 03:28 03:38 03:38 WBC 6.11 (4.8-10.8) K/uL RBC 4.06 L (4.2-5.4) M/uL Hgb 11.8 L (12.0-16.0) g/dL Hct 35.4 L (37-47) % MCV 87.2 (80-100) fL MCH 29.1 (25-34) pg MCHC 33.3 (32-36) g/dL RDW Std Deviation 43.1 (36.4-46.3) fL RDW Coeff of Phil 13.4 (11.5-14.5) % Plt Count 192 (130-400) K/uL MPV 10.0 (7.4-10.4) fL Immature Gran % (Auto) 0.0 % Neut % (Auto) 60.5 % Lymph % (Auto) 25.4 % [place] % (Auto) 10.6 % Eos % (Auto) 3.3 % Baso % (Auto) 0.2 % Neut # (Auto) 3.70 (1.4-6.5) K/uL Lymph # (Auto) 1.55 (1.2-3.4) K/uL [place] # (Auto) 0.65 H (0.11-0.59) K/uL Eos # (Auto) 0.20 (0-0.5) K/uL Baso # (Auto) 0.01 (0-0.2) K/uL Immature Gran # (Auto) 0.00 (0.00-0.02) K/uL Sodium 142 (136-145) mmol/L Potassium 4.0 (3.5-5.1) mmol/L Chloride 111 H (98-107) mmol/L Carbon Dioxide 25 (21-32) mmol/L Anion Gap 6.0 (3-11) BUN 23 H (7-18) mg/dl Creatinine 0.76 (0.6-1.2) mg/dl Est Cr Clr Drug Dosing 59.1 ml/min Est GFR ( Amer) 86.5 Est GFR (Non-Af Amer) 74.6 BUN/Creatinine Ratio 31.0 H (10-20) Glucose 107 H (70-99) mg/dl Calcium 9.0 (8.5-10.1) mg/dl Total Bilirubin 0.3 (0.2-1) mg/dl AST 33 (15-37) U/L ALT 30 (12-78) U/L Alkaline Phosphatase 81 (45-117) U/L Total Protein 6.7 (6.4-8.2) gm/dl Albumin 3.7 (3.4-5.0) gm/dl Globulin 3.0 (2.5-4.0) gm/dl Albumin/Globulin Ratio 1.2 (0.9-2) Urine Color Yellow Urine Appearance Cloudy A (Clear) Urine pH 6.5 (4.5-7.5) Ur Specific [place] 1.015 (1.000-1.030) Urine Protein Trace H (Negative) Urine Glucose (UA) Negative (Negative) Urine Ketones Negative (Negative) Urine Blood Negative (Negative) Urine Nitrite Positive A (Negative) Urine Bilirubin Negative (Negative) Urine Urobilinogen Negative (Negative) Ur Leukocyte Esterase Trace H (Negative) Urine WBC (Auto) >30 H (0-5) /hpf Urine RBC (Auto) 0-4 (0-4) /hpf U Hyaline Cast (Auto) 1-5 (0-5) /lpf U Epithel Cells (Auto) 5-10 H (0-5) /lpf Urine Bacteria (Auto) 4+ H (Negative) COVID-19 Eval Order 05/24/20 Range/Units 05:31 WBC (4.8-10.8) K/uL RBC (4.2-5.4) M/uL Hgb (12.0-16.0) g/dL Hct (37-47) % MCV (80-100) fL MCH (25-34) pg MCHC (32-36) g/dL RDW Std Deviation (36.4-46.3) fL RDW Coeff of Phil (11.5-14.5) % Plt Count (130-400) K/uL MPV (7.4-10.4) fL Immature Gran % (Auto) % Neut % (Auto) % Lymph % (Auto) % [place] % (Auto) % Eos % (Auto) % Baso % (Auto) % Neut # (Auto) (1.4-6.5) K/uL Lymph # (Auto) (1.2-3.4) K/uL [place] # (Auto) (0.11-0.59) K/uL Eos # (Auto) (0-0.5) K/uL Baso # (Auto) (0-0.2) K/uL Immature Gran # (Auto) (0.00-0.02) K/uL Sodium (136-145) mmol/L Potassium (3.5-5.1) mmol/L Chloride (98-107) mmol/L Carbon Dioxide (21-32) mmol/L Anion Gap (3-11) BUN (7-18) mg/dl Creatinine (0.6-1.2) mg/dl Est Cr Clr Drug Dosing ml/min Est GFR ( Amer) Est GFR (Non-Af Amer) BUN/Creatinine Ratio (10-20) Glucose (70-99) mg/dl Calcium (8.5-10.1) mg/dl Total Bilirubin (0.2-1) mg/dl AST (15-37) U/L ALT (12-78) U/L Alkaline Phosphatase (45-117) U/L Total Protein (6.4-8.2) gm/dl Albumin (3.4-5.0) gm/dl Globulin (2.5-4.0) gm/dl Albumin/Globulin Ratio (0.9-2) Urine Color Urine Appearance (Clear) Urine pH (4.5-7.5) Ur Specific [place] (1.000-1.030) Urine Protein (Negative) Urine Glucose (UA) (Negative) Urine Ketones (Negative) Urine Blood (Negative) Urine Nitrite (Negative) Urine Bilirubin (Negative) Urine Urobilinogen (Negative) Ur Leukocyte Esterase (Negative) Urine WBC (Auto) (0-5) /hpf Urine RBC (Auto) (0-4) /hpf U Hyaline Cast (Auto) (0-5) /lpf U Epithel Cells (Auto) (0-5) /lpf Urine Bacteria (Auto) (Negative) COVID[facility]19 [facility] Administ[facility] Medications Discontinued Medications Fentanyl Citrate (Fentanyl Citrate 100 Mcg/2 Ml Vial) 50 mcg IV NOW STA Stop: 05/24/20 03:01 Last Admin: 05/24/20 03:17 Dose: 50 mcg Documented by: [id number] Fentanyl Citrate (Fentanyl Citrate 100 Mcg/2 Ml Vial) 50 mcg IV NOW STA Stop: 05/24/20 04:47 Last Admin: 05/24/20 05:15 Dose: 50 mcg Documented by: [id number] Sodium Chloride (Nss) 250 mls @ 999 mls/hr IV .Q16M ONE Stop: 05/24/20 05:18 Last Infusion: 05/24/20 05:46 Dose: 0 mls/hr Documented by: [id number] Admin: 05/24/20 05:16 Dose: 999 mls/hr Documented by: [id number] Ceftriaxone Sodium (Rocephin) 1,000 mg in 50 mls @ 100 mls/hr IV NOW STA Stop: 05/24/20 05:44 Last Admin: 05/24/20 05:27 Dose: 100 mls/hr Documented by: [id number] Discharge Plan Visit Data Chief Complaint: Fall Stated Complaint: FALL/KNEE PAIN ED Provider: Dorothea Ramírez Discharge Problem: Fall, Acute UTI, Acute dehydration Forms Stand Alone Forms: My [facility] Prescriptions Prescriptions: No Action lisinopril 5 mg tablet 5 mg PO QAM RF: 0 Levemir U-100 Insulin 100 unit/mL solution 20 unit subcut QAM RF: 0 insulin detemir U-100 100 unit/mL solution 10 units subcut HS RF: 0 cyanocobalamin (vitamin B-12) [Vitamin B-12] 1,000 mcg Tablet 1,000 mcg PO QAM RF: 0 gabapentin 300 mg capsule 300 mg PO BID RF: 0 escitalopram oxalate 5 mg tablet 5 mg PO BID RF: 0
[2020-05-24] MEDS ORDERED: SODIUM CHLORIDE 0.9% 250 ML IV ONE (05:03)
[2020-05-24] MEDS ORDERED: cefTRIAXone SODIUM 1,000 MG/50 ML BAG IV STA (05:15)
--- NOTE | 2020-05-24 06:15 | History & Physical Report ---
Date of Service May 24, 2020 Assessment & Plan (1) Altered mental status: Likely secondary to urinary tract infection with dehydration on top of underlying dementia- Present on Admission?: Yes (2) Effusion of left knee: CT reports hardware of left total knee arthroplasty appears to be intact. Her daughter reports that the patient has been followed by Drs. Reddy/ Ana from [facility] sports medicine orthopedics, who will be consulted. Continue cold compress, his daughter reports swelling in the knee has significantly reduced. Present on Admission?: Yes (3) Diabetes mellitus with neuropathy: Reduce insulin detemir from 10 units to 5 units subcu at bedtime. Reduce a.m. Levemir from 20 to 10 units subcu. Placed on Accu-Cheks before meals and at bedtime with NovoLog coverage per scale Continue gabapentin 300 mg p.o. twice daily Present on Admission?: Yes (4) Acute UTI: Follow urine culture and sensitivity. Continue ceftriaxone 1 g IV daily begun in the ED Present on Admission?: Yes (5) Memory changes: On no specific treatment. Present on Admission?: Yes (6) HTN (hypertension): Continue lisinopril 5 mg daily. Blood pressure elevation in the ED is likely secondary to persistence of pain. Hydralazine 10 mg IV every 4 hours as needed systolic blood pressure greater than 160 Present on Admission?: Yes History of Present Illness Chief Complaint: The patient presents to the emergency department via ambulance with her daughter at bedside, who reportedly fell earlier this evening and landed on her left knee, with severe painful spasms involving left hip, thigh and knee Primary Care Provider: Zhanna Bauer DO The patient is a 79-year-old female who presents to the emergency department with above complaint. She did have an ice pack placed in the emergency department which her daughter reports has significantly reduced swelling. She did have x-rays and CT scans performed of left hip, femur and knee, which were only significant for a left knee effusion. Allergies Allergy/AdvReac Type Severity Reaction Status Date / Time Iodinated Contrast Media Allergy Intermediate HIVES AND Verified 05/24/20 03:21 HOT FLASHES azithromycin Allergy Unknown Unknown Verified 05/24/20 03:21 hydrocodone AdvReac Severe Confusion Verified 05/24/20 03:21 oxycodone AdvReac Severe CONFUSION Verified 05/24/20 03:21 LAKSHMI WHEN SHE TAKES 2 TABS- Macrolide Antibiotics AdvReac Mild UPSET Verified 05/24/20 03:21 STOMACH Home Medications Medication Instructions Recorded Confirmed Type Levemir U-100 Insulin 20 unit SUBCUT QAM 04/04/18 05/24/20 History insulin detemir U-100 100 unit/mL 10 units SUBCUT HS ml 11/07/18 05/24/20 History subcutaneous solution lisinopril 5 mg tablet 5 mg PO QAM 11/07/18 05/24/20 History cyanocobalamin (vitamin B-12) 1,000 mcg PO QAM 10/27/19 05/24/20 History [Vitamin B-12] gabapentin 300 mg PO BID 10/27/19 05/24/20 History escitalopram oxalate 5 mg PO BID 05/24/20 05/24/20 History Past Med/Surg History Medical History Altered mental status occasionally, not all the time -- will get disoriented and forgetful. Cellulitis of left lower extremity Chronic kidney disease, stage IV (severe) pt's daughter denies Diabetes mellitus, type 2 uncontrolled (per daughter) Diabetic foot infection multiple amputation Foot pain from neuropathy and osteomyelitis GERD (gastroesophageal reflux disease) History of amputation of toe revision of Left second toe amputation done at [facility] 05/2018. History of high cholesterol Taking no meds at this time History of revision of total replacement of left knee joint HLD (hyperlipidemia) HTN (hypertension) Hx of deep venous thrombosis "long time ago" s/p foot injury -- no problems since. Murmur, cardiac Osteomyelitis of left lower extremity Peripheral neuropathy numbness, tingling and burning of both feet UTI (urinary tract infection) multiple Surgical History History of Achilles tendon repair right History of adenoidectomy History of amputation TOES - 6 partial amputations with a partial x2 on great toe resulting in complete amputation 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 History of appendectomy History of arthroscopy RT/LEFT SHOULDER History of cataract surgery RT/LEFT History of cholecystectomy History of colonoscopy History of esophagogastroduodenoscopy (EGD) History of partial amputation of toe Multiple History of shoulder surgery rotator cuff both shoulders History of tonsillectomy History of tooth extraction History of total knee replacement Bilateral Hx of hysterectomy, total Hx of sinus surgery Family History Other No family history of adverse response to anesthesia No family history of bleeding disorder No pertinent family history Social History Smoking Status: Never smoker Second Hand Exposure: No; Hx Alcohol Use: No Hx Substance Use: No Preferred Language: Greenlandic Communication Ability: Effective Climbing Guide Required: No Beliefs That Will Affect Care: None Current Living Situation: Spouse current occupational status: retired Feels Safe at Home: Yes Assistive Devices: Cane, Denture - Upper, Glasses, Walker and Wheelchair Review of Systems Review of Systems: The patient denies chest pain, palpitations, shortness of breath, dyspnea on exertion, cough, sore throat, fevers, chills, sweats, nausea, vomiting, diarrhea , constipation, abdominal pain, pelvic pain, blood in urine or stool, dysuria, urinary frequency or urgency, loss of consciousness, rash, focal or generalized weakness, numbness or tingling in arms, generalized arthralgias or myalgias, back or neck pain, or night sweats. The review of systems is otherwise negative other than for that already noted above, and at least 10 systems have been reviewed. Physical Exam Physical Exam: The patient is awake, alert and oriented 3, normocephalic and atraumatic, lying in bed and in no acute distress. HEENT--PERRL, EOMI, mucous membranes and oropharynx dry. Neck--supple. No JVD. No bruits. Thyroid normal, trachea midline, no adenopathy. Heart--normal S1 and S2. No murmurs, rubs or gallops. Lungs--clear bilaterally, no respiratory distress, no accessory muscle use. Abdomen--normal bowel sounds and soft. Nontender. Nondistended. Extremities--right lower extremity no edema. Left lower extremity with knee effusion Dermatologic--normal skin turgor, normal color, no abnormal lymph nodes, no rash. Neurologic--cranial nerves II through XII grossly intact. Rheumatologic--decreased range of motion left knee due to effusion and pain Psychiatric--normal affect. Results & Data Results & Data ([facility]) Vital Signs (Past 12 Hours) Vital Signs Temp Pulse Resp BP Pulse Ox 05/24/20 05:30 57 L 18 203/104 H 100 05/24/20 05:28 70 18 197/134 H 100 05/24/20 05:01 56 L 18 185/91 H 100 05/24/20 04:30 56 L 14 201/99 H 98 05/24/20 04:01 56 L 16 204/57 H 100 05/24/20 03:55 59 L 19 208/74 H 100 05/24/20 03:06 56 L 21 171/86 H 99 05/24/20 03:04 55 L 16 208/84 H 100 05/24/20 02:42 97.7 F 61 22 219/86 H 100 05/24/20 02:41 61 20 219/86 H 100 05/24/20 02:39 63 16 213/85 H 100 Laboratory Results Laboratory Results WBC 6.11 K/uL (4.8-10.8) 05/24/20 03:38 RBC 4.06 M/uL (4.2-5.4) L 05/24/20 03:38 Hgb 11.8 g/dL (12.0-16.0) L 05/24/20 03:38 Hct 35.4 % (37-47) L 05/24/20 03:38 MCV 87.2 fL (80-100) 05/24/20 03:38 MCH 29.1 pg (25-34) 05/24/20 03:38 MCHC 33.3 g/dL (32-36) 05/24/20 03:38 RDW Std Deviation 43.1 fL (36.4-46.3) 05/24/20 03:38 RDW Coeff of Phil 13.4 % (11.5-14.5) 05/24/20 03:38 Plt Count 192 K/uL (130-400) 05/24/20 03:38 MPV 10.0 fL (7.4-10.4) 05/24/20 03:38 Immature Gran % (Auto) 0.0 % 05/24/20 03:38 Neut % (Auto) 60.5 % 05/24/20 03:38 Lymph % (Auto) 25.4 % 05/24/20 03:38 [place] % (Auto) 10.6 % 05/24/20 03:38 Eos % (Auto) 3.3 % 05/24/20 03:38 Baso % (Auto) 0.2 % 05/24/20 03:38 Neut # (Auto) 3.70 K/uL (1.4-6.5) 05/24/20 03:38 Lymph # (Auto) 1.55 K/uL (1.2-3.4) 05/24/20 03:38 [place] # (Auto) 0.65 K/uL (0.11-0.59) H 05/24/20 03:38 Eos # (Auto) 0.20 K/uL (0-0.5) 05/24/20 03:38 Baso # (Auto) 0.01 K/uL (0-0.2) 05/24/20 03:38 Immature Gran # (Auto) 0.00 K/uL (0.00-0.02) 05/24/20 03:38 Sodium 142 mmol/L (136-145) 05/24/20 03:38 Potassium 4.0 mmol/L (3.5-5.1) 05/24/20 03:38 Chloride 111 mmol/L (98-107) H 05/24/20 03:38 Carbon Dioxide 25 mmol/L (21-32) 05/24/20 03:38 Anion Gap 6.0 (3-11) 05/24/20 03:38 BUN 23 mg/dl (7-18) H 05/24/20 03:38 Creatinine 0.76 mg/dl (0.6-1.2) 05/24/20 03:38 Est Cr Clr Drug Dosing 59.1 ml/min 05/24/20 03:38 Est GFR ( Amer) 86.5 05/24/20 03:38 Est GFR (Non-Af Amer) 74.6 05/24/20 03:38 BUN/Creatinine Ratio 31.0 (10-20) H 05/24/20 03:38 Glucose 107 mg/dl (70-99) H 05/24/20 03:38 Calcium 9.0 mg/dl (8.5-10.1) 05/24/20 03:38 Total Bilirubin 0.3 mg/dl (0.2-1) 05/24/20 03:38 AST 33 U/L (15-37) 05/24/20 03:38 ALT 30 U/L (12-78) 05/24/20 03:38 Alkaline Phosphatase 81 U/L (45-117) 05/24/20 03:38 Total Protein 6.7 gm/dl (6.4-8.2) 05/24/20 03:38 Albumin 3.7 gm/dl (3.4-5.0) 05/24/20 03:38 Globulin 3.0 gm/dl (2.5-4.0) 05/24/20 03:38 Albumin/Globulin Ratio 1.2 (0.9-2) 05/24/20 03:38 Urine Color Yellow 05/24/20 03:28 Urine Appearance Cloudy (Clear) A 05/24/20 03:28 Urine pH 6.5 (4.5-7.5) 05/24/20 03:28 Ur Specific [place] 1.015 (1.000-1.030) 05/24/20 03:28 Urine Protein Trace (Negative) H 05/24/20 03:28 Urine Glucose (UA) Negative (Negative) 05/24/20 03:28 Urine Ketones Negative (Negative) 05/24/20 03:28 Urine Blood Negative (Negative) 05/24/20 03:28 Urine Nitrite Positive (Negative) A 05/24/20 03:28 Urine Bilirubin Negative (Negative) 05/24/20 03:28 Urine Urobilinogen Negative (Negative) 05/24/20 03:28 Ur Leukocyte Esterase Trace (Negative) H 05/24/20 03:28 Urine WBC (Auto) >30 /hpf (0-5) H 05/24/20 03:28 Urine RBC (Auto) 0-4 /hpf (0-4) 05/24/20 03:28 U Hyaline Cast (Auto) 1-5 /lpf (0-5) 05/24/20 03:28 U Epithel Cells (Auto) 5-10 /lpf (0-5) H 05/24/20 03:28 Urine Bacteria (Auto) 4+ (Negative) H 05/24/20 03:28 COVID-19 Eval Order Covid19 [facility] 05/24/20 05:31 Diagnostic Findings [facility] Patient: QUINTIN MCKENZIE (Female) : 40 Status: ER Date: 05/24/20 04:50 Room #: History: LT KNEE PAIN, EVAL FOR FRACTURE Slices: [phone] Priors: Tech: En Gaxiola @ [phone] Exams: CT LEFT KNEE Contrast: Accession Numbers: [id number] Preliminary Findings Only See Final Report For Complete Findings CT LEFT KNEE: Total knee arthroplasty appears in satisfactory alignment. Extensive beam hardening artifact limits evaluation. Hardware appears intact. No definite acute fracture or malalignment. 3.4 x 6.8 x 6.8 cm hyperdense medial subcutaneous mass, likely a hematoma with adjacent edema/hemorrhage. No radiopaque foreign body or soft tissue gas. Diffuse atherosclerotic arterial calcifications. Radiologist: Genaro Frazier M.D. Study ready at 04:57 and initial results transmitted at 05:05 *This report constitutes a preliminary interpretation only. Non-acute findings felt to be unrelated to the clinical presentation may not be discussed in this report. The study will be interpreted and a final report will be generated by the local Radiologist the following shift. To reach the hospital radiology department call [phone]. If a discrepancy is found between the preliminary and final interpretations of this study, please notify us via our Client Portal at [email or web address] under QA Exams.You can also fax this report with a description of the discrepancy, or include the final report, to our daytime fax number [phone].If faxing, please indicate the severity of discrepancy using one of the following categories: [ ] 1 - Agree/Informational [ ] 2 - Unlikely to Affect Management [ ] 3 - Possible Eventual Change of Management [ ] 4 - Probable Immediate Change of Management For all other patient related information, please fax us at [phone]. [id number] Code Status & VTE Plan Code Status Full code VTE Prophylaxis Plan VTE Prophylaxis will be ordered: Yes PG Care Time/CCT Total # of Minutes Spent Total Time Spent with Patient: Total time spent is greater than 50% in coordination of care (as documented) at patient's floor/unit and/or counseling patient: Coding Level of Care Code 15675 OBS Care - Level 3 Diagnoses Altered mental status R41.82 Effusion of left knee M25.462 Diabetes mellitus with neuropathy E11.40 Acute UTI N39.0 Memory changes R41.3 HTN (hypertension) I10
[2020-05-24] MEDS ORDERED: MoRPHine SULFATE 2 MG/ML CARP IV PRN (06:17)
[2020-05-24] MEDS: hydrALAZINE HCL 20 MG/ML VIAL IV PRN ×2 (06:27→11:56)
[2020-05-24] MEDS ORDERED: GLUCOSE 10 TABS/TUBE PO PRN (08:05)
[2020-05-24] MEDS ORDERED: CARBOHYDRATES FOR HYPOGLYCEMIA PO PRN (08:05)
[2020-05-24] MEDS ORDERED: ACETAMINOPHEN 325 MG TAB PO PRN (08:05)
[2020-05-24] MEDS ORDERED: ONDANSETRON INJ 2 MG/ML 2 ML VIAL IV PRN (08:05)
[2020-05-24] MEDS ORDERED: GLUCAGON FOR INJ 1 MG VIAL SQ PRN (08:05)
[2020-05-24] MEDS ORDERED: GLUCOSE 40% GEL 15 GM TUBE PO PRN (08:05)
[2020-05-24] MEDS ORDERED: DEXTROSE 50% 50 ML SYRINGE IV PRN (08:05)
--- NOTE | 2020-05-24 08:05 | CT Scan Report ---
CT knee LT wo con HISTORY: 79 years-old Female eval distal femur/knee fracture or loose hardware acute left knee pain status post fall COMPARISON: Left knee and femur radiographs of same day, left knee radiographs 10/04/2011. TECHNIQUE: Multiple axial CT images of the left knee were obtained without the use of IV contrast. Co angel and sagittal reformatted images were obtained from the axial data set and were submitted for re view. Additional 3-D rendering images were generated from a separate workstation. A dose lowering luciana hnique was used consistent with the principals of ALARA. FINDINGS: Left knee total joint arthroplasty and patella resurfacing. Beam hardening artifact from the hardware limits evaluation of the bone and adjacent structures. Demineralized appearance of the bones. There is marginal spurring of the knee without definite acute fracture, subluxation, periprosthetic fractur e or hardware loosening. Arterial calcifications are noted. A 3 mm periarticular calcification is not ed within the medial suprapatellar tissues. Hematoma of the medial subcutaneous tissues measures 6.0 x 2.9 x 7.5 cm. Extensive adjacent subcutaneous edema. Small joint effusion. IMPRESSION: 1. Left knee total joint arthroplasty and patella resurfacing. Beam hardening artifact from the hardw are limits evaluation of the adjacent bone. No definite acute fracture or subluxation identified. 2. Subcutaneous hematoma of the medial knee measures up to 6.0 x 2.9 x 7.5 cm. 3. Small joint effusion. ACT 112: Negative or not required by law. The above report was generated using voice recognition software. It may contain grammatical, syntax o r spelling errors. Electronically signed by: Dany Ross M.D. 05/24/2020 8:04 AM
--- NOTE | 2020-05-24 08:08 | XRay Report ---
XR femur LT 2V routine, XR knee LT 1 or 2V routine HISTORY: 79 years-old Female fall acute pain of the left lower extremity status post fall COMPARISON: CT left knee of same day, Knee radiographs 10/04/2011. TECHNIQUE: 2 views of the left femur and 2 views of the left knee FINDINGS: FEMUR: Mild to moderate left hip osteoarthritis. No definite acute fracture or dislocation. Arterial calcifi cations. KNEE: Total joint arthroplasty and patella resurfacing. Marginal spurring of the knee progressed from lindsey rison. Demineralized appearance the bones. Moderate to extensive anteromedial soft tissue swelling. A rterial calcifications. Small joint effusion. IMPRESSION: 1. No acute fracture or dislocation. 2. Left knee total joint arthroplasty and patella resurfacing without evidence of hardware complicati on 3. Moderate to extensive anteromedial soft tissue swelling correlates with the cutaneous hematoma see n on the CT study of same day. ACT 112: Negative or not required by law. The above report was generated using voice recognition software. It may contain grammatical, syntax o r spelling errors. Electronically signed by: Dany Ross M.D. 05/24/2020 8:06 AM
[2020-05-24] MEDS: NSS + 20MEQ KCL 20 MEQ/1,000 ML BAG IV SCH ×2 (10:08→23:44)
[2020-05-24] MEDS: INSULIN DETEMIR FLEXPEN/FLEX TOUCH 100 UNITS/ML 3ML SC SCH ×2 (10:09→21:54)
[2020-05-24] MEDS: CYANOCOBALAMIN 500 MCG TABLET (VITAMIN B-12) PO SCH (10:10)
[2020-05-24] MEDS: ESCITALOPRAM OXALATE 10 MG TAB PO SCH ×2 (10:10→21:50)
[2020-05-24] MEDS: ENOXAPARIN INJ 30 MG/0.3 ML SYR SQ SCH (10:11)
[2020-05-24] MEDS: GABAPENTIN 300 MG CAP PO SCH ×2 (10:14→21:50)
[2020-05-24] MEDS: INSULIN ASPART 100 UNITS/ML 3 ML PEN SC SCH ×4 (10:14→21:54)
[2020-05-24] MEDS: lisinopril 5 MG TAB PO SCH (10:14)
--- NOTE | 2020-05-24 10:52 | Orthopedic Consultation ---
Date of Consultation May 24, 2020 Assessment & Plan (1) Contusion of knee, left: RICE. Tylenol as needed for pain. WBAT LLE, with walker and assist if needed. PT/OT. TEDs and knee-high SCDs. Will notify Dr. Reddy. Will continue to follow while in-house. Continue care per primary service. Present on Admission?: Yes History of Present Illness Reason for Consultation: Left knee effusion Requesting Physician: Mahin Reddy MD (Dr. Montiel covering over the weekend) Attending Physician: Baldo Clinton MD History of Present Illness 79 year old female who was admitted to hospital for altered mental status and noted left knee swelling, which per report of daughter in H&P is significantly reduced. Unclear if this id due to a direct. Patient is a poor historian.She has a history of bilateral TKAs. In the chart, her right was performed in approximately 2004, there is no record of the left TKA. She has been cared for by Dr. Reddy in the past for multiple toe issues. Allergies Allergy/AdvReac Type Severity Reaction Status Date / Time Iodinated Contrast Media Allergy Intermediate HIVES AND Verified 05/24/20 03:21 HOT FLASHES azithromycin Allergy Unknown Unknown Verified 05/24/20 03:21 hydrocodone AdvReac Severe Confusion Verified 05/24/20 03:21 oxycodone AdvReac Severe CONFUSION Verified 05/24/20 03:21 LAKSHMI WHEN SHE TAKES 2 TABS- Macrolide Antibiotics AdvReac Mild UPSET Verified 05/24/20 03:21 STOMACH Home Medications Medication Instructions Recorded Confirmed Type Levemir U-100 Insulin 20 unit SUBCUT QAM 04/04/18 05/24/20 History insulin detemir U-100 100 unit/mL 10 units SUBCUT HS ml 11/07/18 05/24/20 H istory subcutaneous solution lisinopril 5 mg tablet 5 mg PO QAM 11/07/18 05/24/20 History cyanocobalamin (vitamin B-12) 1,000 mcg PO QAM 10/27/19 05/24/20 History [Vitamin B-12] gabapentin 300 mg PO BID 10/27/19 05/24/20 History escitalopram oxalate 5 mg PO BID 05/24/20 05/24/20 History Patient History Medical History Altered mental status occasionally, not all the time -- will get disoriented and forgetful. Cellulitis of left lower extremity Chronic kidney disease, stage IV (severe) pt's daughter denies Diabetes mellitus, type 2 uncontrolled (per daughter) Diabetic foot infection multiple amputation Foot pain from neuropathy and osteomyelitis GERD (gastroesophageal reflux disease) History of amputation of toe revision of Left second toe amputation done at [facility] 05/2018. History of high cholesterol Taking no meds at this time History of revision of total replacement of left knee joint HLD (hyperlipidemia) HTN (hypertension) Hx of deep venous thrombosis "long time ago" s/p foot injury -- no problems since. Murmur, cardiac Osteomyelitis of left lower extremity Peripheral neuropathy numbness, tingling and burning of both feet UTI (urinary tract infection) multiple Surgical History History of Achilles tendon repair right History of adenoidectomy History of amputation TOES - 6 partial amputations with a partial x2 on great toe resulting in complete amputation 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 History of appendectomy History of arthroscopy RT/LEFT SHOULDER History of cataract surgery RT/LEFT History of cholecystectomy History of colonoscopy History of esophagogastroduodenoscopy (EGD) History of partial amputation of toe Multiple History of shoulder surgery rotator cuff both shoulders History of tonsillectomy History of tooth extraction History of total knee replacement Bilateral Hx of hysterectomy, total Hx of sinus surgery Family History Other No family history of adverse response to anesthesia No family history of bleeding disorder No pertinent family history Social History Smoking Status: Never smoker Second Hand Exposure: No; Hx Alcohol Use: No Hx Substance Use: No Preferred Language: Dutch Communication Ability: Effective [employer] Former Supervisor Required: No Beliefs That Will Affect Care: None Current Living Situation: Spouse current occupational status: retired Feels Safe at Home: Yes Assistive Devices: Cane, Denture - Upper, Glasses, Walker and Wheelchair Review of Systems Review of Systems: Unobtainable due to cognitive status Physical Exam Physical Exam: Focusing on the patient's left lower extremity: BCR less than 2 seconds. Sensation to light touch is unchanged per the patient. Able to move her ankle up and down. Multiple partial amputations and only has 4 digits on the left, the last 2 have a hammertoe deformity. The second toe was covered, after removing the dressing, there was no obvious wound or swelling of the partially amputated toe. Able to perform straight leg raise. ++ Bruising and swelling of the anterior and medial aspect of the knee and thigh. Trace effusion Range of motion 0-30. + Tenderness to palpation over the bruising. No pain with varus or valgus stress at 0 and 30. Previous midline incision is well-healed. No evidence of infection. Results & Data ([facility]) Vital Signs (Past 12 Hours) Vital Signs Temp Pulse Pulse Resp BP BP Pulse Ox 05/24/20 07:44 36.4 C L 90 20 217/78 H 95 05/24/20 06:48 89 20 162/87 H 100 05/24/20 06:30 82 19 200/102 H 100 05/24/20 06:01 64 20 194/115 H 100 05/24/20 05:30 57 L 18 203/104 H 100 05/24/20 05:28 70 18 197/134 H 100 05/24/20 05:01 56 L 18 185/91 H 100 05/24/20 04:30 56 L 14 201/99 H 98 05/24/20 04:01 56 L 16 204/57 H 100 05/24/20 03:55 59 L 19 208/74 H 100 05/24/20 03:06 56 L 21 171/86 H 99 05/24/20 03:04 55 L 16 208/84 H 100 05/24/20 02:42 36.5 C 61 22 219/86 H 100 05/24/20 02:41 61 20 219/86 H 100 05/24/20 02:39 63 16 213/85 H 100 Laboratory Results 05/24/20 05/24/20 05/24/20 Range/Units 08:37 05:31 05:31 WBC (4.8-10.8) K/uL RBC (4.2-5.4) M/uL Hgb (12.0-16.0) g/dL Hct (37-47) % MCV (80-100) fL MCH (25-34) pg MCHC (32-36) g/dL RDW Std Deviation (36.4-46.3) fL RDW Coeff of Phil (11.5-14.5) % Plt Count (130-400) K/uL MPV (7.4-10.4) fL Immature Gran % (Auto) % Neut % (Auto) % Lymph % (Auto) % [place] % (Auto) % Eos % (Auto) % Baso % (Auto) % Neut # (Auto) (1.4-6.5) K/uL Lymph # (Auto) (1.2-3.4) K/uL [place] # (Auto) (0.11-0.59) K/uL Eos # (Auto) (0-0.5) K/uL Baso # (Auto) (0-0.2) K/uL Immature Gran # (Auto) (0.00-0.02) K/uL Sodium (136-145) mmol/L Potassium (3.5-5.1) mmol/L Chloride (98-107) mmol/L Carbon Dioxide (21-32) mmol/L Anion Gap (3-11) BUN (7-18) mg/dl Creatinine (0.6-1.2) mg/dl Est Cr Clr Drug Dosing ml/min Est GFR ( Amer) Est GFR (Non-Af Amer) BUN/Creatinine Ratio (10-20) Glucose (70-99) mg/dl POC Glucose 102 H (70-99) mg/dl Calcium (8.5-10.1) mg/dl Total Bilirubin (0.2-1) mg/dl AST (15-37) U/L ALT (12-78) U/L Alkaline Phosphatase (45-117) U/L Total Protein (6.4-8.2) gm/dl Albumin (3.4-5.0) gm/dl Globulin (2.5-4.0) gm/dl Albumin/Globulin Ratio (0.9-2) Urine Color Urine Appearance (Clear) Urine pH (4.5-7.5) Ur Specific [place] (1.000-1.030) Urine Protein (Negative) Urine Glucose (UA) (Negative) Urine Ketones (Negative) Urine Blood (Negative) Urine Nitrite (Negative) Urine Bilirubin (Negative) Urine Urobilinogen (Negative) Ur Leukocyte Esterase (Negative) Urine WBC (Auto) (0-5) /hpf Urine RBC (Auto) (0-4) /hpf U Hyaline Cast (Auto) (0-5) /lpf U Epithel Cells (Auto) (0-5) /lpf Urine Bacteria (Auto) (Negative) COVID[facility]19 [facility] SARS-[facility]-2, RNA, NAAT NEGATIVE (NEGATIVE) 05/24/20 05/24/20 05/24/20 Range/Units 03:38 03:38 03:28 WBC 6.11 (4.8-10.8) K/uL RBC 4.06 L (4.2-5.4) M/uL Hgb 11.8 L (12.0-16.0) g/dL Hct 35.4 L (37-47) % MCV 87.2 (80-100) fL MCH 29.1 (25-34) pg MCHC 33.3 (32-36) g/dL RDW Std Deviation 43.1 (36.4-46.3) fL RDW Coeff of Phil 13.4 (11.5-14.5) % Plt Count 192 (130-400) K/uL MPV 10.0 (7.4-10.4) fL Immature Gran % (Auto) 0.0 % Neut % (Auto) 60.5 % Lymph % (Auto) 25.4 % [place] % (Auto) 10.6 % Eos % (Auto) 3.3 % Baso % (Auto) 0.2 % Neut # (Auto) 3.70 (1.4-6.5) K/uL Lymph # (Auto) 1.55 (1.2-3.4) K/uL [place] # (Auto) 0.65 H (0.11-0.59) K/uL Eos # (Auto) 0.20 (0-0.5) K/uL Baso # (Auto) 0.01 (0-0.2) K/uL Immature Gran # (Auto) 0.00 (0.00-0.02) K/uL Sodium 142 (136-145) mmol/L Potassium 4.0 (3.5-5.1) mmol/L Chloride 111 H (98-107) mmol/L Carbon Dioxide 25 (21-32) mmol/L Anion Gap 6.0 (3-11) BUN 23 H (7-18) mg/dl Creatinine 0.76 (0.6-1.2) mg/dl Est Cr Clr Drug Dosing 59.1 ml/min Est GFR ( Amer) 86.5 Est GFR (Non-Af Amer) 74.6 BUN/Creatinine Ratio 31.0 H (10-20) Glucose 107 H (70-99) mg/dl POC Glucose (70-99) mg/dl Calcium 9.0 (8.5-10.1) mg/dl Total Bilirubin 0.3 (0.2-1) mg/dl AST 33 (15-37) U/L ALT 30 (12-78) U/L Alkaline Phosphatase 81 (45-117) U/L Total Protein 6.7 (6.4-8.2) gm/dl Albumin 3.7 (3.4-5.0) gm/dl Globulin 3.0 (2.5-4.0) gm/dl Albumin/Globulin Ratio 1.2 (0.9-2) Urine Color Yellow Urine Appearance Cloudy A (Clear) Urine pH 6.5 (4.5-7.5) Ur Specific [place] 1.015 (1.000-1.030) Urine Protein Trace H (Negative) Urine Glucose (UA) Negative (Negative) Urine Ketones Negative (Negative) Urine Blood Negative (Negative) Urine Nitrite Positive A (Negative) Urine Bilirubin Negative (Negative) Urine Urobilinogen Negative (Negative) Ur Leukocyte Esterase Trace H (Negative) Urine WBC (Auto) >30 H (0-5) /hpf Urine RBC (Auto) 0-4 (0-4) /hpf U Hyaline Cast (Auto) 1-5 (0-5) /lpf U Epithel Cells (Auto) 5-10 H (0-5) /lpf Urine Bacteria (Auto) 4+ H (Negative) COVID-19 Eval Order SARS-CoV-2, RNA, NAAT (NEGATIVE) Diagnostic Findings CT knee LT wo con HISTORY: 79 years-old Female eval distal femur/knee fracture or loose hardware acute left knee pain status post fall COMPARISON: Left knee and femur radiographs of same day, left knee radiographs 10/04/2011. TECHNIQUE: Multiple axial CT images of the left knee were obtained without the use of IV contrast. Coronal and sagittal reformatted images were obtained from the axial data set and were submitted for review. Additional 3-D rendering images were generated from a separate workstation. A dose lowering technique was used consistent with the principals of BARBARA. FINDINGS: Left knee total joint arthroplasty and patella resurfacing. Beam hardening artifact from the hardware limits evaluation of the bone and adjacent structures. Demineralized appearance of the bones. There is marginal spurring of the knee without definite acute fracture, subluxation, periprosthetic fracture or hardware loosening. Arterial calcifications are noted. A 3 mm periarticular calcification is noted within the medial suprapatellar tissues. Hematoma of the medial subcutaneous tissues measures 6.0 x 2.9 x 7.5 cm. Extensive adjacent subcutaneous edema. Small joint effusion. IMPRESSION: 1. Left knee total joint arthroplasty and patella resurfacing. Beam hardening artifact from the hardware limits evaluation of the adjacent bone. No definite acute fracture or subluxation identified. 2. Subcutaneous hematoma of the medial knee measures up to 6.0 x 2.9 x 7.5 cm. 3. Small joint effusion. I reviewed the CT of the left knee and agree with the above findings, of previous left TKA and a subcutaneous hematoma/contusion. I reviewed the 2 views of the left knee and femur which showed: 1. No acute fracture or dislocation. 2. Left knee total joint arthroplasty and patella resurfacing without evidence of hardware complication 3. Moderate to extensive anteromedial soft tissue swelling correlates with the cutaneous hematoma seen on the CT study of same day. 4. Mild to moderate degenerative changes left hip.
[2020-05-24] MEDS ORDERED: amLODIPine BESYLATE 5 MG TAB PO ONE (13:00)
--- NOTE | 2020-05-24 13:11 | Electrocardiogram Report ---
Test Reason : Blood Pressure : / mmHG Vent. Rate : 054 BPM Atrial Rate : 054 BPM P-R Int : 222 ms QRS Dur : 080 ms QT Int : 458 ms P-R-T Axes : 023 -23 -03 degrees QTc Int : 434 ms Poor data quality, interpretation may be adversely affected Sinus bradycardia with 1st degree A-V block Abnormal ECG When compared with ECG of 27-OCT-2019 18:04, Vent. rate has decreased BY 32 BPM Inverted T waves have replaced nonspecific T wave abnormality in Inferior leads Confirmed by Damián Lundy ([id number]) on 05/24/2020 1:10:53 PM Referred By: REFERRED SELF Confirmed By:Derick Lundy
[2020-05-24] MEDS: amLODIPine BESYLATE 5 MG TAB PO SCH (21:51)
[2020-05-24] MEDS ORDERED: LORazepam 0.5 MG/1 ML VIAL IV STA (23:25)
[2020-05-25] MEDS: cefTRIAXone SODIUM 1,000 MG in DEXTROSE 5% 50 ML IV SCH (06:19)
[2020-05-25 07:18] LABS: Eosinophils # (auto) 0.16 K/uL (0-0.5); Hematocrit (blood only) 29.2 % (37-47); Hemoglobin 9.6 g/dL (12.0-16.0); Immature Granulocytes # (auto) 0.01 K/uL (0.00-0.02); Immature Granulocytes % (auto) 0.2 %; Lymphocytes # (auto) 1.32 K/uL (1.2-3.4); Lymphocytes % (auto) 24.5 %; Mean Corpuscular Hemoglobin 29.2 pg (25-34); Mean Corpuscular Hgb Conc 32.9 g/dL (32-36); Mean Corpuscular Volume 88.8 fL (80-100); Mean Platelet Volume 10.3 fL (7.4-10.4); Monocytes # (auto) 0.63 K/uL (0.11-0.59); Monocytes % (auto) 11.7 %; Neutrophils # (auto) 3.27 K/uL (1.4-6.5); Neutrophils % (auto) 60.6 %; Platelet Count 169 K/uL (130-400); RDW Coefficient of Variation 13.9 % (11.5-14.5); RDW Standard Deviation 45.3 fL (36.4-46.3); Red Blood Count 3.29 M/uL (4.2-5.4); White Blood Count 5.39 K/uL (4.8-10.8)
[2020-05-25 07:37] LABS: Albumin Level 2.8 gm/dl (3.4-5.0); BUN Creatinine Ratio 28.3 (10-20); Calcium 8.3 mg/dl (8.5-10.1); Creatinine Clr Calc Pharmacy 56.1 ml/min; Est GFR (African American) 81.3; Est GFR (Non-African American) 70.1; Magnesium 2.1 mg/dl (1.8-2.4); Potassium 4.1 mmol/L (3.5-5.1)
[2020-05-25 07:42] LABS: Albumin Globulin Ratio 1.1 (0.9-2); Bilirubin,Total 0.4 mg/dl (0.2-1); Globulin 2.6 gm/dl (2.5-4.0); Total Protein 5.4 gm/dl (6.4-8.2)
[2020-05-25] MEDS: ENOXAPARIN INJ 30 MG/0.3 ML SYR SQ SCH (08:03)
[2020-05-25] MEDS: GABAPENTIN 300 MG CAP PO SCH ×2 (08:04→21:14)
[2020-05-25] MEDS: ESCITALOPRAM OXALATE 10 MG TAB PO SCH ×2 (08:04→21:14)
[2020-05-25] MEDS: CYANOCOBALAMIN 500 MCG TABLET (VITAMIN B-12) PO SCH (08:40)
[2020-05-25] MEDS: lisinopril 5 MG TAB PO SCH (08:40)
[2020-05-25] MEDS: INSULIN DETEMIR FLEXPEN/FLEX TOUCH 100 UNITS/ML 3ML SC SCH ×2 (08:41→21:15)
[2020-05-25] MEDS: INSULIN ASPART 100 UNITS/ML 3 ML PEN SC SCH ×4 (08:45→21:15)
[2020-05-25] MEDS: NSS + 20MEQ KCL 20 MEQ/1,000 ML BAG IV SCH (08:49)
--- NOTE | 2020-05-25 13:40 | Hospitalist Progress Note ---
Date of Service May 25, 2020 Assessment & Plan (1) Acute UTI: - Follow urine culture and sensitivity. - Continue ceftriaxone 1 g IV daily (2) Anemia: Baseline hgb ~11.5. - Hgb fell to 9.6 (2 mg/dL) on 05/25. Contusion on knee, but otherwise no overt bleeding. Possibly dilutional as patient was dehydrated on admission, but still a big drop for just that. Vitals stable. - Monitor with afternoon CBC (3) Altered mental status: Presumed infectious vs. metabolic encephalopathy secondary to urinary tract infection with dehydration on top of underlying dementia. - Unclear baseline. For me, she was chatting amiably, but clearly was not oriented to situation or place. - Will discuss with family. - Low-dose benzo as needed as RN reports this helped overnight. (4) Effusion of left knee: CT reports hardware of left total knee arthroplasty appears to be intact. Seen by Dr. Montiel. - Continue cold compress, his daughter reports swelling in the knee has signi ficantly reduced. (5) Diabetes mellitus with neuropathy: A1c pending. - Reduce insulin detemir from 10 units to 5 units subcu at bedtime. - Reduce a.m. Levemir from 20 to 10 units subcu. - Placed on Accu-Cheks before meals and at bedtime with NovoLog coverage per scale -> Blood sugars under good control. - Continue gabapentin 300 mg p.o. twice daily (6) Memory changes: As above, unclear baseline. - Will call family today. - Continue escitalopram. (7) HTN (hypertension): BP presently 165/75. - Continue lisinopril 5 mg daily & amlodipine 2.5 mg HS. - Adjust as needed (8) DVT prophylaxis: Lovenox 30 mg SQ daily Admission and Anticipated Discharge Date Admission Date: May 24, 2020 Subjective No complaints for me today. Reports no fevers/chills, chest pain, shortness of breath, abdominal pain, nausea, or vomiting. Physical Exam Constitutional: WD/WN, vitals as above Eyes: EOM intact bilaterally; no conjunctival abnormality ENMT: external ear and nose normal, oropharynx normal Neck: trachea midline, no thyromegaly normal visual inspection Respiratory: normal respiratory effort, lungs clear to auscultation no respiratory distress Cardiovascular: RRR, no murmur, no edema Gastrointestinal (Abdomen): Inspection/Auscultation: abdomen normal to inspection; abdomen not distended Musculoskeletal: no cyanosis or clubbing, extremities motor strength 5/5 Skin: no rashes, warm and dry Neurologic: moves all extremities and awake Psychiatric: Orientation: alert, oriented to person and cooperative Results & Data Results & Data ([facility]) Vital Signs (Past 12 Hours) Vital Signs Temp Pulse Resp BP Pulse Ox 05/25/20 07:08 36.3 C L 74 20 164/72 H 98 PG Care Time/CCT Total # of Minutes Spent Total Time Spent with Patient: Total time spent is greater than 50% in coordination of care (as documented) at patient's floor/unit and/or counseling patient: Coding Level of Care Code 15138 Subseq Hosp Care Lvl 3 Diagnoses Acute UTI N39.0 Anemia D64.9 Altered mental status R41.82 Effusion of left knee M25.462 Diabetes mellitus with neuropathy E11.40 Memory changes R41.3 HTN (hypertension) I10 DVT prophylaxis Z29.9
[2020-05-25] MEDS ORDERED: LORazepam 0.5 MG TAB SL PRN (13:49)
[2020-05-25 18:08] LABS: Hematocrit (blood only) 31.5 % (37-47); Hemoglobin 10.3 g/dL (12.0-16.0); Mean Corpuscular Hemoglobin 29.3 pg (25-34); Mean Corpuscular Hgb Conc 32.7 g/dL (32-36); Mean Corpuscular Volume 89.7 fL (80-100); Mean Platelet Volume 10.5 fL (7.4-10.4); Platelet Count 180 K/uL (130-400); RDW Coefficient of Variation 13.9 % (11.5-14.5); RDW Standard Deviation 45.8 fL (36.4-46.3); Red Blood Count 3.51 M/uL (4.2-5.4); White Blood Count 5.71 K/uL (4.8-10.8)
[2020-05-25] MEDS: amLODIPine BESYLATE 5 MG TAB PO SCH (21:13)
[2020-05-26] MEDS: cefTRIAXone SODIUM 1,000 MG in DEXTROSE 5% 50 ML IV SCH (05:49)
[2020-05-26 06:05] LABS: Estimated Average Glucose 126 mg/dl
[2020-05-26 06:19] LABS: Basophils # (auto) 0.01 K/uL (0-0.2); Basophils % (auto) 0.2 %; Eosinophils # (auto) 0.24 K/uL (0-0.5); Eosinophils % (auto) 4.8 %; Hematocrit (blood only) 30.4 % (37-47); Hemoglobin 9.8 g/dL (12.0-16.0); Lymphocytes # (auto) 1.26 K/uL (1.2-3.4); Lymphocytes % (auto) 25.4 %; Mean Corpuscular Hemoglobin 28.8 pg (25-34); Mean Corpuscular Hgb Conc 32.2 g/dL (32-36); Mean Corpuscular Volume 89.4 fL (80-100); Mean Platelet Volume 10.6 fL (7.4-10.4); Monocytes # (auto) 0.59 K/uL (0.11-0.59); Monocytes % (auto) 11.9 %; Neutrophils # (auto) 2.86 K/uL (1.4-6.5); Neutrophils % (auto) 57.7 %; Platelet Count 173 K/uL (130-400); RDW Standard Deviation 45.9 fL (36.4-46.3); White Blood Count 4.96 K/uL (4.8-10.8)
[2020-05-26 06:54] LABS: BUN Creatinine Ratio 24.3 (10-20); Calcium 8.9 mg/dl (8.5-10.1); Creatinine Clr Calc Pharmacy 52.2 ml/min; Est GFR (African American) 74.5; Est GFR (Non-African American) 64.3; Magnesium 2.2 mg/dl (1.8-2.4)
[2020-05-26 06:57] LABS: Bilirubin,Total 0.4 mg/dl (0.2-1)
[2020-05-26] MEDS: lisinopril 5 MG TAB PO SCH (08:53)
[2020-05-26] MEDS: GABAPENTIN 300 MG CAP PO SCH (08:53)
[2020-05-26] MEDS: ESCITALOPRAM OXALATE 10 MG TAB PO SCH (08:53)
[2020-05-26] MEDS: CYANOCOBALAMIN 500 MCG TABLET (VITAMIN B-12) PO SCH (08:53)
[2020-05-26] MEDS: ENOXAPARIN INJ 30 MG/0.3 ML SYR SQ SCH (08:55)
--- NOTE | 2020-05-26 09:08 | Hospitalist Progress Note ---
Date of Service May 26, 2020 Assessment & Plan (1) Acute UTI: - E coli uti poa, resistent to pcn, on ceftriaxone (2) Anemia: Baseline hgb ~11.5. - Hgb fell to 9.6 (2 mg/dL) on 05/25. Contusion on knee, but otherwise no overt bleeding. Possibly dilutional as patient was dehydrated on admission, (3) Altered mental status: metabolic encephalopathy secondary to urinary tract infection poa with dehydration worseining undrelying dementia.. - Low-dose benzo as needed as RN reports this helped overnight. (4) Effusion of left knee: CT reports hardware of left total knee arthroplasty appears to be intact. Seen by Dr. Montiel. - Continue cold compress, his daughter reports swelling in the knee has significantly reduced. (5) Diabetes mellitus with neuropathy: A1c 6.0 implying good outpt control - Reduced insulin detemir from 10 units to 5 units subcu at bedtime. - Reduced a.m. Levemir from 20 to 10 units subcu. - Placed on Accu-Cheks before meals and at bedtime with NovoLog coverage per scale -> Blood sugars under good control. - Continue gabapentin 300 mg p.o. twice daily (6) Memory changes: As above, unclear baseline. has history of dementia - Continue escitalopram. (7) HTN (hypertension): BP presently 165/75. - Continue lisinopril 5 mg daily & amlodipine 2.5 mg HS. (8) DVT prophylaxis: Lovenox 30 mg SQ daily Admission and Anticipated Discharge Date Admission Date: May 24, 2020 Results & Data Results & Data ([facility]) Vital Signs (Past 12 Hours) Vital Signs Temp Pulse Resp BP BP Pulse Ox 05/26/20 08:41 97.9 F 75 18 168/70 H 95 05/26/20 05:32 97.5 F L 69 18 186/66 H 97 05/25/20 21:45 97.9 F 103 H 20 149/84 H 99 PG Care Time/CCT Total # of Minutes Spent Total Time Spent with Patient: Total time spent is greater than 50% in coordination of care (as documented) at patient's floor/unit and/or counseling patient: Coding Diagnoses Acute UTI N39.0 Anemia D64.9 Altered mental status R41.82 Effusion of left knee M25.462 Diabetes mellitus with neuropathy E11.40 Memory changes R41.3 HTN (hypertension) I10 DVT prophylaxis Z29.9
[2020-05-26] MEDS: INSULIN ASPART 100 UNITS/ML 3 ML PEN SC SCH ×2 (09:34→12:53)
[2020-05-26] MEDS: INSULIN DETEMIR FLEXPEN/FLEX TOUCH 100 UNITS/ML 3ML SC SCH (09:35)
--- NOTE | 2020-05-26 11:03 | Progress Notes ---
DATE: 05/26/2020 Followup evaluation status post Dr. Montiel's consultation. Renay's right third toe is healing well. She had a fall the other day and was admitted to the hospital. She may have a urinary tract infection contributing to some confusion. She has had a lot of left knee pain and swelling. There is a large hematoma on the medial side of the knee, which actually appears to be extraarticular. There is some ecchymosis tracking up the thigh. Hematoma is probably 6-8 cm in diameter and raised out probably 2-3 cm. Skin is okay. She can do a straight leg raise and has 5/5 knee extension and flexion strength. Her posterior drawer intact. MCL is intact in full extension and 30 degrees flexion. She can bend her knee 0-90. Previous radiographs, CT scan and x-ray showed the extraarticular hematoma and total knee arthroplasty in place without any loosening, wear, fracture or complication. Fortunately, this is an isolated hematoma without any tendon, ligament, significant bone, or knee component damage. Recommend that she can weightbear as tolerated, which she is currently doing and was able to ambulate 100 feet. She can follow up with me as an outpatient for this. Elevate, ice, perhaps an Apolinar wrap over the knee might be helpful. She can follow up with me in 7-10 days. Weightbear as tolerated.
--- NOTE | 2020-05-26 18:50 | Discharge Summary ---
Date of Service May 26, 2020 Admission HPI Per Admitting Provider The patient is a 79-year-old female who presents to the emergency department with above complaint. She did have an ice pack placed in the emergency department which her daughter reports has significantly reduced swelling. She did have x-rays and CT scans performed of left hip, femur and knee, which were only significant for a left knee effusion. Principal Diagnosis metabolic encephalopathy from e coli uti poa Discharge Exam The patient appeared well Vital signs as documented. Lungs are clear to auscultation and appear unlabored Cardiac exam, Rhythm is regular.. No murmurs, rubs or gallops. Abdominal exam reveals normal bowel sounds, soft non tender, no masses Extremities are nonedematous and both pedal pulses are normal. Neurologic exam is alert and oriented, no focal loss of strength or sensation Skin is without bruises or rashes Psychologically is with concerns for mild dementia Discharge Data Allergies Allergy/AdvReac Type Severity Reaction Status Date / Time Iodinated Contrast Media Allergy Intermediate HIVES AND Verified 05/24/20 03:21 HOT FLASHES azithromycin Allergy Unknown Unknown Verified 05/24/20 03:21 hydrocodone AdvReac Severe Confusion Verified 05/24/20 03:21 oxycodone AdvReac Severe CONFUSION Verified 05/24/20 03:21 LAKSHMI WHEN SHE TAKES 2 TABS- Macrolide Antibiotics AdvReac Mild UPSET Verified 05/24/20 03:21 STOMACH Consultations 05/24/20 05:13 ED Decision to Admit Stat 05/24/20 08:05 Consult Case Management - Discharge Planning Routine Consult Orthopedic Surgery Routine Ordered Studies 05/24/20 03:56 CT knee LT wo con Urgent Hospital Course (1) Acute UTI: - E coli uti poa, resistant to pcn, on ceftriaxone-> transitioned to po cefdinir, pt was on outpt rotational antibiotics in the past thru [facility], I encouraged pts daughter to re connect this week to make plans for the future if this should be resumed (2) Anemia: Baseline hgb ~11.5. - Hgb fell to 9.6 (2 mg/dL) on 05/25. Contusion on knee, but otherwise no overt bleeding. Possibly dilutional as patient was dehydrated on admission, (3) Altered mental status: metabolic encephalopathy secondary to urinary tract infection poa with dehydration worsening underlying dementia.. - has improved, daughter at bedside wants to take her home as she feels she will be better there (4) Effusion of left knee: CT reports hardware of left total knee arthroplasty appears to be intact. Seen by Dr. Montiel/Maureen. - Continue cold compress, his daughter reports swelling in the knee has significantly reduced. 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 twice daily (6) Memory changes: As above, unclear baseline. has history of dementia - Continue escitalopram. (7) HTN (hypertension): BP presently 165/75. - Continue lisinopril 5 mg daily & amlodipine 2.5 mg HS. Total Time Total Time Spent Total Time Spent (In Minutes): It required greater than 30 minutes to prepare this patient for discharge Discharge Plan Discharge Items Patient Disposition: Home - Home Health Services Reason For Visit: INTRACTABLE LEG PAIN, UTI, DEHYRDATION Discharge Diagnosis: E colli uti with encepahalopathy Activity: Resume your previous activity Non-emergency contact: Primary Care Provider Call non-emergency contact if: you have any medication questions and your symptoms worsen Follow-up/Referrals: Zhanna Bauer DO [Primary Care Provider] - 05/28/20 1:50 pm () Rony Reddy MD [Surgeon] - 06/11/20 2:00 pm Diet: Carb Consistent or DM2 Addtl Attending Provider Instructions: it is important that you have good hydration and nutrition, as per Dr Page continue to have focus on good range of motion to legs and knees. contact your infectious disease to discuss if you should be on rotational antibiotics again Addtl Psych Arnp Provider Instructions: Weight bear as tolerated left lower extremity Use walker to assist with ambulation. Ice to left knee as needed for pain/swelling. Rest and compression as needed for hematoma. Allowed for full range of motion to both knees. Follow up with Dr. Reddy in 7-10 days. Call [phone] with any problems or concerns or need to reschedule appointment. Pending Studies at Discharge: No Stand-Alone Forms: [employer], Smoking Cessation Medications and DC Order Prescriptions: New cefdinir 300 mg capsule 300 mg PO BID 5 Days Qty: 10 RF: 2 Saccharomyces boulardii [Florastor] 250 mg capsule 250 mg PO BID Qty: 60 RF: 4 Continued lisinopril 5 mg tablet 5 mg PO QAM RF: 0 Levemir U-100 Insulin 100 unit/mL solution 20 unit subcut QAM RF: 0 insulin detemir U-100 100 unit/mL solution 10 units subcut HS RF: 0 cyanocobalamin (vitamin B-12) [Vitamin B-12] 1,000 mcg Tablet 1,000 mcg PO QAM RF: 0 gabapentin 300 mg capsule 300 mg PO BID RF: 0 escitalopram oxalate 5 mg tablet 5 mg PO BID RF: 0 Discharge Orders: Discharge Order (Routine); Ordered 05/26/20 Ordered By: Jaquan Cole Admission Data Admit Date/Time: 05/24/20 05:59 Attending Provider: Jaquan Cole Admit Provider: Baldo Clinton Primary Care Provider: Zhanna Bauer Other Providers: Rony Reddy ; Randal Scales Other Interventions: Discharge Summary Assessment (RN) Last Done: 05/26/20 13:57 Coding Level of Care Code D/C Day Management >30 mins Diagnoses Acute UTI N39.0 Anemia D64.9 Altered mental status R41.82 Effusion of left knee M25.462 Diabetes mellitus with neuropathy E11.40 Memory changes R41.3 HTN (hypertension) I10
== END 2020-05-26 14:39 | disposition home health service (06) ==
LOC: 3N 02:34 → ED 02:34 → SUATTDRO 05:59 → 3N 06:56

== ENCOUNTER 2020-08-18 11:38 | Inpatient (IN) ==
[2020-08-18] MEDS ORDERED: SODIUM CHLORIDE 0.9% 500 ML IV ONE (12:20)
--- NOTE | 2020-08-18 13:21 | XRay Report ---
XR foot LT 2V CLINICAL HISTORY: Left foot pain. Assess for osteomyelitis. COMPARISON STUDY: Left foot 06/09/2020. FINDINGS: There is again noted prior amputation of the first toe and third toe the level the PIP join t. There is amputation of the second digit at the level of the head of the second metatarsal. There a ppears a small focal skin ulceration at the residual tip of the left third toe. There is also mild co rtical irregularity/lucency at the residual tip of the left third toe. This could represent a develop ing osteomyelitis. Plantar and posterior calcaneal spurs are again noted. The bones are osteopenic. N o fracture or dislocation. IMPRESSION: There appears a small focal skin ulceration at the residual tip of the left third toe wi th mild underlying cortical irregularity/lucency at the residual head of the proximal phalanx of the left third toe. This could represent a developing osteomyelitis. ACT 112: Negative or not required by law. Electronically signed by: Marvin Huddleston M.D. 08/18/2020 1:20 PM
[2020-08-18 13:28] LABS: Appearance Urine Cloudy (Clear); Bacteria Urine Automated 3+ (Negative); Bilirubin Urine Negative (Negative); Blood Urine Negative (Negative); Color Urine Yellow; Epithelial Cell Urine Auto 0-5 /lpf (0-5); Glucose Urine UA Negative (Negative); Ketones Urine Negative (Negative); Leukocyte Esterase Urine 2+ (Negative); Nitrite Urine Negative (Negative); Protein Urine Negative (Negative); RBC Urine Automated 0-4 /hpf (0-4); Specific Gravity Urine 1.015 (1.000-1.030); Urobilinogen Urine Negative (Negative); WBC Urine Automated >30 /hpf (0-5); pH Urine 6.5 (4.5-7.5)
[2020-08-18 14:36] LABS: Alanine Aminotransferase 19 U/L (12-78); Albumin Level 3.3 gm/dl (3.4-5.0); BUN Creatinine Ratio 31.7 (10-20); Blood Urea Nitrogen 26 mg/dl (7-18); C Reactive Protein < 0.29 mg/dl (0-0.29); Calcium 8.8 mg/dl (8.5-10.1); Carbon Dioxide 23 mmol/L (21-32); Chloride 112 mmol/L (98-107); Est GFR (African American) 80.1 ml/min; Est GFR (Non-African American) 69.1 ml/min; Glucose 88 mg/dl (70-99); Sodium 142 mmol/L (136-145)
[2020-08-18 14:41] LABS: Alkaline Phosphatase 78 U/L (45-117); Bilirubin,Total 0.2 mg/dl (0.2-1); Globulin 3.2 gm/dl (2.5-4.0); Phosphorus 3.2 mg/dl (2.5-4.9); Thyroid Stimulating Hormone 0.521 uIu/ml (0.300-4.500); Total Protein 6.5 gm/dl (6.4-8.2); Troponin I < 0.015 ng/ml (0-0.045)
--- NOTE | 2020-08-18 14:48 | CT Scan Report ---
HEAD CT NONCONTRAST CT DOSE: 853.38 mGy.cm HISTORY: Altered mental status. TECHNIQUE: Multiaxial CT images of the head were performed without the use of intravenous contrast. A utomated exposure control was utilized for this study. A dose lowering technique was utilized adheri ng to the principles of ALARA. Comparison: Head CT 07/24/2020. Findings: Slightly displaced nasal bone fracture. This is age indeterminate. The visualized paranasal sinuses and mastoid air cells are clear. The calvarium and skull base are intact. There is no mass, hematoma, midline shift, acute infarct. White matter hypodensity is nonspecific but suggestive of marika rovascular ischemic change. The ventricles and sulci demonstrate mild age-related involutional change s. Impression: 1. No acute intracranial abnormality. 2. Age-indeterminate mild displaced nasal bone fractures. ACT 112: Negative or not required by law. Electronically signed by: Marvin Huddleston M.D. 08/18/2020 2:47 PM
--- NOTE | 2020-08-18 15:02 | XRay Report ---
SINGLE VIEW CHEST CLINICAL HISTORY: Sepsis. FINDINGS: An AP, portable, upright chest radiograph is compared to study dated 07/24/2020. Correlation is made with chest CT dated 09/07/2017. The heart is enlarged noting atherosclerotic calcification of the thoracic aorta. The pulmonary vasculature is noncongested. Chronic interstitial thickening is sim ilar to previous. There is mild bibasilar scarring/atelectasis. No airspace consolidation, large pleu ral effusion, or pneumothorax is seen. The skeletal structures are osteopenic. The bony thorax is дмитрий ssly intact. Advanced degenerative change is seen in the shoulders with widening of the AC joints. Sp ondylotic change is also noted in the thoracic spine. IMPRESSION: Cardiomegaly with no acute cardiopulmonary abnormality. ACT 112: Negative or not required by law. Electronically signed by: Curly Lee M.D. 08/18/2020 3:00 PM
--- NOTE | 2020-08-18 15:04 | XRay Report ---
XR pelvis 1-2V routine CLINICAL HISTORY: Pelvic pain following fall. COMPARISON: Pelvis radiographs June 05, 2020. CT of the abdomen and pelvis July 24, 2020. FINDINGS: Moderate amount stool within the rectum is noted. Right lower quadrant surgical clips are noted. No acute fracture is identified within the pelvis or hips. The sacroiliac joints and symphysis pubis are intact. Osteoarthritis of both sacroiliac joints is noted. No suspicious osseous lesion is identified by radiography. IMPRESSION: No acute fracture within the pelvis or hips. ACT 112: Negative or not required by law. Electronically signed by: Fabian Porter M.D. 08/18/2020 3:02 PM
--- NOTE | 2020-08-18 15:14 | XRay Report ---
XR tibia fibula LT 2V HISTORY: 79 years-old Female pain, h/o osteo acute pain of the left lower leg and foot COMPARISON: Left foot radiographs of same day TECHNIQUE: 2 views of the left lower leg FINDINGS: Left knee total joint arthroplasty. Demineralized appearance of the bones. No acute fracture or dislo cation. Spurring of the calcaneus. Arterial calcifications. IMPRESSION: No acute fracture. ACT 112: Negative or not required by law. The above report was generated using voice recognition software. It may contain grammatical, syntax o r spelling errors. Electronically signed by: Elias Ross M.D. 08/18/2020 3:13 PM
[2020-08-18] MEDS ORDERED: cefTRIAXone SODIUM 2,000 MG/70 ML BAG IV STA (15:35)
[2020-08-18] MEDS ORDERED: VANCOMYCIN HCL 1,750 MG in SODIUM CHLORIDE 0.9% 500 ML IV ONE (15:35)
[2020-08-18] MEDS ORDERED: VANCOMYCIN CONSULT ACTIVE PRN (15:35)
--- NOTE | 2020-08-18 15:45 | Emergency Department Note ---
Impression & Plan Acute UTI, Acute osteomyelitis of toe of left foot, Generalized weakness ED Provider Note NAME: QUINTIN MCKENZIE AGE: 79 SEX: F ARRIVES VIA: Ambulance INFORMANT: Patient, Daughter ED PROVIDER(S): David Navarro MD CHIEF COMPLAINT: Weakness, Foot pain PLAN: Disposition: Admit MEDICAL DECISION MAKING: The patient is a pleasant 79-year-old woman with a past medical history of dementia, diabetes, history of osteomyelitis and toe amputation, recurrent UTIs who presents to the emergency department accompanied by her daughter concern for worsening generalized weakness since Tuesday and increased pain in her left foot which she reports she has been following with [facility] orthopedics for possible osteomyelitis and anticipated need for amputation at some point. The patient's daughter is concerned that she may have worsening infection related to her osteomyelitis but also admits she may have a UTI as well. They report she has continued to get weaker over the weekend and this resulted in a fall today where she hit her forehead on her bed railing but there is no loss of consciousness. She is not on anticoagulation. They did attempt to contact the orthopedic office to have her foot evaluated but they referred to the emergency department. They deny any cough, congestion, shortness of breath, GI symptoms. On arrival the patient is chronically ill/fatigued appearing but no acute distress, afebrile with stable vital signs. She has no focal neurologic deficits. He has mild tenderness to the anterior aspect of the left tibia and dorsum of the left foot where there is a punctate wound without discharge at the distal tip of the distal third phalanx. CBC unfortunately hemolyzed and so repeat performed. CBC, Hbg, and platelets wnl. Chemistry with out metabolic acidosis. Lactic acid 1.4, within normal limits. Electrolytes and LFTs are unremarkable. Troponin negative/undetectable. CRP is not elevated. BUN/creatinine> 30 consistent with the patient's clinically dry appearance. UA is consistent with infection with WBCs, leuk esterase and 3+ bacteria without epithelial cells present. COVID-[address] of the head was negative for acute process. Pelvis negative for fractures. Tib-fib plain film was unremarkable. Plain film of the left foot demonstrates the possibility of early erosion of the distal phalanx of the third toe. Upon reevaluation the patient continued to feel weak from her baseline. The patient's aide was at the bedside and reviewed with her daughter over the phone and they did prefer admission for further management. CTX and Vancomycin ordered to cover UTI and suspected osteomyelitis. Case was discussed with ESME Guillen with [facility] hospitalist, who will evaluate the patient for admission. Triage Nursing notes reviewed and agree them. Prior medical records reviewed Vital Signs: reviewed and remarkable for no significant abnormalities Differential diagnosis: Infection, dehydration, metabolic abnormality, hypo/hyperglycemia, electrolyte disturbance, anemia, hypoxia, cardiac sources, intracerebral event, toxicologic, neurologic, as well as other pathologies. ER treatment provided: See below. Diagnostics interpreted by me: ECG: Sinus rhythm, 76 bpm, no ectopy, no overt ST elevation or depression. Cardiac Monitoring: An order for continuous cardiac monitoring was placed and demonstrated Sinus rhythm, 76 bpm, no ectopy. Laboratory studies: See below Imaging studies: See below Consultation(s): ESME Guillen with [facility] hospitalist HPI: The patient is a pleasant 79-year-old woman with a past medical history of dementia, diabetes, history of osteomyelitis and toe amputation, recurrent UTIs who presents to the emergency department accompanied by her daughter concern for worsening generalized weakness since Tuesday and increased pain in her left foot which she reports she has been following with [facility] orthopedics for possible osteomyelitis and anticipated need for amputation at some point. The patient's daughter is concerned that she may have worsening infection related to her osteomyelitis but also admits she may have a UTI as well. They report she has continued to get weaker over the weekend and this resulted in a fall today where she hit her forehead on her bed railing but there is no loss of conscio usness. She is not on anticoagulation. They did attempt to contact the orthopedic office to have her foot evaluated but they referred to the emergency department. They deny any cough, congestion, shortness of breath, GI symptoms. ROS: See above HPI for pertinent positives & negatives. A total of 10 systems reviewed and were otherwise negative. PAST MEDICAL HISTORY:See Below PAST SURGICAL HISTORY:See Below FAMILY HISTORY:See Below SOCIAL HISTORY:See Below HOME MEDICATIONS:See Below ALLERGIES:See Below VITALS:See Below PHYSICAL EXAMINATION: GENERAL: Awake, alert, chronically ill-appearing, in no distress HENT: Normocephalic, atraumatic. Oropharynx with dry mucous membranes and otherwise unremarkable. EYES: Normal conjunctiva. Sclera non-icteric. EOMI. No nystamgus. PEARRL. NECK: Supple. No nuchal rigidity. FROM. No JVD. RESPIRATORY: Clear to auscultation. CARDIAC: Regular rate, normal rhythm. Extremities warm and well perfused. Pulses equal. ABDOMEN: Soft, non-distended. No tenderness to palpation. No rebound or guarding. No masses. RECTAL: Deferred. MUSCULOSKELETAL: Chest examination reveals no tenderness. The back is symmetrical on inspection without obvious abnormality. There is no CVA tenderness to palpation. No joint edema. LOWER EXTREMITIES: Calves are equal size bilaterally and non-tender. No edema. No discoloration. Mild tenderness to the anterior aspect of the left tibia and dorsum of the left foot where there is a punctate wound without discharge at the tip of the distal third phalanx. NEURO: Generalized weakness with 4+/5 strength x 4 ext. No focal sensory or motor deficits noted. SKIN: No rash or jaundice noted. David Navarro MD Past Med/Surg History Medical History Altered mental status occasionally, not all the time -- will get disoriented and forgetful. Cellulitis of left lower extremity Chronic kidney disease, stage IV (severe) pt's daughter denies Contusion of knee, left Diabetes mellitus, type 2 uncontrolled (per daughter) Diabetic foot infection multiple amputation Foot pain from neuropathy and osteomyelitis GERD (gastroesophageal reflux disease) History of amputation of toe revision of Left second toe amputation done at [facility] 05/2018. History of high cholesterol Taking no meds at this time History of revision of total replacement of left knee joint HLD (hyperlipidemia) HTN (hypertension) Hx of deep venous thrombosis "long time ago" s/p foot injury -- no problems since. Murmur, cardiac Osteomyelitis of left lower extremity Peripheral neuropathy numbness, tingling and burning of both feet UTI (urinary tract infection) multiple Surgical History History of Achilles tendon repair right History of adenoidectomy History of amputation TOES - 6 partial amputations with a partial x2 on great toe resulting in complete amputation 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 History of appendectomy History of arthroscopy RT/LEFT SHOULDER History of cataract surgery RT/LEFT History of cholecystectomy History of colonoscopy History of esophagogastroduodenoscopy (EGD) History of partial amputation of toe Multiple History of shoulder surgery rotator cuff both shoulders History of tonsillectomy History of tooth extraction History of total knee replacement Bilateral Hx of hysterectomy, total Hx of sinus surgery Family History Other No family history of adverse response to anesthesia No family history of bleeding disorder No pertinent family history Social History Smoking Status: Never smoker Second Hand Exposure: No; Do You Dip or Chew Tobacco: No; Tobacco Cessation Education Requested by Patient: No Hx Alcohol Use: No Hx Substance Use: No Preferred Language: Bermudian Communication Ability: Effective Environmental Maintenance Worker Required: No Beliefs That Will Affect Care: None marital status: Current Living Situation: Family current occupational status: retired Other Information That Helps Us Care for You: No Feels Safe at Home: Yes Safety Concerns: Feels Safe At This Time Assistive Devices: Denture - Upper, Glasses and Walker Allergies Allergies Allergy/AdvReac Type Severity Reaction Status Date / Time Iodinated Contrast Media Allergy Intermediate HIVES AND Verified 08/18/20 12:19 HOT FLASHES azithromycin Allergy Unknown Unknown Verified 08/18/20 12:19 hydrocodone AdvReac Severe Confusion Verified 08/18/20 12:19 oxycodone AdvReac Severe CONFUSION Verified 08/18/20 12:19 LAKSHMI WHEN SHE TAKES 2 TABS- Macrolide Antibiotics AdvReac Mild UPSET Verified 08/18/20 12:19 STOMACH Home Meds Home Medications Medication Instructions Recorded Confirmed Levemir U-100 Insulin 0 unit SUBCUT ACHS 04/04/18 08/18/20 lisinopril 5 mg tablet 5 mg PO QAM 11/07/18 08/18/20 cyanocobalamin (vitamin B-12) 1,000 mcg PO QAM 10/27/19 08/18/20 [Vitamin B-12] gabapentin 300 mg PO BID 10/27/19 08/18/20 acetaminophen [Tylenol Extra 1,000 mg PO BID 06/05/20 08/18/20 Strength] aspirin 81 mg PO QAM 07/24/20 08/18/20 meloxicam 7.5 mg PO QAM 07/24/20 08/18/20 Previous Rx's Medication Instructions Recorded Shalom orourke [Florastor] 250 mg PO BID #60 cap 05/26/20 Results & Data (ED) Vital Signs Vital Signs - 24 hr 08/18/20 11:52 08/18/20 11:58 08/18/20 12:30 Temperature 37.1 C Temperature Source Oral Pulse Rate 79 63 Pulse Rhythm Regular Regular Pulse Strength Normal Respiratory Rate 18 18 Respiratory Effort / Characteristics Non-Labored Spontaneous Non-Labored Respiratory Depth Normal Blood Pressure 188/118 H Blood Pressure Mean 141 Blood Pressure Position Semi-fowlers Pulse Oximetry 100 99 97 Oxygen Delivery Method Room Air Room Air Room Air Sepsis Recent Fever Within 48 Hours No Sepsis New/Unexplained Change in Mental Status Yes Sepsis Action Taken by Nursing No Action Required Laboratory Data Attestation: I reviewed the patient's lab results. Result diagrams: 08/18/20 16:12 08/18/20 15:28 Lab Results 08/18/20 08/18/20 08/18/20 Range/Units 12:45 14:00 14:00 WBC RBC Hgb Hct MCV MCH MCHC RDW Std Deviation RDW Coeff of Phil Plt Count MPV Immature Gran % (Auto) Neut % (Auto) Lymph % (Auto) [place] % (Auto) Eos % (Auto) Baso % (Auto) Neut # (Auto) Lymph # (Auto) [place] # (Auto) Eos # (Auto) Baso # (Auto) Immature Gran # (Auto) Absolute Nucleated RBC Nucleated RBC % (auto) Neutrophils % (Manual) Band Neutrophils % Lymphocytes % (Manual) Prolymphocyte % Reactive Lymphs % (Man) Monocytes % (Manual) Eosinophils % (Manual) Basophils % (Manual) Metamyelocytes % (Man) Myelocytes % (Man) Promyelocytes % (Man) Blast Cells % (Manual) Plasma Cell % (Manual) Other Cells % Nucleated RBC % Neutrophils # (Manual) Band Neutrophils # Total Absolute Neuts Lymphocytes # (Manual) Prolymphocyte # Reactive Lymphs # Total Abs Lymphocytes Monocytes # (Manual) Eosinophils # (Manual) Basophils # (Manual) Metamyelocytes # (Man) Myelocytes # (Manual) Promyelocytes # (Man) Blast Cells # (Man) Plasma Cell # (Manual) Other Cells # Nucleated RBCs # (Man) Hypersegmented Neuts Hyposegmented Neuts Hypogranular Neuts Large Granular Lymphs # Lrg Granular Lymphs Hairy Cells Smudge Cells Toxic Granulation Toxic Vacuolation Dohle Bodies Alvarado Rods Platelet Estimate Hypogranular Platelets Clumped Platelets Giant Platelets Platelet Satelliting RBC Morphology Polychromasia Hypochromasia Poikilocytosis Basophilic Stippling Anisocytosis Microcytosis Macrocytosis Spherocytes Pappenheimer Bodies Sickle Cells Target Cells Tear Drop Cells Ovalocytes Stomatocytes [place] Bodies Echinocytes Acanthocytes (Spur) Rouleaux RBC Agglutinates Schistocytes RBC Morph Comment ESR Sezary Cell PT INR APTT PTT Ratio Sodium 142 (136-145) mmol/L Potassium (3.5-5.1) mmol/L Chloride 112 H (98-107) mmol/L Carbon Dioxide 23 (21-32) mmol/L Anion Gap 7.0 (3-11) BUN 26 H (7-18) mg/dl Creatinine 0.81 (0.6-1.2) mg/dl Est Cr Clr Drug Dosing Not Reportable Est GFR ( Amer) 80.1 ml/min Est GFR (Non-Af Amer) 69.1 ml/min BUN/Creatinine Ratio 31.7 H (10-20) Glucose 88 (70-99) mg/dl Lactate (0.4-2.0) mmol/L Calcium 8.8 (8.5-10.1) mg/dl Phosphorus 3.2 (2.5-4.9) mg/dl Magnesium (1.8-2.4) mg/dl Total Bilirubin 0.2 (0.2-1) mg/dl Direct Bilirubin (0-0.2) mg/dl AST (15-37) U/L ALT 19 (12-78) U/L Alkaline Phosphatase 78 (45-117) U/L Troponin I < 0.015 (0-0.045) ng/ml C-Reactive Protein < 0.29 (0-0.29) mg/dl Total Protein 6.5 (6.4-8.2) gm/dl Albumin 3.3 L (3.4-5.0) gm/dl Globulin 3.2 (2.5-4.0) gm/dl Albumin/Globulin Ratio 1.0 (0.9-2) Procalcitonin < 0.05 (0-0.5) ng/ml TSH 0.521 (0.300-4.500) uIu/ml Specimen Hemolysis Urine Color Yellow Urine Appearance Cloudy A (Clear) Urine pH 6.5 (4.5-7.5) Ur Specific [place] 1.015 (1.000-1.030) Urine Protein Negative (Negative) Urine Glucose (UA) Negative (Negative) Urine Ketones Negative (Negative) Urine Blood Negative (Negative) Urine Nitrite Negative (Negative) Urine Bilirubin Negative (Negative) Urine Urobilinogen Negative (Negative) Ur Leukocyte Esterase 2+ H (Negative) Urine WBC (Auto) >30 H (0-5) /hpf Urine RBC (Auto) 0-4 (0-4) /hpf U Hyaline Cast (Auto) 1-5 (0-5) /lpf U Epithel Cells (Auto) 0-5 (0-5) /lpf Urine Bacteria (Auto) 3+ H (Negative) 08/18/20 08/18/20 08/18/20 Range/Units 14:00 14:00 14:00 WBC Cancelled RBC Cancelled Hgb Cancelled Hct Cancelled MCV Cancelled MCH Cancelled MCHC Cancelled RDW Std Deviation Cancelled RDW Coeff of Phil Cancelled Plt Count Cancelled MPV Cancelled Immature Gran % (Auto) Cancelled Neut % (Auto) Cancelled Lymph % (Auto) Cancelled [place] % (Auto) Cancelled Eos % (Auto) Cancelled Baso % (Auto) Cancelled Neut # (Auto) Cancelled Lymph # (Auto) Cancelled [place] # (Auto) Cancelled Eos # (Auto) Cancelled Baso # (Auto) Cancelled Immature Gran # (Auto) Cancelled Absolute Nucleated RBC Cancelled Nucleated RBC % (auto) Cancelled Neutrophils % (Manual) Cancelled Band Neutrophils % Cancelled Lymphocytes % (Manual) Cancelled Prolymphocyte % Cancelled Reactive Lymphs % (Man) Cancelled Monocytes % (Manual) Cancelled Eosinophils % (Manual) Cancelled Basophils % (Manual) Cancelled Metamyelocytes % (Man) Cancelled Myelocytes % (Man) Cancelled Promyelocytes % (Man) Cancelled Blast Cells % (Manual) Cancelled Plasma Cell % (Manual) Cancelled Other Cells % Cancelled Nucleated RBC % Cancelled Neutrophils # (Manual) Cancelled Band Neutrophils # Cancelled Total Absolute Neuts Cancelled Lymphocytes # (Manual) Cancelled Prolymphocyte # Cancelled Reactive Lymphs # Cancelled Total Abs Lymphocytes Cancelled Monocytes # (Manual) Cancelled Eosinophils # (Manual) Cancelled Basophils # (Manual) Cancelled Metamyelocytes # (Man) Cancelled Myelocytes # (Manual) Cancelled Promyelocytes # (Man) Cancelled Blast Cells # (Man) Cancelled Plasma Cell # (Manual) Cancelled Other Cells # Cancelled Nucleated RBCs # (Man) Cancelled Hypersegmented Neuts Cancelled Hyposegmented Neuts Cancelled Hypogranular Neuts Cancelled Large Granular Lymphs Cancelled # Lrg Granular Lymphs Cancelled Hairy Cells Cancelled Smudge Cells Cancelled Toxic Granulation Cancelled Toxic Vacuolation Cancelled Dohle Bodies Cancelled Alvarado Rods Cancelled Platelet Estimate Cancelled Hypogranular Platelets Cancelled Clumped Platelets Cancelled Giant Platelets Cancelled Platelet Satelliting Cancelled RBC Morphology Cancelled Polychromasia Cancelled Hypochromasia Cancelled Poikilocytosis Cancelled Basophilic Stippling Cancelled Anisocytosis Cancelled Microcytosis Cancelled Macrocytosis Cancelled Spherocytes Cancelled Pappenheimer Bodies Cancelled Sickle Cells Cancelled Target Cells Cancelled Tear Drop Cells Cancelled Ovalocytes Cancelled Stomatocytes Cancelled [place] Bodies Cancelled Echinocytes Cancelled Acanthocytes (Spur) Cancelled Rouleaux Cancelled RBC Agglutinates Cancelled Schistocytes Cancelled RBC Morph Comment Cancelled ESR Sezary Cell Cancelled PT Cancelled INR Cancelled APTT Cancelled PTT Ratio Cancelled Sodium (136-145) mmol/L Potassium (3.5-5.1) mmol/L Chloride (98-107) mmol/L Carbon Dioxide (21-32) mmol/L Anion Gap (3-11) BUN (7-18) mg/dl Creatinine (0.6-1.2) mg/dl Est Cr Clr Drug Dosing Est GFR ( Amer) ml/min Est GFR (Non-Af Amer) ml/min BUN/Creatinine Ratio (10-20) Glucose (70-99) mg/dl Lactate 1.4 (0.4-2.0) mmol/L Calcium (8.5-10.1) mg/dl Phosphorus (2.5-4.9) mg/dl Magnesium (1.8-2.4) mg/dl Total Bilirubin (0.2-1) mg/dl Direct Bilirubin (0-0.2) mg/dl AST (15-37) U/L ALT (12-78) U/L Alkaline Phosphatase (45-117) U/L Troponin I (0-0.045) ng/ml C-Reactive Protein (0-0.29) mg/dl Total Protein (6.4-8.2) gm/dl Albumin (3.4-5.0) gm/dl Globulin (2.5-4.0) gm/dl Albumin/Globulin Ratio (0.9-2) Procalcitonin (0-0.5) ng/ml TSH (0.300-4.500) uIu/ml Specimen Hemolysis Urine Color Urine Appearance (Clear) Urine pH (4.5-7.5) Ur Specific [place] (1.000-1.030) Urine Protein (Negative) Urine Glucose (UA) (Negative) Urine Ketones (Negative) Urine Blood (Negative) Urine Nitrite (Negative) Urine Bilirubin (Negative) Urine Urobilinogen (Negative) Ur Leukocyte Esterase (Negative) Urine WBC (Auto) (0-5) /hpf Urine RBC (Auto) (0-4) /hpf U Hyaline Cast (Auto) (0-5) /lpf U Epithel Cells (Auto) (0-5) /lpf Urine Bacteria (Auto) (Negative) 08/18/20 08/18/20 08/18/20 Range/Units 14:00 15:28 15:28 WBC Cancelled RBC Cancelled Hgb Cancelled Hct Cancelled MCV Cancelled MCH Cancelled MCHC Cancelled RDW Std Deviation Cancelled RDW Coeff of Phil Cancelled Plt Count Cancelled MPV Cancelled Immature Gran % (Auto) Cancelled Neut % (Auto) Cancelled Lymph % (Auto) Cancelled [place] % (Auto) Cancelled Eos % (Auto) Cancelled Baso % (Auto) Cancelled Neut # (Auto) Cancelled Lymph # (Auto) Cancelled [place] # (Auto) Cancelled Eos # (Auto) Cancelled Baso # (Auto) Cancelled Immature Gran # (Auto) Cancelled Absolute Nucleated RBC Cancelled Nucleated RBC % (auto) Cancelled Neutrophils % (Manual) Cancelled Band Neutrophils % Cancelled Lymphocytes % (Manual) Cancelled Prolymphocyte % Cancelled Reactive Lymphs % (Man) Cancelled Monocytes % (Manual) Cancelled Eosinophils % (Manual) Cancelled Basophils % (Manual) Cancelled Metamyelocytes % (Man) Cancelled Myelocytes % (Man) Cancelled Promyelocytes % (Man) Cancelled Blast Cells % (Manual) Cancelled Plasma Cell % (Manual) Cancelled Other Cells % Cancelled Nucleated RBC % Cancelled Neutrophils # (Manual) Cancelled Band Neutrophils # Cancelled Total Absolute Neuts Cancelled Lymphocytes # (Manual) Cancelled Prolymphocyte # Cancelled Reactive Lymphs # Cancelled Total Abs Lymphocytes Cancelled Monocytes # (Manual) Cancelled Eosinophils # (Manual) Cancelled Basophils # (Manual) Cancelled Metamyelocytes # (Man) Cancelled Myelocytes # (Manual) Cancelled Promyelocytes # (Man) Cancelled Blast Cells # (Man) Cancelled Plasma Cell # (Manual) Cancelled Other Cells # Cancelled Nucleated RBCs # (Man) Cancelled Hypersegmented Neuts Cancelled Hyposegmented Neuts Cancelled Hypogranular Neuts Cancelled Large Granular Lymphs Cancelled # Lrg Granular Lymphs Cancelled Hairy Cells Cancelled Smudge Cells Cancelled Toxic Granulation Cancelled Toxic Vacuolation Cancelled Dohle Bodies Cancelled Alvarado Rods Cancelled Platelet Estimate Cancelled Hypogranular Platelets Cancelled Clumped Platelets Cancelled Giant Platelets Cancelled Platelet Satelliting Cancelled RBC Morphology Cancelled Polychromasia Cancelled Hypochromasia Cancelled Poikilocytosis Cancelled Basophilic Stippling Cancelled Anisocytosis Cancelled Microcytosis Cancelled Macrocytosis Cancelled Spherocytes Cancelled Pappenheimer Bodies Cancelled Sickle Cells Cancelled Target Cells Cancelled Tear Drop Cells Cancelled Ovalocytes Cancelled Stomatocytes Cancelled [place] Bodies Cancelled Echinocytes Cancelled Acanthocytes (Spur) Cancelled Rouleaux Cancelled RBC Agglutinates Cancelled Schistocytes Cancelled RBC Morph Comment Cancelled ESR Cancelled Sezary Cell Cancelled PT INR APTT PTT Ratio Sodium (136-145) mmol/L Potassium 5.1 (3.5-5.1) mmol/L Chloride (98-107) mmol/L Carbon Dioxide (21-32) mmol/L Anion Gap (3-11) BUN (7-18) mg/dl Creatinine (0.6-1.2) mg/dl Est Cr Clr Drug Dosing Est GFR ( Amer) ml/min Est GFR (Non-Af Amer) ml/min BUN/Creatinine Ratio (10-20) Glucose (70-99) mg/dl Lactate (0.4-2.0) mmol/L Calcium (8.5-10.1) mg/dl Phosphorus (2.5-4.9) mg/dl Magnesium 2.5 H (1.8-2.4) mg/dl Total Bilirubin (0.2-1) mg/dl Direct Bilirubin (0-0.2) mg/dl AST 24 (15-37) U/L ALT (12-78) U/L Alkaline Phosphatase (45-117) U/L Troponin I (0-0.045) ng/ml C-Reactive Protein (0-0.29) mg/dl Total Protein (6.4-8.2) gm/dl Albumin (3.4-5.0) gm/dl Globulin (2.5-4.0) gm/dl Albumin/Globulin Ratio (0.9-2) Procalcitonin (0-0.5) ng/ml TSH (0.300-4.500) uIu/ml Specimen Hemolysis Urine Color Urine Appearance (Clear) Urine pH (4.5-7.5) Ur Specific [place] (1.000-1.030) Urine Protein (Negative) Urine Glucose (UA) (Negative) Urine Ketones (Negative) Urine Blood (Negative) Urine Nitrite (Negative) Urine Bilirubin (Negative) Urine Urobilinogen (Negative) Ur Leukocyte Esterase (Negative) Urine WBC (Auto) (0-5) /hpf Urine RBC (Auto) (0-4) /hpf U Hyaline Cast (Auto) (0-5) /lpf U Epithel Cells (Auto) (0-5) /lpf Urine Bacteria (Auto) (Negative) 08/18/20 08/18/20 08/18/20 Range/Units 16:12 16:12 16:13 WBC 5.46 RBC 4.17 L Hgb 12.1 Hct 36.1 L MCV 86.6 MCH 29.0 MCHC 33.5 RDW Std Deviation 42.4 RDW Coeff of Phil 13.3 Plt Count 211 MPV 10.1 Immature Gran % (Auto) 0.2 Neut % (Auto) 58.8 Lymph % (Auto) 27.7 [place] % (Auto) 8.2 Eos % (Auto) 4.9 Baso % (Auto) 0.2 Neut # (Auto) 3.21 Lymph # (Auto) 1.51 [place] # (Auto) 0.45 Eos # (Auto) 0.27 Baso # (Auto) 0.01 Immature Gran # (Auto) 0.01 Absolute Nucleated RBC Nucleated RBC % (auto) Neutrophils % (Manual) Band Neutrophils % Lymphocytes % (Manual) Prolymphocyte % Reactive Lymphs % (Man) Monocytes % (Manual) Eosinophils % (Manual) Basophils % (Manual) Metamyelocytes % (Man) Myelocytes % (Man) Promyelocytes % (Man) Blast Cells % (Manual) Plasma Cell % (Manual) Other Cells % Nucleated RBC % Neutrophils # (Manual) Band Neutrophils # Total Absolute Neuts Lymphocytes # (Manual) Prolymphocyte # Reactive Lymphs # Total Abs Lymphocytes Monocytes # (Manual) Eosinophils # (Manual) Basophils # (Manual) Metamyelocytes # (Man) Myelocytes # (Manual) Promyelocytes # (Man) Blast Cells # (Man) Plasma Cell # (Manual) Other Cells # Nucleated RBCs # (Man) Hypersegmented Neuts Hyposegmented Neuts Hypogranular Neuts Large Granular Lymphs # Lrg Granular Lymphs Hairy Cells Smudge Cells Toxic Granulation Toxic Vacuolation Dohle Bodies Alvarado Rods Platelet Estimate Hypogranular Platelets Clumped Platelets Giant Platelets Platelet Satelliting RBC Morphology Polychromasia Hypochromasia Poikilocytosis Basophilic Stippling Anisocytosis Microcytosis Macrocytosis Spherocytes Pappenheimer Bodies Sickle Cells Target Cells Tear Drop Cells Ovalocytes Stomatocytes [place] Bodies Echinocytes Acanthocytes (Spur) Rouleaux RBC Agglutinates Schistocytes RBC Morph Comment ESR 13 Sezary Cell PT INR APTT PTT Ratio Sodium (136-145) mmol/L Potassium (3.5-5.1) mmol/L Chloride (98-107) mmol/L Carbon Dioxide (21-32) mmol/L Anion Gap (3-11) BUN (7-18) mg/dl Creatinine (0.6-1.2) mg/dl Est Cr Clr Drug Dosing Est GFR ( Amer) ml/min Est GFR (Non-Af Amer) ml/min BUN/Creatinine Ratio (10-20) Glucose (70-99) mg/dl Lactate (0.4-2.0) mmol/L Calcium (8.5-10.1) mg/dl Phosphorus (2.5-4.9) mg/dl Magnesium (1.8-2.4) mg/dl Total Bilirubin (0.2-1) mg/dl Direct Bilirubin (0-0.2) mg/dl AST (15-37) U/L ALT (12-78) U/L Alkaline Phosphatase (45-117) U/L Troponin I (0-0.045) ng/ml C-Reactive Protein < 0.29 (0-0.29) mg/dl Total Protein (6.4-8.2) gm/dl Albumin (3.4-5.0) gm/dl Globulin (2.5-4.0) gm/dl Albumin/Globulin Ratio (0.9-2) Procalcitonin (0-0.5) ng/ml TSH (0.300-4.500) uIu/ml Specimen Hemolysis Urine Color Urine Appearance (Clear) Urine pH (4.5-7.5) Ur Specific [place] (1.000-1.030) Urine Protein (Negative) Urine Glucose (UA) (Negative) Urine Ketones (Negative) Urine Blood (Negative) Urine Nitrite (Negative) Urine Bilirubin (Negative) Urine Urobilinogen (Negative) Ur Leukocyte Esterase (Negative) Urine WBC (Auto) (0-5) /hpf Urine RBC (Auto) (0-4) /hpf U Hyaline Cast (Auto) (0-5) /lpf U Epithel Cells (Auto) (0-5) /lpf Urine Bacteria (Auto) (Negative) Administered Medications Acetaminophen (Acetaminophen 500 Mg Tab) 500 mg PO BID ALICIA Stop: 09/17/20 20:59 Last Admin: 08/18/20 20:32 Dose: 500 mg Documented by: [id number] Gabapentin (Gabapentin 300 Mg Cap) 300 mg PO BID ALICIA Stop: 09/17/20 20:59 Last Admin: 08/18/20 20:33 Dose: 300 mg Documented by: [id number] Heparin Sodium (Porcine) (Heparin Sod 5,000 Unit/0.5 Ml Vial) 5,000 units SQ Q12 ALICIA Stop: 09/17/20 20:59 Last Admin: 08/18/20 20:33 Dose: 5,000 units Documented by: [id number] Lactated Ringer's (Lr) 1,000 mls @ 70 mls/hr IV .[id number] ONE Stop: 08/19/20 07:44 Last Admin: 08/18/20 19:34 Dose: 70 mls/hr Documented by: [id number] Insulin Aspart (Insulin Aspart 100 Units/Ml 3 Ml Pen) 0 units SC ACHS ALICIA Stop: 09/17/20 20:59 Last Admin: 08/18/20 20:58 Dose: 3 units Documented by: [id number] Cosigned by: [id number] Discontinued Medications Sodium Chloride (Nss) 500 mls @ 999 mls/hr IV .Q31M ONE Stop: 08/18/20 12:50 Last Infusion: 08/18/20 13:41 Dose: 0 mls/hr Documented by: [id number] Admin: 08/18/20 13:10 Dose: 999 mls/hr Documented by: [id number] Ceftriaxone Sodium (Rocephin) 2,000 mg in 70 mls @ 140 mls/hr IV NOW STA Stop: 08/18/20 16:04 Last Infusion: 08/18/20 17:11 Dose: 0 mls/hr Documented by: [id number] Admin: 08/18/20 16:00 Dose: 140 mls/hr Documented by: [id number] Vancomycin HCl 1,750 mg/ (Sodium Chloride) 535 mls @ 200 mls/hr IV NOW ONE Stop: 08/18/20 18:15 Last Infusion: 08/18/20 19:09 Dose: 0 mls/hr Documented by: [id number] Admin: 08/18/20 17:12 Dose: 200 mls/hr Documented by: [id number] Piperacillin Sod/Tazobactam (Sod 3.375 gm/ Dextrose) 115 mls @ 230 mls/hr IV NOW ONE; Protocol Stop: 08/18/20 18:59 Last Infusion: 08/18/20 22:47 Dose: 0 mls/hr Documented by: [id number] Admin: 08/18/20 20:19 Dose: 230 mls/hr Documented by: [id number] Lisinopril (Lisinopril 5 Mg Tab) 5 mg PO NOW ONE Stop: 08/18/20 19:48 Last Admin: 08/18/20 20:19 Dose: 5 mg Documented by: [id number] Imaging Data Radiologist's Impression: Head CT 08/18/20 12:[address] DOSE: 853.38 mGy.cm HISTORY: Altered mental status. TECHNIQUE: Multiaxial CT images of the head were performed without the use of intravenous contrast. Automated exposure control was utilized for this study. A dose lowering technique was utilized adhering to the principles of ALARA. Comparison: Head CT 07/24/2020. Findings: Slightly displaced nasal bone fracture. This is age indeterminate. The visualized paranasal sinuses and mastoid air cells are clear. The calvarium and skull base are intact. There is no mass, hematoma, midline shift, acute infarct. White matter hypodensity is nonspecific but suggestive of microvascular ischemic change. The ventricles and sulci demonstrate mild age-related involutional changes. Impression: 1. No acute intracranial abnormality. 2. Age-indeterminate mild displaced nasal bone fractures. ACT 112: Negative or not required by law. Electronically signed by: Marvin Huddleston M.D. 08/18/2020 2:47 PM Chest X-Ray 08/18/20 12:18 SINGLE VIEW CHEST CLINICAL HISTORY: Sepsis. FINDINGS: An AP, portable, upright chest radiograph is compared to study dated 07/24/2020. Correlation is made with chest CT dated 09/07/2017. The heart is enlarged noting atherosclerotic calcification of the thoracic aorta. The pulmonary vasculature is noncongested. Chronic interstitial thickening is similar to previous. There is mild bibasilar scarring/atelectasis. No airspace consolidation, large pleural effusion, or pneumothorax is seen. The skeletal structures are osteopenic. The bony thorax is grossly intact. Advanced degenerative change is seen in the shoulders with widening of the AC joints. Spondylotic change is also noted in the thoracic spine. IMPRESSION: Cardiomegaly with no acute cardiopulmonary abnormality. ACT 112: Negative or not required by law. Electronically signed by: Curly Lee M.D. 08/18/2020 3:00 PM Foot X-Ray 08/18/20 12:27 XR foot LT 2V CLINICAL HISTORY: Left foot pain. Assess for osteomyelitis. COMPARISON STUDY: Left foot 06/09/2020. FINDINGS: There is again noted prior amputation of the first toe and third toe the level the PIP joint. There is amputation of the second digit at the level of the head of the second metatarsal. There appears a small focal skin ulceration at the residual tip of the left third toe. There is also mild cortical irregularity/lucency at the residual tip of the left third toe. This could represent a developing osteomyelitis. Plantar and posterior calcaneal spurs are again noted. The bones are osteopenic. No fracture or dislocation. IMPRESSION: There appears a small focal skin ulceration at the residual tip of the left third toe with mild underlying cortical irregularity/lucency at the residual head of the proximal phalanx of the left third toe. This could represent a developing osteomyelitis. ACT 112: Negative or not required by law. Electronically signed by: Marvin Huddleston M.D. 08/18/2020 1:20 PM Tibia/Fibula X-Ray 08/18/20 12:27 XR tibia fibula LT 2V HISTORY: 79 years-old Female pain, h/o osteo acute pain of the left lower leg and foot COMPARISON: Left foot radiographs of same day TECHNIQUE: 2 views of the left lower leg FINDINGS: Left knee total joint arthroplasty. Demineralized appearance of the bones. No acute fracture or dislocation. Spurring of the calcaneus. Arterial calcifications. IMPRESSION: No acute fracture. ACT 112: Negative or not required by law. The above report was generated using voice recognition software. It may contain grammatical, syntax or spelling errors. Electronically signed by: Elias Ross M.D. 08/18/2020 3:13 PM Pelvis X-Ray 08/18/20 12:29 XR pelvis 1-2V routine CLINICAL HISTORY: Pelvic pain following fall. COMPARISON: Pelvis radiographs June 05, 2020. CT of the abdomen and pelvis July 24, 2020. FINDINGS: Moderate amount stool within the rectum is noted. Right lower quadrant surgical clips are noted. No acute fracture is identified within the pelvis or hips. The sacroiliac joints and symphysis pubis are intact. Osteo arthritis of both sacroiliac joints is noted. No suspicious osseous lesion is identified by radiography. IMPRESSION: No acute fracture within the pelvis or hips. ACT 112: Negative or not required by law. Electronically signed by: Fabian Porter M.D. 08/18/2020 3:02 PM Discharge Plan Visit Data Chief Complaint: Altered Mental Status ED Provider: David Navarro Discharge Problem: Acute UTI, Acute osteomyelitis of toe of left foot, Generalized weakness Patient Disposition: Admitted As Inpatient Discharge Instructions Interventions: ED Discharge Assessment Last Done: 08/18/20 17:24
[2020-08-18 16:05] LABS: Magnesium 2.5 mg/dl (1.8-2.4); Potassium 5.1 mmol/L (3.5-5.1)
[2020-08-18 16:18] LABS: Basophils # (auto) 0.01 K/uL (0-0.2); Basophils % (auto) 0.2 %; Eosinophils # (auto) 0.27 K/uL (0-0.5); Eosinophils % (auto) 4.9 %; Hematocrit (blood only) 36.1 % (37-47); Hemoglobin 12.1 g/dL (12.0-16.0); Immature Granulocytes # (auto) 0.01 K/uL (0.00-0.02); Immature Granulocytes % (auto) 0.2 %; Lymphocytes # (auto) 1.51 K/uL (1.2-3.4); Lymphocytes % (auto) 27.7 %; Mean Corpuscular Hgb Conc 33.5 g/dL (32-36); Mean Corpuscular Volume 86.6 fL (80-100); Mean Platelet Volume 10.1 fL (7.4-10.4); Monocytes # (auto) 0.45 K/uL (0.11-0.59); Monocytes % (auto) 8.2 %; Neutrophils # (auto) 3.21 K/uL (1.4-6.5); Neutrophils % (auto) 58.8 %; Platelet Count 211 K/uL (130-400); RDW Coefficient of Variation 13.3 % (11.5-14.5); RDW Standard Deviation 42.4 fL (36.4-46.3); Red Blood Count 4.17 M/uL (4.2-5.4); White Blood Count 5.46 K/uL (4.8-10.8)
[2020-08-18] MEDS ORDERED: PIPERACILL/TAZOBAC CONSULT ACTIVE PRN (16:35)
--- NOTE | 2020-08-18 16:56 | History & Physical Report ---
Date of Service August 18, 2020 Assessment & Plan (1) Acute delirium: Patient appears to have some chronic delirium and baseline memory dysfunction - This episode of worsening delirium is likely metabolic related to her ? UTI or ? Developing osteo - Once her infectious workup is completed and/or therapeutics work can consider pharmacoligc agent - If needed for behavior control while in hospital- consider Haldol or adding stable dose of olanzapine or seroquel. - Outpatient work up for her memory concerns and dysfunction She is a high fall risk and risk to pull out devices- 1:1 monitoring (2) UTI (urinary tract infection): Patient with review of multiple UTI- she had a cysto in 2019- with no pathological cause- could consider methenamine if persistent - She comes in delirious from her baseline with UA per HPI - Change ABX to Zosyn 3.375 gm q 8hour - Pending urine culture - No CVA tenderness (3) Diabetic foot infection: As above- Zosyn 3.375mg q8 - CRP/ESR pending - PCT negative - WBC not elevated - Received 1 dose of Vancomycin in the EMD- can re-order if clinically warranted. - Ortho consulted to weigh in on osteo picture as she had appointment with them later this week. (4) Diabetes mellitus with neuropathy: Sliding scale insulin with CF DM2 diet History of Present Illness Primary Care Provider: Zhanna Bauer, DO 79 YOF with past medical history of DM on insulin, neuropathy, HTN, delirium, falls, bilateral total knees, partial amputations of first, second, and third toe. Patient follows with [facility] Dr. Cintron. Patient was brought in today by her daughter and her caregiver. The patient lives at home with her . She has care assistants there through the day and evening, and is then with her daughter for the night. Over the past 2-3 days they have been noticing increase in her confusion and delirium at night. Last night she got up and started packing all her clothes up and threw her husban's stuff on the floor. The patient did not want to go to the ER yesterday but did come today. She came today after she fell this morning on her way back from her bedside toilet hitting her face on her bed. She was not using her walker. She reportedly gets like this when she has an infection and was recently admitted in May for concern of UTI and after a fall injuring her knee. Her daughter was not at the bedside, but was reportedly concerned about her left third toe looking worse from an infection standpoint and the caregiver reports that over the past 2-3 days that she may have had some chills and noticed a change to the smell of her urine. She did not report any mucous/pus or blood in her urine. She has neuropathy to her feet, so does not endorse any worsening discomfort to her feet. In the ER the patient had a pelvis xray, tib/fib xray, chest xray, and head CT performed. She does have a displaced nasal bone fracture with age indeterminant with no involvement of the sinuses or surrounding tissues. Left foot x-ray with ? developing osteomyelitis. She had a UA done that was clean catch and (+) for WBC 30 per HPF and LE no protein or blood and was cloudy in appearance. She was given 1 dose of Ceftriaxone and 1 Dose of Vancomycin both IV while in the ED. She will be admitted for infectious workup, orthopaedics consult, antibiotics. Pending blood and urine cultures and inflammatory biomarkers. She will be placed on 1:1 with her delirium and fall risk. Allergies Allergy/AdvReac Type Severity Reaction Status Date / Time Iodinated Contrast Media Allergy Intermediate HIVES AND Verified 08/18/20 12:19 HOT FLASHES azithromycin Allergy Unknown Unknown Verified 08/18/20 12:19 hydrocodone AdvReac Severe Confusion Verified 08/18/20 12:19 oxycodone AdvReac Severe CONFUSION Verified 08/18/20 12:19 LAKSHMI WHEN SHE TAKES 2 TABS- Macrolide Antibiotics AdvReac Mild UPSET Verified 08/18/20 12:19 STOMACH Home Medications Medication Instructions Recorded Confirmed Type Levemir U-100 Insulin 0 unit SUBCUT ACHS 04/04/18 08/18/20 History lisinopril 5 mg tablet 5 mg PO QAM 11/07/18 08/18/20 History cyanocobalamin (vitamin B-12) 1,000 mcg PO QAM 10/27/19 08/18/20 History [Vitamin B-12] gabapentin 300 mg PO BID 10/27/19 08/18/20 History Saccharomyces boulardii [Florastor] 250 mg PO BID #60 cap 05/26/20 08/18/20 Rx acetaminophen [Tylenol Extra 1,000 mg PO BID 06/05/20 08/18/20 History Strength] aspirin 81 mg PO QAM 07/24/20 08/18/20 History meloxicam 7.5 mg PO QAM 07/24/20 08/18/20 History Past Med/Surg History Medical History Altered mental status occasionally, not all the time -- will get disoriented and forgetful. Cellulitis of left lower extremity Chronic kidney disease, stage IV (severe) pt's daughter denies Contusion of knee, left Diabetes mellitus, type 2 uncontrolled (per daughter) Diabetic foot infection multiple amputation Foot pain from neuropathy and osteomyelitis GERD (gastroesophageal reflux disease) History of amputation of toe revision of Left second toe amputation done at [facility] 05/2018. History of high cholesterol Taking no meds at this time History of revision of total replacement of left knee joint HLD (hyperlipidemia) HTN (hypertension) Hx of deep venous thrombosis "long time ago" s/p foot injury -- no problems since. Murmur, cardiac Osteomyelitis of left lower extremity Peripheral neuropathy numbness, tingling and burning of both feet UTI (urinary tract infection) multiple Surgical History History of Achilles tendon repair right History of adenoidectomy History of amputation TOES - 6 partial amputations with a partial x2 on great toe resulting in complete amputation 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 History of appendectomy History of arthroscopy RT/LEFT SHOULDER History of cataract surgery RT/LEFT History of cholecystectomy History of colonoscopy History of esophagogastroduodenoscopy (EGD) History of partial amputation of toe Multiple History of shoulder surgery rotator cuff both shoulders History of tonsillectomy History of tooth extraction History of total knee replacement Bilateral Hx of hysterectomy, total Hx of sinus surgery Family History Other No family history of adverse response to anesthesia No family history of bleeding disorder No pertinent family history Social History Smoking Status: Never smoker Second Hand Exposure: No; Do You Dip or Chew Tobacco: No; Tobacco Cessation Education Requested by Patient: No Hx Alcohol Use: No Hx Substance Use: No Preferred Language: Portuguese Communication Ability: Effective Dispatch Coordinator Required: No Beliefs That Will Affect Care: None marital status: Current Living Situation: Family current occupational status: retired Other Information That Helps Us Care for You: No Feels Safe at Home: Yes Safety Concerns: Feels Safe At This Time Assistive Devices: Cane, Denture - Upper, Glasses, Walker and Wheelchair Review of Systems Review of Systems: REVIEW OF SYSTEMS: Constitutional: (?) fever, sweats or chills Eyes: No diplopia, no worsening or blurred vision ENT: normal hearing, no trouble swallowing Respiratory: No cough, sputum, dyspnea at rest or on exertion Cardiovascular: No chest pain, tightness or palpitations Abdomen: No pain, nausea, vomiting, diarrhea or constipation Musculoskeletal: No joint pain, calf pain, swelling Neurologic: (+) weakness, balance problems, (-) acute focal changes Psychiatric: (+) deilirium No anxiety or depression Skin: No rash or itch Physical Exam Physical Exam: PHYSICAL EXAM: General: awake, pleasantly confused, alert, no apparent distress Head: Normocephalic, no ecchymosis or swelling ENT: PERRLA, EOMI, no pharyngeal exudate, mucous membranes moist Neuro: AAO x 1, speech clear, but confused on events and location, strength intact bilaterally 5/5, sensation intact and equal all extremities and dermatomes, no pronator drift Chest: equal rise and fall of the chest, no accessory muscle use, no heaves or thirlls, Clear to auscultation, on room air, Cardiac: Regular rate and rhythm, telemetry reviewed, skin warm dry, cap refill <3 seconds, peripheral pulses +2 no JVD, no murmur, no edema GI: NABS x 4 quadrants, soft, nontender to palpation, no rebound, guarding or tenderness : Spontaneously voiding, no pain, no CVA tenderness, (+) odor to urine Extremities: left third toe slight redness with ulceration in healing stage, other extremities Normal inspection, no peripheral edema or erythema, calfs nontender to palpation Psych: Normal mood and affect Skin: no rash or erythema Results & Data Results & Data ([facility]) Vital Signs (Past 12 Hours) Vital Signs Temp Pulse Resp BP Pulse Ox 08/18/20 12:30 63 18 97 08/18/20 11:58 99 08/18/20 11:52 37.1 C 79 18 188/118 H 100 Laboratory Results Abnormal lab results 08/18/20 08/18/20 08/18/20 Range/Units 12:45 14:00 15:28 RBC (4.2-5.4) M/uL Hct (37-47) % Chloride 112 H (98-107) mmol/L BUN 26 H (7-18) mg/dl BUN/Creatinine Ratio 31.7 H (10-20) Magnesium 2.5 H (1.8-2.4) mg/dl Albumin 3.3 L (3.4-5.0) gm/dl Urine Appearance Cloudy A (Clear) Ur Leukocyte Esterase 2+ H (Negative) Urine WBC (Auto) >30 H (0-5) /hpf Urine Bacteria (Auto) 3+ H (Negative) 08/18/20 Range/Units 16:12 RBC 4.17 L (4.2-5.4) M/uL Hct 36.1 L (37-47) % Chloride (98-107) mmol/L BUN (7-18) mg/dl BUN/Creatinine Ratio (10-20) Magnesium (1.8-2.4) mg/dl Albumin (3.4-5.0) gm/dl Urine Appearance (Clear) Ur Leukocyte Esterase (Negative) Urine WBC (Auto) (0-5) /hpf Urine Bacteria (Auto) (Negative) Diagnostic Findings Head CT 08/18/20 12:[address] DOSE: 853.38 mGy.cm HISTORY: Altered mental status. TECHNIQUE: Multiaxial CT images of the head were performed without the use of intravenous contrast. Automated exposure control was utilized for this study. A dose lowering technique was utilized adhering to the principles of ALARA. Comparison: Head CT 07/24/2020. Findings: Slightly displaced nasal bone fracture. This is age indeterminate. The visualized paranasal sinuses and mastoid air cells are clear. The calvarium and skull base are intact. There is no mass, hematoma, midline shift, acute infarct. White matter hypodensity is nonspecific but suggestive of microvascular ischemic change. The ventricles and sulci demonstrate mild age-related involutional changes. Impression: 1. No acute intracranial abnormality. 2. Age-indeterminate mild displaced nasal bone fractures. Chest X-Ray 08/18/20 12:18 SINGLE VIEW CHEST CLINICAL HISTORY: Sepsis. FINDINGS: An AP, portable, upright chest radiograph is compared to study dated 07/24/2020. Correlation is made with chest CT dated 09/07/2017. The heart is enlarged noting atherosclerotic calcification of the thoracic aorta. The pulmonary vasculature is non-congested. Chronic interstitial thickening is similar to previous. There is mild bibasilar scarring/atelectasis. No airspace consolidation, large pleural effusion, or pneumothorax is seen. The skeletal structures are osteopenic. The bony thorax is grossly intact. Advanced degenerative change is seen in the shoulders with widening of the AC joints. Spondylotic change is also noted in the thoracic spine. IMPRESSION: Cardiomegaly with no acute cardiopulmonary abnormality. Foot X-Ray 08/18/20 12:27 XR foot LT 2V CLINICAL HISTORY: Left foot pain. Assess for osteomyelitis. COMPARISON STUDY: Left foot 06/09/2020. FINDINGS: There is again noted prior amputation of the first toe and third toe the level the PIP joint. There is amputation of the second digit at the level of the head of the second metatarsal. There appears a small focal skin ulceration at the residual tip of the left third toe. There is also mild cortical irregularity/lucency at the residual tip of the left third toe. This could represent a developing osteomyelitis. Plantar and posterior calcaneal spurs are again noted. The bones are osteopenic. No fracture or dislocation. IMPRESSION: There appears a small focal skin ulceration at the residual tip of the left third toe with mild underlying cortical irregularity/lucency at the residual head of the proximal phalanx of the left third toe. This could represent a developing osteomyelitis. Tibia/Fibula X-Ray 08/18/20 12:27 XR tibia fibula LT 2V HISTORY: 79 years-old Female pain, h/o osteo acute pain of the left lower leg and foot COMPARISON: Left foot radiographs of same day TECHNIQUE: 2 views of the left lower leg FINDINGS: Left knee total joint arthroplasty. Demineralized appearance of the bones. No acute fracture or dislocation. Spurring of the calcaneus. Arterial calcifications. IMPRESSION: No acute fracture. Pelvis X-Ray 08/18/20 12:29 XR pelvis 1-2V routine CLINICAL HISTORY: Pelvic pain following fall. COMPARISON: Pelvis radiographs June 05, 2020. CT of the abdomen and pelvis July 24, 2020. FINDINGS: Moderate amount stool within the rectum is noted. Right lower quadrant surgical clips are noted. No acute fracture is identified within the pelvis or hips. The sacroiliac joints and symphysis pubis are intact. Osteoarthritis of both sacroiliac joints is noted. No suspicious osseous lesion is identified by radiography. IMPRESSION: No acute fracture within the pelvis or hips. Medications Administered Discontinued Medications Sodium Chloride (Nss) 500 mls @ 999 mls/hr IV .Q31M ONE Stop: 08/18/20 12:50 Last Admin: 08/18/20 13:10 Dose: 999 mls/hr Documented by: [id number] Ceftriaxone Sodium (Rocephin) 2,000 mg in 70 mls @ 140 mls/hr IV NOW STA Stop: 08/18/20 16:04 Last Admin: 08/18/20 16:00 Dose: 140 mls/hr Documented by: [id number] Home Medications Levemir U-100 Insulin 0 unit SUBCUT ACHS 04/04/18 [History Confirmed 08/18/20] lisinopril 5 mg tablet 5 mg PO QAM 11/07/18 [History Confirmed 08/18/20] cyanocobalamin (vitamin B-12) [Vitamin B-12] 1,000 mcg PO QAM 10/27/19 [History Confirmed 08/18/20] gabapentin 300 mg PO BID 10/27/19 [History Confirmed 08/18/20] Saccharomyces boulardii [Florastor] 250 mg PO BID #60 cap 05/26/20 [Rx Confirmed 08/18/20] acetaminophen [Tylenol Extra Strength] 1,000 mg PO BID 06/05/20 [History Confirmed 08/18/20] aspirin 81 mg PO QAM 07/24/20 [History Confirmed 08/18/20] meloxicam 7.5 mg PO QAM 07/24/20 [History Confirmed 08/18/20] Active Medications Vancomycin HCl 1,750 mg/ (Sodium Chloride) 535 mls @ 200 mls/hr IV NOW ONE Stop: 08/18/20 18:15 Miscellaneous Information (Vancomycin Consult Active) 1 ea N/A UD PRN PRN Reason: Consult Stop: 09/17/20 15:34 Miscellaneous Information (Piperacill/Tazobac Consult Active) 1 ea N/A UD PRN PRN Reason: Consult Stop: 09/17/20 16:34 ECG Additional Comments: Sinus rhythm with 1st degree A-V block Left axis deviation Septal infarct (cited on or before 18-AUG-2020) Abnormal ECG When compared with ECG of 24-JUL-2020 15:39, No significant change was found Code Status & VTE Plan Code Status CODE: FULL VTE: SCD's, Heparin 5000 Sub q q12 Supervising Physician Co-Signing Physician Notes Patient was seen and examined independently I discussed the case with David OVALLE I reviewed pertinent past medical social family history and also the plan of care and agree with the plan of care. Patient is likely has a metabolic encephalopathy possibly from urinary source. There is incidentally found atypical changes of the distal phalanx from previous amputated left third toe. This is of undetermined clinical significance and will have orthopedic weigh in. Antibiotics cover her urinary source will also cover this possible osteomyelitis. Patient was seen in the presence of her daughter she is pleasantly confused talking about her mother (she is 79) and generally not being clear with her orientation to time Her left third toe does not look particularly infectious there is no fluctuance or purulence expressed the phalanx is abnormal due to previous partial distal amputation patient's had multiple toe amputations from previous infections on both her feet her feet. The patient is chronically incontinent and does have a history of previous urinary tract infections in July it was E. coli with resistance to amp and amoxicillin but sensitivities to Zosyn. 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
[2020-08-18] MEDS ORDERED: LACTATED RINGER'S 1,000 ML IV ONE (17:27)
[2020-08-18] MEDS ORDERED: ONDANSETRON INJ 2 MG/ML 2 ML VIAL IV PRN (17:40)
[2020-08-18] MEDS ORDERED: POLYETHYLENE (MIRALAX) 17 GM PACK PO PRN (17:40)
[2020-08-18] MEDS ORDERED: ACETAMINOPHEN 325 MG TAB PO PRN (17:40)
[2020-08-18] MEDS ORDERED: DEXTROSE 50% 50 ML SYRINGE IV PRN (17:40)
[2020-08-18] MEDS ORDERED: CARBOHYDRATES FOR HYPOGLYCEMIA PO PRN (17:40)
[2020-08-18] MEDS ORDERED: GLUCOSE 40% GEL 15 GM TUBE PO PRN (17:40)
[2020-08-18] MEDS ORDERED: GLUCOSE 10 TABS/TUBE PO PRN (17:40)
[2020-08-18] MEDS ORDERED: GLUCAGON FOR INJ 1 MG VIAL SQ PRN (17:40)
[2020-08-18] MEDS ORDERED: PATIENT'S HEIGHT AND/OR WEIGHT NEEDED SCH (18:00)
--- NOTE | 2020-08-18 18:03 | Electrocardiogram Report ---
Test Reason : Blood Pressure : / mmHG Vent. Rate : 076 BPM Atrial Rate : 076 BPM P-R Int : 254 ms QRS Dur : 086 ms QT Int : 394 ms P-R-T Axes : -10 -37 -05 degrees QTc Int : 443 ms Sinus rhythm with 1st degree A-V block Left axis deviation Abnormal ECG When compared with ECG of 24-JUL-2020 15:39, No significant change was found Confirmed by Damián Lundy ([id number]) on 08/18/2020 6:03:43 PM Referred By: REFERRED SELF Confirmed By:Derick Lundy
[2020-08-18] MEDS ORDERED: PIPERACILLIN/TAZOBACTAM 3.375 GM in DEXTROSE 5% 100 ML IV ONE (18:30)
[2020-08-18] MEDS ORDERED: lisinopril 5 MG TAB PO ONE (19:47)
[2020-08-18] MEDS: ACETAMINOPHEN 500 MG TAB PO SCH (20:32)
[2020-08-18] MEDS: HEPARIN SOD 5,000 UNIT/0.5 ML VIAL SQ SCH (20:33)
[2020-08-18] MEDS: GABAPENTIN 300 MG CAP PO SCH (20:33)
[2020-08-18] MEDS: INSULIN ASPART 100 UNITS/ML 3 ML PEN SC SCH (20:58)
[2020-08-18] MEDS ORDERED: HEPARIN SOD 5,000 UNIT/0.5 ML VIAL SQ SCH (21:00)
[2020-08-19] MEDS: PIPERACILLIN/TAZOBACTAM 3.375 GM in DEXTROSE 5% 100 ML IV SCH ×3 (00:52→16:19)
[2020-08-19] MEDS: VANCOMYCIN HCL 750 MG in SODIUM CHLORIDE 0.9% 250 ML IV SCH ×2 (05:21→17:45)
[2020-08-19 06:52] LABS: Basophils # (auto) 0.01 K/uL (0-0.2); Basophils % (auto) 0.2 %; Eosinophils # (auto) 0.39 K/uL (0-0.5); Eosinophils % (auto) 8.4 %; Hematocrit (blood only) 34.1 % (37-47); Hemoglobin 11.3 g/dL (12.0-16.0); Immature Granulocytes # (auto) 0.01 K/uL (0.00-0.02); Immature Granulocytes % (auto) 0.2 %; Lymphocytes # (auto) 0.99 K/uL (1.2-3.4); Lymphocytes % (auto) 21.3 %; Mean Corpuscular Hemoglobin 28.8 pg (25-34); Mean Corpuscular Hgb Conc 33.1 g/dL (32-36); Mean Corpuscular Volume 86.8 fL (80-100); Mean Platelet Volume 10.4 fL (7.4-10.4); Monocytes # (auto) 0.56 K/uL (0.11-0.59); Monocytes % (auto) 12.1 %; Neutrophils # (auto) 2.68 K/uL (1.4-6.5); Neutrophils % (auto) 57.8 %; Platelet Count 176 K/uL (130-400); RDW Coefficient of Variation 13.2 % (11.5-14.5); RDW Standard Deviation 42.7 fL (36.4-46.3); Red Blood Count 3.93 M/uL (4.2-5.4); White Blood Count 4.64 K/uL (4.8-10.8)
[2020-08-19 07:27] LABS: Calcium 8.2 mg/dl (8.5-10.1); Creatinine Clr Calc Pharmacy 48.4 ml/min; Est GFR (African American) 71.4 ml/min; Est GFR (Non-African American) 61.6 ml/min; Magnesium 2.2 mg/dl (1.8-2.4); Potassium 4.3 mmol/L (3.5-5.1)
[2020-08-19 07:31] LABS: Estimated Average Glucose 140 mg/dl; Hemoglobin A1C 6.5 % (4.5-5.6)
[2020-08-19] MEDS: ASPIRIN 81 MG ECTAB PO SCH (09:07)
[2020-08-19] MEDS: ACETAMINOPHEN 500 MG TAB PO SCH ×2 (09:07→22:05)
[2020-08-19] MEDS: GABAPENTIN 300 MG CAP PO SCH ×2 (09:07→22:05)
[2020-08-19] MEDS: CYANOCOBALAMIN 500 MCG TABLET (VITAMIN B-12) PO SCH (09:07)
[2020-08-19] MEDS: lisinopril 5 MG TAB PO SCH (09:08)
[2020-08-19] MEDS: HEPARIN SOD 5,000 UNIT/0.5 ML VIAL SQ SCH ×2 (09:08→22:05)
[2020-08-19] MEDS: INSULIN ASPART 100 UNITS/ML 3 ML PEN SC SCH ×4 (09:10→21:11)
--- NOTE | 2020-08-19 10:02 | Pharmacy Report ---
Pharmacy Abx Dose Short Note - Date of Service August 19, 2020 - Assessment & Plan Assessment 79 year old F admitted yesterday secondary to acute delirium. * PMHx significant for T2DM, neuropathy, HTN, delirium, falls, b/l TKAs, partial amputations of first/second/third toes. * Left foot XR concerning for osteomyelitis. Possibility of UTI as well. * Urine culture growing alpha strep not enterococcus. * Afbrile and without leukocytosis. * Started on Vancomycin and Zosyn Plan Vancomycin * Loading dose: 1750 mg (26 mg/kg) IV x 1 * Maintenance dose: 750 mg (11 mg/kg) IV every 12 hours * Goal AUC/BEATA is 400-600 mg/L.hr * AUC/BEATA is the preferred PK/PD target for Vancomycin * Trough ordered for tomorrow morning to assess AUC/BEATA Zosyn * 3.375 g IV every 8 hours Pharmacy will continue to follow and will adjust dose/frequency as necessary. Thank you.
[2020-08-19] MEDS ORDERED: SODIUM CHLORIDE 0.45 % 1,000 ML IV SCH (12:15)
[2020-08-19] MEDS ORDERED: HALOPERIDOL LACTATE 5 MG/ML 1 ML VIAL IM STA ×2 (12:50→21:39)
--- NOTE | 2020-08-19 15:28 | Orthopedic Consultation ---
Date of Consultation August 19, 2020 Assessment & Plan (1) Diabetic foot ulcer: Recommended keeping some type of dressing on the left third toe. May want to consider wound care for some Aquacel. Or light dressing to keep it from draining on her sock. She can keep it elevated. Postop shoe when out of bed. She can weight-bear as tolerated. Continue IV antibiotics. I did talk things over with her daughter Rosalba and she is aware that Dr. Reddy is out of the office this week. She would like somebody else to remove the toe while she is here in the hospital. There has been discussion as an outpatient as revising this third toe amputation. She would like it done sooner rather than later. I have discussed this with Dr. Montiel and Dr. Arriaza to see if they have any availability this week to perform that surgery. In the meantime continue present treatment. She understands and agrees with the plan. Once I know if someone is able to do it we will make her n.p.o. and obtain consent. If not she will need to follow-up as an outpatient with Dr. Reddy next week. I, Dr. Montiel, saw and examined the patient with my PA and agree with the above findings and plan of care. She is NPO after midnight and will take to OR tomorrow for left 3rd toe revision amputation. The informed consent was signed by her daughter who is the POA. History of Present Illness Reason for Consultation: Right third toe wound, possible osteomyelitis Attending Physician: Julien Avalos History of Present Illness Patient has been dealing with an open wound of her 3rd toe. s.She has been seeing Dr. Reddy for care of her left third toe wound. It has remained stable and they have been covering with dressings. On Tuesday it started becoming more painful, red and swollen. It started draining more. She was unable to bear weight comfortably. She was brought to the emergency room yesterday due to increased pain and inability to weight-bear. She was admitted for care. She was found to have a UTI as well as a possible osteomyelitic left third toe. She states that is a little better today. She is moving her toe without significant pain. It is still open and mildly draining. Was seen and evaluated by Dr. Montiel as well as myself. Allergies Allergy/AdvReac Type Severity Reaction Status Date / Time Iodinated Contrast Media Allergy Intermediate HIVES AND Verified 08/18/20 12:19 HOT FLASHES azithromycin Allergy Unknown Unknown Verified 08/18/20 12:19 hydrocodone AdvReac Severe Confusion Verified 08/18/20 12:19 oxycodone AdvReac Severe CONFUSION Verified 08/18/20 12:19 LAKSHMI WHEN SHE TAKES 2 TABS- Macrolide Antibiotics AdvReac Mild UPSET Verified 08/18/20 12:19 STOMACH Home Medications Medication Instructions Recorded Confirmed Type Levemir U-100 Insulin 0 unit SUBCUT ACHS 04/04/18 08/18/20 History lisinopril 5 mg tablet 5 mg PO QAM 11/07/18 08/18/20 History cyanocobalamin (vitamin B-12) 1,000 mcg PO QAM 10/27/19 08/18/20 History [Vitamin B-12] gabapentin 300 mg PO BID 10/27/19 08/18/20 History Saccharomyces boulardii [Florastor] 250 mg PO BID #60 cap 05/26/20 08/18/20 Rx acetaminophen [Tylenol Extra 1,000 mg PO BID 06/05/20 08/18/20 History Strength] aspirin 81 mg PO QAM 07/24/20 08/18/20 History meloxicam 7.5 mg PO QAM 07/24/20 08/18/20 History Patient History Medical History Altered mental status occasionally, not all the time -- will get disoriented and forgetful. Cellulitis of left lower extremity Chronic kidney disease, stage IV (severe) pt's daughter denies Contusion of knee, left Diabetes mellitus, type 2 uncontrolled (per daughter) Diabetic foot infection multiple amputation Foot pain from neuropathy and osteomyelitis GERD (gastroesophageal reflux disease) History of amputation of toe revision of Left second toe amputation done at [facility] 05/2018. History of high cholesterol Taking no meds at this time History of revision of total replacement of left knee joint HLD (hyperlipidemia) HTN (hypertension) Hx of deep venous thrombosis "long time ago" s/p foot injury -- no problems since. Murmur, cardiac Osteomyelitis of left lower extremity Peripheral neuropathy numbness, tingling and burning of both feet UTI (urinary tract infection) multiple Surgical History History of Achilles tendon repair right History of adenoidectomy History of amputation TOES - 6 partial amputations with a partial x2 on great toe resulting in complete amputation 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 History of appendectomy History of arthroscopy RT/LEFT SHOULDER History of cataract surgery RT/LEFT History of cholecystectomy History of colonoscopy History of esophagogastroduodenoscopy (EGD) History of partial amputation of toe Multiple History of shoulder surgery rotator cuff both shoulders History of tonsillectomy History of tooth extraction History of total knee replacement Bilateral Hx of hysterectomy, total Hx of sinus surgery Family History Other No family history of adverse response to anesthesia No family history of bleeding disorder No pertinent family history Social History Smoking Status: Never smoker Second Hand Exposure: No; Do You Dip or Chew Tobacco: No; Tobacco Cessation Education Requested by Patient: No Hx Alcohol Use: No Hx Substance Use: No Preferred Language: Latvian Communication Ability: Impaired Psychiatric Nurse Practitioner Required: No Beliefs That Will Affect Care: None marital status: Current Living Situation: Family current occupational status: retired Other Information That Helps Us Care for You: No Feels Safe at Home: Yes Safety Concerns: Feels Safe At This Time Assistive Devices: Glasses Physical Exam Musculoskeletal: Exam of her left third toe: It is soft with palpation, erythematous. There is a pinpoint opening at the very distal aspect of the toe with some serous drainage. It is not specifically tender with palpation today although she does have some chronic neuropathy. Distal pulses are 1+. Capillary refill is brisk. All other toes are benign. Previous incisions on her left foot from her first and second toe amputations are healing nicely. She is nontender with palpation of the MTP joint of the third toe. Results & Data ([facility]) Vital Signs (Past 12 Hours) Vital Signs Temp Pulse Resp BP BP Pulse Ox 08/19/20 15:16 36.8 C 78 16 159/81 H 98 08/19/20 06:56 36.8 C 81 16 163/79 H 98 Laboratory Results 08/19/20 08/19/20 08/19/20 Range/Units 11:15 08:15 06:20 WBC (4.8-10.8) K/uL RBC (4.2-5.4) M/uL Hgb (12.0-16.0) g/dL Hct (37-47) % MCV (80-100) fL MCH (25-34) pg MCHC (32-36) g/dL RDW Std Deviation (36.4-46.3) fL RDW Coeff of Phil (11.5-14.5) % Plt Count (130-400) K/uL MPV (7.4-10.4) fL Immature Gran % (Auto) % Neut % (Auto) % Lymph % (Auto) % [place] % (Auto) % Eos % (Auto) % Baso % (Auto) % Neut # (Auto) (1.4-6.5) K/uL Lymph # (Auto) (1.2-3.4) K/uL [place] # (Auto) (0.11-0.59) K/uL Eos # (Auto) (0-0.5) K/uL Baso # (Auto) (0-0.2) K/uL Immature Gran # (Auto) (0.00-0.02) K/uL ESR (0-30) mm/hr Sodium (136-145) mmol/L Potassium (3.5-5.1) mmol/L Chloride (98-107) mmol/L Carbon Dioxide (21-32) mmol/L Anion Gap (3-11) BUN (7-18) mg/dl Creatinine (0.6-1.2) mg/dl Est Cr Clr Drug Dosing ml/min Est GFR ( Amer) ml/min Est GFR (Non-Af Amer) ml/min BUN/Creatinine Ratio (10-20) Glucose (70-99) mg/dl POC Glucose 165 H 116 H (70-99) mg/dl Estimat Average Glucose 140 mg/dl Hemoglobin A1c 6.5 H (4.5-5.6) % Calcium (8.5-10.1) mg/dl Magnesium (1.8-2.4) mg/dl AST (15-37) U/L C-Reactive Protein (0-0.29) mg/dl Triglycerides (0-150) mg/dl Cholesterol (0-200) mg/dl LDL Cholesterol, Calc mg/dl VLDL Cholesterol, Calc mg/dl HDL Cholesterol mg/dl Cholesterol/HDL Ratio Specimen Hemolysis 08/19/20 08/19/20 08/18/20 Range/Units 06:20 06:20 20:53 WBC 4.64 L (4.8-10.8) K/uL RBC 3.93 L (4.2-5.4) M/uL Hgb 11.3 L (12.0-16.0) g/dL Hct 34.1 L (37-47) % MCV 86.8 (80-100) fL MCH 28.8 (25-34) pg MCHC 33.1 (32-36) g/dL RDW Std Deviation 42.7 (36.4-46.3) fL RDW Coeff of Phil 13.2 (11.5-14.5) % Plt Count 176 (130-400) K/uL MPV 10.4 (7.4-10.4) fL Immature Gran % (Auto) 0.2 % Neut % (Auto) 57.8 % Lymph % (Auto) 21.3 % [place] % (Auto) 12.1 % Eos % (Auto) 8.4 % Baso % (Auto) 0.2 % Neut # (Auto) 2.68 (1.4-6.5) K/uL Lymph # (Auto) 0.99 L (1.2-3.4) K/uL [place] # (Auto) 0.56 (0.11-0.59) K/uL Eos # (Auto) 0.39 (0-0.5) K/uL Baso # (Auto) 0.01 (0-0.2) K/uL Immature Gran # (Auto) 0.01 (0.00-0.02) K/uL ESR (0-30) mm/hr Sodium 142 (136-145) mmol/L Potassium 4.3 D (3.5-5.1) mmol/L Chloride 113 H (98-107) mmol/L Carbon Dioxide 25 (21-32) mmol/L Anion Gap 4.0 (3-11) BUN 20 H (7-18) mg/dl Creatinine 0.89 (0.6-1.2) mg/dl Est Cr Clr Drug Dosing 48.4 ml/min Est GFR ( Amer) 71.4 ml/min Est GFR (Non-Af Amer) 61.6 ml/min BUN/Creatinine Ratio 23.0 H (10-20) Glucose 110 H (70-99) mg/dl POC Glucose 192 H (70-99) mg/dl Estimat Average Glucose mg/dl Hemoglobin A1c (4.5-5.6) % Calcium 8.2 L (8.5-10.1) mg/dl Magnesium 2.2 (1.8-2.4) mg/dl AST (15-37) U/L C-Reactive Protein (0-0.29) mg/dl Triglycerides 171 H (0-150) mg/dl Cholesterol 178 (0-200) mg/dl LDL Cholesterol, Calc 110 mg/dl VLDL Cholesterol, Calc 34 mg/dl HDL Cholesterol 34 mg/dl Cholesterol/HDL Ratio 5 Specimen Hemolysis 08/18/20 08/18/20 08/18/20 Range/Units 18:38 16:13 16:12 WBC 5.46 (4.8-10.8) K/uL RBC 4.17 L (4.2-5.4) M/uL Hgb 12.1 (12.0-16.0) g/dL Hct 36.1 L (37-47) % MCV 86.6 (80-100) fL MCH 29.0 (25-34) pg MCHC 33.5 (32-36) g/dL RDW Std Deviation 42.4 (36.4-46.3) fL RDW Coeff of Phil 13.3 (11.5-14.5) % Plt Count 211 (130-400) K/uL MPV 10.1 (7.4-10.4) fL Immature Gran % (Auto) 0.2 % Neut % (Auto) 58.8 % Lymph % (Auto) 27.7 % [place] % (Auto) 8.2 % Eos % (Auto) 4.9 % Baso % (Auto) 0.2 % Neut # (Auto) 3.21 (1.4-6.5) K/uL Lymph # (Auto) 1.51 (1.2-3.4) K/uL [place] # (Auto) 0.45 (0.11-0.59) K/uL Eos # (Auto) 0.27 (0-0.5) K/uL Baso # (Auto) 0.01 (0-0.2) K/uL Immature Gran # (Auto) 0.01 (0.00-0.02) K/uL ESR (0-30) mm/hr Sodium (136-145) mmol/L Potassium (3.5-5.1) mmol/L Chloride (98-107) mmol/L Carbon Dioxide (21-32) mmol/L Anion Gap (3-11) BUN (7-18) mg/dl Creatinine (0.6-1.2) mg/dl Est Cr Clr Drug Dosing ml/min Est GFR ( Amer) ml/min Est GFR (Non-Af Amer) ml/min BUN/Creatinine Ratio (10-20) Glucose (70-99) mg/dl POC Glucose 82 (70-99) mg/dl Estimat Average Glucose mg/dl Hemoglobin A1c (4.5-5.6) % Calcium (8.5-10.1) mg/dl Magnesium (1.8-2.4) mg/dl AST (15-37) U/L C-Reactive Protein < 0.29 (0-0.29) mg/dl Triglycerides (0-150) mg/dl Cholesterol (0-200) mg/dl LDL Cholesterol, Calc mg/dl VLDL Cholesterol, Calc mg/dl HDL Cholesterol mg/dl Cholesterol/HDL Ratio Specimen Hemolysis 08/18/20 08/18/20 Range/Units 16:12 15:28 WBC (4.8-10.8) K/uL RBC (4.2-5.4) M/uL Hgb (12.0-16.0) g/dL Hct (37-47) % MCV (80-100) fL MCH (25-34) pg MCHC (32-36) g/dL RDW Std Deviation (36.4-46.3) fL RDW Coeff of Phil (11.5-14.5) % Plt Count (130-400) K/uL MPV (7.4-10.4) fL Immature Gran % (Auto) % Neut % (Auto) % Lymph % (Auto) % [place] % (Auto) % Eos % (Auto) % Baso % (Auto) % Neut # (Auto) (1.4-6.5) K/uL Lymph # (Auto) (1.2-3.4) K/uL [place] # (Auto) (0.11-0.59) K/uL Eos # (Auto) (0-0.5) K/uL Baso # (Auto) (0-0.2) K/uL Immature Gran # (Auto) (0.00-0.02) K/uL ESR 13 (0-30) mm/hr Sodium (136-145) mmol/L Potassium 5.1 (3.5-5.1) mmol/L Chloride (98-107) mmol/L Carbon Dioxide (21-32) mmol/L Anion Gap (3-11) BUN (7-18) mg/dl Creatinine (0.6-1.2) mg/dl Est Cr Clr Drug Dosing ml/min Est GFR ( Amer) ml/min Est GFR (Non-Af Amer) ml/min BUN/Creatinine Ratio (10-20) Glucose (70-99) mg/dl POC Glucose (70-99) mg/dl Estimat Average Glucose mg/dl Hemoglobin A1c (4.5-5.6) % Calcium (8.5-10.1) mg/dl Magnesium 2.5 H (1.8-2.4) mg/dl AST 24 (15-37) U/L C-Reactive Protein (0-0.29) mg/dl Triglycerides (0-150) mg/dl Cholesterol (0-200) mg/dl LDL Cholesterol, Calc mg/dl VLDL Cholesterol, Calc mg/dl HDL Cholesterol mg/dl Cholesterol/HDL Ratio Specimen Hemolysis Diagnostic Findings XR foot LT 2V CLINICAL HISTORY: Left foot pain. Assess for osteomyelitis. COMPARISON STUDY: Left foot 06/09/2020. FINDINGS: There is again noted prior amputation of the first toe and third toe the level the PIP joint. There is amputation of the second digit at the level of the head of the second metatarsal. There appears a small focal skin ulceration at the residual tip of the left third toe. There is also mild cortical irregularity/lucency at the residual tip of the left third toe. This could represent a developing osteomyelitis. Plantar and posterior calcaneal spurs are again noted. The bones are osteopenic. No fracture or dislocation. IMPRESSION: There appears a small focal skin ulceration at the residual tip of the left third toe with mild underlying cortical irregularity/lucency at the residual head of the proximal phalanx of the left third toe. This could re present a developing osteomyelitis.
--- NOTE | 2020-08-19 22:30 | Hospitalist Progress Note ---
Date of Service August 19, 2020 Assessment & Plan (1) Acute delirium: Patient appears to have some chronic delirium and baseline memory dysfunction - This episode of worsening delirium is likely metabolic related to her ? UTI or ? Developing osteo - Once her infectious workup is completed and/or therapeutics work can consider pharmacoligc agent - If needed for behavior control while in hospital- consider Haldol or adding stable dose of olanzapine or seroquel. - Outpatient work up for her memory concerns and dysfunction Patient continues to be confused. She requires Haldol as she is becoming aggressive. (2) UTI (urinary tract infection): Patient with review of multiple UTI- she had a cysto in 2019- with no pathological cause- could consider methenamine if persistent - She comes in delirious from her baseline with UA per HPI - Change ABX to Zosyn 3.375 gm q 8hour - Pending urine culture - No CVA tenderness (3) Diabetic foot infection: As above- Zosyn 3.375mg q8 - CRP/ESR pending - PCT negative - WBC not elevated - Received 1 dose of Vancomycin in the EMD- can re-order if clinically warranted. - Ortho consulted to weigh in on osteo picture as she had appointment with them later this week. May require amputation awaiting input. (4) Diabetes mellitus with neuropathy: Sliding scale insulin with CF DM2 diet Admission and Anticipated Discharge Date Admission Date: August 18, 2020 Subjective Patient is confused. Reports we are having shooters in the hospital. Later during the day, she began spitting at the staff. Review of Systems Review of Systems: All systems reviewed & are unremarkable except as noted in HPI & below Physical Exam Physical Exam: General: awake, pleasantly confused, alert, no apparent distress Head: Normocephalic, no ecchymosis or swelling ENT: PERRLA, EOMI, no pharyngeal exudate, mucous membranes moist Neuro: AAO x 1, speech clear, but confused on events and location, strength intact bilaterally 5/5, sensation intact and equal all extremities and dermatomes, no pronator drift Chest: equal rise and fall of the chest, no accessory muscle use, no heaves or thirlls, Clear to auscultation, on room air, Cardiac: Regular rate and rhythm, telemetry reviewed, skin warm dry, cap refill <3 seconds, peripheral pulses +2 no JVD, no murmur, no edema GI: NABS x 4 quadrants, soft, nontender to palpation, no rebound, guarding or tenderness : Spontaneously voiding, no pain, no CVA tenderness, (+) odor to urine Extremities: left third toe slight redness with ulceration in healing stage, other extremities Normal inspection, no peripheral edema or erythema, calfs nontender to palpation Psych: Normal mood and affect Skin: no rash or erythema Results & Data Results & Data ([facility]) Vital Signs (Past 12 Hours) Vital Signs Temp Pulse Resp BP Pulse Ox 08/19/20 15:16 36.8 C 78 16 159/81 H 98 PG Care Time/CCT Total # of Minutes Spent Total Time Spent with Patient: Total time spent is greater than 50% in coordination of care (as documented) at patient's floor/unit and/or counseling patient: Coding Level of Care Code 63157 Subseq Hosp Care Lvl 3 Diagnoses Acute delirium R41.0 UTI (urinary tract infection) N39.0 Hematuria presence: without hematuria Urinary tract infection type: site unspecified Diabetic foot infection E11.628; L08.9 Diabetes mellitus with neuropathy E11.40; Z79.4 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
[2020-08-20] MEDS: PIPERACILLIN/TAZOBACTAM 3.375 GM in DEXTROSE 5% 100 ML IV SCH ×3 (01:15→16:01)
[2020-08-20] MEDS ORDERED: VANCOMYCIN TROUGH ONE (05:30)
[2020-08-20 05:54] LABS: Basophils # (auto) 0.01 K/uL (0-0.2); Basophils % (auto) 0.2 %; Eosinophils # (auto) 0.28 K/uL (0-0.5); Hematocrit (blood only) 35.2 % (37-47); Hemoglobin 11.7 g/dL (12.0-16.0); Lymphocytes # (auto) 0.88 K/uL (1.2-3.4); Lymphocytes % (auto) 18.7 %; Mean Corpuscular Hemoglobin 28.6 pg (25-34); Mean Corpuscular Hgb Conc 33.2 g/dL (32-36); Mean Corpuscular Volume 86.1 fL (80-100); Mean Platelet Volume 10.1 fL (7.4-10.4); Monocytes # (auto) 0.54 K/uL (0.11-0.59); Monocytes % (auto) 11.5 %; Neutrophils # (auto) 2.99 K/uL (1.4-6.5); Neutrophils % (auto) 63.6 %; Platelet Count 188 K/uL (130-400); RDW Coefficient of Variation 13.2 % (11.5-14.5); RDW Standard Deviation 41.9 fL (36.4-46.3); Red Blood Count 4.09 M/uL (4.2-5.4)
[2020-08-20] MEDS: METOPROLOL TARTRATE 1 MG/ML VIAL IV PRN ×2 (05:57→23:02)
[2020-08-20] MEDS: VANCOMYCIN HCL 750 MG in SODIUM CHLORIDE 0.9% 250 ML IV SCH ×2 (06:00→18:37)
[2020-08-20 06:20] LABS: BUN Creatinine Ratio 17.8 (10-20); Calcium 8.7 mg/dl (8.5-10.1); Creatinine Clr Calc Pharmacy 47.3 ml/min; Est GFR (African American) 69.5 ml/min; Magnesium 2.3 mg/dl (1.8-2.4); Potassium 3.7 mmol/L (3.5-5.1)
--- NOTE | 2020-08-20 07:22 | Pharmacy Report ---
Pharmacy Abx Dose Short Note - Date of Service August 20, 2020 - Assessment & Plan Assessment 79 year old F admitted secondary to acute delirium * PMHx significant for T2DM, neuropathy, HTN, delirium, falls, b/l TKAs, partial amputations of first/second/third toes. * Left foot XR concerning for osteomyelitis. Possibility of UTI as well. * Ortho consulted and will make patient NPO this morning for revision of third toe amputation. * Urine culture growing alpha strep not enterococcus. * Afbrile and without leukocytosis. * Continues on Vancomycin and Zosyn Plan Vancomycin * Trough level of 16.7 mcg/mL is therapeutic * Continue dose of 750 mg (11 mg/kg) IV every 12 hours * Goal trough level: 15 to 20 mcg/mL * Trough level ordered for 08/22/20 Zosyn * Continues on 3.375 g IV every 8 hours Pharmacy will continue to follow and will adjust dose/frequency as necessary. Thank you.
[2020-08-20] MEDS: lisinopril 5 MG TAB PO SCH (07:56)
[2020-08-20] MEDS: CYANOCOBALAMIN 500 MCG TABLET (VITAMIN B-12) PO SCH (07:57)
[2020-08-20] MEDS: GABAPENTIN 300 MG CAP PO SCH ×2 (07:57→20:46)
[2020-08-20] MEDS: HEPARIN SOD 5,000 UNIT/0.5 ML VIAL SQ SCH ×2 (07:58→20:46)
[2020-08-20] MEDS: ASPIRIN 81 MG ECTAB PO SCH (07:58)
[2020-08-20] MEDS: INSULIN ASPART 100 UNITS/ML 3 ML PEN SC SCH ×4 (07:59→20:54)
--- NOTE | 2020-08-20 08:34 | Anesthesiology Consultation ---
Date of Service August 20, 2020 Assessment & Plan (1) Encounter for pre-operative examination: Chart Review Chart Review: rubber compounder mixer initiated History Surgery Operation Date: 08/20/20 09:00 Proposed Procedures p Left Third Toe Amputation - Darrell Edy Montiel MD Height/Weight Height: 5 ft 4 in Weight: 67.3 kg Allergies Allergy/AdvReac Type Severity Reaction Status Date / Time Iodinated Contrast Media Allergy Intermediate HIVES AND Verified 08/18/20 12:19 HOT FLASHES azithromycin Allergy Unknown Unknown Verified 08/18/20 12:19 hydrocodone AdvReac Severe Confusion Verified 08/18/20 12:19 oxycodone AdvReac Severe CONFUSION Verified 08/18/20 12:19 LAKSHMI WHEN SHE TAKES 2 TABS- Macrolide Antibiotics AdvReac Mild UPSET Verified 08/18/20 12:19 STOMACH Medications Home Medications Medication Instructions Recorded Confirmed Last Taken Levemir U-100 Insulin 0 unit SUBCUT ACHS 04/04/18 08/18/20 08/18/20 lisinopril 5 mg tablet 5 mg PO QAM 11/07/18 08/18/20 08/18/20 cyanocobalamin (vitamin B-12) 1,000 mcg PO QAM 10/27/19 08/18/20 08/18/20 [Vitamin B-12] gabapentin 300 mg PO BID 10/27/19 08/18/20 08/18/20 Saccharomyces boulardii [Florastor] 250 mg PO BID #60 cap 05/26/20 08/18/20 08/18/20 acetaminophen [Tylenol Extra 1,000 mg PO BID 06/05/20 08/18/20 08/18/20 Strength] aspirin 81 mg PO QAM 07/24/20 08/18/20 08/18/20 meloxicam 7.5 mg PO QAM 07/24/20 08/18/20 08/18/20 Active Medications Generic Name Dose Route Start Last Admin Trade Name Freq PRN Reason Stop Dose Admin Aspirin 81 mg 08/19/20 09:00 08/20/20 07:58 Aspirin 81 Mg Ectab PO 09/18/20 08:59 [facility] Cyanocobalamin 1,000 mcg 08/19/20 09:00 08/20/20 07:57 Cyanocobalamin 500 Mcg Tablet (Vitamin B-12) PO 09/18/20 08:59 1,000 mcg QAM ALICIA Administration Gabapentin 300 mg 08/18/20 21:00 08/20/20 07:57 Gabapentin 300 Mg Cap PO 09/17/20 20:59 300 mg BID ALICIA Administration Heparin Sodium (Porcine) 5,000 units 08/18/20 21:00 08/20/20 07:58 Heparin Sod 5,000 Unit/0.5 Ml Vial SQ 09/17/20 20:59 Not Given Q12 ALICIA Piperacillin Sod/Tazobactam 115 mls @ 28.75 mls/hr 08/19/20 00:00 08/20/20 07:55 Sod 3.375 gm/ Dextrose IV 09/30/20 00:00 28 mls/hr Q8H ALICIA Administration Protocol Vancomycin HCl 750 mg/ Sodium 265 mls @ 200 mls/hr 08/19/20 06:00 08/20/20 07:33 Chloride IV 09/30/20 05:59 Infused Q12H ALICIA Infusion Insulin Aspart 0 units 08/18/20 21:00 08/20/20 07:59 Insulin Aspart 100 Units/Ml 3 Ml Pen SC 09/17/20 20:59 Not Given ACHS ALICIA Lisinopril 5 mg 08/19/20 09:00 08/20/20 07:56 Lisinopril 5 Mg Tab PO 09/18/20 08:59 5 mg QAM ALICIA Administration Metoprolol Tartrate 5 mg 08/20/20 05:15 08/20/20 05:57 Metoprolol Tartrate 1 Mg/Ml Vial IV 09/19/20 07:59 5 mg Q4 PRN Administration htn Past Medical History Medical History Altered mental status occasionally, not all the time -- will get disoriented and forgetful. Cellulitis of left lower extremity Chronic kidney disease, stage IV (severe) pt's daughter denies Contusion of knee, left Diabetes mellitus, type 2 uncontrolled (per daughter) Diabetic foot infection multiple amputation Foot pain from neuropathy and osteomyelitis GERD (gastroesophageal reflux disease) History of amputation of toe revision of Left second toe amputation done at [facility] 05/2018. History of high cholesterol Taking no meds at this time History of revision of total replacement of left knee joint HLD (hyperlipidemia) HTN (hypertension) Hx of deep venous thrombosis "long time ago" s/p foot injury -- no problems since. Murmur, cardiac Osteomyelitis of left lower extremity Peripheral neuropathy numbness, tingling and burning of both feet UTI (urinary tract infection) multiple Past Family History Family History Other No family history of adverse response to anesthesia No family history of bleeding disorder No pertinent family history Past Surgical History Surgical History History of Achilles tendon repair right History of adenoidectomy History of amputation TOES - 6 partial amputations with a partial x2 on great toe resulting in complete amputation 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 History of appendectomy History of arthroscopy RT/LEFT SHOULDER History of cataract surgery RT/LEFT History of cholecystectomy History of colonoscopy History of esophagogastroduodenoscopy (EGD) History of partial amputation of toe Multiple History of shoulder surgery rotator cuff both shoulders History of tonsillectomy History of tooth extraction History of total knee replacement Bilateral Hx of hysterectomy, total Hx of sinus surgery Social History Smoking Status: Never smoker Do You Dip or Chew Tobacco: No Hx Alcohol Use: No Hx Substance Use: No substance use type: does not use Physical Exam Vital Signs Last Vital Signs Temp 97.9 F 08/20/20 07:26 Pulse 79 08/20/20 07:26 Resp 18 08/20/20 07:26 BP 205/80 H 08/20/20 07:26 Pulse Ox 96 08/20/20 07:26 Testing Laboratory Results 08/20/20 05:26 08/20/20 05:26 PT Cancelled 08/18/20 14:00 INR Cancelled 08/18/20 14:00 APTT Cancelled 08/18/20 14:00 Hemoglobin A1c 6.5 % (4.5-5.6) H 08/19/20 06:20 Urine Color Yellow 08/18/20 12:45 Urine Appearance Cloudy (Clear) A 08/18/20 12:45 Urine pH 6.5 (4.5-7.5) 08/18/20 12:45 Ur Specific Ayr 1.015 (1.000-1.030) 08/18/20 12:45 Urine Protein Negative (Negative) 08/18/20 12:45 Urine Glucose (UA) Negative (Negative) 08/18/20 12:45 Urine Ketones Negative (Negative) 08/18/20 12:45 Urine Nitrite Negative (Negative) 08/18/20 12:45 Ur Leukocyte Esterase 2+ (Negative) H 08/18/20 12:45 Urine WBC (Auto) >30 /hpf (0-5) H 08/18/20 12:45 Urine RBC (Auto) 0-4 /hpf (0-4) 08/18/20 12:45 U Hyaline Cast (Auto) 1-5 /lpf (0-5) 08/18/20 12:45 U Epithel Cells (Auto) 0-5 /lpf (0-5) 08/18/20 12:45 Urine Bacteria (Auto) 3+ (Negative) H 08/18/20 12:45 08/18/20 13:59 Aerobic Blood Culture - Preliminary Blood No growth in Aerobic bottle after 24 hours. Anaerobic Blood Culture - Final 08/18/20 13:37 Aerobic Blood Culture - Preliminary Blood No growth in Aerobic bottle after 24 hours. Anaerobic Blood Culture - Preliminary No growth in Anaerobic bottle after 24 hours. 08/18/20 12:45 Urine Culture - Preliminary Urine,Straight Cath Alpha strep. not enterococcus 08/20/20 08/19/20 07:20 20:48 POC Glucose 129 H 149 H Electrocardiogram Date: 08/18/20 Sinus rhythm with 1st degree A-V block, rate 76 bpm Left axis deviation Abnormal ECG When compared with ECG of 24-JUL-2020 15:39, No significant change was found Confirmed by Damián Lundy ([id number]) on 08/18/2020 6:03:43 PM Chest X-Ray Date: 08/18/20 IMPRESSION: Cardiomegaly with no acute cardiopulmonary abnormality. Echocardiogram Date: 01/04/18 Normal LV size and systolic function. EF 55%. No regional wall motion abnormalities. Mod concentric LVH. No significant valvular abnormalities visualized. Normal estimated RVSP.
[2020-08-20] MEDS ORDERED: ONDANSETRON INJ 2 MG/ML 2 ML VIAL IV PRN (08:37)
[2020-08-20] MEDS ORDERED: ePHEDrine sulfate 50 MG/ML AMP IV PRN (08:37)
[2020-08-20] MEDS ORDERED: fentaNYL citrate 100 MCG/2 ML VIAL IV PRN (08:37)
[2020-08-20] MEDS ORDERED: ATROPINE SULFATE 0.1 MG/ML 10ML SYR IV PRN (08:37)
[2020-08-20] MEDS ORDERED: LIDOCAINE 2% 2 ML VIAL/AMP(20MG/ML) INFIL ONE (08:39)
[2020-08-20] MEDS ORDERED: PROPOFOL IV EMULSION 10 MG/ML 20 ML VIAL IV ONE ×2 (08:39→09:52)
[2020-08-20] MEDS ORDERED: ePHEDrine sulfate 50 MG/ML SYR ONE (08:39)
[2020-08-20] MEDS ORDERED: fentaNYL citrate 100 MCG/2 ML VIAL ONE (08:40)
--- NOTE | 2020-08-20 08:57 | Orthopedic Progress Note ---
Date of Service August 20, 2020 Assessment & Plan (1) Chronic osteomyelitis of left foot: Plan revision amputation left 3rd toe. Consent form signed yesterday. NPO digit signed. Continue chronic Abx regime. Present on Admission?: Yes Admission and Anticipated Discharge Date Admission Date: August 18, 2020 Subjective Ready for surgery Review of Systems Review of Systems: All systems reviewed & are unremarkable except as noted in HPI & below Physical Exam Physical Exam: Left 3rd toe: Small area at the tip that is ulcerated.. Results & Data ([facility]) Vital Signs (Past 12 Hours) Vital Signs Temp Pulse Pulse Resp BP BP BP 08/20/20 08:30 80 18 148/80 H 08/20/20 07:26 36.6 C 79 18 205/80 H 08/20/20 05:57 90 198/81 H 08/20/20 04:21 198/81 H 08/20/20 03:50 36.6 C 91 H 18 208/84 H 08/20/20 00:34 100 H 08/19/20 23:16 37.0 C 98 H 18 206/84 H Pulse Ox 08/20/20 08:30 96 08/20/20 07:26 96 08/20/20 05:57 08/20/20 04:21 08/20/20 03:50 97 08/20/20 00:34 08/19/20 23:16 96
[2020-08-20] MEDS ORDERED: BUPIVACAINE 0.5 % 5 MG/1 ML MPF 30ML VIAL ONE (09:02)
[2020-08-20] MEDS ORDERED: LIDOCAINE/EPINEPHRINE 1% 20 ML VIAL ONE (09:02)
[2020-08-20] MEDS: LACTATED RINGER'S 1,000 ML IV SCH (09:05)
--- NOTE | 2020-08-20 10:06 | Post Operative Brief Note ---
Immediate Post Op Note v1 Date of Surgery August 20, 2020 Pre & Post Diagnosis Operation Date: 08/20/20 09:00 Pre-Op Diagnosis: Infected left third toe Post-Op Diagnosis: Infected left third toe I identified the patient and participated in the time-out.: Yes Procedure Operation Date: 08/20/20 09:00 Actual Procedures p Left Third Toe Amputation(Left) - Darrell Montiel MD Surgeon Darrell Montiel MD Calender Runner n/a Estimated Blood Loss 2 Findings Consistent with Post-Op Diagnosis Fluids 300 cc Specimens Left 3rd toe Anesthesia Type MAC Complications none
--- NOTE | 2020-08-20 10:07 | Operative Report ---
Post Operative Report Pre & Post Diagnosis Operation Date: 08/20/20 09:00 Pre-Op Diagnosis: Infected left third toe Post-Op Diagnosis: Infected left third toe I identified the patient and participated in the time-out.: Yes Procedure Operation Date: 08/20/20 09:00 Actual Procedures p Left Third Toe Amputation(Left) - Darrell Montiel MD Surgeon Darrell Montiel MD Bookkeeping Machine Mechanic n/a Estimated Blood Loss 2 Findings See Below Ulceration at tip of the left 3rd toe. No purulence noted. Bone decent quality. Articular cartilage of the MCP was intact. Fluids 300 cc Specimens Left 3rd toe Drains n/a Anesthesia Type MAC Complications none Indications The patient is a 79 year old female with history of chonic infection left foot and draining left 3rd toe, with multiple toe amputations, that has not responded to conservative treatment. The patient and her daughter (POA) understand the risks of surgery, which include but are not limited to: bleeding, infection, re-operation, damage to nerves and arteries, and incomplete relief of symptoms. The patient and her daughter (POA) understand all of these instructions and explanations, all of their questions have been satisfactorily addressed. The patient has elected to proceed with surgery and the informed consent was signed. Description of Procedure The patient was taken to the Operating Room and placed in the supine position on the operating table. After a multidisciplinary time-out was performed identifying my initials on the left 3rd toe as the correct and operative limb. The patient is continuing with their regiment of Zosyn and Vancomycin as scheduled. The left leg was prepped and draped in the usual Orthopaedic sterile fashion. A digital nerve block and local anesthetic was injected around the planned racquet incision with 50:50 mix of 1% Lidocaine plain and 0.5% Marcaine with epi. Once the anesthetic had taken affect, the racquet incision was carried down to the bone. The flexor and extensor tendon were incised. A freer was used to identify the MTP joint, which was incised with a scalpel and the proximal phalanx with surround skin was removed and sent as specimen. The wound was copiously irrigated. The extensor and flexor tendons were sutured together over the MTP with 2-0 Vicryl. The skin was closed with 3-0 Prolene. The incision was covered with Xeroform, 4x4's, sterile cast padding and an FLAVIA. The sponge and needle counts were correct. Patient was placed in a post-op shoe. POST-OP INSTRUCTIONS: Patient will be re-admitted to the hospitalist service. Continue antibiotic regime. WBAT with post-op shoe. Change dressing POD #2. I attest to the content of the Intraoperative Record and any orders documented therein. Any exceptions are noted below.
--- NOTE | 2020-08-20 11:02 | Anesthesiology Progress Note ---
Date of Service August 20, 2020 Anesthesia Post Procedure Vital Signs Vital Signs: Temp Pulse Pulse Pulse Resp BP BP 08/20/20 10:50 97.5 F L 74 17 170/84 H 08/20/20 10:40 76 17 174/86 H 08/20/20 10:30 76 14 169/82 H 08/20/20 10:20 73 16 132/71 08/20/20 10:12 97.3 F L 68 14 120/63 08/20/20 09:04 98.1 F 99 H 18 184/80 H 08/20/20 08:30 80 18 148/80 H 08/20/20 07:26 97.9 F 79 18 205/80 H 08/20/20 05:57 90 198/81 H 08/20/20 04:21 08/20/20 03:50 97.9 F 91 H 18 208/84 H 08/20/20 00:34 100 H 08/19/20 23:16 98.6 F 98 H 18 206/84 H 08/19/20 15:16 98.2 F 78 16 BP Pulse Ox 08/20/20 10:50 97 08/20/20 10:40 99 08/20/20 10:30 100 08/20/20 10:20 100 08/20/20 10:12 99 08/20/20 09:04 97 08/20/20 08:30 96 08/20/20 07:26 96 08/20/20 05:57 08/20/20 04:21 198/81 H 08/20/20 03:50 97 08/20/20 00:34 08/19/20 23:16 96 08/19/20 15:16 159/81 H 98 Pain Intensity Left Foot: Pain Intensity: 8 Transfer of Care Handoff Completed per policy Notes Mental Status: alert / awake / arousable and participated in evaluation Patient Amnestic to Procedure: Yes Nausea / Vomiting: adequately controlled Pain: adequately controlled Airway Patency, RR, SpO2: stable & adequate BP & HR: stable & adequate Hydration State: stable & adequate Anesthetic Complications: no major complications apparent and Pt Satisfied with anesthetic care
--- NOTE | 2020-08-20 14:30 | XRay Report ---
XR foot LT min 3V routine CLINICAL HISTORY: Post-op, in PACU COMPARISON: August 18, 2020 DISCUSSION: Interval amputation of the third toe. Stable postoperative changes after first toe amputation and ost eotomy at the region of the second metatarsal bone. Osseous structures are diffusely demineralized which limits evaluation. No significant soft tissue ed tal is seen. No soft tissue gas is seen. Plantar and posterior calcaneal spurs are again seen. Severe vascular calcifications are again seen. IMPRESSION: Postoperative changes as detailed above. ACT 112: Negative or not required by law. The above report was generated using voice recognition software. It may contain grammatical, syntax o r spelling errors. Electronically signed by: Juliette Holland DO 08/20/2020 2:29 PM
--- NOTE | 2020-08-20 22:03 | Hospitalist Progress Note ---
Date of Service August 20, 2020 Assessment & Plan (1) Acute delirium: Patient appears to have some chronic delirium and baseline memory dysfunction - This episode of worsening delirium is likely metabolic related to her ? UTI or ? Developing osteo - Once her infectious workup is completed and/or therapeutics work can consider pharmacologic agent - If needed for behavior control while in hospital- consider Haldol or adding stable dose of olanzapine or seroquel. - Outpatient work up for her memory concerns and dysfunction -Patient reports feeling well. She is less confused. -This is likely secondary to her diabetic foot infection, than her asymptomatic bacteruria vs UTI. Patient no longer requires Haldol. (2) UTI (urinary tract infection): Patient with review of multiple UTI- she had a cysto in 2019- with no pathological cause- could consider methenamine if persistent - She comes in delirious from her baseline with UA per HPI - Change ABX to Zosyn 3.375 gm q 8hour - continue antibiotics for now, unsure how much this is contributing to her delirium. Given that she has other causes to her delirium, which were also infectious, it will be difficult to tease out and say this caused it. -It does not seem like she was having any symptoms. - No CVA tenderness (3) Diabetic foot infection: As above- Zosyn 3.375mg q8 - CRP/ESR pending - PCT negative - WBC not elevated - continue vancomycin S/P amputation. (4) Diabetes mellitus with neuropathy: Sliding scale insulin with CF DM2 diet Admission and Anticipated Discharge Date Admission Date: August 18, 2020 Subjective 79 yo female reports feeling better. Her daughter is at bedside. She has no new complaints. Nurse reports patient is more calm. Review of Systems Review of Systems: All systems reviewed & are unremarkable except as noted in HPI & below Physical Exam Physical Exam: General: awake, pleasantly confused, alert, no apparent distress Head: Normocephalic, no ecchymosis or swelling ENT: PERRLA, EOMI, no pharyngeal exudate, mucous membranes moist Neuro: AAO x 1, speech clear, but confused on events and location, strength intact bilaterally 5/5, sensation intact and equal all extremities and dermatomes, no pronator drift Chest: equal rise and fall of the chest, no accessory muscle use, no heaves or thirlls, Clear to auscultation, on room air, Cardiac: Regular rate and rhythm, telemetry reviewed, skin warm dry, cap refill <3 seconds, peripheral pulses +2 no JVD, no murmur, no edema GI: NABS x 4 quadrants, soft, nontender to palpation, no rebound, guarding or tenderness : Spontaneously voiding, no pain, no CVA tenderness, (+) odor to urine Extremities: left third toe slight redness with ulceration in healing stage, other extremities Normal inspection, no peripheral edema or erythema, calfs nontender to palpation Psych: Normal mood and affect Skin: no rash or erythema Results & Data Results & Data ([facility]) Vital Signs (Past 12 Hours) Vital Signs Temp Pulse Pulse Pulse Resp BP Pulse Ox 08/20/20 19:41 36.8 C 87 12 166/81 H 96 08/20/20 15:13 36.9 C 80 18 170/73 H 95 08/20/20 15:00 68 08/20/20 12:58 84 18 162/68 H 97 08/20/20 12:03 86 18 190/81 H 98 08/20/20 11:39 70 17 206/75 H 96 08/20/20 11:11 36.9 C 78 17 159/82 H 99 08/20/20 10:50 36.4 C L 74 17 170/84 H 97 08/20/20 10:40 76 17 174/86 H 99 08/20/20 10:30 76 14 169/82 H 100 08/20/20 10:20 73 16 132/71 100 08/20/20 10:12 36.3 C L 68 14 120/63 99 PG Care Time/CCT Total # of Minutes Spent Total Time Spent with Patient: Total time spent is greater than 50% in coordin ation of care (as documented) at patient's floor/unit and/or counseling patient: Coding Level of Care Code 84834 Subseq Hosp Care Lvl 3 Diagnoses Acute delirium R41.0 UTI (urinary tract infection) N39.0 Hematuria presence: without hematuria Urinary tract infection type: site unspecified Diabetic foot infection E11.628; L08.9 Diabetes mellitus with neuropathy E11.40; Z79.4 Diabetes mellitus supervisor intermediates insulin use: with alf use Diabetes mellitus type: type 2 Time Spent (min) 35 (1) UTI (urinary tract infection) Hematuria presence: without hematuria Urinary tract infection type: site unspecified Qualified Code(s): N39.0 - Urinary tract infection, site not specified (2) Diabetes mellitus with neuropathy Diabetes mellitus supervisor intermediates insulin use: with alf use Diabetes mellitus type: type 2 Qualified Code(s): E11.40 - Type 2 diabetes mellitus with diabetic neuropathy, unspecified; 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
[2020-08-21] MEDS: PIPERACILLIN/TAZOBACTAM 3.375 GM in DEXTROSE 5% 100 ML IV SCH ×3 (00:18→15:58)
[2020-08-21] MEDS: METOPROLOL TARTRATE 1 MG/ML VIAL IV PRN (04:11)
[2020-08-21] MEDS: VANCOMYCIN HCL 750 MG in SODIUM CHLORIDE 0.9% 250 ML IV SCH ×2 (05:29→17:27)
[2020-08-21 07:30] LABS: Basophils # (auto) 0.02 K/uL (0-0.2); Basophils % (auto) 0.4 %; Eosinophils # (auto) 0.43 K/uL (0-0.5); Eosinophils % (auto) 7.8 %; Hematocrit (blood only) 36.8 % (37-47); Hemoglobin 12.1 g/dL (12.0-16.0); Immature Granulocytes # (auto) 0.01 K/uL (0.00-0.02); Immature Granulocytes % (auto) 0.2 %; Lymphocytes # (auto) 1.08 K/uL (1.2-3.4); Lymphocytes % (auto) 19.6 %; Mean Corpuscular Hemoglobin 28.9 pg (25-34); Mean Corpuscular Hgb Conc 32.9 g/dL (32-36); Mean Platelet Volume 10.2 fL (7.4-10.4); Monocytes # (auto) 0.63 K/uL (0.11-0.59); Monocytes % (auto) 11.4 %; Neutrophils # (auto) 3.35 K/uL (1.4-6.5); Neutrophils % (auto) 60.6 %; Platelet Count 210 K/uL (130-400); RDW Coefficient of Variation 13.3 % (11.5-14.5); RDW Standard Deviation 42.7 fL (36.4-46.3); Red Blood Count 4.18 M/uL (4.2-5.4); White Blood Count 5.52 K/uL (4.8-10.8)
[2020-08-21] MEDS: CYANOCOBALAMIN 500 MCG TABLET (VITAMIN B-12) PO SCH (07:47)
[2020-08-21] MEDS: GABAPENTIN 300 MG CAP PO SCH ×2 (07:47→23:10)
[2020-08-21] MEDS: lisinopril 5 MG TAB PO SCH (07:48)
[2020-08-21] MEDS: ASPIRIN 81 MG ECTAB PO SCH (07:49)
[2020-08-21] MEDS: LACTATED RINGER'S 1,000 ML IV SCH (07:50)
[2020-08-21 08:06] LABS: BUN Creatinine Ratio 20.6 (10-20); Calcium 9.2 mg/dl (8.5-10.1); Creatinine Clr Calc Pharmacy 51.2 ml/min; Est GFR (African American) 76.6 ml/min; Est GFR (Non-African American) 66.1 ml/min; Magnesium 2.2 mg/dl (1.8-2.4); Potassium 3.7 mmol/L (3.5-5.1)
--- NOTE | 2020-08-21 08:39 | Anesthesiology Progress Note ---
Date of Service August 21, 2020 Anesthesia Post Procedure Vital Signs Vital Signs: Temp Pulse Pulse Pulse Resp BP BP 08/21/20 06:20 36.6 C 80 14 218/93 H 08/21/20 04:11 85 180/83 H 08/21/20 03:42 36.5 C 85 12 180/83 H 08/21/20 00:32 87 08/20/20 23:02 79 192/97 H 08/20/20 22:45 36 C L 79 13 192/97 H 08/20/20 19:41 36.8 C 87 12 166/81 H 08/20/20 15:13 36.9 C 80 18 170/73 H 08/20/20 15:00 68 08/20/20 12:58 84 18 162/68 H 08/20/20 12:03 86 18 190/81 H 08/20/20 11:39 70 17 206/75 H 08/20/20 11:11 36.9 C 78 17 159/82 H 08/20/20 10:50 36.4 C L 74 17 170/84 H 08/20/20 10:40 76 17 174/86 H 08/20/20 10:30 76 14 169/82 H 08/20/20 10:20 73 16 132/71 08/20/20 10:12 36.3 C L 68 14 120/63 08/20/20 09:04 36.7 C 99 H 18 184/80 H Pulse Ox 08/21/20 06:20 94 08/21/20 04:11 08/21/20 03:42 95 08/21/20 00:32 08/20/20 23:02 08/20/20 22:45 97 08/20/20 19:41 96 08/20/20 15:13 95 08/20/20 15:00 08/20/20 12:58 97 08/20/20 12:03 98 08/20/20 11:39 96 08/20/20 11:11 99 08/20/20 10:50 97 08/20/20 10:40 99 08/20/20 10:30 100 08/20/20 10:20 100 08/20/20 10:12 99 08/20/20 09:04 97 Pain Intensity Left Foot: Pain Intensity: 0 Notes Mental Status: alert / awake / arousable and participated in evaluation Patient Amnestic to Procedure: Yes Nausea / Vomiting: adequately controlled Pain: adequately controlled Airway Patency, RR, SpO2: stable & adequate BP & HR: stable & adequate Hydration State: stable & adequate Anesthetic Complications: no major complications apparent
[2020-08-21] MEDS: lisinopril 10 MG TAB PO SCH (09:22)
[2020-08-21] MEDS: amLODIPine BESYLATE 5 MG TAB PO SCH (09:22)
[2020-08-21] MEDS: HEPARIN SOD 5,000 UNIT/0.5 ML VIAL SQ SCH ×2 (09:24→19:56)
[2020-08-21] MEDS: INSULIN ASPART 100 UNITS/ML 3 ML PEN SC SCH ×4 (09:29→20:01)
--- NOTE | 2020-08-21 17:15 | Orthopedic Progress Note ---
Date of Service August 21, 2020 Assessment & Plan (1) Chronic osteomyelitis of left foot: POD #1 s/p Revision amputation, left 3rd toe, doing well. WBAt in post-op shoe. Continue pain control. Change dressing 08/22/2020. Continue chronic Abx regime. Continue care per primary service. Follow-up with Dr. Reddy in 2 weeks. Admission and Anticipated Discharge Date Admission Date: August 18, 2020 Subjective No pain Review of Systems Review of Systems: All systems reviewed & are unremarkable except as noted in HPI & below Physical Exam Physical Exam: LLE: Dressing clean, dry, intact. Results & Data ([facility]) Vital Signs (Past 12 Hours) Vital Signs Temp Pulse Resp BP BP Pulse Ox 08/21/20 15:55 37.1 C 87 18 150/87 H 96 08/21/20 10:55 36.7 C 83 18 162/80 H 97 08/21/20 06:20 36.6 C 80 14 218/93 H 94 Laboratory Results 08/21/20 08/21/20 08/21/20 Range/Units 16:40 16:21 11:30 WBC (4.8-10.8) K/uL RBC (4.2-5.4) M/uL Hgb (12.0-16.0) g/dL Hct (37-47) % MCV (80-100) fL MCH (25-34) pg MCHC (32-36) g/dL RDW Std Deviation (36.4-46.3) fL RDW Coeff of Phil (11.5-14.5) % Plt Count (130-400) K/uL MPV (7.4-10.4) fL Immature Gran % (Auto) % Neut % (Auto) % Lymph % (Auto) % [place] % (Auto) % Eos % (Auto) % Baso % (Auto) % Neut # (Auto) (1.4-6.5) K/uL Lymph # (Auto) (1.2-3.4) K/uL [place] # (Auto) (0.11-0.59) K/uL Eos # (Auto) (0-0.5) K/uL Baso # (Auto) (0-0.2) K/uL Immature Gran # (Auto) (0.00-0.02) K/uL ESR (0-30) mm/hr Sodium (136-145) mmol/L Potassium (3.5-5.1) mmol/L Chloride (98-107) mmol/L Carbon Dioxide (21-32) mmol/L Anion Gap (3-11) BUN (7-18) mg/dl Creatinine (0.6-1.2) mg/dl Est Cr Clr Drug Dosing ml/min Est GFR ( Amer) ml/min Est GFR (Non-Af Amer) ml/min BUN/Creatinine Ratio (10-20) Glucose (70-99) mg/dl POC Glucose 117 H 118 H 131 H (70-99) mg/dl Calcium (8.5-10.1) mg/dl Magnesium (1.8-2.4) mg/dl Procalcitonin (0-0.5) ng/ml 08/21/20 08/21/20 08/21/20 Range/Units 07:52 07:09 07:09 WBC (4.8-10.8) K/uL RBC (4.2-5.4) M/uL Hgb (12.0-16.0) g/dL Hct (37-47) % MCV (80-100) fL MCH (25-34) pg MCHC (32-36) g/dL RDW Std Deviation (36.4-46.3) fL RDW Coeff of Phil (11.5-14.5) % Plt Count (130-400) K/uL MPV (7.4-10.4) fL Immature Gran % (Auto) % Neut % (Auto) % Lymph % (Auto) % [place] % (Auto) % Eos % (Auto) % Baso % (Auto) % Neut # (Auto) (1.4-6.5) K/uL Lymph # (Auto) (1.2-3.4) K/uL [place] # (Auto) (0.11-0.59) K/uL Eos # (Auto) (0-0.5) K/uL Baso # (Auto) (0-0.2) K/uL Immature Gran # (Auto) (0.00-0.02) K/uL ESR 14 (0-30) mm/hr Sodium (136-145) mmol/L Potassium (3.5-5.1) mmol/L Chloride (98-107) mmol/L Carbon Dioxide (21-32) mmol/L Anion Gap (3-11) BUN (7-18) mg/dl Creatinine (0.6-1.2) mg/dl Est Cr Clr Drug Dosing ml/min Est GFR ( Amer) ml/min Est GFR (Non-Af Amer) ml/min BUN/Creatinine Ratio (10-20) Glucose (70-99) mg/dl POC Glucose 112 H (70-99) mg/dl Calcium (8.5-10.1) mg/dl Magnesium (1.8-2.4) mg/dl Procalcitonin < 0.05 (0-0.5) ng/ml 08/21/20 08/21/20 08/20/20 Range/Units 07:09 07:09 20:01 WBC 5.52 (4.8-10.8) K/uL RBC 4.18 L (4.2-5.4) M/uL Hgb 12.1 (12.0-16.0) g/dL Hct 36.8 L (37-47) % MCV 88.0 (80-100) fL MCH 28.9 (25-34) pg MCHC 32.9 (32-36) g/dL RDW Std Deviation 42.7 (36.4-46.3) fL RDW Coeff of Phil 13.3 (11.5-14.5) % Plt Count 210 (130-400) K/uL MPV 10.2 (7.4-10.4) fL Immature Gran % (Auto) 0.2 % Neut % (Auto) 60.6 % Lymph % (Auto) 19.6 % [place] % (Auto) 11.4 % Eos % (Auto) 7.8 % Baso % (Auto) 0.4 % Neut # (Auto) 3.35 (1.4-6.5) K/uL Lymph # (Auto) 1.08 L (1.2-3.4) K/uL [place] # (Auto) 0.63 H (0.11-0.59) K/uL Eos # (Auto) 0.43 (0-0.5) K/uL Baso # (Auto) 0.02 (0-0.2) K/uL Immature Gran # (Auto) 0.01 (0.00-0.02) K/uL ESR (0-30) mm/hr Sodium 141 (136-145) mmol/L Potassium 3.7 (3.5-5.1) mmol/L Chloride 111 H (98-107) mmol/L Carbon Dioxide 24 (21-32) mmol/L Anion Gap 6.0 (3-11) BUN 17 (7-18) mg/dl Creatinine 0.84 (0.6-1.2) mg/dl Est Cr Clr Drug Dosing 51.2 ml/min Est GFR ( Amer) 76.6 ml/min Est GFR (Non-Af Amer) 66.1 ml/min BUN/Creatinine Ratio 20.6 H (10-20) Glucose 118 H (70-99) mg/dl POC Glucose 129 H (70-99) mg/dl Calcium 9.2 (8.5-10.1) mg/dl Magnesium 2.2 (1.8-2.4) mg/dl Procalcitonin (0-0.5) ng/ml
[2020-08-21] MEDS ORDERED: QUEtiapine FUMARATE 25 MG TABLET PO ONE (17:39)
--- NOTE | 2020-08-21 21:12 | Hospitalist Progress Note ---
Date of Service August 21, 2020 Assessment & Plan (1) Acute delirium: Patient appears to have some chronic delirium and baseline memory dysfunction - This episode of worsening delirium is likely metabolic related to her ? UTI or ? Developing osteo - Once her infectious workup is completed and/or therapeutics work can consider pharmacologic agent - If needed for behavior control while in hospital- consider Haldol or adding stable dose of olanzapine or seroquel. - Outpatient work up for her memory concerns and dysfunction On 08/20 -Patient reports feeling well. She is less confused. -This is likely secondary to her diabetic foot infection, than her asymptomatic bacteruria vs UTI. Patient no longer requires Haldol. On 08/21 Patient is confused, likely will wax and wane. Do not feel patient will benefit from a prolonged hospital stay. will monitor, order quetiaprine. (2) UTI (urinary tract infection): Patient with review of multiple UTI- she had a cysto in 2018- with no pathological cause- could consider methenamine if persistent - She comes in delirious from her baseline with UA per HPI - Change ABX to Zosyn 3.375 gm q 8hour - continue antibiotics for now, unsure how much this is contributing to her delirium. Given that she has other causes to her delirium, which were also infectious, it will be difficult to tease out and say this caused it. -It does not seem like she was having any symptoms. - No CVA tenderness (3) Diabetic foot infection: As above- Zosyn 3.375mg q8 - CRP/ESR pending - PCT negative - WBC not elevated - stop vancomycin S/P amputation. (4) Diabetes mellitus with neuropathy: Sliding scale insulin with CF DM2 diet Admission and Anticipated Discharge Date Admission Date: August 18, 2020 Subjective Patient is confused. She has no new complaints at this time. Review of Systems Review of Systems: All systems reviewed & are unremarkable except as noted in HPI & below Physical Exam Physical Exam: General: awake, pleasantly confused, alert, no apparent distress Head: Normocephalic, no ecchymosis or swelling ENT: PERRLA, EOMI, no pharyngeal exudate, mucous membranes moist Neuro: AAO x 1, speech clear, but confused on events and location, strength intact bilaterally 5/5, sensation intact and equal all extremities and de rmatomes, no pronator drift Chest: equal rise and fall of the chest, no accessory muscle use, no heaves or thirlls, Clear to auscultation, on room air, Cardiac: Regular rate and rhythm, telemetry reviewed, skin warm dry, cap refill <3 seconds, peripheral pulses +2 no JVD, no murmur, no edema GI: NABS x 4 quadrants, soft, nontender to palpation, no rebound, guarding or tenderness : Spontaneously voiding, no pain, no CVA tenderness, (+) odor to urine Extremities: left third toe slight redness with ulceration in healing stage, other extremities Normal inspection, no peripheral edema or erythema, calfs nontender to palpation Psych: Normal mood and affect Skin: no rash or erythema Results & Data Results & Data ([facility]) Vital Signs (Past 12 Hours) Vital Signs Temp Pulse Resp BP BP Pulse Ox 08/21/20 19:24 36.8 C 99 H 18 136/80 95 08/21/20 15:55 37.1 C 87 18 150/87 H 96 08/21/20 10:55 36.7 C 83 18 162/80 H 97 PG Care Time/CCT Total # of Minutes Spent Total Time Spent with Patient: Total time spent is greater than 50% in coordination of care (as documented) at patient's floor/unit and/or counseling patient: Coding Level of Care Code 06794 Subseq Hosp Care Lvl 3 Diagnoses Acute delirium R41.0 UTI (urinary tract infection) N39.0 Hematuria presence: without hematuria Urinary tract infection type: site unspecified Diabetic foot infection E11.628; L08.9 Diabetes mellitus with neuropathy E11.40; Z79.4 Diabetes mellitus shelter insulin use: with shelter use Diabetes mellitus type: type 2 Time Spent (min) 35 (1) UTI (urinary tract infection) Hematuria presence: without hematuria Urinary tract infection type: site unspecified Qualified Code(s): N39.0 - Urinary tract infection, site not specified (2) Diabetes mellitus with neuropathy 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
[2020-08-22] MEDS: PIPERACILLIN/TAZOBACTAM 3.375 GM in DEXTROSE 5% 100 ML IV SCH ×2 (00:43→09:25)
[2020-08-22] MEDS ORDERED: VANCOMYCIN TROUGH ONE (05:30)
[2020-08-22] MEDS: ASPIRIN 81 MG ECTAB PO SCH (08:18)
[2020-08-22] MEDS: GABAPENTIN 300 MG CAP PO SCH (08:18)
[2020-08-22] MEDS: CYANOCOBALAMIN 500 MCG TABLET (VITAMIN B-12) PO SCH (08:18)
[2020-08-22] MEDS: lisinopril 10 MG TAB PO SCH (08:19)
[2020-08-22] MEDS: HEPARIN SOD 5,000 UNIT/0.5 ML VIAL SQ SCH (08:20)
[2020-08-22] MEDS: amLODIPine BESYLATE 5 MG TAB PO SCH (08:20)
[2020-08-22] MEDS: LACTATED RINGER'S 1,000 ML IV SCH (08:21)
[2020-08-22 08:31] LABS: Creatinine Clr Calc Pharmacy 51.2 ml/min; Est GFR (African American) 76.6 ml/min; Est GFR (Non-African American) 66.1 ml/min
[2020-08-22] MEDS: INSULIN ASPART 100 UNITS/ML 3 ML PEN SC SCH ×3 (09:24→17:09)
--- NOTE | 2020-08-22 10:00 | Orthopedic Progress Note ---
Date of Service August 22, 2020 Assessment & Plan (1) Chronic osteomyelitis of left foot: POD #2 s/p Revision amputation, left 3rd toe, doing well. WBAt in post-op shoe. Continue pain control. Dressing changed Continue chronic Abx regime. Continue care per primary service. Follow-up with Dr. Reddy in 2 weeks. Admission and Anticipated Discharge Date Admission Date: August 18, 2020 Subjective This 79-year-old female is postoperative day 2 revision amputation of left 3rd toe. She is very somnolent during her examination today. When I aroused her she had no complaints. Her dressings were changed without any sign of discomfort. Review of Systems Review of Systems: Unobtainable due to reduced consciousness (Patient was very somnolent during her examination and dressing change this morning) Physical Exam Physical Exam: Left foot: Dressings were removed from the patient's left foot. Wound is closed completely with surrounding pink tissue. There is no erythema, ecchymosis, warmth, fluctuance, drainage. When patient was aroused she states that she has no feeling in her foot. Peripheral pulses were trace. Passive dorsi and plantarflexion of her foot causes no pain. Her calf is soft and supple nontender to palpation. A new dressing was applied consisting of Adaptic, a nonstick pad, Kerlix and Apolinar bandages were both lightly wrapped. Patient's postoperative shoe was reapplied Results & Data ([facility]) Vital Signs (Past 12 Hours) Vital Signs Temp Pulse Pulse Resp BP Pulse Ox 08/22/20 06:28 36.4 C L 78 18 154/53 H 98 08/21/20 23:59 88 Laboratory Results 08/22/20 08/22/20 08/21/20 Range/Units 07:53 07:37 19:52 Creatinine 0.84 (0.6-1.2) mg/dl Est Cr Clr Drug Dosing 51.2 ml/min Est GFR ( Amer) 76.6 ml/min Est GFR (Non-Af Amer) 66.1 ml/min POC Glucose 107 H 197 H (70-99) mg/dl 08/21/20 08/21/20 08/21/20 Range/Units 16:40 16:21 11:30 Creatinine (0.6-1.2) mg/dl Est Cr Clr Drug Dosing ml/min Est GFR ( Amer) ml/min Est GFR (Non-Af Amer) ml/min POC Glucose 117 H 118 H 131 H (70-99) mg/dl
[2020-08-22] MEDS: cephALEXin 250 MG CAP PO SCH ×2 (17:08→17:09)
--- NOTE | 2020-08-28 21:57 | Discharge Summary ---
Date of Service August 22, 2020 Admission HPI Per Admitting Provider 79 YOF with past medical history of DM on insulin, neuropathy, HTN, delirium, falls, bilateral total knees, partial amputations of first, second, and third toe. Patient follows with [facility] Dr. Cintron. Patient was brought in today by her daughter and her caregiver. The patient lives at home with her . She has care assistants there through the day and evening, and is then with her daughter for the night. Over the past 2-3 days they have been noticing increase in her confusion and delirium at night. Last night she got up and started packing all her clothes up and threw her husban's stuff on the floor. The patient did not want to go to the ER yesterday but did come today. She came today after she fell this morning on her way back from her bedside toilet hitting her face on her bed. She was not using her walker. She reportedly gets like this when she has an infection and was recently admitted in May for concern of UTI and after a fall injuring her knee. Her daughter was not at the bedside, but was reportedly concerned about her left third toe looking worse from an infection standpoint and the caregiver reports that over the past 2-3 days that she may have had some chills and noticed a change to the smell of her urine. She did not report any mucous/pus or blood in her urine. She has neuropathy to her feet, so does not endorse any worsening discomfort to her feet. In the ER the patient had a pelvis xray, tib/fib xray, chest xray, and head CT performed. She does have a displaced nasal bone fracture with age indeterminant with no involvement of the sinuses or surrounding tissues. Left foot x-ray with ? developing osteomyelitis. She had a UA done that was clean catch and (+) for WBC 30 per HPF and LE no protein or blood and was cloudy in appearance. She was given 1 dose of Ceftriaxone and 1 Dose of Vancomycin both IV while in the ED. She will be admitted for infectious workup, orthopaedics consult, antibiotics. Pending blood and urine cultures and inflammatory biomarkers. She will be placed on 1:1 with her delirium and fall risk. Principal Diagnosis acute delirium Discharge Exam General: awake, pleasantly confused, alert, no apparent distress Head: Normocephalic, no ecchymosis or swelling ENT: PERRLA, EOMI, no pharyngeal exudate, mucous membranes moist Neuro: AAO x 1, speech clear, but confused on events and location, strength intact bilaterally 5/5, sensation intact and equal all extremities and dermatomes, no pronator drift Chest: equal rise and fall of the chest, no accessory muscle use, no heaves or thirlls, Clear to auscultation, on room air, Cardiac: Regular rate and rhythm, telemetry reviewed, skin warm dry, cap refill <3 seconds, peripheral pulses +2 no JVD, no murmur, no edema GI: NABS x 4 quadrants, soft, nontender to palpation, no rebound, guarding or tenderness : Spontaneously voiding, no pain, no CVA tenderness, (+) odor to urine Extremities: left third toe slight redness with ulceration in healing stage, other extremities Normal inspection, no peripheral edema or erythema, calfs nontender to palpation Psych: Normal mood and affect Skin: no rash or erythema Discharge Data Allergies Allergy/AdvReac Type Severity Reaction Status Date / Time Iodinated Contrast Media Allergy Intermediate HIVES AND Verified 08/25/20 18:41 HOT FLASHES azithromycin Allergy Unknown Unknown Verified 08/25/20 18:41 hydrocodone AdvReac Severe Confusion Verified 08/25/20 18:41 oxycodone AdvReac Severe CONFUSION Verified 08/25/20 18:41 LAKSHMI WHEN SHE TAKES 2 TABS- Macrolide Antibiotics AdvReac Mild UPSET Verified 08/25/20 18:41 STOMACH Consultations 08/18/20 16:02 ED Decision to Admit Stat 08/18/20 17:40 Consult Orthopedic Surgery Routine Procedures Performed Operation Date: 08/20/20 09:00 Actual Procedures p Left Third Toe Amputation(Left) - Darrell Montiel MD Ordered Studies 08/18/20 12:17 CT head/brain wo con Stat Hospital Course (1) Acute delirium: Patient appears to have some chronic delirium and baseline memory dysfunction - This episode of worsening delirium is likely metabolic related to her ? UTI or ? Developing osteo - Once her infectious workup is completed and/or therapeutics work can consider pharmacologic agent - If needed for behavior control while in hospital- consider Haldol or adding stable dose of olanzapine or seroquel. - Outpatient work up for her memory concerns and dysfunction On 08/20 -Patient reports feeling well. She is less confused. -This is likely secondary to her diabetic foot infection, than her asymptomatic bacteruria vs UTI. Patient no longer requires Haldol. On 08/22 Patient is confused, likely will wax and wane. Do not feel patient will benefit from a prolonged hospital stay. will discharge with short term use quetiaprine. Family is agreeable with discharge, (2) UTI (urinary tract infection): Patient with review of multiple UTI- she had a cysto in 2019- with no pathological cause- could consider methenamine if persistent - She comes in delirious from her baseline with UA per HPI - Change ABX to Zosyn 3.375 gm q 8hour - continue antibiotics for now, unsure how much this is contributing to her delirium. Given that she has other causes to her delirium, which were also infectious, it will be difficult to tease out and say this caused it. -It does not seem like she was having any symptoms. - No CVA tenderness (3) Diabetic foot infection: As above- Zosyn 3.375mg q8 - CRP/ESR pending - PCT negative - WBC not elevated - stop vancomycin S/P amputation. (4) Diabetes mellitus with neuropathy: Sliding scale insulin with CF DM2 diet Total Time Total Time Spent Total Time Spent (In Minutes): 32 Total Time Includes: Examination of the Patient, Discharge Planning and Medication Reconciliation Discharge Plan Discharge Items Patient Disposition: Home - Self-Care Reason For Visit: CONFUSION Discharge Diagnosis: DELIRIUM Activity: Resume your previous activity Non-emergency contact: Primary Care Provider Call non-emergency contact if: you have any medication questions Follow-up/Referrals: Zhanna Bauer DO [Primary Care Provider] - 08/28/20 9:30 am Rony Reddy MD [Surgeon] - 08/27/20 12:30 pm (with Mariluz Schmidt for dressing change; 09/05 at 9:30am with Dr Reddy) Diet: Carb Consistent or DM2 Addtl Attending Provider Instructions: You were found to have delirium. This may have been provoked by your foot infection. We also found a mild "infection" in your urine, but it likely was not worsening your confusion. Due to treatment of your foot infection, we will continue treatment that will treat your urine. Discussed with Urology who will recommend outpatient followup. Confusion in the elderly can be caused by any abnormality: dehydration, infection, pain, staying in a different or strange place. Given that she had a clear infection in her foot and no urinary symptoms, it is likely that she had asymptomatic bacteruria. In future settings, if she has confusion, would recommend looking for other causes, before treating the urine. As a large portion of the population are carriers of "dirty urine" but do not require treatment. Please followup with your PCP in 1-2 weeks. Pending Studies at Discharge: No Stand-Alone Forms: [facility], Smoking Cessation Medications and DC Order Prescriptions: New cephalexin 250 mg Capsule 250 mg PO QID Qty: 12 RF: 0 amlodipine [Norvasc] 5 mg Tablet 2.5 mg PO QAM Qty: 30 RF: 0 lisinopril 10 mg Tablet 10 mg PO QAM Qty: 30 RF: 0 Continued Levemir U-100 Insulin 100 unit/mL solution 0 unit subcut ACHS RF: 0 cyanocobalamin (vitamin B-12) [Vitamin B-12] 1,000 mcg Tablet 1,000 mcg PO QAM RF: 0 gabapentin 300 mg capsule 300 mg PO BID RF: 0 acetaminophen [Tylenol Extra Strength] 500 mg Tablet 1,000 mg PO BID RF: 0 Saccharomyces boulardii [Florastor] 250 mg capsule 250 mg PO BID Qty: 60 RF: 4 aspirin 81 mg Tablet,Delayed Release (Dr/Ec) 81 mg PO QAM RF: 0 meloxicam 7.5 mg Tablet 7.5 mg PO QAM RF: 0 Discontinued lisinopril 5 mg tablet 5 mg PO QAM RF: 0 Discharge Orders: Discharge Order (Routine); Ordered 08/22/20 Ordered By: Julien Yen/Other Patient Handouts: Managing Type 2 Diabetes, A1C Admission Data Admit Date/Time: 08/18/20 16:41 Attending Provider: Julien Avalos Admit Provider: Jaquan Cole Primary Care Provider: Zhanna Bauer Other Providers: Jaquan Cole ; Rony Reddy Other Interventions: Discharge Summary Assessment (RN) Last Done: 08/22/20 15:14 Coding Level of Care Code D/C Day Management >30 mins Diagnoses Acute delirium R41.0 UTI (urinary tract infection) N39.0 Hematuria presence: without hematuria Urinary tract infection type: site unspecified Diabetic foot infection E11.628; L08.9 Diabetes mellitus with neuropathy E11.40; Z79.4 Diabetes mellitus type: type 2 Diabetes mellitus assisted insulin use: with 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
--- NOTE | 2020-08-29 12:01 | Coding Query ---
CODING QUERY To promote full compliance with coding requirements relating to patient care, provider participation is requested in all cases of harness rigger uncertainty. Please assist us with the question(s) below: Coding Question(s): Patient admitted with acute delirium in the setting of UTI and Chronic Osteomyelitis . Please clarify your opinion regarding the acute delirum and the relationship to these diagnoses. Thanks for your help! Roger Virgen [facility] Physician's Response(s): Likely the delirium is related with chronic osteomyelitis, more so than the "UTI". But it is difficult to tease out, may be a combination of both. Principal Diagnosis: "that condition established after study, to be chiefly responsible for occasioning the admission of the patient to the hospital for care." Co-Existing Principal Diagnosis: "when two or more diagnoses equally meet the criteria for principal diagnosis as determined by the circumstances of admission, diagnostic work up, and/or therapy provided, and the Alphabetic Index, Tabular List, or another coding guideline does not provide sequencing direction, any one of the diagnoses may be sequenced first." "When the physician has documented what appears to be a current diagnosis in the body of the record, but has not included the diagnosis in the final diagnostic statement, the physician should be asked whether the diagnosis should be added." (Source Coding [facility] 2 QTR90. p3-4) SEGUN
== END 2020-08-22 18:00 | disposition home health service (06) | DRG 616 ==
LOC: ED 11:38 → SUATTDRO 16:41 → 3W 16:41 → 3N 22:00 → 2N 08-19 23:05

== ENCOUNTER 2020-11-10 12:02 | Observation (INO) ==
[2020-11-10] MEDS ORDERED: SODIUM CHLORIDE 0.9% 1000ML 500 ML IV ONE (13:07)
--- NOTE | 2020-11-10 13:09 | XRay Report ---
XR chest 1V portable CLINICAL HISTORY: weakness COMPARISON STUDY: November 09, 2020 FINDINGS: No pneumothorax. No pleural effusion. Minimal atelectasis or scarring is seen at the left base. Lung volumes are hyperinflated. Cardiomediastinal silhouette is within normal limits in size. No significant pulmonary vascular congestion.. Aorta is calcified. Osseous structures: Degenerative changes of the spine. Osteopenia. IMPRESSION: 1. Mild hyperinflation. 2. Minimal atelectasis/scarring at the left base. No large infiltrates or consolidative lesions are seen. 3. The rest of findings as above. ACT 112: Negative or not required by law. The above report was generated using voice recognition software. It may contain grammatical, syntax o r spelling errors. Electronically signed by: Juliette Holland DO 11/10/2020 1:07 PM
[2020-11-10 14:26] LABS: Basophils # (auto) 0.01 K/uL (0-0.2); Basophils % (auto) 0.2 %; Eosinophils # (auto) 0.15 K/uL (0-0.5); Eosinophils % (auto) 2.7 %; Hematocrit (blood only) 36.9 % (37-47); Hemoglobin 11.9 g/dL (12.0-16.0); Lymphocytes # (auto) 1.14 K/uL (1.2-3.4); Lymphocytes % (auto) 20.1 %; Mean Corpuscular Hgb Conc 32.2 g/dL (32-36); Mean Corpuscular Volume 89.8 fL (80-100); Monocytes # (auto) 0.46 K/uL (0.11-0.59); Monocytes % (auto) 8.1 %; Neutrophils % (auto) 68.9 %; Platelet Count 203 K/uL (130-400); RDW Standard Deviation 46.1 fL (36.4-46.3); Red Blood Count 4.11 M/uL (4.2-5.4); White Blood Count 5.66 K/uL (4.8-10.8)
[2020-11-10 14:48] LABS: Alanine Aminotransferase 25 U/L (12-78); Albumin Level 3.5 gm/dl (3.4-5.0); Aspartate Aminotransferase 26 U/L (15-37); BUN Creatinine Ratio 36.9 (10-20); Blood Urea Nitrogen 38 mg/dl (7-18); Calcium 9.1 mg/dl (8.5-10.1); Carbon Dioxide 22 mmol/L (21-32); Chloride 112 mmol/L (98-107); Creatinine Clr Calc Pharmacy 49.1 ml/min; Est GFR (African American) 60.6 ml/min; Est GFR (Non-African American) 52.3 ml/min; Glucose 79 mg/dl (70-99); Potassium 4.8 mmol/L (3.5-5.1); Sodium 141 mmol/L (136-145)
[2020-11-10 14:57] LABS: Appearance Urine Cloudy (Clear); Bacteria Urine Automated Negative (Negative); Bilirubin Urine Negative (Negative); Blood Urine Trace (Negative); Color Urine Yellow; Glucose Urine UA Negative (Negative); Ketones Urine Negative (Negative); Leukocyte Esterase Urine 3+ (Negative); Nitrite Urine Negative (Negative); Protein Urine 1+ (Negative); Specific Gravity Urine 1.018 (1.000-1.030); Urobilinogen Urine Negative (Negative); WBC Urine Automated >30 /hpf (0-5); pH Urine 5.5 (4.5-7.5)
[2020-11-10 15:06] LABS: Albumin Globulin Ratio 1.1 (0.9-2); Alkaline Phosphatase 71 U/L (45-117); Bilirubin,Total 0.2 mg/dl (0.2-1); Globulin 3.3 gm/dl (2.5-4.0); Thyroid Stimulating Hormone 0.733 uIu/ml (0.300-4.500); Total Protein 6.8 gm/dl (6.4-8.2); Troponin I < 0.015 ng/ml (0-0.045)
[2020-11-10 15:24] LABS: RBC Urine Automated 0-4 /hpf (0-4)
[2020-11-10] MEDS ORDERED: cefTRIAXone SODIUM 2,000 MG/70 ML BAG IV STA (15:27)
--- NOTE | 2020-11-10 17:52 | History & Physical Report ---
Date of Service November 10, 2020 Assessment & Plan (1) Abnormal urinalysis: Plan: Remains with chronic LE,NI, >30 WBC in urine - Urine culture from 08 remains with Yeast not mark- this started in September then resolved and returned in October - Continue local treatment of nystatin powder to surrounding areas (2) Chronic UTI: Plan: As above, will continue her Rocephin daily as she has endorsed chills and had recent instrumentation and did not complete a course of ABX following - Primarily the issue currently appears to be retention- this may be consistent with urethral swelling from recent instrumentation - leave Thomas at this time; can move towards bladder training with post void residuals when - Continue her Vitamin C as well as her Estrogen cream per ID - Continue her Cardura- however with her hypotension is this from alpha blockade or infection- Hold Norvasc and FLAVIA - Methenamine on hold (3) Urine retention: Plan: As above- continue Cardura (4) Delirium: Plan: Delirium vs. Dementia - chronic with acute exacerbations while in hospital - avoid benzo - Haldol 2mg IM q8h PRN if needed could consider adding olanzapine - 1:1 for high risk of fall and removing medical equipment (Thomas catheter) (5) HTN (hypertension): Plan: Will follow BP responses and trend while in house - Hold lisinopril (6) Diabetes mellitus, type 2: Plan: On insulin at home - glycemic consult appreciated - Hypoglycemic in EMD likely playing into her confusion at home - follow with chronic infection - goal <180 (7) GERD (gastroesophageal reflux disease): Plan: No acute needs not on therapy at home and patient does not endorse any symptoms currently - can consider PPI History of Present Illness Primary Care Provider: Zhanna Bauer, DO 79 YOF with past medical history of: DM on insulin, neuropathy, HTN, Delirium, falls, bilateral total knees, partial amputations of toes secondary to osteo, frequent UTI followed by ID and Urology, incomplete bladder emptying. Patient follows with Urology and ID for her frequent UTIs. Patient was seen by ID in September and was added on Methenamine Vitamin C and Estrogen Vaginal cream that was to be weaned down to 2x per week usage and follow up with Urology. Patient followed up with Urology on 11/06/2020 where she had a cystoscopy performed which revealed chronic inflammation and likely not emptying her bladder completely. She was started on Ciprofloxacin for 3 days following instrumentation as well as adding Cardura. The patient took 1 dose of her Cipro and had an increase in her delirium so she called the patient's ID doctor and that was discontinued, but she did not start the Cardura. The patient was brought to the EMD on for increase in somnolence and concern of her being infected, it was found that she had 700ml of urine in her bladder and this was drained with straight cath, following IV fluids and bladder draining the patient improved and requested to go home. She was sent home on Cefdinir for her urine. The patient received her Cardura last night and her daughter reports that her blood pressure was low this morning with systolic 80s and the patient was dizzy, fatigued, and generally not feeling well, so she came back to the EMD. In the EMD the patient had a Thomas catheter placed for again urinary retention. The patient does endorse feeling better after this. It was also noted her BG to be <60 as well with recheck of 95. She has since ate and feels better as well. She does endorse frequent chills at home. Patient will be brought into medical floor for re-adjustment of her medications, and bladder monitoring. Allergies Allergy/AdvReac Type Severity Reaction Status Date / Time Iodinated Contrast Media Allergy Intermediate HIVES AND Verified 11/09/20 15:27 HOT FLASHES azithromycin Allergy Unknown Unknown Verified 11/09/20 15:27 hydrocodone AdvReac Severe Confusion Verified 11/09/20 15:27 oxycodone AdvReac Severe CONFUSION Verified 11/09/20 15:27 LAKSHMI WHEN SHE TAKES 2 TABS- Macrolide Antibiotics AdvReac Mild UPSET Verified 11/09/20 15:27 STOMACH Home Medications Medication Instructions Recorded Confirmed Type insulin detemir U-100 100 unit/mL 0 unit SUBCUT AMPM 04/04/18 11/10/20 History subcutaneous solution (Levemir U-100 Insulin) cyanocobalamin (vitamin B-12) 1,000 mcg PO QAM 10/27/19 11/10/20 History 1,000 mcg tablet (Vitamin B-12) gabapentin 300 mg capsule 300 mg PO BID 10/27/19 11/10/20 History aspirin 81 mg tablet,delayed 81 mg PO QAM 07/24/20 11/10/20 History release meloxicam 7.5 mg tablet 7.5 mg PO QAM 07/24/20 11/10/20 History lisinopril 10 mg tablet 10 mg PO QAM #30 tab 08/22/20 11/10/20 Rx methenamine hippurate 1 gram tablet 1 g PO BID 09/21/20 11/10/20 History cefdinir 300 mg capsule 300 mg PO BID 5 Days #10 cap 11/09/20 11/10/20 Rx conjugated estrogens 0.625 mg/gram 0.5 applic VAGINAL UD 11/09/20 11/10/20 History vaginal cream (Premarin) doxazosin 1 mg tablet (Cardura) 1 mg PO HS 11/09/20 11/10/20 History Past Med/Surg History Medical History (Updated 11/10/20 @ 19:03 by Juan C Owens MD) Acute osteomyelitis of toe of left foot Acute UTI Altered mental status occasionally, not all the time -- will get disoriented and forgetful. Cellulitis of left lower extremity Chronic kidney disease, stage IV (severe) pt's daughter denies Chronic osteomyelitis of left foot Contusion of knee, left Diabetes mellitus with neuropathy Diabetes mellitus, type 2 uncontrolled (per daughter) Foot pain from neuropathy and osteomyelitis Generalized weakness GERD (gastroesophageal reflux disease) History of amputation of toe revision of Left second toe amputation done at [facility] 05/2018. History of high cholesterol Taking no meds at this time History of revision of total replacement of left knee joint HLD (hyperlipidemia) HTN (hypertension) Hx of deep venous thrombosis "long time ago" s/p foot injury -- no problems since. Murmur, cardiac Osteomyelitis of left lower extremity Peripheral neuropathy numbness, tingling and burning of both feet UTI (urinary tract infection) multiple Surgical History History of Achilles tendon repair right History of adenoidectomy History of amputation TOES - 6 partial amputations with a partial x2 on great toe resulting in complete amputation 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 History of appendectomy History of arthroscopy RT/LEFT SHOULDER History of cataract surgery RT/LEFT History of cholecystectomy History of colonoscopy History of esophagogastroduodenoscopy (EGD) History of partial amputation of toe Multiple History of shoulder surgery rotator cuff both shoulders History of tonsillectomy History of tooth extraction History of total knee replacement Bilateral Hx of hysterectomy, total Hx of sinus surgery Family History Other No family history of adverse response to anesthesia No family history of bleeding disorder No pertinent family history Social History Smoking Status: Never smoker Second Hand Exposure: No; Hx Alcohol Use: No Hx Substance Use: No Preferred Language: Guinean Communication Ability: Impaired Visual Impairment: No 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 Beliefs That Will Affect Care: None marital status: Current Living Situation: Family current occupational status: retired Feels Safe at Home: Yes Assistive Devices: Glasses Review of Systems Review of Systems: REVIEW OF SYSTEMS: Obtained via patient and daughter- daughter providing the majority of information secondary to patient dementia/delirium Constitutional: (+) chills, No fever, sweats or Eyes: No diplopia, no worsening or blurred vision ENT: normal hearing, no trouble swallowing Respiratory: No cough, sputum, dyspnea at rest or on exertion Cardiovascular: No chest pain, tightness or palpitations Abdomen: (+) abdominal pain, relieved with catheterization, No pain, nausea, vomiting, diarrhea or constipation Musculoskeletal: No joint pain, calf pain, swelling Neurologic: No weakness, numbness/tingling, or balance problems Psychiatric: (+) delirium/dementia, No anxiety or depression Skin: No rash or itch Physical Exam Physical Exam: PHYSICAL EXAM: General: awake, alert, no apparent distress Head: Normocephalic, atraumatic ENT: PERRL, EOMI, no pharyngeal exudate, mucous membranes moist Neuro: AAO x 2 (person and place), speech clear and appropriate, strength intact bilaterally 5/5, sensation intact and equal all extremities and dermatomes, no pronator drift Chest: equal rise and fall of the chest, no accessory muscle use, no heaves or thrills, Clear to auscultation, on room air Cardiac: Regular rate and rhythm, telemetry reviewed, skin warm dry, cap refill <3 seconds, peripheral pulses +2 no JVD, no murmur, no edema GI: NABS x 4 quadrants, soft, nontender to palpation, no rebound, guarding or tenderness : thomas to gravity draining clear yuliana urine ~800 ml, no pain, no CVA tenderness, Extremities: Normal inspection, no peripheral edema or erythema, calfs nontender to palpation Psych: Normal mood and affect Skin: no rash or erythema Results & Data Results & Data ([facility]) Vital Signs (Past 12 Hours) Vital Signs Temp Pulse Pulse Resp BP BP Pulse Ox 11/10/20 16:55 84 18 178/95 H 95 11/10/20 14:49 66 11/10/20 13:17 82 14 95 11/10/20 12:09 37.0 C 80 70 14 161/79 H 144/95 H 95 Laboratory Results Abnormal lab results 11/10/20 11/10/20 11/10/20 Range/Units 14:05 14:05 14:34 RBC 4.11 L (4.2-5.4) M/uL Hgb 11.9 L (12.0-16.0) g/dL Hct 36.9 L (37-47) % Lymph # (Auto) 1.14 L (1.2-3.4) K/uL Chloride 112 H (98-107) mmol/L BUN 38 H (7-18) mg/dl BUN/Creatinine Ratio 36.9 H (10-20) POC Glucose (70-99) mg/dl Urine Appearance Cloudy A (Clear) Urine Protein 1+ H (Negative) Urine Blood Trace H (Negative) Ur Leukocyte Esterase 3+ H (Negative) Urine WBC (Auto) >30 H (0-5) /hpf U Epithel Cells (Auto) 5-10 H (0-5) /lpf Urine Yeast Budding A (None Prsent) 11/10/20 Range/Units 15:58 RBC (4.2-5.4) M/uL Hgb (12.0-16.0) g/dL Hct (37-47) % Lymph # (Auto) (1.2-3.4) K/uL Chloride (98-107) mmol/L BUN (7-18) mg/dl BUN/Creatinine Ratio (10-20) POC Glucose 54 L* (70-99) mg/dl Urine Appearance (Clear) Urine Protein (Negative) Urine Blood (Negative) Ur Leukocyte Esterase (Negative) Urine WBC (Auto) (0-5) /hpf U Epithel Cells (Auto) (0-5) /lpf Urine Yeast (None Prsent) Diagnostic Findings Chest X-Ray 11/10/20 12:39 XR chest 1V portable CLINICAL HISTORY: weakness COMPARISON STUDY: November 09, 2020 FINDINGS: No pneumothorax. No pleural effusion. Minimal atelectasis or scarring is seen at the left base. Lung volumes are hyperinflated. Cardiomediastinal silhouette is within normal limits in size. No significant pulmonary vascular congestion.. Aorta is calcified. Osseous structures: Degenerative changes of the spine. Osteopenia. IMPRESSION: 1. Mild hyperinflation. 2. Minimal atelectasis/scarring at the left base. No large infiltrates or consolidative lesions are seen. 3. The rest of findings as above. Electronically signed by: Juliette Holland DO 11/10/2020 1:07 PM Medications Administered Discontinued Medications Sodium Chloride (Nss 1000ml) 500 mls @ 999 mls/hr IV .Q31M ONE Stop: 11/10/20 13:37 Last Infusion: 11/10/20 15:55 Dose: 0 mls/hr Documented by: [id number] Admin: 11/10/20 14:18 Dose: 999 mls/hr Documented by: [id number] Ceftriaxone Sodium (Rocephin) 2,000 mg in 70 mls @ 140 mls/hr IV NOW STA Stop: 11/10/20 15:56 Last Infusion: 11/10/20 16:51 Dose: 0 mls/hr Documented by: [id number] Admin: 11/10/20 16:04 Dose: 140 mls/hr Documented by: [id number] ECG Additional Comments: Sinus rhythm with 1st degree A-V block Left axis deviation Septal infarct (cited on or before 21-SEP-2020) Abnormal ECG When compared with ECG of 21-SEP-2020 15:46, Questionable change in initial forces of Anteroseptal leads Code Status & VTE Plan Code Status CODE: FULL VTE: SCDs, Lovenox 40mg sq q24 Supervising Physician Co-Signing Physician Notes Patient seen and examined, chart reviewed, case discussed with [] and I agree with the assessment and plan as above except as otherwise noted above. General: A&Ox3. NAD. Cooperative. HEENT: Atraumatic, normocephalic. Pulm: CTAB A&P. -wheezes, -rales, -rhonchi. Symmetrical chest rise. No increase work of breathing. No respiratory distress. Cardiac: RRR, -mrg. Radial pulses intact and symmetrical. Abdominal: Nontender, nondistended, soft. BS present. All labs and images reviewed Pt with chronic UTI with episode of increased confusion following ciprofloxacin presented with increased somnolence and chills. Was seen earlier at [facility] and was pending admit but improved with IVF and went home, following d/c home was dizzy and lightheaded and returned. BSG 54 at time of admit, 95 at time of reassessment. Presentation consistent with chronic UTI, urinary retention, and hypoglycemia. Retention treated with decompression, continue rocephin for chronic underlying UTI, continue cardura. 1:1 for agitation and high risk of delirium. BMP/CBC daily. PG Care Time/CCT Total # of Minutes Spent Total Time Spent with Patient: Total time spent is greater than 50% in coordination of care (as documented) at patient's floor/unit and/or counseling patient: Coding Level of Care Code INT OBSERVATION CARE 70M LVL 3 Diagnoses Abnormal urinalysis R82.90 Chronic UTI N39.0 Delirium R41.0 HTN (hypertension) I10 Urine retention R33.9 Diabetes mellitus, type 2 E11.9 GERD (gastroesophageal reflux disease) K21.9
[2020-11-10] MEDS ORDERED: HALOPERIDOL LACTATE 5 MG/ML 1 ML VIAL IM PRN (18:56)
--- NOTE | 2020-11-10 19:03 | Emergency Department Note ---
Impression & Plan Weakness, Acute UTI ED Provider Note NAME: QUINTIN MCKENZIE AGE: 79 SEX: F : 1940 ARRIVES VIA: Ambulance INFORMANT: Patient, daughter, EMS ED PROVIDER(S): Juan C Owens MD CHIEF COMPLAINT: hypotension HPI: Records review reveals this patient was seen in the emergency department yesterday for a urinary tract infection as well as altered mental status and urine retention. This is a 79-year-old female brought in by her daughter over concerns of the patient was hypotensive at home today. The patient's daughter reports that the patient started a new medication prescribed by urology for the patient's bladder. She reports after starting the medication that the patient became hypotensive and very weak. The patient's daughter notes that she was brought here to the emergency department yesterday and was supposedly to be admitted however they went home. The patient herself reports that she is having weakness she reports any exertion makes the weakness worse. She reports rest makes the weakness better. Patient's daughter reports that she gave the patient salt water to bring her blood pressure up prior to arrival. EMS reports that they gave the patient a normal saline bolus. ROS: See above HPI for pertinent positives & negatives. A total of 10 systems reviewed and were otherwise negative. PAST MEDICAL HISTORY: See Below PAST SURGICAL HISTORY: See Below FAMILY HISTORY: See Below SOCIAL HISTORY: See Below HOME MEDICATIONS: See Below ALLERGIES: See Below VITALS: See Below PHYSICAL EXAMINATION: VITAL SIGNS - Vital signs and nursing notes were reviewed. GENERAL - 79-year-old female appearing stated age who is in no acute distress. Communicates well with provider and answers questions appropriately. SKIN - Without rashes. HEAD - NC/AT. EYES - PERRL with EOMI bilaterally. Sclera anicteric. Palpebral conjunctiva pink and moist with no injection noted. EARS - No deformities of external structures noted on gross examination bilaterally. NOSE - Midline and without cyanosis. No epistaxis or purulent drainage noted. Septum midline without deviation or septal hematoma noted. MOUTH/OROPHARYNX - Without perioral cyanosis. Buccal mucosa pink and moist and without leukoplakia. Tongue midline with equal elevation of palate bilaterally. No tonsillar hypertrophy, erythema, or exudates noted. NECK - Neck with FROM. Supple to palpation. LUNGS - Chest wall symmetric without accessory muscle use, intercostals retractions, or central cyanosis. Normal vesicular breath sounds CTA B/L. No wheezes, rales, or rhonchi appreciated. CARDIAC - RRR with S1/S2. No murmur, rubs, or gallops appreciated. ABDOMEN - Abdominal contour BS normoactive all four quadrants. No tenderness, palpable masses, hepatosplenomegaly, or ascites noted. EXTREMITIES - No clubbing or peripheral cyanosis. No pretibial edema present. +3/5 radial, posterior tibial, and dorsalis pedis pulses palpated throughout. +5/5 strength noted in UE/LE bilaterally. NEUROLOGIC - Cranial nerves II through XII grossly intact. Sensory intact to light touch throughout. Patellar reflexes +2/4. PSYCH - A&Ox3 and cooperates fully with examiner. Pt is very pleasant and interacts well with examiner. MEDICAL DECISION MAKING: Patient was seen and evaluated as above in room B5. Review was performed of nursing notes and vital signs. I did review pertinent previous visits and patient history. After obtaining a thorough history and physical examination the above work up was performed. This 79-year-old female who presents emergency department again after hypotension at home. Patient has been treated as an outpatient with both antibiotics as well as antifungals for urinary tract infection. Patient's daughter is concerned that the patient cannot go home. She was given a normal saline bolus here in the emergency department and her blood pressure was found to be better. EKG does not show any acute changes she does not have an elevation in her troponin she is slightly dehydrated. She was started on IV Rocephin. I did discuss the case with the hospitalist service who did agree to meet the patient. Patient is in agreement with treatment plan. While in the department, I personally reevaluated the patient several times and each time the patient was found to be resting comfortably. The patient was educated upon management, educated upon todays findings/results, educated upon importance of follow up from today's visit, educated upon symptoms in which to return, had questions answered prior to discharge, verbalized understanding, and was discharged home in good condition. An order was placed for continuous cardiac monitoring. The monitor shows a rate of 77 with Normal Sinus rhythm. The patient was evaluated during a period of high volume and high acuity during the global COVID-19 pandemic, and that diagnosis was suspected/considered upon their initial presentation. Their evaluation, treatment and testing was consistent with current guidelines for patients who present with complaints or symptoms that may be related to COVID-19. Patient was seen while provider was wearing PPE. Triage Nursing notes reviewed. Prior medical records reviewed Vital Signs: reviewed and remarkable for no significant abnormalities Differential diagnosis: Infection, dehydration, metabolic abnormality, hypo/hyperglycemia, electrolyte disturbance, anemia, hypoxia, cardiac sources, intracerebral event, toxicologic, neurologic, as well as other pathologies. ER treatment provided: See below Diagnostics interpreted by me: ECG: EKG shows a sinus rhythm with first-degree AV block left axis deviation old septal infarct QTC is 426 ventricular rate of [address] elevation or depression EKG is compared to 09/21/2020 no change noted. Laboratory studies: As stated above and show below. Imaging studies: See below Consultation(s): Internal Medicine Past Med/Surg History Medical History (Updated 11/10/20 @ 19:03 by Juan C Owens MD) Acute osteomyelitis of toe of left foot Acute UTI Altered mental status occasionally, not all the time -- will get disoriented and forgetful. Cellulitis of left lower extremity Chronic kidney disease, stage IV (severe) pt's daughter denies Chronic osteomyelitis of left foot Contusion of knee, left Diabetes mellitus with neuropathy Diabetes mellitus, type 2 uncontrolled (per daughter) Foot pain from neuropathy and osteomyelitis Generalized weakness GERD (gastroesophageal reflux disease) History of amputation of toe revision of Left second toe amputation done at [facility] 05/2018. History of high cholesterol Taking no meds at this time History of revision of total replacement of left knee joint HLD (hyperlipidemia) HTN (hypertension) Hx of deep venous thrombosis "long time ago" s/p foot injury -- no problems since. Murmur, cardiac Osteomyelitis of left lower extremity Peripheral neuropathy numbness, tingling and burning of both feet UTI (urinary tract infection) multiple Surgical History History of Achilles tendon repair right History of adenoidectomy History of amputation TOES - 6 partial amputations with a partial x2 on great toe resulting in complete amputation 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 History of appendectomy History of arthroscopy RT/LEFT SHOULDER History of cataract surgery RT/LEFT History of cholecystectomy History of colonoscopy History of esophagogastroduodenoscopy (EGD) History of partial amputation of toe Multiple History of shoulder surgery rotator cuff both shoulders History of tonsillectomy History of tooth extraction History of total knee replacement Bilateral Hx of hysterectomy, total Hx of sinus surgery Family History Other No family history of adverse response to anesthesia No family history of bleeding disorder No pertinent family history Social History Smoking Status: Never smoker Second Hand Exposure: No; Hx Alcohol Use: No Hx Substance Use: No Preferred Language: Gabonese Communication Ability: Impaired Visual Impairment: No Limitations Varnish Cooker Required: No Beliefs That Will Affect Care: None marital status: Current Living Situation: Family current occupational status: retired Feels Safe at Home: Yes Assistive Devices: Glasses Allergies Allergies Allergy/AdvReac Type Severity Reaction Status Date / Time Iodinated Contrast Media Allergy Intermediate HIVES AND Verified 11/09/20 15:27 HOT FLASHES azithromycin Allergy Unknown Unknown Verified 11/09/20 15:27 hydrocodone AdvReac Severe Confusion Verified 11/09/20 15:27 oxycodone AdvReac Severe CONFUSION Verified 11/09/20 15:27 LAKSHMI WHEN SHE TAKES 2 TABS- Macrolide Antibiotics AdvReac Mild UPSET Verified 11/09/20 15:27 STOMACH Home Meds Home Medications Medication Instructions Recorded Confirmed insulin detemir U-100 100 unit/mL 0 unit SUBCUT AMPM 04/04/18 11/10/20 subcutaneous solution (Levemir U-100 Insulin) cyanocobalamin (vitamin B-12) 1,000 mcg PO QAM 10/27/19 11/10/20 1,000 mcg tablet (Vitamin B-12) gabapentin 300 mg capsule 300 mg PO BID 10/27/19 11/10/20 aspirin 81 mg tablet,delayed 81 mg PO QAM 07/24/20 11/10/20 release meloxicam 7.5 mg tablet 7.5 mg PO QAM 07/24/20 11/10/20 methenamine hippurate 1 gram tablet 1 g PO BID 09/21/20 11/10/20 conjugated estrogens 0.625 mg/gram 0.5 applic VAGINAL UD 11/09/20 11/10/20 vaginal cream (Premarin) doxazosin 1 mg tablet (Cardura) 1 mg PO HS 11/09/20 11/10/20 Previous Rx's Medication Instructions Recorded lisinopril 10 mg tablet 10 mg PO QAM #30 tab 08/22/20 cefdinir 300 mg capsule 300 mg PO BID 5 Days #10 cap 11/09/20 Results & Data (ED) Vital Signs Vital Signs - 24 hr 11/10/20 12:09 11/10/20 12:18 11/10/20 13:17 Temperature 37.0 C Temperature Source Oral Pulse Rate 80 82 Pulse Rate [Finger] 70 Pulse Rate from SpO2 Sensor Pulse Rhythm Regular Regular Pulse Rhythm [Finger] Regular Pulse Strength [Finger] Normal Respiratory Rate 14 14 Respiratory Effort / Characteristics Non-Labored Respiratory Depth Normal Blood Pressure 161/79 H Blood Pressure [Right Arm] 144/95 H Blood Pressure Mean 106 Blood Pressure Mean [Right Arm] 111 Blood Pressure Position [Right Arm] Lying Pulse Oximetry 95 95 Oxygen Delivery Method Room Air Room Air Sepsis Recent Fever Within 48 Hours Yes Sepsis New/Unexplained Change in Mental Status No No Sepsis Action Taken by Nursing No Action Required No Action Required 11/10/20 14:36 11/10/20 14:49 11/10/20 16:54 Temperature Temperature Source Pulse Rate 79 81 Pulse Rate [Finger] 66 Pulse Rate from SpO2 Sensor 79 81 Pulse Rhythm Pulse Rhythm [Finger] Pulse Strength [Finger] Respiratory Rate 15 20 Respiratory Effort / Characteristics Respiratory Depth Blood Pressure 166/91 H 178/95 H Blood Pressure [Right Arm] Blood Pressure Mean 116 122 Blood Pressure Mean [Right Arm] Blood Pressure Position [Right Arm] Pulse Oximetry 97 100 Oxygen Delivery Method Sepsis Recent Fever Within 48 Hours Sepsis New/Unexplained Change in Mental Status Sepsis Action Taken by Nursing 11/10/20 16:55 11/10/20 17:00 11/10/20 17:30 Temperature Temperature Source Pulse Rate 66 66 Pulse Rate [Finger] 84 Pulse Rate from SpO2 Sensor 67 65 Pulse Rhythm Pulse Rhythm [Finger] Pulse Strength [Finger] Respiratory Rate 18 17 15 Respiratory Effort / Characteristics Respiratory Depth Blood Pressure 173/84 H 166/109 H Blood Pressure [Right Arm] 178/95 H Blood Pressure Mean 113 128 Blood Pressure Mean [Right Arm] 122 Blood Pressure Position [Right Arm] Pulse Oximetry 95 99 100 Oxygen Delivery Method Sepsis Recent Fever Within 48 Hours Sepsis New/Unexplained Change in Mental Status Sepsis Action Taken by Nursing 11/10/20 18:00 08/09/21 18:30 Temperature Temperature Source Pulse Rate 80 77 Pulse Rate [Finger] Pulse Rate from SpO2 Sensor 80 78 Pulse Rhythm Pulse Rhythm [Finger] Pulse Strength [Finger] Respiratory Rate 20 16 Respiratory Effort / Characteristics Respiratory Depth Blood Pressure 164/81 H 186/64 H Blood Pressure [Right Arm] Blood Pressure Mean 108 104 Blood Pressure Mean [Right Arm] Blood Pressure Position [Right Arm] Pulse Oximetry 100 99 Oxygen Delivery Method Sepsis Recent Fever Within 48 Hours Sepsis New/Unexplained Change in Mental Status Sepsis Action Taken by Nursing Laboratory Data Result diagrams: 11/10/20 14:05 11/10/20 14:05 Lab Results 11/10/20 11/10/20 11/10/20 Range/Units 13:39 13:39 14:05 WBC 5.66 (4.8-10.8) K/uL RBC 4.11 L (4.2-5.4) M/uL Hgb 11.9 L (12.0-16.0) g/dL Hct 36.9 L (37-47) % MCV 89.8 (80-100) fL MCH 29.0 (25-34) pg MCHC 32.2 (32-36) g/dL RDW Std Deviation 46.1 (36.4-46.3) fL RDW Coeff of Phil 14.0 (11.5-14.5) % Plt Count 203 (130-400) K/uL MPV 10.0 (7.4-10.4) fL Immature Gran % (Auto) 0.0 % Neut % (Auto) 68.9 % Lymph % (Auto) 20.1 % [place] % (Auto) 8.1 % Eos % (Auto) 2.7 % Baso % (Auto) 0.2 % Neut # (Auto) 3.90 (1.4-6.5) K/uL Lymph # (Auto) 1.14 L (1.2-3.4) K/uL [place] # (Auto) 0.46 (0.11-0.59) K/uL Eos # (Auto) 0.15 (0-0.5) K/uL Baso # (Auto) 0.01 (0-0.2) K/uL Immature Gran # (Auto) 0.00 (0.00-0.02) K/uL Sodium (136-145) mmol/L Potassium (3.5-5.1) mmol/L Chloride (98-107) mmol/L Carbon Dioxide (21-32) mmol/L Anion Gap (3-11) BUN (7-18) mg/dl Creatinine (0.6-1.2) mg/dl Est Cr Clr Drug Dosing ml/min Est GFR ( Amer) ml/min Est GFR (Non-Af Amer) ml/min BUN/Creatinine Ratio (10-20) Glucose (70-99) mg/dl POC Glucose (70-99) mg/dl Calcium (8.5-10.1) mg/dl Total Bilirubin (0.2-1) mg/dl AST (15-37) U/L ALT (12-78) U/L Alkaline Phosphatase (45-117) U/L Troponin I (0-0.045) ng/ml Total Protein (6.4-8.2) gm/dl Albumin (3.4-5.0) gm/dl Globulin (2.5-4.0) gm/dl Albumin/Globulin Ratio (0.9-2) TSH (0.300-4.500) uIu/ml Specimen Hemolysis Urine Color Urine Appearance (Clear) Urine pH (4.5-7.5) Ur Specific [place] (1.000-1.030) Urine Protein (Negative) Urine Glucose (UA) (Negative) Urine Ketones (Negative) Urine Blood (Negative) Urine Nitrite (Negative) Urine Bilirubin (Negative) Urine Urobilinogen (Negative) Ur Leukocyte Esterase (Negative) Urine WBC (Auto) (0-5) /hpf Urine RBC (Auto) (0-4) /hpf U Hyaline Cast (Auto) (0-5) /lpf U Epithel Cells (Auto) (0-5) /lpf Urine Bacteria (Auto) (Negative) Urine Yeast (None Prsent) COVID-19 Eval Order Covid19 at [facility] SARS-CoV-2 (PCR) NEGATIVE (Negative) 11/10/20 11/10/20 11/10/20 Range/Units 14:05 14:34 15:58 WBC (4.8-10.8) K/uL RBC (4.2-5.4) M/uL Hgb (12.0-16.0) g/dL Hct (37-47) % MCV (80-100) fL MCH (25-34) pg MCHC (32-36) g/dL RDW Std Deviation (36.4-46.3) fL RDW Coeff of Phil (11.5-14.5) % Plt Count (130-400) K/uL MPV (7.4-10.4) fL Immature Gran % (Auto) % Neut % (Auto) % Lymph % (Auto) % [place] % (Auto) % Eos % (Auto) % Baso % (Auto) % Neut # (Auto) (1.4-6.5) K/uL Lymph # (Auto) (1.2-3.4) K/uL [place] # (Auto) (0.11-0.59) K/uL Eos # (Auto) (0-0.5) K/uL Baso # (Auto) (0-0.2) K/uL Immature Gran # (Auto) (0.00-0.02) K/uL Sodium 141 (136-145) mmol/L Potassium 4.8 (3.5-5.1) mmol/L Chloride 112 H (98-107) mmol/L Carbon Dioxide 22 (21-32) mmol/L Anion Gap 6.0 (3-11) BUN 38 H (7-18) mg/dl Creatinine 1.02 (0.6-1.2) mg/dl Est Cr Clr Drug Dosing 49.1 ml/min Est GFR ( Amer) 60.6 ml/min Est GFR (Non-Af Amer) 52.3 ml/min BUN/Creatinine Ratio 36.9 H (10-20) Glucose 79 (70-99) mg/dl POC Glucose 54 L* (70-99) mg/dl Calcium 9.1 (8.5-10.1) mg/dl Total Bilirubin 0.2 (0.2-1) mg/dl AST 26 (15-37) U/L ALT 25 (12-78) U/L Alkaline Phosphatase 71 (45-117) U/L Troponin I < 0.015 (0-0.045) ng/ml Total Protein 6.8 (6.4-8.2) gm/dl Albumin 3.5 (3.4-5.0) gm/dl Globulin 3.3 (2.5-4.0) gm/dl Albumin/Globulin Ratio 1.1 (0.9-2) TSH 0.733 (0.300-4.500) uIu/ml Specimen Hemolysis Urine Color Yellow Urine Appearance Cloudy A (Clear) Urine pH 5.5 (4.5-7.5) Ur Specific [place] 1.018 (1.000-1.030) Urine Protein 1+ H (Negative) Urine Glucose (UA) Negative (Negative) Urine Ketones Negative (Negative) Urine Blood Trace H (Negative) Urine Nitrite Negative (Negative) Urine Bilirubin Negative (Negative) Urine Urobilinogen Negative (Negative) Ur Leukocyte Esterase 3+ H (Negative) Urine WBC (Auto) >30 H (0-5) /hpf Urine RBC (Auto) 0-4 (0-4) /hpf U Hyaline Cast (Auto) 1-5 (0-5) /lpf U Epithel Cells (Auto) 5-10 H (0-5) /lpf Urine Bacteria (Auto) Negative (Negative) Urine Yeast Budding A (None Prsent) COVID-19 Eval Order SARS-CoV-2 (PCR) (Negative) 11/10/20 Range/Units 16:47 WBC (4.8-10.8) K/uL RBC (4.2-5.4) M/uL Hgb (12.0-16.0) g/dL Hct (37-47) % MCV (80-100) fL MCH (25-34) pg MCHC (32-36) g/dL RDW Std Deviation (36.4-46.3) fL RDW Coeff of Phil (11.5-14.5) % Plt Count (130-400) K/uL MPV (7.4-10.4) fL Immature Gran % (Auto) % Neut % (Auto) % Lymph % (Auto) % [place] % (Auto) % Eos % (Auto) % Baso % (Auto) % Neut # (Auto) (1.4-6.5) K/uL Lymph # (Auto) (1.2-3.4) K/uL [place] # (Auto) (0.11-0.59) K/uL Eos # (Auto) (0-0.5) K/uL Baso # (Auto) (0-0.2) K/uL Immature Gran # (Auto) (0.00-0.02) K/uL Sodium (136-145) mmol/L Potassium (3.5-5.1) mmol/L Chloride (98-107) mmol/L Carbon Dioxide (21-32) mmol/L Anion Gap (3-11) BUN (7-18) mg/dl Creatinine (0.6-1.2) mg/dl Est Cr Clr Drug Dosing ml/min Est GFR ( Amer) ml/min Est GFR (Non-Af Amer) ml/min BUN/Creatinine Ratio (10-20) Glucose (70-99) mg/dl POC Glucose 95 (70-99) mg/dl Calcium (8.5-10.1) mg/dl Total Bilirubin (0.2-1) mg/dl AST (15-37) U/L ALT (12-78) U/L Alkaline Phosphatase (45-117) U/L Troponin I (0-0.045) ng/ml Total Protein (6.4-8.2) gm/dl Albumin (3.4-5.0) gm/dl Globulin (2.5-4.0) gm/dl Albumin/Globulin Ratio (0.9-2) TSH (0.300-4.500) uIu/ml Specimen Hemolysis Urine Color Urine Appearance (Clear) Urine pH (4.5-7.5) Ur Specific [place] (1.000-1.030) Urine Protein (Negative) Urine Glucose (UA) (Negative) Urine Ketones (Negative) Urine Blood (Negative) Urine Nitrite (Negative) Urine Bilirubin (Negative) Urine Urobilinogen (Negative) Ur Leukocyte Esterase (Negative) Urine WBC (Auto) (0-5) /hpf Urine RBC (Auto) (0-4) /hpf U Hyaline Cast (Auto) (0-5) /lpf U Epithel Cells (Auto) (0-5) /lpf Urine Bacteria (Auto) (Negative) Urine Yeast (None Prsent) COVID-19 Eval Order SARS-CoV-2 (PCR) (Negative) Administered Medications Discontinued Medications Sodium Chloride (Nss 1000ml) 500 mls @ 999 mls/hr IV .Q31M ONE Stop: 11/10/20 13:37 Last Infusion: 11/10/20 15:55 Dose: 0 mls/hr Documented by: [id number] Admin: 11/10/20 14:18 Dose: 999 mls/hr Documented by: [id number] Ceftriaxone Sodium (Rocephin) 2,000 mg in 70 mls @ 140 mls/hr IV NOW STA Stop: 11/10/20 15:56 Last Infusion: 11/10/20 16:51 Dose: 0 mls/hr Documented by: [id number] Admin: 11/10/20 16:04 Dose: 140 mls/hr Documented by: [id number] Imaging Data Radiologist's Impression: Chest X-Ray 11/10/20 12:39 XR chest 1V portable CLINICAL HISTORY: weakness COMPARISON STUDY: November 09, 2020 FINDINGS: No pneumothorax. No pleural effusion. Minimal atelectasis or scarring is seen at the left base. Lung volumes are hyperinflated. Cardiomediastinal silhouette is within normal limits in size. No significant pulmonary vascular congestion.. Aorta is calcified. Osseous structures: Degenerative changes of the spine. Osteopenia. IMPRESSION: 1. Mild hyperinflation. 2. Minimal atelectasis/scarring at the left base. No large infiltrates or consolidative lesions are seen. 3. The rest of findings as above. ACT 112: Negative or not required by law. The above report was generated using voice recognition software. It may contain grammatical, syntax or spelling errors. Electronically signed by: Juliette Holland DO 11/10/2020 1:07 PM Discharge Plan Visit Data Chief Complaint: Urinary Symptoms ED Provider: Juan C Owens Discharge Problem: Weakness, Acute UTI Forms Stand Alone Forms: [facility] Prescriptions Prescriptions: No Action Levemir U-100 Insulin 100 unit/mL solution 0 unit subcut AMPM RF: 0 cyanocobalamin (vitamin B-12) [Vitamin B-12] 1,000 mcg Tablet 1,000 mcg PO QAM RF: 0 gabapentin 300 mg capsule 300 mg PO BID RF: 0 methenamine hippurate 1 gram tablet 1 g PO BID RF: 0 doxazosin [Cardura] 1 mg tablet 1 mg PO HS RF: 0 Premarin 0.625 mg/gram cream 0.5 applic vaginal UD RF: 0 cefdinir 300 mg capsule 300 mg PO BID 5 Days Qty: 10 RF: 0 aspirin 81 mg Tablet,Delayed Release (Dr/Ec) 81 mg PO QAM RF: 0 meloxicam 7.5 mg Tablet 7.5 mg PO QAM RF: 0 lisinopril 10 mg Tablet 10 mg PO QAM Qty: 30 RF: 0 Referrals Referrals: Zhanna Bauer DO [Primary Care Provider] -
[2020-11-10] MEDS ORDERED: PHARMACY GLYCEMIC MGMT CONSULT PRN (20:04)
[2020-11-10] MEDS ORDERED: ONDANSETRON INJ 2 MG/ML 2 ML VIAL IV PRN (20:04)
[2020-11-10] MEDS ORDERED: ACETAMINOPHEN 325 MG TAB PO PRN (20:04)
[2020-11-10] MEDS ORDERED: cefTRIAXone SODIUM 1,000 MG in DEXTROSE 5% 50 ML IV SCH (20:04)
[2020-11-10] MEDS ORDERED: ENOXAPARIN INJ 40 MG/0.4 ML SYR SQ SCH (21:00)
[2020-11-10] MEDS: DOXAZOSIN MESYLATE 1 MG TAB PO SCH (23:21)
[2020-11-10] MEDS: GABAPENTIN 300 MG CAP PO SCH (23:21)
[2020-11-10] MEDS: INSULIN ASPART 100 UNITS/ML 3 ML PEN SC SCH (23:27)
[2020-11-11 06:58] LABS: Basophils # (auto) 0.01 K/uL (0-0.2); Basophils % (auto) 0.2 %; Eosinophils # (auto) 0.16 K/uL (0-0.5); Eosinophils % (auto) 3.5 %; Hematocrit (blood only) 35.9 % (37-47); Immature Granulocytes # (auto) 0.01 K/uL (0.00-0.02); Immature Granulocytes % (auto) 0.2 %; Lymphocytes # (auto) 1.22 K/uL (1.2-3.4); Lymphocytes % (auto) 26.7 %; Mean Corpuscular Hemoglobin 29.6 pg (25-34); Mean Corpuscular Hgb Conc 33.4 g/dL (32-36); Mean Corpuscular Volume 88.6 fL (80-100); Mean Platelet Volume 9.8 fL (7.4-10.4); Monocytes # (auto) 0.45 K/uL (0.11-0.59); Monocytes % (auto) 9.8 %; Neutrophils # (auto) 2.72 K/uL (1.4-6.5); Neutrophils % (auto) 59.6 %; Platelet Count 175 K/uL (130-400); RDW Coefficient of Variation 13.8 % (11.5-14.5); RDW Standard Deviation 45.2 fL (36.4-46.3); Red Blood Count 4.05 M/uL (4.2-5.4); White Blood Count 4.57 K/uL (4.8-10.8)
[2020-11-11 07:27] LABS: BUN Creatinine Ratio 34.3 (10-20); Calcium 8.9 mg/dl (8.5-10.1); Creatinine Clr Calc Pharmacy 56.9 ml/min; Est GFR (African American) 83.8 ml/min; Est GFR (Non-African American) 72.3 ml/min; Magnesium 2.3 mg/dl (1.8-2.4); Potassium 4.1 mmol/L (3.5-5.1)
[2020-11-11] MEDS: ASPIRIN 81 MG ECTAB PO SCH ×2 (07:30→07:35)
[2020-11-11] MEDS: GABAPENTIN 300 MG CAP PO SCH ×2 (07:30→07:35)
[2020-11-11] MEDS: CYANOCOBALAMIN 500 MCG TABLET (VITAMIN B-12) PO SCH ×2 (07:30→07:35)
[2020-11-11] MEDS: MELOXICAM 7.5 MG TAB PO SCH ×2 (07:30→07:35)
--- NOTE | 2020-11-11 08:58 | Hospitalist Progress Note ---
Date of Service November 11, 2020 Assessment & Plan Admission and Anticipated Discharge Date Admission Date: November 10, 2020 Results & Data Results & Data ([facility]) Vital Signs (Past 12 Hours) Vital Signs Temp Pulse Resp BP Pulse Ox 11/11/20 07:57 36.9 C 105 H 18 159/78 H 99 11/10/20 22:48 37.3 C 105 H 16 185/83 H 100 PG Care Time/CCT Total # of Minutes Spent Total Time Spent with Patient: Total time spent is greater than 50% in coordination of care (as documented) at patient's floor/unit and/or counseling patient: Coding
[2020-11-11] MEDS: INSULIN ASPART 100 UNITS/ML 3 ML PEN SC SCH ×2 (09:01→12:52)
[2020-11-11 10:25] LABS: Appearance Urine Clear (Clear); Bacteria Urine Automated Negative (Negative); Bilirubin Urine Negative (Negative); Blood Urine Negative (Negative); Color Urine Yellow; Epithelial Cell Urine Auto >30 /lpf (0-5); Glucose Urine UA Negative (Negative); Ketones Urine Trace (Negative); Leukocyte Esterase Urine 2+ (Negative); Nitrite Urine Negative (Negative); Protein Urine Trace (Negative); RBC Urine Automated 0-4 /hpf (0-4); Specific Gravity Urine 1.016 (1.000-1.030); Urobilinogen Urine Negative (Negative); WBC Urine Automated >30 /hpf (0-5); pH Urine 5.5 (4.5-7.5)
[2020-11-11] MEDS ORDERED: FLUCONAZOLE 100 MG TAB PO SCH (11:00)
--- NOTE | 2020-11-11 13:38 | Pharmacy Report ---
Pharmacy Glycemic Short Note 2 - Date of Service November 11, 2020 - Glycemic Short BSG Results (Last 24 hours): 11/10/20 11/10/20 11/10/20 14:05 15:58 16:47 Glucose 79 POC Glucose 54 L* 95 11/10/20 11/11/20 11/11/20 20:08 06:38 08:20 Glucose 108 H POC Glucose 100 H 127 H 11/11/20 12:02 Glucose POC Glucose 112 H OUTPATIENT ANTIDIABETIC REGIMEN: * Levemir 20 units qAM * Levemir 10 units qPM * patient reports taking 5 units BID ASSESSMENT: * Ms Keys is a 79 y/o F with a PMH of IDDM who presents with delirium and UTI. * BSGs yesterday were 54 - 95-100 and fasting this morning was 127 mg/dL. * Last admission, patient only required Novolog CF 30 CR 20. BSGs were slightly elevated. * Will continue above regimen but tighten carbohydrate ratio. PLAN FOR INPATIENT GLYCEMIC CONTROL: * Basal insulin * hold * Bolus insulin * NovoLog per scale ACHS or Q6hrs while NPO * Goal Range: Low 110 mg/dL - High 140 mg/dL * Correction Factor: 30 mg/dL/unit * Nutritional / Prandial insulin per carb ratio of 1 unit per 10 grams CHO consumed PLAN FOR DISCHARGE: * HbA1C ordered
[2020-11-11] MEDS: DOXAZOSIN MESYLATE 1 MG TAB PO SCH (14:40)
[2020-11-11 14:48] LABS: Lyme Ab IgM w/WB Rflx Negative (Negative)
[2020-11-11 14:52] LABS: Lyme Ab IgG w/WB Rflx Positive (Negative)
--- NOTE | 2020-11-11 15:13 | Discharge Summary ---
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 Patient follows with Urology and ID for her frequent UTIs. Patient was seen by ID in September and was added on Methenamine Vitamin C and Estrogen Vaginal cream that was to be weaned down to 2x per week usage and follow up with Urology. Patient followed up with Urology on 11/06/2020 where she had a cystoscopy performed which revealed chronic inflammation and likely not emptying her bladder completely. She was started on Ciprofloxacin for 3 days following instrumentation as well as adding Cardura. The patient took 1 dose of her Cipro and had an increase in her delirium so she called the patient's ID doctor and that was discontinued, but she did not start the Cardura. The patient was brought to the EMD on for increase in somnolence and concern of her being infected, it was found that she had 700ml of urine in her bladder and this was drained with straight cath, following IV fluids and bladder draining the patient improved and requested to go home. She was sent home on Cefdinir for her urine. The patient received her Cardura last night and her daughter reports that her blood pressure was low this morning with systolic 80s and the patient was dizzy, fatigued, and generally not feeling well, so she came back to the EMD. In the EMD the patient had a Thomas catheter placed for again urinary retention. The patient does endorse feeling better after this. It was also noted her BG to be <60 as well with recheck of 95. She has since ate and feels better as well. She does endorse frequent chills at home. Patient will be brought into medical floor for re-adjustment of her medications, and bladder monitoring. Admission Exam Per Admitting Provider PHYSICAL EXAM: General: awake, alert, no apparent distress Head: Normocephalic, atraumatic ENT: PERRL, EOMI, no pharyngeal exudate, mucous membranes moist Neuro: AAO x 2 (person and place), speech clear and appropriate, strength in tact bilaterally 5/5, sensation intact and equal all extremities and dermatomes, no pronator drift Chest: equal rise and fall of the chest, no accessory muscle use, no heaves or thrills, Clear to auscultation, on room air Cardiac: Regular rate and rhythm, telemetry reviewed, skin warm dry, cap refill <3 seconds, peripheral pulses +2 no JVD, no murmur, no edema GI: NABS x 4 quadrants, soft, nontender to palpation, no rebound, guarding or tenderness : thomas to gravity draining clear yuliana urine ~800 ml, no pain, no CVA tenderness, Extremities: Normal inspection, no peripheral edema or erythema, calfs nontender to palpation Psych: Normal mood and affect Skin: no rash or erythema Principal Diagnosis AMS, Urinary Retention, Hypoglycemia, Possible Lyme Discharge Exam General: awake, pleasantly confused at times, alert, no apparent distress Head: Normocephalic, no ecchymosis or swelling ENT: PERRLA, EOMI, no pharyngeal exudate, mucous membranes moist Neuro: AAO x 2, speech clear, but confused on events and location at times, strength intact bilaterally 5/5, sensation intact and equal all extremities and dermatomes, no pronator drift Chest: equal rise and fall of the chest, no accessory muscle use, no heaves or thrills, Clear to auscultation, on room air, Cardiac: Regular rate and rhythm, telemetry reviewed, skin warm dry, cap refill <3 seconds, peripheral pulses +2 no JVD, no murmur, no edema GI: NABS x 4 quadrants, soft, nontender to palpation, no rebound, guarding or tenderness : Spontaneously voiding, no pain, no CVA tenderness, thomas draining yellow urine Extremities: no peripheral edema or erythema, calfs nontender to palpation Psych: Normal mood and affect Skin: no rash or erythema Discharge Data Allergies Allergy/AdvReac Type Severity Reaction Status Date / Time Iodinated Contrast Media Allergy Intermediate HIVES AND Verified 11/09/20 15:27 HOT FLASHES azithromycin Allergy Unknown Unknown Verified 11/09/20 15:27 hydrocodone AdvReac Severe Confusion Verified 11/09/20 15:27 oxycodone AdvReac Severe CONFUSION Verified 11/09/20 15:27 LAKSHMI WHEN SHE TAKES 2 TABS- Macrolide Antibiotics AdvReac Mild UPSET Verified 11/09/20 15:27 STOMACH Consultations 11/10/20 16:05 ED Decision to Admit Stat Hospital Course (1) Abnormal urinalysis: Remains with chronic LE,NI, >30 WBC in urine Rocephin was given x 2 doses Per family and ID, patient not to have any further abx. None further were given. Thomas placed for retention --> continued at d/c. CM arranged home health and patient to have f/u with Urology for voiding trial outpatient Cx with yeast, not albicans -- localized colonizations. Completed 14 day course of Diflucan recently Follow up with Dr. Pires at discharge Of note, chronic issues with confusion, weakness--> 1st degree AV block on EKG on admission. Checked for Lyme --> screening IgM negative but IgG positive, WB pending Patient unsure if ever had Lyme, caregiver at bedside this afternoon unsure. They wanted to hold of on ANY abx at this time per their ID provider --> Discussed can follow up with PCP, but if positive without prior hx would highly rec tx for extended course with doxy. - Continue local treatment of nystatin powder to surrounding areas (2) Chronic UTI: no treatment indicated at this time, but did receive 2 doses of ceftriaxone while admitted Primarily the issue currently appears to be retention- this may be consistent with urethral swelling from recent instrumentation Thomas placed and continued at d/c --> f/u Urology for voiding trial. 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 They wanted to hold of on ANY abx at this time per their ID provider --> Discussed can follow up with PCP, but if positive without prior hx would highly rec tx for extended course 28days with doxy. Messaged ([email or web address]) Dr. Bauer with Lyme testing for follow-up. (4) Urine retention: As above- continued Cardura Thomas F/u Urology (5) Delirium: Delirium vs. Dementia. Family reports frequent bouts of delirum after receiving ANY antibiotics. This started after receiving Cipro. But also was hypoglycemic and hypotensive on admission which could contribute - chronic with acute exacerbations while in hospital (6) HTN (hypertension): BP stable. Presented with hypotension after starting on Cardura recently D/c Norvasc on Tuesday -- on cardura as above Lisinopril to be resumed tomorrow (7) Diabetes mellitus, type 2: On insulin at home A1c acceptable but reported lows at home. Per daughter, has glucose monitoring device to place on today -- had been having lows. Decreased to 15 units Levemir in the AM and monitor with close follow up with PCP. PCP alerted of changes (8) GERD (gastroesophageal reflux disease): No acute needs not on therapy at home and patient does not endorse any sy mptoms currently Total Time Total Time Spent Total Time Spent (In Minutes): 55 Discharge Plan Discharge Items Patient Disposition: Home - Home Health Services Reason For Visit: INCOMPLETE BLADDER EMPTYING, DELIRIUM Discharge Diagnosis: Possible UTI, hypoglycemia Goals: You have been hospitalized for an acute medical problem. During your stay at [facility], we have made an effort to correct the problem that brought you to the hospital while keeping you as comfortable as possible. Medications were used to bring your condition under control and your discharge instructions will include directions for any medications you should take after leaving the hospital. Please make sure you see your Primary Care Provider as part of your follow up plan. Activity: Resume your previous activity Non-emergency contact: Primary Care Provider and Urologist Call non-emergency contact if: you have any medication questions, your symptoms worsen, your pain is worsening and you have a fever Follow-up/Referrals: Barrington Vann MD [Physician] - (1 week) Zhanna Bauer DO [Primary Care Provider] - Diet: Carb Consistent or DM2 and Heart Healthy Addtl Attending Provider Instructions: Hospitalized for concerns of UTI/urinary retention -- per discussed by ID, no further antibiotics at this time. This confusion could be due to hypoglycemia. It is being recommended that given urinary retention issues leading to current state, that you are to continue to Thomas catheter at discharge and will need to follow up with Urology in the office for a voiding trial. You should continue to DISCARD previous NORVASC (AMLODIPINE) and continue on the CADURA as previously recommended as your blood pressures have now been acclimated to that medication and no further hypotension. You should continue to monitor your blood pressure at home and if without h ypotension, you can resume your lisinopril tomorrow. Your next dose of Cardura will be tomorrow, 11/12. Home health has been arranged to help with management of the thomas. Hypoglycemia-- you have had lows at home and were low on admission. This was discussed with pharmacy as well, and given prior needs/values while in the hospital, it is recommended that you decrease your insulin (LEVIMIR) to 15 units in the MORNING, ONCE a day to prevent lows. You should utilize the continuous glucose monitor to continue to monitor for low values and have close follow up with your primary care provider to make continued adjustments pending your average sugars on continuous monitoring device. You should follow up with Urology and PCP in the next week to monitor your progress. You did have a screening test for Lyme which shows you may have had a previous infection. You should follow up with your PCP if you have never had Lyme in the past. Antibiotics are not being given due to above, but you may need to consider treatment with Doxycycline in the future if that is the case. Please return to the emergency department with any fever, chills, chest pain, worsening confusion or for any other symptoms that are concerning for you. It has been a pleasure being a part of the medical team providing for you while you have been in the hospital. Take care! Pending Studies at Discharge: Yes Studies:: Urine culture Stand-Alone Forms: [facility] Medications and DC Order Prescriptions: Continued cyanocobalamin (vitamin B-12) [Vitamin B-12] 1,000 mcg Tablet 1,000 mcg PO QAM RF: 0 gabapentin 300 mg capsule 300 mg PO BID RF: 0 methenamine hippurate 1 gram tablet 1 g PO BID RF: 0 doxazosin [Cardura] 1 mg tablet 1 mg PO HS RF: 0 Premarin 0.625 mg/gram cream 0.5 applic vaginal UD RF: 0 cefdinir 300 mg capsule 300 mg PO BID 5 Days Qty: 10 RF: 0 aspirin 81 mg Tablet,Delayed Release (Dr/Ec) 81 mg PO QAM RF: 0 meloxicam 7.5 mg Tablet 7.5 mg PO QAM RF: 0 lisinopril 10 mg Tablet 10 mg PO QAM Qty: 30 RF: 0 Changed Levemir U-100 Insulin 100 unit/mL solution 15 unit subcut QAM Qty: 0 RF: 0 Discharge Orders: Discharge Order (Routine); Ordered 11/11/20 Ordered By: Whitley Yen/Other Patient Handouts: Urinary Tract Infections in Women, Understanding Urinary Tract ... Admission Data Admit Date/Time: 11/10/20 18:03 Attending Provider: Juanita French Admit Provider: Rony Villa Primary Care Provider: Zhanna Bauer Other Providers: Rony Villa ; Barrington Vann ; Caitlyn Pires Other Interventions: Discharge Summary Assessment (RN) Last Done: 11/11/20 16:14 Supervising Physician Co-Signing Physician Notes PA Supervision Note: I personally saw and examined the patient. I verified all mcallister points and agree with CINDA Hdz with the following exceptions and/or additions: S-pt feeling well. caregiver at bedside says pt not yet at baseline mental status but they prefer her to be home pt has no abd pain or complatins O- Vitals reviewed Gen: [AAOx2, NAD] HEENT: [anicteric sclerae, EOMI] CV: [RRR no mgr nl S1S2] Pulm: [CTAB no wcr] Abd: [+BS soft NT ND no masses or hernias] Ext: [no edema] Skin: [no rashes, warm/dry] Neuro: [full strength throughout] A/P-79 yo female here with hypotension and hypoglycemia secondary to Cardura started for urinary retention. Required Thomas placement, reduction in antihypertensives and insulin Improved, stable for dc to home Coding Level of Care Code 56810 OBS Care - Discharge Diagnoses Abnormal urinalysis R82.90 Chronic UTI N39.0 Urine retention R33.9 Delirium R41.0 HTN (hypertension) I10 Diabetes mellitus, type 2 E11.9 GERD (gastroesophageal reflux disease) K21.9 Lyme borreliosis A69.20
--- NOTE | 2020-11-11 15:35 | Electrocardiogram Report ---
Test Reason : Blood Pressure : / mmHG Vent. Rate : 079 BPM Atrial Rate : 079 BPM P-R Int : 250 ms QRS Dur : 082 ms QT Int : 372 ms P-R-T Axes : -21 -38 -01 degrees QTc Int : 426 ms Sinus rhythm with 1st degree A-V block Left axis deviation Abnormal ECG Confirmed by Damián Lundy ([id number]) on 11/11/2020 3:35:24 PM Referred By: REFERRED SELF Confirmed By:Derick Lundy
[2020-11-11] MEDS ORDERED: cefTRIAXone SODIUM 2,000 MG in DEXTROSE 5% 50 ML IV SCH (16:00)
[2020-11-14] MEDS ORDERED: PREMARIN VAG CRM 14 APPLN/30 GM TUBE PV SCH (20:00)
== END 2020-11-11 17:45 | disposition home health service (06) ==
LOC: ED 12:02 → 3W 12:02 → SUATTDRO 18:03 → 3W 19:33

== ENCOUNTER 2020-11-15 22:03 | Observation (INO) ==
[2020-11-15] MEDS ORDERED: SODIUM CHLORIDE 0.9% 1000ML 500 ML IV ONE (22:33)
[2020-11-15 23:25] LABS: Appearance Urine Clear (Clear); Bacteria Urine Automated Negative (Negative); Bilirubin Urine Negative (Negative); Blood Urine Negative (Negative); Color Urine Yellow; Glucose Urine UA Negative (Negative); Ketones Urine Negative (Negative); Leukocyte Esterase Urine Negative (Negative); Nitrite Urine Negative (Negative); Protein Urine Trace (Negative); RBC Urine Automated 0-4 /hpf (0-4); Specific Gravity Urine 1.021 (1.000-1.030); Urobilinogen Urine Negative (Negative)
[2020-11-15 23:26] LABS: Alanine Aminotransferase 27 U/L (12-78); Albumin Level 3.7 gm/dl (3.4-5.0); Aspartate Aminotransferase 26 U/L (15-37); BUN Creatinine Ratio 37.9 (10-20); Blood Urea Nitrogen 33 mg/dl (7-18); Calcium 9.2 mg/dl (8.5-10.1); Carbon Dioxide 23 mmol/L (21-32); Chloride 113 mmol/L (98-107); Creatinine Clr Calc Pharmacy 52.3 ml/min; Est GFR (African American) 72.4 ml/min; Est GFR (Non-African American) 62.5 ml/min; Glucose 137 mg/dl (70-99); Potassium 4.4 mmol/L (3.5-5.1); Sodium 141 mmol/L (136-145)
[2020-11-15 23:27] LABS: Albumin Globulin Ratio 1.1 (0.9-2); Alkaline Phosphatase 70 U/L (45-117); Bilirubin,Total 0.2 mg/dl (0.2-1); Creatine Kinase 143 U/L (26-192); Creatine Kinase MB 3.3 ng/ml (0.5-3.6); Globulin 3.3 gm/dl (2.5-4.0); Thyroid Stimulating Hormone 0.667 uIu/ml (0.300-4.500); Troponin I < 0.015 ng/ml (0-0.045)
[2020-11-16 00:18] LABS: Basophils # (auto) 0.01 K/uL (0-0.2); Basophils % (auto) 0.1 %; Eosinophils # (auto) 0.21 K/uL (0-0.5); Hemoglobin 11.7 g/dL (12.0-16.0); Immature Granulocytes # (auto) 0.01 K/uL (0.00-0.02); Immature Granulocytes % (auto) 0.1 %; Lymphocytes # (auto) 1.36 K/uL (1.2-3.4); Lymphocytes % (auto) 19.3 %; Mean Corpuscular Hemoglobin 29.4 pg (25-34); Mean Corpuscular Hgb Conc 33.4 g/dL (32-36); Mean Corpuscular Volume 87.9 fL (80-100); Mean Platelet Volume 10.1 fL (7.4-10.4); Monocytes # (auto) 0.52 K/uL (0.11-0.59); Monocytes % (auto) 7.4 %; Neutrophils # (auto) 4.94 K/uL (1.4-6.5); Neutrophils % (auto) 70.1 %; Platelet Count 212 K/uL (130-400); RDW Coefficient of Variation 13.5 % (11.5-14.5); RDW Standard Deviation 43.9 fL (36.4-46.3); Red Blood Count 3.98 M/uL (4.2-5.4); White Blood Count 7.05 K/uL (4.8-10.8)
[2020-11-16] MEDS ORDERED: LORazepam 1 MG TAB SL STA (00:44)
[2020-11-16] MEDS ORDERED: HALOPERIDOL LACTATE 5 MG/ML 1 ML VIAL IM STA (00:44)
[2020-11-16] MEDS ORDERED: LORazepam 2 MG/4 ML VIAL ONE (00:56)
[2020-11-16] MEDS ORDERED: LORazepam 2 MG/ML VIAL (IM USE) IM STA (01:01)
--- NOTE | 2020-11-16 02:06 | Emergency Department Note ---
Impression & Plan Altered mental status, Agitation, Abdominal pain, Constipation ED Provider Note NAME: QUINTIN MCKENZIE AGE: 79 SEX: F : 1940 ARRIVES VIA: Ambulance INFORMANT: Patient, ED PROVIDER(S): Juan C Owens MD CHIEF COMPLAINT: Altered mental Status HPI: This 79-year-old female who presents emergency department complaining of altered mental status. Records review reveals this patient was just in the emergency department several days ago again for altered mental status as well as urinary retention. The patient had a catheter removed from by home health. She is currently being treated with antifungal medication for fungal urinary tract infection. Patient was noted to be wandering around outside her house today looking for a baby. Upon arrival to the emergency department the patient reports that she missed her bus to get to her job today. She wishes for me to let her go so that she can go to work. The patient reports that she is complaining of abdominal pain which she describes as an aching sensation. She points to the pain above the bladder. ROS: See above HPI for pertinent positives & negatives. A total of 10 systems reviewed and were otherwise negative. PAST MEDICAL HISTORY: See Below PAST SURGICAL HISTORY: See Below FAMILY HISTORY: See Below SOCIAL HISTORY: See Below HOME MEDICATIONS: See Below ALLERGIES: See Below VITALS: See Below PHYSICAL EXAMINATION: VITAL SIGNS - Vital signs and nursing notes were reviewed. GENERAL - 79-year-old female appearing stated age who is in no acute distress. appears very confused, agitated SKIN - Without rashes. HEAD - NC/AT. EYES - PERRL with EOMI bilaterally. Sclera anicteric. Palpebral conjunctiva pink and moist with no injection noted. EARS - No deformities of external structures noted on gross examination bilaterally. No pain elicited with palpation of the tragus bilaterally. External auditory canals without discharge or otorrhea. Tympanic membranes pearly bernstein without retraction or bulging. No fluid or purulent material visualized behind the TM. Handle of malleus, umbo, cone of light, pars tensa/flaccid all easily visualized. NOSE - Midline and without cyanosis. No epistaxis or purulent drainage noted. Septum midline without deviation or septal hematoma noted. MOUTH/OROPHARYNX - Without perioral cyanosis. Buccal mucosa pink and moist and without leukoplakia. Tongue midline with equal elevation of palate bilaterally. No tonsillar hypertrophy, erythema, or exudates noted. [] dentition noted. NECK - Neck with FROM. Supple to palpation. [] lymphadenopathy noted. No nuchal rigidity. LUNGS - Chest wall symmetric without accessory muscle use, intercostals retractions, or central cyanosis. Normal vesicular breath sounds CTA B/L. No wheezes, rales, or rhonchi appreciated. CARDIAC - RRR with S1/S2. No murmur, rubs, or gallops appreciated. ABDOMEN - Abdominal contour [] without pulsations or visible masses. BS normoactive all four quadrants. No tenderness, palpable masses, hepatos plenomegaly, or ascites noted. EXTREMITIES - No clubbing or peripheral cyanosis. No pretibial edema present. +3/5 radial, posterior tibial, and dorsalis pedis pulses palpated throughout. +5/5 strength noted in UE/LE bilaterally. NEUROLOGIC - Cranial nerves II through XII grossly intact. Sensory intact to light touch throughout. Patellar reflexes +2/4. PSYCH - A&Ox3 and cooperates fully with examiner. Pt is very pleasant and interacts well with examiner. MEDICAL DECISION MAKING: Patient was seen and evaluated as above in room C3. Review was performed of nursing notes and vital signs. I did review pertinent previous visits and patient history. After obtaining a thorough history and physical examination the above work up was performed. This is a 79-year-old female who presents back to the emergency department with acute change in mental status. Due to the patient's pain a Hall catheter was placed. She does not have an elevation in her white blood cell count however the patient became extremely agitated here in the emergency department requiring sedation. She was given Haldol as well as Ativan. The patient is very confused. Based on this I do feel she will have to be admitted to the medicine service. CAT scan of the head was interpreted by me and do not show any nikos dence of acute intracranial hemorrhage. CT abdomen pelvis was interpreted by me does not show any evidence of acute process. Chest x-ray was also interpreted by me does not show any evidence of pneumonia congestion or pneumothorax. I did discuss the case with the medicine service who did agree to admit the patient. An order was placed for continuous cardiac monitoring. The monitor shows a rate of 81 with Normal Sinus rhythm. The patient was evaluated during a period of high volume and high acuity during the global COVID-19 pandemic, and that diagnosis was suspected/considered upon their initial presentation. Their evaluation, treatment and testing was consistent with current guidelines for patients who present with complaints or symptoms that may be related to COVID-19. Patient was seen while provider was wearing PPE. Triage Nursing notes reviewed. Prior medical records reviewed Vital Signs: reviewed and remarkable for no significant abnormalities Differential diagnosis: Infection, dehydration, metabolic abnormality, hypo/hyperglycemia, electrolyte disturbance, anemia, hypoxia, cardiac sources, intracerebral event, toxicologic, neurologic, as well as other pathologies. ER treatment provided: See below Diagnostics interpreted by me: ECG: Sinus rhythm with first-degree AV block left axis deviation old septal infarct QTC is 435 ventricular rate is 98 EKG is compared to 11/10/2020 no significant changes found. Laboratory studies: As stated above and show below. Imaging studies: See below Consultation(s): Internal Medicine Past Med/Surg History Medical History Acute osteomyelitis of toe of left foot Acute UTI Altered mental status occasionally, not all the time -- will get disoriented and forgetful. Cellulitis of left lower extremity Chronic kidney disease, stage IV (severe) pt's daughter denies Chronic osteomyelitis of left foot Contusion of knee, left Diabetes mellitus with neuropathy Diabetes mellitus, type 2 uncontrolled (per daughter) Foot pain from neuropathy and osteomyelitis Generalized weakness GERD (gastroesophageal reflux disease) History of amputation of toe revision of Left second toe amputation done at [facility] 05/2018. History of high cholesterol Taking no meds at this time History of revision of total replacement of left knee joint HLD (hyperlipidemia) HTN (hypertension) Hx of deep venous thrombosis "long time ago" s/p foot injury -- no problems since. Murmur, cardiac Osteomyelitis of left lower extremity Peripheral neuropathy numbness, tingling and burning of both feet UTI (urinary tract infection) multiple Weakness Surgical History History of Achilles tendon repair right History of adenoidectomy History of amputation TOES - 6 partial amputations with a partial x2 on great toe resulting in complete amputation 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 History of appendectomy History of arthroscopy RT/LEFT SHOULDER History of cataract surgery RT/LEFT History of cholecystectomy History of colonoscopy History of esophagogastroduodenoscopy (EGD) History of partial amputation of toe Multiple History of shoulder surgery rotator cuff both shoulders History of tonsillectomy History of tooth extraction History of total knee replacement Bilateral Hx of hysterectomy, total Hx of sinus surgery Family History Other No family history of adverse response to anesthesia No family history of bleeding disorder No pertinent family history Social History Smoking Status: Never smoker Second Hand Exposure: No; Hx Alcohol Use: No Hx Substance Use: No Preferred Language: Swedish Communication Ability: Impaired Visual Impairment: No Limitations 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 Required: No Beliefs That Will Affect Care: None marital status: Current Living Situation: Family current occupational status: retired Feels Safe at Home: Yes Assistive Devices: Glasses and Walker Allergies Allergies Allergy/AdvReac Type Severity Reaction Status Date / Time Iodinated Contrast Media Allergy Intermediate HIVES AND Verified 11/15/20 23:30 HOT FLASHES azithromycin Allergy Unknown Unknown Verified 11/15/20 23:30 hydrocodone AdvReac Severe Confusion Verified 11/15/20 23:30 oxycodone AdvReac Severe CONFUSION Verified 11/15/20 23:30 LAKSHMI WHEN SHE TAKES 2 TABS- Macrolide Antibiotics AdvReac Mild UPSET Verified 11/15/20 23:30 STOMACH Home Meds Home Medications Medication Instructions Recorded Confirmed cyanocobalamin (vitamin B-12) 1,000 mcg PO QAM 10/27/19 11/15/20 1,000 mcg tablet (Vitamin B-12) aspirin 81 mg tablet,delayed 81 mg PO QAM 07/24/20 11/15/20 release meloxicam 7.5 mg tablet 7.5 mg PO QAM 07/24/20 11/15/20 methenamine hippurate 1 gram tablet 1 g PO BID 09/21/20 11/15/20 conjugated estrogens 0.625 mg/gram 0.5 applic VAGINAL UD 11/09/20 11/15/20 vaginal cream (Premarin) doxazosin 1 mg tablet (Cardura) 1 mg PO HS 11/09/20 11/15/20 insulin detemir U-100 100 unit/mL See Rx Instructions .ROUTE .COMPLEX 11/15/20 11/15/20 subcutaneous solution (Levemir U-100 Insulin) lisinopril 5 mg tablet 5 mg PO DAILY 11/15/20 11/15/20 Previous Rx's Medication Instructions Recorded haloperidol 5 mg tablet 5 mg PO Q6H PRN 7 Days #28 tab 11/20/20 Results & Data (ED) Vital Signs Vital Signs - 24 hr 11/15/20 22:06 11/15/20 22:26 11/15/20 22:32 Temperature 36.9 C Temperature Source Oral Pulse Rate 90 Pulse Rate [Radial] Pulse Rhythm Regular Pulse Strength Normal Respiratory Rate 15 Respiratory Effort / Characteristics Non-Labored Spontaneous Nasal Congestion Respiratory Depth Normal Blood Pressure 184/137 H Blood Pressure [Left Arm] Blood Pressure Mean 152 Blood Pressure Mean [Left Arm] Blood Pressure Position Lying Pulse Oximetry 100 97 Oxygen Delivery Method Room Air Room Air Room Air Sepsis Recent Fever Within 48 Hours No Sepsis New/Unexplained Change in Mental Status Yes Sepsis Action Taken by Nursing No Action Required 11/15/20 23:30 11/16/20 00:04 11/16/20 00:26 Temperature Temperature Source Pulse Rate 82 76 Pulse Rate [Radial] 98 H Pulse Rhythm Pulse Strength Respiratory Rate 17 18 20 Respiratory Effort / Characteristics Respiratory Depth Blood Pressure 194/106 H 185/135 H Blood Pressure [Left Arm] 199/90 H Blood Pressure Mean 135 151 Blood Pressure Mean [Left Arm] 126 Blood Pressure Position Pulse Oximetry 96 97 Oxygen Delivery Method Sepsis Recent Fever Within 48 Hours Sepsis New/Unexplained Change in Mental Status Sepsis Action Taken by Nursing 11/16/20 02:00 Temperature Temperature Source Pulse Rate Pulse Rate [Radial] 81 Pulse Rhythm Pulse Strength Respiratory Rate 16 Respiratory Effort / Characteristics Respiratory Depth Blood Pressure Blood Pressure [Left Arm] 176/82 H Blood Pressure Mean Blood Pressure Mean [Left Arm] 113 Blood Pressure Position Pulse Oximetry Oxygen Delivery Method Sepsis Recent Fever Within 48 Hours Sepsis New/Unexplained Change in Mental Status Sepsis Action Taken by [facility] Medications Current Medication List: was personally reviewed by me Laboratory Data Attestation: I reviewed the patient's lab results. Result diagrams: 11/18/20 06:55 11/19/20 06:02 Lab Results 11/15/20 11/15/20 11/15/20 Range/Units 22:40 22:40 22:50 WBC Cancelled RBC Cancelled Hgb Cancelled Hct Cancelled MCV Cancelled MCH Cancelled MCHC Cancelled RDW Std Deviation Cancelled RDW Coeff of Phil Cancelled Plt Count Cancelled MPV Cancelled Immature Gran % (Auto) Cancelled Neut % (Auto) Cancelled Lymph % (Auto) Cancelled [place] % (Auto) Cancelled Eos % (Auto) Cancelled Baso % (Auto) Cancelled Neut # (Auto) Cancelled Lymph # (Auto) Cancelled [place] # (Auto) Cancelled Eos # (Auto) Cancelled Baso # (Auto) Cancelled Immature Gran # (Auto) Cancelled Absolute Nucleated RBC Cancelled Nucleated RBC % (auto) Cancelled Neutrophils % (Manual) Cancelled Band Neutrophils % Cancelled Lymphocytes % (Manual) Cancelled Prolymphocyte % Cancelled Reactive Lymphs % (Man) Cancelled Monocytes % (Manual) Cancelled Eosinophils % (Manual) Cancelled Basophils % (Manual) Cancelled Metamyelocytes % (Man) Cancelled Myelocytes % (Man) Cancelled Promyelocytes % (Man) Cancelled Blast Cells % (Manual) Cancelled Plasma Cell % (Manual) Cancelled Other Cells % Cancelled Nucleated RBC % Cancelled Neutrophils # (Manual) Cancelled Band Neutrophils # Cancelled Total Absolute Neuts Cancelled Lymphocytes # (Manual) Cancelled Prolymphocyte # Cancelled Reactive Lymphs # Cancelled Total Abs Lymphocytes Cancelled Monocytes # (Manual) Cancelled Eosinophils # (Manual) Cancelled Basophils # (Manual) Cancelled Metamyelocytes # (Man) Cancelled Myelocytes # (Manual) Cancelled Promyelocytes # (Man) Cancelled Blast Cells # (Man) Cancelled Plasma Cell # (Manual) Cancelled Other Cells # Cancelled Nucleated RBCs # (Man) Cancelled Hypersegmented Neuts Cancelled Hyposegmented Neuts Cancelled Hypogranular Neuts Cancelled Large Granular Lymphs Cancelled # Lrg Granular Lymphs Cancelled Hairy Cells Cancelled Smudge Cells Cancelled Toxic Granulation Cancelled Toxic Vacuolation Cancelled Dohle Bodies Cancelled Alvarado Rods Cancelled Platelet Estimate Cancelled Hypogranular Platelets Cancelled Clumped Platelets Cancelled Giant Platelets Cancelled Platelet Satelliting Cancelled RBC Morphology Cancelled Polychromasia Cancelled Hypochromasia Cancelled Poikilocytosis Cancelled Basophilic Stippling Cancelled Anisocytosis Cancelled Microcytosis Cancelled Macrocytosis Cancelled Spherocytes Cancelled Pappenheimer Bodies Cancelled Sickle Cells Cancelled Target Cells Cancelled Tear Drop Cells Cancelled Ovalocytes Cancelled Stomatocytes Cancelled [place] Bodies Cancelled Echinocytes Cancelled Acanthocytes (Spur) Cancelled Rouleaux Cancelled RBC Agglutinates Cancelled Schistocytes Cancelled RBC Morph Comment Cancelled Sezary Cell Cancelled Sodium (136-145) mmol/L Potassium (3.5-5.1) mmol/L Chloride (98-107) mmol/L Carbon Dioxide (21-32) mmol/L Anion Gap (3-11) BUN (7-18) mg/dl Creatinine (0.6-1.2) mg/dl Est Cr Clr Drug Dosing ml/min Est GFR ( Amer) ml/min Est GFR (Non-Af Amer) ml/min BUN/Creatinine Ratio (10-20) Glucose (70-99) mg/dl Calcium (8.5-10.1) mg/dl Total Bilirubin (0.2-1) mg/dl AST (15-37) U/L ALT (12-78) U/L Alkaline Phosphatase (45-117) U/L Total Creatine Kinase (26-192) U/L CK-MB (CK-2) (0.5-3.6) ng/ml CK/CKMB % Calc (0-3.0) Troponin I (0-0.045) ng/ml Total Protein (6.4-8.2) gm/dl Albumin (3.4-5.0) gm/dl Globulin (2.5-4.0) gm/dl Albumin/Globulin Ratio (0.9-2) TSH (0.300-4.500) uIu/ml Specimen Hemolysis Urine Color Urine Appearance (Clear) Urine pH (4.5-7.5) Ur Specific [place] (1.000-1.030) Urine Protein (Negative) Urine Glucose (UA) (Negative) Urine Ketones (Negative) Urine Blood (Negative) Urine Nitrite (Negative) Urine Bilirubin (Negative) Urine Urobilinogen (Negative) Ur Leukocyte Esterase (Negative) Urine WBC (Auto) (0-5) /hpf Urine RBC (Auto) (0-4) /hpf U Hyaline Cast (Auto) (0-5) /lpf U Epithel Cells (Auto) (0-5) /lpf Urine Bacteria (Auto) (Negative) Urine Yeast (None Prsent) COVID-19 Eval Order Covid19 at [facility] SARS-CoV-2 (PCR) NEGATIVE (Negative) 11/15/20 11/15/20 11/16/20 Range/Units 22:50 23:05 00:09 WBC 7.05 RBC 3.98 L Hgb 11.7 L Hct 35.0 L MCV 87.9 MCH 29.4 MCHC 33.4 RDW Std Deviation 43.9 RDW Coeff of Phil 13.5 Plt Count 212 MPV 10.1 Immature Gran % (Auto) 0.1 Neut % (Auto) 70.1 Lymph % (Auto) 19.3 [place] % (Auto) 7.4 Eos % (Auto) 3.0 Baso % (Auto) 0.1 Neut # (Auto) 4.94 Lymph # (Auto) 1.36 [place] # (Auto) 0.52 Eos # (Auto) 0.21 Baso # (Auto) 0.01 Immature Gran # (Auto) 0.01 Absolute Nucleated RBC Nucleated RBC % (auto) Neutrophils % (Manual) Band Neutrophils % Lymphocytes % (Manual) Prolymphocyte % Reactive Lymphs % (Man) Monocytes % (Manual) Eosinophils % (Manual) Basophils % (Manual) Metamyelocytes % (Man) Myelocytes % (Man) Promyelocytes % (Man) Blast Cells % (Manual) Plasma Cell % (Manual) Other Cells % Nucleated RBC % Neutrophils # (Manual) Band Neutrophils # Total Absolute Neuts Lymphocytes # (Manual) Prolymphocyte # Reactive Lymphs # Total Abs Lymphocytes Monocytes # (Manual) Eosinophils # (Manual) Basophils # (Manual) Metamyelocytes # (Man) Myelocytes # (Manual) Promyelocytes # (Man) Blast Cells # (Man) Plasma Cell # (Manual) Other Cells # Nucleated RBCs # (Man) Hypersegmented Neuts Hyposegmented Neuts Hypogranular Neuts Large Granular Lymphs # Lrg Granular Lymphs Hairy Cells Smudge Cells Toxic Granulation Toxic Vacuolation Dohle Bodies Alvarado Rods Platelet Estimate Hypogranular Platelets Clumped Platelets Giant Platelets Platelet Satelliting RBC Morphology Polychromasia Hypochromasia Poikilocytosis Basophilic Stippling Anisocytosis Microcytosis Macrocytosis Spherocytes Pappenheimer Bodies Sickle Cells Target Cells Tear Drop Cells Ovalocytes Stomatocytes [place] Bodies Echinocytes Acanthocytes (Spur) Rouleaux RBC Agglutinates Schistocytes RBC Morph Comment Sezary Cell Sodium 141 (136-145) mmol/L Potassium 4.4 (3.5-5.1) mmol/L Chloride 113 H (98-107) mmol/L Carbon Dioxide 23 (21-32) mmol/L Anion Gap 5.0 (3-11) BUN 33 H (7-18) mg/dl Creatinine 0.88 (0.6-1.2) mg/dl Est Cr Clr Drug Dosing 52.3 ml/min Est GFR ( Amer) 72.4 ml/min Est GFR (Non-Af Amer) 62.5 ml/min BUN/Creatinine Ratio 37.9 H (10-20) Glucose 137 H (70-99) mg/dl Calcium 9.2 (8.5-10.1) mg/dl Total Bilirubin 0.2 (0.2-1) mg/dl AST 26 (15-37) U/L ALT 27 (12-78) U/L Alkaline Phosphatase 70 (45-117) U/L Total Creatine Kinase 143 (26-192) U/L CK-MB (CK-2) 3.3 (0.5-3.6) ng/ml CK/CKMB % Calc 2.3 (0-3.0) Troponin I < 0.015 (0-0.045) ng/ml Total Protein 7.0 (6.4-8.2) gm/dl Albumin 3.7 (3.4-5.0) gm/dl Globulin 3.3 (2.5-4.0) gm/dl Albumin/Globulin Ratio 1.1 (0.9-2) TSH 0.667 (0.300-4.500) uIu/ml Specimen Hemolysis Urine Color Yellow Urine Appearance Clear (Clear) Urine pH 5.0 (4.5-7.5) Ur Specific [place] 1.021 (1.000-1.030) Urine Protein Trace H (Negative) Urine Glucose (UA) Negative (Negative) Urine Ketones Negative (Negative) Urine Blood Negative (Negative) Urine Nitrite Negative (Negative) Urine Bilirubin Negative (Negative) Urine Urobilinogen Negative (Negative) Ur Leukocyte Esterase Negative (Negative) Urine WBC (Auto) 1-5 (0-5) /hpf Urine RBC (Auto) 0-4 (0-4) /hpf U Hyaline Cast (Auto) 1-5 (0-5) /lpf U Epithel Cells (Auto) 10-20 H (0-5) /lpf Urine Bacteria (Auto) Negative (Negative) Urine Yeast Budding A (None Prsent) COVID-19 Eval Order SARS-CoV-2 (PCR) (Negative) Administered Medications Discontinued Medications Aspirin (Aspirin 81 Mg Ectab) 81 mg PO QAM [facility] Stop: 12/16/20 08:59 Last Admin: 11/20/20 08:20 Dose: 81 mg Documented by: [id number] Admin: 11/19/20 09:31 Dose: 81 mg Documented by: [id number] Admin: 11/18/20 15:24 Dose: 81 mg Documented by: [id number] Admin: 11/18/20 13:25 Dose: Not Given Documented by: [id number] Admin: 11/17/20 08:28 Dose: 81 mg Documented by: [id number] Admin: 11/16/20 12:35 Dose: 81 mg Documented by: [id number] Diphenhydramine HCl (Diphenhydramine 50 Mg/Ml Vial) 12.5 mg IV ONE ONE Stop: 11/20/20 02:01 Last Admin: 11/20/20 02:42 Dose: 12.5 mg Documented by: [id number] Enoxaparin Sodium (Enoxaparin Inj 40 Mg/0.4 Ml Syr) 40 mg SQ QAM [facility] Stop: 12/16/20 08:59 Last Admin: 11/20/20 08:20 Dose: 40 mg Documented by: [id number] Admin: 11/19/20 09:31 Dose: 40 mg Documented by: [id number] Admin: 11/18/20 13:26 Dose: 40 mg Documented by: [id number] Admin: 11/17/20 08:28 Dose: 40 mg Documented by: [id number] Admin: 11/16/20 12:36 Dose: 40 mg Documented by: [id number] Haloperidol Lactate (Haloperidol Lactate 5 Mg/Ml 1 Ml Vial) 5 mg IM NOW STA Stop: 11/16/20 00:45 Last Admin: 11/16/20 00:48 Dose: 5 mg Documented by: [id number] Haloperidol Lactate (Haloperidol Lactate 5 Mg/Ml 1 Ml Vial) 5 mg IM Q6H PRN PRN Reason: Agitation Stop: 12/17/20 16:07 Last Admin: 11/20/20 03:51 Dose: 5 mg Documented by: [id number] Admin: 11/17/20 23:01 Dose: 5 mg Documented by: [id number] Sodium Chloride (Nss 1000ml) 500 mls @ 999 mls/hr IV .Q31M ONE Stop: 11/15/20 23:03 Last Infusion: 11/16/20 00:38 Dose: 0 mls/hr Documented by: [id number] Admin: 11/16/20 00:06 Dose: 999 mls/hr Documented by: [id number] Sodium Chloride (Nss 1000ml) 1,000 mls @ 125 mls/hr IV .Q8H [facility] Stop: 11/16/20 22:14 Last Infusion: 11/17/20 05:43 Dose: 0 mls/hr Documented by: [id number] Infusion: 11/17/20 03:15 Dose: 125 mls/hr Documented by: [id number] Admin: 11/16/20 22:54 Dose: 125 mls/hr Documented by: [id number] Infusion: 11/16/20 22:28 Dose: 0 mls/hr Documented by: [id number] Admin: 11/16/20 15:26 Dose: 125 mls/hr Documented by: [id number] Lorazepam (Ativan) 1 mg in 2 mls @ 2 mls/min IV NOW STA Stop: 11/17/20 15:40 Last Admin: 11/17/20 15:50 Dose: 2 mls/min Documented by: [id number] Lorazepam (Ativan) 1 mg in 2 mls @ 2 mls/min IV NOW STA Stop: 11/17/20 16:09 Last Admin: 11/17/20 16:10 Dose: 2 mls/min Documented by: [id number] Lorazepam (Ativan) 2 mg in 4 mls @ 4 mls/min IV NOW STA Stop: 11/17/20 23:32 Last Admin: 11/17/20 23:50 Dose: 4 mls/min Documented by: [id number] Insulin Aspart (Insulin Aspart 100 Units/Ml 3 Ml Pen) 0 units SC Q6 [facility] Stop: 12/16/20 05:59 Last Admin: 11/17/20 05:16 Dose: Not Given Documented by: [id number] Admin: 11/16/20 23:07 Dose: Not Given Documented by: [id number] Admin: 11/16/20 18:43 Dose: Not Given Documented by: [id number] Cosigned by: [id number] Admin: 11/16/20 12:14 Dose: Not Given Documented by: [id number] Cosigned by: [id number] Admin: 11/16/20 06:20 Dose: Not Given Documented by: [id number] Cosigned by: [id number] Insulin Aspart (Insulin Aspart 100 Units/Ml 3 Ml Pen) 0 units SC ACHS [facility] Stop: 12/16/20 05:59 Last Admin: 11/20/20 09:42 Dose: Not Given Documented by: [id number] Admin: 11/19/20 23:28 Dose: Not Given Documented by: [id number] Cosigned by: [id number] Admin: 11/19/20 19:27 Dose: Not Given Documented by: [id number] Cosigned by: [id number] Admin: 11/19/20 13:00 Dose: 2 units Documented by: [id number] Cosigned by: [id number] Admin: 11/19/20 09:31 Dose: Not Given Documented by: [id number] Cosigned by: [id number] Admin: 11/18/20 20:56 Dose: 1 units Documented by: [id number] Cosigned by: [id number] Admin: 11/18/20 18:14 Dose: 1 units Documented by: [id number] Cosigned by: [id number] Admin: 11/18/20 13:27 Dose: Not Given Documented by: [id number] Admin: 11/18/20 10:00 Dose: Not Given Documented by: [id number] Cosigned by: [id number] Admin: 11/17/20 20:10 Dose: Not Given Documented by: [id number] Admin: 11/17/20 18:53 Dose: Not Given Documented by: [id number] Admin: 11/17/20 12:54 Dose: Not Given Documented by: [id number] Cosigned by: [id number] Admin: 11/17/20 10:24 Dose: 2 units Documented by: [id number] Cosigned by: [id number] Lisinopril (Lisinopril 5 Mg Tab) 5 mg PO DAILY [facility] Stop: 12/16/20 08:59 Last Admin: 11/20/20 08:20 Dose: 5 mg Documented by: [id number] Admin: 11/19/20 10:45 Dose: 5 mg Documented by: [id number] Admin: 11/18/20 15:24 Dose: 5 mg Documented by: [id number] Admin: 11/18/20 13:26 Dose: Not Given Documented by: [id number] Admin: 11/17/20 08:28 Dose: 5 mg Documented by: [id number] Admin: 11/16/20 12:35 Dose: 5 mg Documented by: [id number] Lorazepam (Lorazepam 1 Mg Tab) 1 mg SL NOW STA Stop: 11/16/20 00:45 Last Admin: 11/16/20 00:55 Dose: Not Given Documented by: [id number] Lorazepam (Lorazepam 2 Mg/4 Ml Vial) Confirm Administered Dose 2 mg .ROUTE .STK- MED ONE Stop: 11/16/20 00:57 Last Increment: 11/16/20 00:58 Dose: 1 mg Documented by: [id number] Lorazepam (Lorazepam 2 Mg/Ml Vial (Im Use)) 1 mg IM NOW STA Stop: 11/16/20 01:02 Last Admin: 11/16/20 01:12 Dose: Not Given Documented by: [id number] Olanzapine (Olanzapine Zydis 5 Mg Orally Dis. Tab) 5 mg PO ONE STA Stop: 11/20/20 04:40 Last Admin: 11/20/20 04:56 Dose: 5 mg Documented by: [id number] Olanzapine (Olanzapine Zydis 5 Mg Orally Dis. Tab) 5 mg PO ONE ONE Stop: 11/20/20 06:37 Last Admin: 11/20/20 06:55 Dose: Not Given Documented by: [id number] Olanzapine (Olanzapine Zydis 5 Mg Orally Dis. Tab) 2.5 mg PO ONE ONE Stop: 11/20/20 06:40 Last Admin: 11/20/20 06:55 Dose: 2.5 mg Documented by: [id number] Imaging Data Radiologist's Impression: Chest X-Ray 11/15/20 22:32 XR chest 1V portable HISTORY: weakness COMPARISON: Chest 11/10/2020. FINDINGS: No new focal lung consolidations to suggest pneumonia. No evidence for pulmonary edema. The lungs remain mildly hyperexpanded. The cardiac silhouette is borderline enlarged. No pleural effusions. No pneumothorax. Distal resorption/resection of the bilateral clavicles is again noted. IMPRESSION: No acute process. ACT 112: Negative or not required by law. Electronically signed by: Marvin Huddleston M.D. 11/16/2020 8:[address] 08/14/21 22:32 CT head/brain wo con CLINICAL HISTORY: 79 years-old Female with Pt c/o AMS. Acutely altered mental status TECHNIQUE: Multiple axial CT images of the head were obtained without contrast. A dose lowering technique was utilized adhering to the principles of ALARA. COMPARISON: 11/09/2020. FINDINGS: No acute intracranial hemorrhage, midline shift, intracranial mass, hydrocephalus, territorial ischemia or abnormal extra-axial collection. Age-r elated involutional changes. White matter hypodensities suggestive of chronic microvascular ischemic disease. The calvarium is intact. Prior bilateral lens repair. The paranasal sinuses, mastoid air cells, and middle ear cavities are clear. IMPRESSION: No acute intracranial abnormality. ACT 112: Negative or not required by law. The above report was generated using voice recognition software. It may contain grammatical, syntax or spelling errors. Electronically signed by: Elias Ross M.D. 11/16/2020 7:28 AM Abdomen/Pelvis CT 11/15/20 23:[address] WITHOUT CONTRAST CT DOSE: 1296.76 mGy.cm HISTORY: Generalized abdominal pain. TECHNIQUE: Multiaxial CT images of the abdomen and pelvis were performed without contrast. A dose lowering technique was utilized adhering to the principles of ALARA. COMPARISON STUDY: Abdomen and pelvis CT 11/09/2020. FINDINGS: Mild dependent changes noted within the lung bases. No pneumo peritoneum. No pneumatosis. No fractures within the visualized osseous structures. Cholecystectomy. The unenhanced liver, spleen, adrenal glands, and pancreas are unremarkable. Bilateral renal calcifications, unchanged. The majority of these appear to be vascular.. No ureteral stones. No hydronephrosis. No retroperitoneal lymphadenopathy. Mild calcified plaque within the normal caliber abdominal aorta. There is a small diverticulum at the gastric fundus. The bladder is decompressed by a Hall catheter. Suboptimal evaluation for bowel pathology due to the lack of intravenous and oral contrast. However, there is no definite bowel wall thickening or obstruction. Moderate well-formed stool seen within the colon. Evidence for prior appendectomy. Mild pelvic floor collapse. IMPRESSION: No significant change compared to the prior study. No bowel wall thickening or obstruction. No hydronephrosis. ACT 112: Negative or not required by law. Electronically signed by: Marvin Huddleston M.D. 11/16/2020 8:03 AM Discharge Plan Visit Data Chief Complaint: Altered Mental Status Stated Complaint: CHANGE IN MENTAL STATUS ED Provider: Juan C Owens Discharge Problem: Altered mental status, Agitation, Abdominal pain, Constipation Patient Disposition: Admitted As Inpatient Discharge Instructions Interventions: ED Discharge Assessment Last Done: 11/16/20 03:29
--- NOTE | 2020-11-16 02:42 | History & Physical Report ---
Date of Service November 16, 2020 Assessment & Plan (1) Encephalopathy acute: Plan: 79 yo w/ hx delirium, urinary retention, cystitis, IDDM, anemia, CKD, HLD, GERD admitted for acute encephalopathy. 1. Encephalopathy - drug induced vs. metabolic vs. infectious - initial AMS started after cystoscopy on 11/06 and taking 1 dose of cipro. has been off antibiotics in interim. - unsure for indication of gabapentin 300 BID -- holding at this time due to increased somnolence since effect - last admission lyme titers positive for IgG, WB confirmed two bands positive IgG. No hx known lyme disease, never treated. If not improving mental status wit h hydration and holding medications, can consider LP for assessment of neurologic lyme disease and treatment with extended course of doxycycline. - no electrolyte derangement to indicate source of encephalopathy - CT Head negative for acute changes - CT A/P negative for infectious origin, CXR negative for pneumonia - delirium precautions - frequent reorientation - window shades up in the morning, down at sunset. Would benefit from window bed for orientation assistance. - sedating medications such as benzodiazepines -- of note, written to start Cardura on 11/06 for assistance with urinary retention, did not start till 11/10 at which time admitted for hypotension. Methenamine Hippurate for UTI suppression can increase blood level of alpha and beta agonists, and may have contributed to hypotension from cardura + lisinopril. Chronic Cystitis - thomas removed out of hospital on 11/15, but replaced in ER due to patient's worsening mental status. 300-400 ml urine drained, no evidence of urinary obstruction. - holding cardura, methenamine for UTI suppression and urinary retention given thomas placement - monitor I/O - consider urology/ID consult for adjustment of cardura/methenamine suppression - UA negative except patient's recurrent budding yeast IDDM - home regimen levemir 20 units AM, 10 units PM - last admission only required novolog while NPO and remained in control - NPO, ACHS BSG checks, with 110 -160 range, CF 30, CR 15 HTN - cont lisinopril 5mg, ASA DVT ppx: lovenox FEN/GI: NPO, NS 125/hr Code Status: re-ordered previous full code as unable to discuss with patient, no family at bedside dispo: med/surg (2) HTN (hypertension): (3) Delirium: (4) IDDM (insulin dependent diabetes mellitus): (5) GERD (gastroesophageal reflux disease): (6) HLD (hyperlipidemia): History of Present Illness Primary Care Provider: Zhanna Bauer DO Unable to obtain from patient due to patient's state of consciousness. Per ER provider, Renay was excessively altered unlike her previous visits to the ER. She was screaming and shouting and pulled out her IV lines which she had not done before. She was recently started on new medication for chronic cystitis after discharge from the hospital on 11/11. Allergies Allergy/AdvReac Type Severity Reaction Status Date / Time Iodinated Contrast Media Allergy Intermediate HIVES AND Verified 11/15/20 23:30 HOT FLASHES azithromycin Allergy Unknown Unknown Verified 11/15/20 23:30 hydrocodone AdvReac Severe Confusion Verified 11/15/20 23:30 oxycodone AdvReac Severe CONFUSION Verified 11/15/20 23:30 LAKSHMI WHEN SHE TAKES 2 TABS- Macrolide Antibiotics AdvReac Mild UPSET Verified 11/15/20 23:30 STOMACH Home Medications Medication Instructions Recorded Confirmed Type cyanocobalamin (vitamin B-12) 1,000 mcg PO QAM 10/27/19 11/15/20 History 1,000 mcg tablet (Vitamin B-12) gabapentin 300 mg capsule 300 mg PO BID 10/27/19 11/15/20 History aspirin 81 mg tablet,delayed 81 mg PO QAM 07/24/20 11/15/20 History release meloxicam 7.5 mg tablet 7.5 mg PO QAM 07/24/20 11/15/20 History methenamine hippurate 1 gram tablet 1 g PO BID 09/21/20 11/15/20 History conjugated estrogens 0.625 mg/gram 0.5 applic VAGINAL UD 11/09/20 11/15/20 History vaginal cream (Premarin) doxazosin 1 mg tablet (Cardura) 1 mg PO HS 11/09/20 11/15/20 History insulin detemir U-100 100 unit/mL See Rx Instructions .ROUTE .COMPLEX 11/15/20 11/15/20 History subcutaneous solution (Levemir U-100 Insulin) lisinopril 5 mg tablet 5 mg PO DAILY 11/15/20 11/15/20 History Past Med/Surg History Medical History (Updated 11/16/20 @ 03:51 by Sierra Falcon MD) Acute osteomyelitis of toe of left foot Acute UTI Altered mental status occasionally, not all the time -- will get disoriented and forgetful. Cellulitis of left lower extremity Chronic kidney disease, stage IV (severe) pt's daughter denies Chronic osteomyelitis of left foot Contusion of knee, left Diabetes mellitus with neuropathy Diabetes mellitus, type 2 uncontrolled (per daughter) Foot pain from neuropathy and osteomyelitis Generalized weakness GERD (gastroesophageal reflux disease) History of amputation of toe revision of Left second toe amputation done at [facility] 05/2018. History of high cholesterol Taking no meds at this time History of revision of total replacement of left knee joint HLD (hyperlipidemia) HTN (hypertension) Hx of deep venous thrombosis "long time ago" s/p foot injury -- no problems since. Murmur, cardiac Osteomyelitis of left lower extremity Peripheral neuropathy numbness, tingling and burning of both feet UTI (urinary tract infection) multiple Weakness Surgical History History of Achilles tendon repair right History of adenoidectomy History of amputation TOES - 6 partial amputations with a partial x2 on great toe resulting in complete amputation 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 History of appendectomy History of arthroscopy RT/LEFT SHOULDER History of cataract surgery RT/LEFT History of cholecystectomy History of colonoscopy History of esophagogastroduodenoscopy (EGD) History of partial amputation of toe Multiple History of shoulder surgery rotator cuff both shoulders History of tonsillectomy History of tooth extraction History of total knee replacement Bilateral Hx of hysterectomy, total Hx of sinus surgery Family History Other No family history of adverse response to anesthesia No family history of bleeding disorder No pertinent family history Social History Smoking Status: Never smoker Second Hand Exposure: No; Hx Alcohol Use: No Hx Substance Use: No Preferred Language: French Communication Ability: Impaired Visual Impairment: No Limitations Utility Specialist Required: No Beliefs That Will Affect Care: None marital status: Current Living Situation: Family current occupational status: retired Feels Safe at Home: Yes and No Is there a partner from a previous relationship who is making you feel unsafe now?: No Assistive Devices: None Review of Systems Review of Systems: Unobtainable due to cognitive status Physical Exam Physical Exam: Exam limited due to cognitive status Constitutional: thin, elderly, Cardiac: RRR, no murmurs, gallops or rubs. Normal S1, S2 Pulm: breathing easily on room air Abd: soft, nontender, nondistended, normal bowel sounds, no rebound or guarding Extremities: 2+ peripheral pulses, no edema Neuro: sedated Results & Data Results & Data ([facility]) Vital Signs (Past 12 Hours) Vital Signs Temp Pulse Pulse Resp BP BP Pulse Ox 11/16/20 02:00 81 16 176/82 H 11/16/20 00:26 98 H 20 199/90 H 97 11/16/20 00:04 76 18 185/135 H 96 11/15/20 23:30 82 17 194/106 H 11/15/20 22:32 97 11/15/20 22:06 36.9 C 90 15 184/137 H 100 Laboratory Results Laboratory Results WBC 7.05 K/uL (4.8-10.8) 11/16/20 00:09 RBC 3.98 M/uL (4.2-5.4) L 11/16/20 00:09 Hgb 11.7 g/dL (12.0-16.0) L 11/16/20 00:09 Hct 35.0 % (37-47) L 11/16/20 00:09 MCV 87.9 fL (80-100) 11/16/20 00:09 MCH 29.4 pg (25-34) 11/16/20 00:09 MCHC 33.4 g/dL (32-36) 11/16/20 00:09 RDW Std Deviation 43.9 fL (36.4-46.3) 11/16/20 00:09 RDW Coeff of Phil 13.5 % (11.5-14.5) 11/16/20 00:09 Plt Count 212 K/uL (130-400) 11/16/20 00:09 MPV 10.1 fL (7.4-10.4) 11/16/20 00:09 Immature Gran % (Auto) 0.1 % 11/16/20 00:09 Neut % (Auto) 70.1 % 11/16/20 00:09 Lymph % (Auto) 19.3 % 11/16/20 00:09 [place] % (Auto) 7.4 % 11/16/20 00:09 Eos % (Auto) 3.0 % 11/16/20 00:09 Baso % (Auto) 0.1 % 11/16/20 00:09 Neut # (Auto) 4.94 K/uL (1.4-6.5) 11/16/20 00:09 Lymph # (Auto) 1.36 K/uL (1.2-3.4) 11/16/20 00:09 [place] # (Auto) 0.52 K/uL (0.11-0.59) 11/16/20 00:09 Eos # (Auto) 0.21 K/uL (0-0.5) 11/16/20 00:09 Baso # (Auto) 0.01 K/uL (0-0.2) 11/16/20 00:09 Immature Gran # (Auto) 0.01 K/uL (0.00-0.02) 11/16/20 00:09 Absolute Nucleated RBC Cancelled 11/15/20 22:50 Nucleated RBC % (auto) Cancelled 11/15/20 22:50 Neutrophils % (Manual) Cancelled 11/15/20 22:50 Band Neutrophils % Cancelled 11/15/20 22:50 Lymphocytes % (Manual) Cancelled 11/15/20 22:50 Prolymphocyte % Cancelled 11/15/20 22:50 Reactive Lymphs % (Man) Cancelled 11/15/20 22:50 Monocytes % (Manual) Cancelled 11/15/20 22:50 Eosinophils % (Manual) Cancelled 11/15/20 22:50 Basophils % (Manual) Cancelled 11/15/20 22:50 Metamyelocytes % (Man) Cancelled 11/15/20 22:50 Myelocytes % (Man) Cancelled 11/15/20 22:50 Promyelocytes % (Man) Cancelled 11/15/20 22:50 Blast Cells % (Manual) Cancelled 11/15/20 22:50 Plasma Cell % (Manual) Cancelled 11/15/20 22:50 Other Cells % Cancelled 11/15/20 22:50 Nucleated RBC % Cancelled 11/15/20 22:50 Neutrophils # (Manual) Cancelled 11/15/20 22:50 Band Neutrophils # Cancelled 11/15/20 22:50 Total Absolute Neuts Cancelled 11/15/20 22:50 Lymphocytes # (Manual) Cancelled 11/15/20 22:50 Prolymphocyte # Cancelled 11/15/20 22:50 Reactive Lymphs # Cancelled 11/15/20 22:50 Total Abs Lymphocytes Cancelled 11/15/20 22:50 Monocytes # (Manual) Cancelled 11/15/20 22:50 Eosinophils # (Manual) Cancelled 11/15/20 22:50 Basophils # (Manual) Cancelled 11/15/20 22:50 Metamyelocytes # (Man) Cancelled 11/15/20 22:50 Myelocytes # (Manual) Cancelled 11/15/20 22:50 Promyelocytes # (Man) Cancelled 11/15/20 22:50 Blast Cells # (Man) Cancelled 11/15/20 22:50 Plasma Cell # (Manual) Cancelled 11/15/20 22:50 Other Cells # Cancelled 11/15/20 22:50 Nucleated RBCs # (Man) Cancelled 11/15/20 22:50 Hypersegmented Neuts Cancelled 11/15/20 22:50 Hyposegmented Neuts Cancelled 11/15/20 22:50 Hypogranular Neuts Cancelled 11/15/20 22:50 Large Granular Lymphs Cancelled 11/15/20 22:50 # Lrg Granular Lymphs Cancelled 11/15/20 22:50 Hairy Cells Cancelled 11/15/20 22:50 Smudge Cells Cancelled 11/15/20 22:50 Toxic Granulation Cancelled 11/15/20 22:50 Toxic Vacuolation Cancelled 11/15/20 22:50 Dohle Bodies Cancelled 11/15/20 22:50 Alvarado Rods Cancelled 11/15/20 22:50 Platelet Estimate Cancelled 11/15/20 22:50 Hypogranular Platelets Cancelled 11/15/20 22:50 Clumped Platelets Cancelled 11/15/20 22:50 Giant Platelets Cancelled 11/15/20 22:50 Platelet Satelliting Cancelled 11/15/20 22:50 RBC Morphology Cancelled 11/15/20 22:50 Polychromasia Cancelled 11/15/20 22:50 Hypochromasia Cancelled 11/15/20 22:50 Poikilocytosis Cancelled 11/15/20 22:50 Basophilic Stippling Cancelled 11/15/20 22:50 Anisocytosis Cancelled 11/15/20 22:50 Microcytosis Cancelled 11/15/20 22:50 Macrocytosis Cancelled 11/15/20 22:50 Spherocytes Cancelled 11/15/20 22:50 Pappenheimer Bodies Cancelled 11/15/20 22:50 Sickle Cells Cancelled 11/15/20 22:50 Target Cells Cancelled 11/15/20 22:50 Tear Drop Cells Cancelled 11/15/20 22:50 Ovalocytes Cancelled 11/15/20 22:50 Stomatocytes Cancelled 11/15/20 22:50 Sykes-Liscomb Bodies Cancelled 11/15/20 22:50 Echinocytes Cancelled 11/15/20 22:50 Acanthocytes (Spur) Cancelled 11/15/20 22:50 Rouleaux Cancelled 11/15/20 22:50 RBC Agglutinates Cancelled 11/15/20 22:50 Schistocytes Cancelled 11/15/20 22:50 RBC Morph Comment Cancelled 11/15/20 22:50 Sezary Cell Cancelled 11/15/20 22:50 Sodium 141 mmol/L (136-145) 11/15/20 22:50 Potassium 4.4 mmol/L (3.5-5.1) 11/15/20 22:50 Chloride 113 mmol/L (98-107) H 11/15/20 22:50 Carbon Dioxide 23 mmol/L (21-32) 11/15/20 22:50 Anion Gap 5.0 (3-11) 11/15/20 22:50 BUN 33 mg/dl (7-18) H 11/15/20 22:50 Creatinine 0.88 mg/dl (0.6-1.2) 11/15/20 22:50 Est Cr Clr Drug Dosing 52.3 ml/min 11/15/20 22:50 Est GFR ( Amer) 72.4 ml/min 11/15/20 22:50 Est GFR (Non-Af Amer) 62.5 ml/min 11/15/20 22:50 BUN/Creatinine Ratio 37.9 (10-20) H 11/15/20 22:50 Glucose 137 mg/dl (70-99) H 11/15/20 22:50 Calcium 9.2 mg/dl (8.5-10.1) 11/15/20 22:50 Total Bilirubin 0.2 mg/dl (0.2-1) 11/15/20 22:50 AST 26 U/L (15-37) 11/15/20 22:50 ALT 27 U/L (12-78) 11/15/20 22:50 Alkaline Phosphatase 70 U/L (45-117) 11/15/20 22:50 Total Creatine Kinase 143 U/L (26-192) 11/15/20 22:50 CK-MB (CK-2) 3.3 ng/ml (0.5-3.6) 11/15/20 22:50 CK/CKMB % Calc 2.3 (0-3.0) 11/15/20 22:50 Troponin I < 0.015 ng/ml (0-0.045) 11/15/20 22:50 Total Protein 7.0 gm/dl (6.4-8.2) 11/15/20 22:50 Albumin 3.7 gm/dl (3.4-5.0) 11/15/20 22:50 Globulin 3.3 gm/dl (2.5-4.0) 11/15/20 22:50 Albumin/Globulin Ratio 1.1 (0.9-2) 11/15/20 22:50 TSH 0.667 uIu/ml (0.300-4.500) 11/15/20 22:50 Specimen Hemolysis 11/15/20 22:50 Urine Color Yellow 11/15/20 23:05 Urine Appearance Clear (Clear) 11/15/20 23:05 Urine pH 5.0 (4.5-7.5) 11/15/20 23:05 Ur Specific [place] 1.021 (1.000-1.030) 11/15/20 23:05 Urine Protein Trace (Negative) H 11/15/20 23:05 Urine Glucose (UA) Negative (Negative) 11/15/20 23:05 Urine Ketones Negative (Negative) 11/15/20 23:05 Urine Blood Negative (Negative) 11/15/20 23:05 Urine Nitrite Negative (Negative) 11/15/20 23:05 Urine Bilirubin Negative (Negative) 11/15/20 23:05 Urine Urobilinogen Negative (Negative) 11/15/20 23:05 Ur Leukocyte Esterase Negative (Negative) 11/15/20 23:05 Urine WBC (Auto) 1-5 /hpf (0-5) 11/15/20 23:05 Urine RBC (Auto) 0-4 /hpf (0-4) 11/15/20 23:05 U Hyaline Cast (Auto) 1-5 /lpf (0-5) 11/15/20 23:05 U Epithel Cells (Auto) 10-20 /lpf (0-5) H 11/15/20 23:05 Urine Bacteria (Auto) Negative (Negative) 11/15/20 23:05 Urine Yeast Budding (None Prsent) A 11/15/20 23:05 COVID-19 Eval Order Covid19 at [facility] 11/15/20 22:40 SARS-CoV-2 (PCR) NEGATIVE (Negative) 11/15/20 22:40 Supervising Physician Co-Signing Physician Notes Patient seen and examined, chart reviewed, case discussed with Dr. Falcon and I agree with her assessment and plan as documented above. Patient presents with AMS, agitation Given Haldol and Ativan in the ER for agitation Sedated during my encounter Afebrile, HD stable, NAD, protecting airway SKin - intact HEENT - NC/AT, PERRL, MMM Heart - +S1/S2, regular, RACHELLE, no rubs/gallops Lungs - CTA Abd - +BS, soft Ext - No edema Assessment/Plan - Unremarkable workup thus far to include labs, CT. Unable to obtain further information due to patient's somnolence. Reassess when patient wakes Resident Activity Tracking Resident Involvement: Resident Care Provided Care Provided: Adult Hospital Medicine
[2020-11-16] MEDS ORDERED: GLUCOSE 10 TABS/TUBE PO PRN (04:06)
[2020-11-16] MEDS ORDERED: GLUCAGON FOR INJ 1 MG VIAL SQ PRN (04:06)
[2020-11-16] MEDS ORDERED: GLUCOSE 40% GEL 15 GM TUBE PO PRN (04:06)
[2020-11-16] MEDS ORDERED: CARBOHYDRATES FOR HYPOGLYCEMIA PO PRN (04:06)
[2020-11-16] MEDS ORDERED: DEXTROSE 50% 50 ML SYRINGE IV PRN (04:06)
--- NOTE | 2020-11-16 04:41 | Billing Data ---
Date of Service November 16, 2020 Coding Level of Care Code INT OBSERVATION CARE 50M LVL 2
[2020-11-16] MEDS: INSULIN ASPART 100 UNITS/ML 3 ML PEN SC SCH ×4 (06:20→23:07)
--- NOTE | 2020-11-16 07:20 | Hospitalist Progress Note ---
Date of Service November 16, 2020 Assessment & Plan (1) Encephalopathy acute: Plan: 79yo with history of delirium, urinary retention, cystitis, IDDM, anemia, CKD, HLD, GERD admitted for acute encephalopathy. Encephalopathy - Drug induced vs. metabolic vs. infectious - Initial AMS started after cystoscopy on 11/06 and taking 1 dose of cipro. has been off antibiotics in interim. - Unsure for indication of gabapentin 300 BID -- holding at this time due to increased somnolence since effect - Last admission lyme titers positive for IgG, WB confirmed two bands positive IgG. No hx known lyme disease, never treated. If not improving mental status with hydration and holding medications, can consider LP for assessment of neurologic lyme disease and treatment with extended course of doxycycline. - No electrolyte derangements - CT Head negative for acute changes; CT A/P negative for infectious origin, CXR negative for pneumonia - Delirium precautions - Frequent reorientation - Window shades up in the morning, down at sunset. Would benefit from window bed for orientation assistance. - Avoid sedating medications such as benzodiazepines Chronic cystitis - Thomas removed out of hospital on 11/15, but replaced in ER due to patient's worsening mental status. - 300-400 ml urine drained, no evidence of urinary obstruction - UA negative except patient's recurrent budding yeast - Of note, written to start Cardura on 11/06 for assistance with urinary retention, did not start till 11/10 at which time admitted for hypotension - Methenamine can increase blood level of alpha/beta agonists, may have contributed to hypotension from cardura + lisinopril - Holding cardura, methenamine for UTI suppression and urinary retention given thomas placement - Monitor I/O - Urology consulted IDDM - Home regimen levemir 20 units AM, 10 units PM - Last admission only required novolog while NPO, bsg remained in control - NPO, ACHS BSG checks, with 110 -160 range, CF 30, CR 15 HTN - Continue lisinopril, ASA DVT ppx: lovenox FEN/GI: NPO, NS 125/hr Code Status: re-ordered previous full code as unable to discuss with patient, no family at bedside Dispo: med/surg (2) HTN (hypertension): (3) Delirium: (4) IDDM (insulin dependent diabetes mellitus): (5) GERD (gastroesophageal reflux disease): (6) HLD (hyperlipidemia): Admission and Anticipated Discharge Date Admission Date: November 16, 2020 Supervising Physician Co-Signing Physician Notes Attending attestation Pt seen and examined in concert with Dr. Franz. In agreement with the documented findings as noted in the resident documentation with any exceptions or additions as noted here. Laying in bed confused - looking for her and 3 year old kids. Oriented only to self. On examination, S1/S2 nl RRR no MCG. CTAB. Abd NT/ND BS+ve Encephalopathy - multifactorial without discrete apparent cause in current imaging or labs. Holding gabapentin, check PCP re: cause for rx. Chronic cystitis - holding doxazosin, methenamine. Urology consultation. Thomas in place. Else see resident documentation as noted. Subjective Patient seen and evaluated at bedside this morning. No acute events overnight. Results & Data Results & Data ([facility]) Vital Signs (Past 12 Hours) Vital Signs Temp Pulse Pulse Pulse Resp BP BP 11/16/20 07:10 36.8 C 79 16 177/74 H 11/16/20 03:45 36.4 C L 68 22 163/73 H 11/16/20 03:32 72 17 173/80 H 11/16/20 02:00 81 16 176/82 H 11/16/20 00:26 98 H 20 199/90 H 11/16/20 00:04 76 18 185/135 H 11/15/20 23:30 82 17 194/106 H 11/15/20 22:32 11/15/20 22:06 36.9 C 90 15 184/137 H Pulse Ox 11/16/20 07:10 96 11/16/20 03:45 97 11/16/20 03:32 98 11/16/20 02:00 11/16/20 00:26 97 11/16/20 00:04 96 11/15/20 23:30 11/15/20 22:32 97 11/15/20 22:06 100 Resident Activity Tracking Resident Involvement: Resident Care Provided Care Provided: Adult Hospital Medicine
--- NOTE | 2020-11-16 07:30 | CT Scan Report ---
CT head/brain wo con CLINICAL HISTORY: 79 years-old Female with Pt c/o AMS. Acutely altered mental status TECHNIQUE: Multiple axial CT images of the head were obtained without contrast. A dose lowering tech nique was utilized adhering to the principles of ALARA. COMPARISON: 11/09/2020. FINDINGS: No acute intracranial hemorrhage, midline shift, intracranial mass, hydrocephalus, territorial ischem ia or abnormal extra-axial collection. Age-related involutional changes. White matter hypodensities s uggestive of chronic microvascular ischemic disease. The calvarium is intact. Prior bilateral lens repair. The paranasal sinuses, mastoid air cells, and m iddle ear cavities are clear. IMPRESSION: No acute intracranial abnormality. ACT 112: Negative or not required by law. The above report was generated using voice recognition software. It may contain grammatical, syntax o r spelling errors. Electronically signed by: Elias Ross M.D. 11/16/2020 7:28 AM
--- NOTE | 2020-11-16 08:05 | CT Scan Report ---
ABDOMEN AND PELVIS CT WITHOUT CONTRAST CT DOSE: 1296.76 mGy.cm HISTORY: Generalized abdominal pain. TECHNIQUE: Multiaxial CT images of the abdomen and pelvis were performed without contrast. A dose lo wering technique was utilized adhering to the principles of ALARA. COMPARISON STUDY: Abdomen and pelvis CT 11/09/2020. FINDINGS: Mild dependent changes noted within the lung bases. No pneumoperitoneum. No pneumatosis. No fractures within the visualized osseous structures. Cholecystectomy. The unenhanced liver, spleen, a drenal glands, and pancreas are unremarkable. Bilateral renal calcifications, unchanged. The majority of these appear to be vascular.. No ureteral stones. No hydronephrosis. No retroperitoneal lymphaden opathy. Mild calcified plaque within the normal caliber abdominal aorta. There is a small diverticulu m at the gastric fundus. The bladder is decompressed by a Hall catheter. Suboptimal evaluation for b owel pathology due to the lack of intravenous and oral contrast. However, there is no definite bowel wall thickening or obstruction. Moderate well-formed stool seen within the colon. Evidence for prior appendectomy. Mild pelvic floor collapse. IMPRESSION: No significant change compared to the prior study. No bowel wall thickening or obstruction. No hydron ephrosis. ACT 112: Negative or not required by law. Electronically signed by: Marvin Huddleston M.D. 11/16/2020 8:03 AM
--- NOTE | 2020-11-16 08:17 | XRay Report ---
XR chest 1V portable HISTORY: weakness COMPARISON: Chest 11/10/2020. FINDINGS: No new focal lung consolidations to suggest pneumonia. No evidence for pulmonary edema. The lungs remain mildly hyperexpanded. The cardiac silhouette is borderline enlarged. No pleural effusio ns. No pneumothorax. Distal resorption/resection of the bilateral clavicles is again noted. IMPRESSION: No acute process. ACT 112: Negative or not required by law. Electronically signed by: Marvin Huddleston M.D. 11/16/2020 8:16 AM
[2020-11-16] MEDS ORDERED: METHENAMINE HIPPURATE 1 GM TAB PO SCH (09:00)
--- NOTE | 2020-11-16 09:31 | Electrocardiogram Report ---
Test Reason : Blood Pressure : / mmHG Vent. Rate : 090 BPM Atrial Rate : 090 BPM P-R Int : 254 ms QRS Dur : 082 ms QT Int : 356 ms P-R-T Axes : 043 -30 027 degrees QTc Int : 435 ms Sinus rhythm with 1st degree A-V block Left axis deviation Septal infarct (cited on or before 15-NOV-2020) Abnormal ECG When compared with ECG of 10-NOV-2020 12:27, No significant change was found Confirmed by Андрей Chavira ([id number]) on 11/16/2020 9:30:41 AM Referred By: REFERRED SELF Confirmed By:Андрей Chavira
[2020-11-16] MEDS: ASPIRIN 81 MG ECTAB PO SCH (12:35)
[2020-11-16] MEDS: lisinopril 5 MG TAB PO SCH (12:35)
[2020-11-16] MEDS: ENOXAPARIN INJ 40 MG/0.4 ML SYR SQ SCH (12:36)
[2020-11-16] MEDS: SODIUM CHLORIDE 0.9% 1000ML 1,000 ML IV SCH ×2 (15:26→22:54)
[2020-11-16] MEDS ORDERED: DOXAZOSIN MESYLATE 1 MG TAB PO SCH (21:00)
--- NOTE | 2020-11-16 21:03 | Urology Consultation ---
Date of Consultation November 16, 2020 Assessment & Plan (1) Altered mental status: Cause of patient's altered mental status is uncertain at this time. She has been admitted to the hospital service. Certainly her altered mental status could be due to medication she was taking as an outpatient. Any offending agents have been discontinued. Continue to monitor the patient's mental status for further changes. In addition we will await the patient's urine culture and adjust her medications accordingly. At present time there is no need for emergent urologic intervention. We will continue to follow along. History of Present Illness Reason for Consultation: Altered mental status following recent cystoscopy Attending Physician: Shai Vazquez MD History of Present Illness This is a 79-year-old female who was admitted to the hospital secondary to altered mental status. At the time my interview the patient was alert only to person therefore could not contribute much meaningful information in her history. Patient's records were reviewed. Patient does suffer from chronic cystitis. According to records patient is currently being treated with an antifungal medication for fungal urinary tract infection. She arecently underwent an office cystoscopy by Dr. Vann. This procedure was performed on November 09 of this year and only showed some chronic inflammatory changes. Is also felt the patient had issues with incomplete bladder emptying and patient was started on 1 mg of Cardura in hopes that this would help facilitate emptying her bladder. Patient presented to [facility] emergency department earlier today as she was noted to be wandering around the outside of her house in a confused state. Apparently at the time of patient's presentation she was complaining of some suprapubic abdominal pain. In the emergency department the patient underwent evaluation with labs and imaging which I did telemetry reviewed. A chest x-ray showed no evidence of pneumonia. CT scan of her head showed no acute intracranial abnormalities. CT scan of patient's abdomen pelvis showed no evidence of ureteral stones or hydronephrosis. Patient's bladder was decompressed by pre-existing Hall catheter. No evidence of bowel wall thickening or obstruction. Labs include a CBC where her white blood cell count and platelet count were noted to be within normal range. Her hemoglobin and hematocrit are 11.7 and 35.0 respectively. Chemistry profile showed her sodium and potassium were normal. Patient's creatinine was noted to be normal. There is no significant elevation of her LFTs. Cardiac enzymes are noted to be normal. The patient's urinalysis did not show any evidence of bacterial infection however the budding yeast was noted on the specimen. Covid test was performed was noted be negative. Visit with the patient at bedside in room 350 after admission. At the time my interview patient did not have any specific complaints specifically denying any fevers, shakes, chills. She did not note any back pain. She did not note any abdominal pain or suprapubic pain. She denied any dysuria or urinary frequency. Did discuss with the staff at the bedside the patient did present to the floor the pre-existing Hall catheter which she removed herself earlier this shift. Patient has reportedly urinated without difficulty since that time. At the time of my interview the patient was in no distress. Since admission she has had a urine culture sent which is pending. She has not been placed on any antibiotics or antifungals at this time. Allergies Allergy/AdvReac Type Severity Reaction Status Date / Time Iodinated Contrast Media Allergy Intermediate HIVES AND Verified 11/15/20 23:30 HOT FLASHES azithromycin Allergy Unknown Unknown Verified 11/15/20 23:30 hydrocodone AdvReac Severe Confusion Verified 11/15/20 23:30 oxycodone AdvReac Severe CONFUSION Verified 11/15/20 23:30 LAKSHMI WHEN SHE TAKES 2 TABS- Macrolide Antibiotics AdvReac Mild UPSET Verified 11/15/20 23:30 STOMACH Home Medications Medication Instructions Recorded Confirmed Type cyanocobalamin (vitamin B-12) 1,000 mcg PO QAM 10/27/19 11/15/20 History 1,000 mcg tablet (Vitamin B-12) gabapentin 300 mg capsule 300 mg PO BID 10/27/19 11/15/20 History aspirin 81 mg tablet,delayed 81 mg PO QAM 07/24/20 11/15/20 History release meloxicam 7.5 mg tablet 7.5 mg PO QAM 07/24/20 11/15/20 History methenamine hippurate 1 gram tablet 1 g PO BID 09/21/20 11/15/20 History conjugated estrogens 0.625 mg/gram 0.5 applic VAGINAL UD 11/09/20 11/15/20 History vaginal cream (Premarin) doxazosin 1 mg tablet (Cardura) 1 mg PO HS 11/09/20 11/15/20 History insulin detemir U-100 100 unit/mL See Rx Instructions .ROUTE .COMPLEX 11/15/20 11/15/20 History subcutaneous solution (Levemir U-100 Insulin) lisinopril 5 mg tablet 5 mg PO DAILY 11/15/20 11/15/20 History Patient History Medical History Acute osteomyelitis of toe of left foot Acute UTI Altered mental status occasionally, not all the time -- will get disoriented and forgetful. Cellulitis of left lower extremity Chronic kidney disease, stage IV (severe) pt's daughter denies Chronic osteomyelitis of left foot Contusion of knee, left Diabetes mellitus with neuropathy Diabetes mellitus, type 2 uncontrolled (per daughter) Foot pain from neuropathy and osteomyelitis Generalized weakness GERD (gastroesophageal reflux disease) History of amputation of toe revision of Left second toe amputation done at [facility] 05/2018. History of high cholesterol Taking no meds at this time History of revision of total replacement of left knee joint HLD (hyperlipidemia) HTN (hypertension) Hx of deep venous thrombosis "long time ago" s/p foot injury -- no problems since. Murmur, cardiac Osteomyelitis of left lower extremity Peripheral neuropathy numbness, tingling and burning of both feet UTI (urinary tract infection) multiple Weakness Surgical History History of Achilles tendon repair right History of adenoidectomy History of amputation TOES - 6 partial amputations with a partial x2 on great toe resulting in c omplete amputation 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 History of appendectomy History of arthroscopy RT/LEFT SHOULDER History of cataract surgery RT/LEFT History of cholecystectomy History of colonoscopy History of esophagogastroduodenoscopy (EGD) History of partial amputation of toe Multiple History of shoulder surgery rotator cuff both shoulders History of tonsillectomy History of tooth extraction History of total knee replacement Bilateral Hx of hysterectomy, total Hx of sinus surgery Family History Other No family history of adverse response to anesthesia No family history of bleeding disorder No pertinent family history Social History Smoking Status: Never smoker Second Hand Exposure: No; Do You Dip or Chew Tobacco: No; Hx Alcohol Use: No Hx Substance Use: No Preferred Language: Mongolian Communication Ability: Impaired Visual Impairment: No Limitations Clerical Proofreader Required: No Beliefs That Will Affect Care: None marital status: Current Living Situation: Family current occupational status: retired Other Information That Helps Us Care for You: No Feels Safe at Home: Yes Safety Concerns: Feels Safe At This Time Assistive Devices: None Assistive Devices Comment: unknown Review of Systems Constitutional: no fever Eyes: + corrective lenses Ear, Nose, Mouth, Throat: no ear pain and no sore throat Respiratory: no cough and no dyspnea Cardiovascular: no chest pain Gastrointestinal: no abdominal pain Genitourinary: no dysuria, no hematuria and no flank pain Musculoskeletal: no back pain Integumentary: no rash Neurologic: + behavioral changes Physical Exam Constitutional: well developed and well nourished; no acute distress Eyes: Wears glasses ENMT: Ears: + hearing impairment Neck: trachea midline Respiratory: normal respiratory effort, lungs clear to auscultation Cardiovascular: Rate/Rhythm: regular rate and regular rhythm Gastrointestinal (Abdomen): Soft, nontender, nondistended. No pain with palpation. Musculoskeletal: No calf tenderness Skin: no rashes Neurologic: moves all extremities Psychiatric: Patient is alert to person. She is confused to place and time. Results & Data ([facility]) Vital Signs (Past 12 Hours) Vital Signs Temp Pulse Resp BP Pulse Ox 11/16/20 14:44 36.6 C 94 H 16 138/71 95 PG Care Time/CCT Total # of Minutes Spent Total Time Spent with Patient: Total time spent is greater than 50% in coordination of care (as documented) at patient's floor/unit and/or counseling patient: Coding Level of Care Code 68788 Inpt Consult Level 5 Diagnoses Altered mental status R41.82 Altered mental status type: unspecified (1) Altered mental status Altered mental status type: unspecified Qualified Code(s): R41.82 - Altered mental status, unspecified
[2020-11-17] MEDS: INSULIN ASPART 100 UNITS/ML 3 ML PEN SC SCH ×5 (05:16→20:10)
[2020-11-17 07:07] LABS: Basophils # (auto) 0.01 K/uL (0-0.2); Basophils % (auto) 0.2 %; Eosinophils # (auto) 0.12 K/uL (0-0.5); Eosinophils % (auto) 2.2 %; Hematocrit (blood only) 36.1 % (37-47); Immature Granulocytes # (auto) 0.01 K/uL (0.00-0.02); Immature Granulocytes % (auto) 0.2 %; Lymphocytes # (auto) 1.41 K/uL (1.2-3.4); Lymphocytes % (auto) 25.7 %; Mean Corpuscular Hemoglobin 29.2 pg (25-34); Mean Corpuscular Hgb Conc 33.2 g/dL (32-36); Mean Corpuscular Volume 87.8 fL (80-100); Mean Platelet Volume 10.1 fL (7.4-10.4); Monocytes # (auto) 0.55 K/uL (0.11-0.59); Neutrophils # (auto) 3.38 K/uL (1.4-6.5); Neutrophils % (auto) 61.7 %; Platelet Count 217 K/uL (130-400); RDW Coefficient of Variation 13.6 % (11.5-14.5); RDW Standard Deviation 43.6 fL (36.4-46.3); Red Blood Count 4.11 M/uL (4.2-5.4); White Blood Count 5.48 K/uL (4.8-10.8)
[2020-11-17 07:48] LABS: BUN Creatinine Ratio 26.7 (10-20); Calcium 8.6 mg/dl (8.5-10.1); Est GFR (African American) 98.9 ml/min; Est GFR (Non-African American) 85.3 ml/min; Potassium 3.6 mmol/L (3.5-5.1)
[2020-11-17] MEDS: ASPIRIN 81 MG ECTAB PO SCH (08:28)
[2020-11-17] MEDS: lisinopril 5 MG TAB PO SCH (08:28)
[2020-11-17] MEDS: ENOXAPARIN INJ 40 MG/0.4 ML SYR SQ SCH (08:28)
--- NOTE | 2020-11-17 09:11 | Urology Progress Note ---
Date of Service November 17, 2020 Assessment & Plan (1) Altered mental status: Plan: 79yo F admitted with altered mental status of uncertain etiology, possibly infectious vs. medication induced -Hx of recurrent UTI and s/p recent outpatient cystoscopy on 11/06 - Afebrile, non-toxic appearing. - Labs reviewed, Wbc and creatinine stable. - UA on admission with yeast buds noted, otherwise unremarkable. UC&S pending, follow culture. - CTAP 11/15 with no obstruction noted. - Voiding spontaneously, patient self-removed thomas catheter yesterday. - Monitor urine output - Recommend bladder scan after next void and prn to ensure complete bladder emptying. - No acute intervention warranted at this time. - Continue supportive care and close monitoring. - Will arrange outpatient follow-up with urology. - Thank you for allowing us to participate in the acute care of Ms. Keys. Please reconsult us with additional questions, concerns or changes in patient status. Admission and Anticipated Discharge Date Admission Date: November 16, 2020 Subjective Pt examined at bedside this AM. Awake, alert, oriented to self only. Appears comfortable, no visible distress. Denies fevers or chills. No nausea or vomiting. Patient self-removed thomas catheter yesterday per nursing report. Has been voiding without difficulty since then. Denies hematuria and dysuria. She reports some urinary urgency/frequency. Feels she is emptying her bladder most of the time. Chart review: Afebrile UCx pending Urine output overnight - 150ml Review of Systems Constitutional: as per Subjective / HPI Gastrointestinal: as per Subjective / HPI Genitourinary: as per Subjective / HPI Physical Exam Constitutional: well developed and well nourished; no acute distress Respiratory: normal respiratory effort; no labored breathing and no audible wheezes Cardiovascular: Extremities: no calf tenderness Gastrointestinal (Abdomen): Inspection/Auscultation: abdomen normal to inspection Percussion/Palpation: abdomen soft; abdomen nontender and no guarding Musculoskeletal: No calf tenderness Skin: No visible rashes or lesions to exposed skin. Neurologic: awake Psychiatric: Orientation: alert, oriented to person and cooperative Genitourinary: no CVA tenderness Results & Data ([facility]) Vital Signs (Past 12 Hours) Vital Signs Temp Pulse Resp BP Pulse Ox 11/17/20 06:59 36.7 C 86 18 178/72 H 96 11/16/20 23:00 36.8 C 88 16 154/77 H 97 PG Care Time/CCT Total # of Minutes Spent Total Time Spent with Patient: Total time spent is greater than 50% in coordination of care (as documented) at patient's floor/unit and/or counseling patient: Coding Level of Care Code 92655 Subseq Hosp Care Lvl 2 Diagnoses Altered mental status R41.82 Altered mental status type: unspecified (1) Altered mental status Altered mental status type: unspecified Qualified Code(s): R41.82 - Altered mental status, unspecified
[2020-11-17] MEDS ORDERED: Nursing to Pharmacy Communication SCH (09:30)
--- NOTE | 2020-11-17 10:11 | Hospitalist Progress Note ---
Date of Service November 17, 2020 Assessment & Plan (1) Encephalopathy acute: Plan: 79yo with history of delirium, urinary retention, cystitis, IDDM, anemia, CKD, HLD, GERD admitted for acute encephalopathy. Dementia - Per chart review she had concerning features consistent with Lewy Body Dementia at neurology visit on 09/04/2019 - Was sent for formal neuropsych testing by neurologist, which was not completed due to COVID-19 pandemic according to phone conversation with patient's daughter Rosalba - Rosalba also relayed via telephone that she had initially been pleasantly confused over the past few years. However, did report that as of the last 4-5 months Renay became aggressive both physically and verbally - Daughter mentions that her mother has possibly had issues with becoming agitated in the past when her gabapentin has been stopped. But this current behavior seems to be more related to dementia, especially the [id number]/intermittently aggressive nature that may be present with Lewy Body dementia - Her gabapentin had been at 300mg BID--this dose is fairly low and is less likely to cause these types of reactions - Last admission lyme titers positive for IgG, WB confirmed two bands positive IgG. No hx known lyme disease, never treated. If not improving mental status with hydration and holding medications, can consider LP for assessment of neurologic lyme disease and treatment with extended course of doxycycline. - No electrolyte derangements - CT Head negative for acute changes; CT A/P negative for infectious origin, CXR negative for pneumonia - Delirium precautions - Today did require Ativan 1mg IV x2 for event described in subjective, which resolved the situation - Ordered haloperidol 5mg IM q6h PRN agitation Chronic cystitis - Thomas removed out of hospital on 11/15, but replaced in ER due to patient's worsening mental status. - 300-400 ml urine drained, no evidence of urinary obstruction - UA negative except patient's recurrent budding yeast - Of note, written to start Cardura on 11/06 for assistance with urinary retention, did not start till 11/10 at which time admitted for hypotension - Methenamine can increase blood level of alpha/beta agonists, may have contributed to hypotension from cardura + lisinopril - Holding cardura, methenamine - Patient pulled out thomas 11/16 afternoon - Ordered bladder scans and straight cath prn - Urology consulted - No acute intervention warranted at this time. - Continue supportive care and close monitoring. - Will arrange outpatient follow-up with urology. IDDM - Home regimen levemir 20 units AM, 10 units PM - SSI while admitted HTN - Continue lisinopril, ASA DVT ppx: lovenox FEN/GI: DM2, Heart healthy Code Status: Full Code Dispo: med/surg (2) HTN (hypertension): (3) Delirium: (4) IDDM (insulin dependent diabetes mellitus): (5) GERD (gastroesophageal reflux disease): (6) HLD (hyperlipidemia): Admission and Anticipated Discharge Date Admission Date: November 16, 2020 Supervising Physician Co-Signing Physician Notes I personally examined the patient and verified all mcallister points of history and exam, discussed case, and agree with decision making with Dr [place]. No meaningful HPI or review of systems obtainable. Patient attempting to kick resident physician while we are in the room. Vitals noted, in general she is initially agitated, calls over time over in the room, no apparent physical distress. HEENT normocephalic atraumatic mucous membranes moist. Breathing unlabored no accessory muscle use good effort. Skin shows no rashes no pallor or icterus. Neuro without focal deficits. Mental status shows her to be easily confused initially fairly easily agitated, then called over time. Dementia with agitationfortunately agitation seems to be calming. Discussed situation with her PCP, who notes that her baseline mentation the last few times she saw her has been fairly poor, and the current description of her mental status unfortunately does not seem too far off from what she has been seeing recently. I doubt there is much acute encephalopathy at play, as much is a baseline of Lewy body dementia with waxing and waning behaviors. We will continue to discuss with family, may need to pursue placement options. Otherwise as above. Subjective Patient seen at bedside in the morning. She is pleasant yet confused and answers questions with nonsensical answers. Denies any pain. Seen again in the afternoon. At this time we are calling into the room by nursing as we are working by during rounds. She is physically and verbally aggressive. She is attempting to punch and kick those around her, myself, senior resident, and nursing staff included. During that time she insists that she will call several powerful people to deal with us and continues to make physical treats. Review of Systems Review of Systems: per HPI Physical Exam Physical Exam: Exam limited due to cognitive status Constitutional: thin, no acute distress Cardiac: RRR, no murmurs, gallops or rubs. Normal S1, S2 Pulm: breathing easily on room air, CTAB Extremities: 2+ peripheral pulses, no edema Neuro: No focal neuro deficits, moves all extremities equally Psych: Alert, only oriented to person. Thought process is disorganized and converses about people or situations that are not applicable. Verbally and physically aggressive. Results & Data Results & Data ([facility]) Vital Signs (Past 12 Hours) Vital Signs Temp Pulse Resp BP Pulse Ox 11/17/20 06:59 36.7 C 86 18 178/72 H 96 11/16/20 23:00 36.8 C 88 16 154/77 H 97 Resident Activity Tracking Resident Involvement: Resident Care Provided Care Provided: Adult Hospital Medicine
[2020-11-17] MEDS ORDERED: LORazepam 1 MG/2 ML VIAL IV STA ×3 (15:39→23:29)
--- NOTE | 2020-11-17 19:37 | Billing Data ---
Date of Service November 17, 2020 Coding Level of Care Code 96875 Subseq Obs Care Lvl 2
[2020-11-17] MEDS: HALOPERIDOL LACTATE 5 MG/ML 1 ML VIAL IM PRN (23:01)
[2020-11-17] MEDS ORDERED: LORazepam 2 MG/4 ML VIAL IV STA (23:31)
[2020-11-18 07:36] LABS: Basophils # (auto) 0.01 K/uL (0-0.2); Basophils % (auto) 0.2 %; Eosinophils # (auto) 0.13 K/uL (0-0.5); Eosinophils % (auto) 2.5 %; Hematocrit (blood only) 35.4 % (37-47); Hemoglobin 11.7 g/dL (12.0-16.0); Immature Granulocytes # (auto) 0.01 K/uL (0.00-0.02); Immature Granulocytes % (auto) 0.2 %; Lymphocytes # (auto) 0.88 K/uL (1.2-3.4); Lymphocytes % (auto) 16.9 %; Mean Corpuscular Hemoglobin 29.6 pg (25-34); Mean Corpuscular Hgb Conc 33.1 g/dL (32-36); Mean Corpuscular Volume 89.6 fL (80-100); Monocytes # (auto) 0.62 K/uL (0.11-0.59); Monocytes % (auto) 11.9 %; Neutrophils # (auto) 3.55 K/uL (1.4-6.5); Neutrophils % (auto) 68.3 %; Platelet Count 191 K/uL (130-400); RDW Coefficient of Variation 13.8 % (11.5-14.5); RDW Standard Deviation 45.5 fL (36.4-46.3); Red Blood Count 3.95 M/uL (4.2-5.4)
[2020-11-18 08:05] LABS: BUN Creatinine Ratio 32.5 (10-20); Calcium 8.9 mg/dl (8.5-10.1); Creatinine Clr Calc Pharmacy 65.7 ml/min; Est GFR (African American) 95.5 ml/min; Est GFR (Non-African American) 82.4 ml/min; Potassium 3.5 mmol/L (3.5-5.1)
[2020-11-18] MEDS: INSULIN ASPART 100 UNITS/ML 3 ML PEN SC SCH ×4 (10:00→20:56)
--- NOTE | 2020-11-18 10:04 | Hospitalist Progress Note ---
Date of Service November 18, 2020 Assessment & Plan (1) Encephalopathy acute: Plan: 79yo with history of delirium, urinary retention, cystitis, IDDM, anemia, CKD, HLD, GERD admitted for acute encephalopathy. Dementia - CT Head negative for acute changes; CT A/P negative for infectious origin, CXR negative for pneumonia - Per chart review she had concerning features consistent with Lewy Body Dementia at neurology visit on 09/04/2019 - Was sent for formal neuropsych testing by neurologist, which was not completed due to COVID-19 pandemic according to phone conversation with patient's daughter Rosalba - Rosalba also relayed via telephone that she had initially been pleasantly confused over the past few years. However, did report that as of the last 4-5 months Renay became aggressive both physically and verbally - Daughter mentions that her mother has possibly had issues with becoming agitated in the past when her gabapentin has been stopped. But this current behavior seems to be more related to dementia, especially the kivrhb-qfq-xr bertin/intermittently aggressive nature that may be present with Lewy Body dementia - Her gabapentin had been at 300mg BID--this dose is fairly low and is less likely to cause these types of reactions - Plan (11/18) to discuss possible placement with daughter and gauge family's openness to this--depending on answer will contact Case Management to get this process underway - 11/18: Discussed with patient's daughter Rosalba (POA) and she prefers not to plan for placement at this time, prefers to take patient home with caregivers that are staffed 22hrs per day plus home health through [facility] when medically stable - Last admission lyme titers positive for IgG, WB confirmed two bands positive IgG. No hx known lyme disease, never treated. If not improving mental status with hydration and holding medications, can consider LP for assessment of neurologic lyme disease and treatment with extended course of doxycycline - No electrolyte derangements - Delirium precautions - Ordered haloperidol 5mg IM q6h PRN agitation - Required one dose overnight as well as Ativan 2mg IV overnight due to agitation Chronic cystitis - Thomas removed out of hospital on 11/15, but replaced in ER due to patient's worsening mental status. - 300-400 ml urine drained, no evidence of urinary obstruction - UA negative except patient's recurrent budding yeast - Of note, written to start Cardura on 11/06 for assistance with urinary retention, did not start till 11/10 at which time admitted for hypotension - Methenamine can increase blood level of alpha/beta agonists, may have contributed to hypotension from cardura + lisinopril - Holding cardura, methenamine - Patient pulled out thomas 11/16 afternoon - Ordered bladder scans and straight cath prn - Urology consulted - No acute intervention warranted at this time. - Continue supportive care and close monitoring. - Will arrange outpatient follow-up with urology. IDDM - Home regimen levemir 20 units AM, 10 units PM - SSI while admitted HTN - Continue lisinopril, ASA DVT ppx: lovenox FEN/GI: DM2, Heart healthy Code Status: Full Code Dispo: med/surg (2) HTN (hypertension): (3) Delirium: (4) IDDM (insulin dependent diabetes mellitus): (5) GERD (gastroesophageal reflux disease): (6) HLD (hyperlipidemia): Admission and Anticipated Discharge Date Admission Date: November 16, 2020 Supervising Physician Co-Signing Physician Notes I personally examined the patient and verified all mcallister points of history and exam, discussed case, and agree with decision making with Dr Colorado. Resting comfortably. Vitals noted, resting comfortably. No distress. Breathing unlabored no accessory muscle use good effort. Skin shows no rashes no pallor or icterus. Dementia with agitationappears mostly consistent with progressive Lewy body dementia. Supportive care. Resident physician discussing discharge planning with familyright now the family plans to take her home. Probably tomorrow. Subjective Patient today seen at bedside. Overnight did have another episode of agitation requiring Haldol 5mg IM x1 and Ativan 2mg IV. This AM sleeping comfortably. Per RN had woken up somewhat agitated needing to use restroom this morning but immediately calmed down and went back to sleep afterwards. Remains stable from hemodynamic standpoint, though she has had elevated BPs and tachycardia during her episodes of agitation. Review of Systems Review of Systems: per HPI Physical Exam Physical Exam: Constitutional: thin, no acute distress Cardiac: RRR, no murmurs, gallops or rubs. Normal S1, S2 Pulm: breathing easily on room air, CTAB Extremities: 2+ peripheral pulses, no edema Neuro: No focal neuro deficits, moves all extremities equally Results & Data Results & Data ([facility]) Vital Signs (Past 12 Hours) Vital Signs Temp Pulse Resp BP Pulse Ox 11/18/20 08:04 37.2 C 98 H 18 144/80 H 96 11/17/20 23:54 103 H 18 165/78 H 98 Resident Activity Tracking Resident Involvement: Resident Care Provided Care Provided: Adult Hospital Medicine
[2020-11-18] MEDS: ASPIRIN 81 MG ECTAB PO SCH ×2 (13:25→15:24)
[2020-11-18] MEDS: lisinopril 5 MG TAB PO SCH ×2 (13:26→15:24)
[2020-11-18] MEDS: ENOXAPARIN INJ 40 MG/0.4 ML SYR SQ SCH (13:26)
--- NOTE | 2020-11-18 18:18 | Billing Data ---
Date of Service November 18, 2020 Coding Level of Care Code 12484 Subseq Hosp Care Lvl 1
[2020-11-19 07:14] LABS: Creatinine Clr Calc Pharmacy 67.7 ml/min; Est GFR (African American) 96.4 ml/min; Est GFR (Non-African American) 83.2 ml/min
[2020-11-19] MEDS: ASPIRIN 81 MG ECTAB PO SCH (09:31)
[2020-11-19] MEDS: INSULIN ASPART 100 UNITS/ML 3 ML PEN SC SCH ×4 (09:31→23:28)
[2020-11-19] MEDS: ENOXAPARIN INJ 40 MG/0.4 ML SYR SQ SCH (09:31)
--- NOTE | 2020-11-19 10:39 | Discharge Summary ---
Date of Service November 20, 2020 Admission HPI Per Admitting Provider Unable to obtain from patient due to patient's state of consciousness. Per ER provider, Renay was excessively altered unlike her previous visits to the ER. She was screaming and shouting and pulled out her IV lines which she had not done before. She was recently started on new medication for chronic cystitis after discharge from the hospital on 11/11. Principal Diagnosis Dementia Discharge Exam Constitutional: thin, no acute distress Cardiac: RRR, no murmurs, gallops or rubs. Normal S1, S2 Pulm: breathing easily on room air, CTAB Extremities: 2+ peripheral pulses, no edema Neuro: No focal neuro deficits, moves all extremities equally Psych: Alert, only oriented to person. Thought process is disorganized and converses about people or situations that are not applicable. Pleasantly confused today. Discharge Data Allergies Allergy/AdvReac Type Severity Reaction Status Date / Time Iodinated Contrast Media Allergy Intermediate HIVES AND Verified 11/15/20 23:30 HOT FLASHES azithromycin Allergy Unknown Unknown Verified 11/15/20 23:30 hydrocodone AdvReac Severe Confusion Verified 11/15/20 23:30 oxycodone AdvReac Severe CONFUSION Verified 11/15/20 23:30 LAKSHMI WHEN SHE TAKES 2 TABS- Macrolide Antibiotics AdvReac Mild UPSET Verified 11/15/20 23:30 STOMACH Consultations 11/16/20 02:06 ED Decision to Admit Stat 11/16/20 11:45 Consult Urology Routine Ordered Studies 11/15/20 22:32 CT head/brain wo con Urgent 11/15/20 23:30 CT abd pelvis wo con Urgent Hospital Course (1) HTN (hypertension): (2) Delirium: (3) IDDM (insulin dependent diabetes mellitus): (4) GERD (gastroesophageal reflux disease): (5) HLD (hyperlipidemia): (6) Lewy body dementia: 79yo with history of delirium, urinary retention, cystitis, IDDM, anemia, CKD, HLD, GERD admitted for acute encephalopathy. Dementia - CT Head negative for acute changes; CT A/P negative for infectious origin, CXR negative for pneumonia - Per chart review she had concerning features consistent with Lewy Body Dementia at neurology visit on 09/04/2019 - Was sent for formal neuropsych testing by neurologist, which was not completed due to COVID-19 pandemic according to phone conversation with patient's daughter Rosalba Jurado Rosalba also relayed via telephone that she had initially been pleasantly confused over the past few years. However, did report that as of the last 4-5 months Renay became aggressive both physically and verbally - Daughter mentions that her mother has possibly had issues with becoming agitated in the past when her gabapentin has been stopped. But this current behavior seems to be more related to dementia, especially the llbmyy-iuq-ciufgz/intermittently aggressive nature that may be present with Lewy Body dementia - Her gabapentin had been at 300mg BID--this dose is fairly low and is less likely to cause these types of reactions--continue to hold at [facility] - 11/18: Discussed with patient's daughter Rosalba (POA) and she prefers not to plan for placement at this time, prefers to take patient home with caregivers that are staffed 22hrs per day plus home health through [facility] when medically stable - Last admission lyme titers positive for IgG, WB confirmed two bands positive IgG. No hx known lyme disease, never treated. However, DLB - No electrolyte derangements - Haloperidol 5mg IM q6h PRN agitation while admitted -Required single dose of haloperidol while admitted and several doses of Ativan for two specific episodes of agitation/aggression - Ordered haloperidol 5mg PO q6h prn agitation at [facility] Chronic cystitis - Hall removed out of hospital on 11/15, but replaced in ER due to patient's worsening mental status. - 300-400 ml urine drained, no evidence of urinary obstruction - UA negative except patient's recurrent budding yeast - Urology consulted - No acute intervention warranted at this time. - Continue supportive care and close monitoring. - Will arrange outpatient follow-up with urology. - Continue Cardura and methenamine at [place] IDDM - Home regimen levemir 20 units AM, 10 units PM - SSI while admitted - Continue home regimen at [facility] HTN - Continue lisinopril, ASA Code Status: Full Code Dispo: Discharge home with daughter, has senior warehouse clerk and home health Total Time Total Time Spent Total Time Spent (In Minutes): see attending attestation Discharge Plan Discharge Items Patient Disposition: Personal Fdc Reason For Visit: ENCEPHALOPATHY Discharge Diagnosis: Lewy Body Dementia Activity: Per Instructions section Non-emergency contact: Primary Care Provider Call non-emergency contact if: you have any medication questions and your symptoms worsen Follow-up/Referrals: Grine,Zhanna M, [Primary Care Provider] - 12/04/20 10:30 am Diet: Carb Consistent or DM2 and Heart Healthy Addtl Attending Provider Instructions: Mrs. Keys was admitted to [facility] due to altered mental status. Some of her medications thought to be possibly contributing were held. As further information was elucidated we were able to discover that there was a concern for Lewy body dementia dating back to the summer 2019, which was never fully confirmed by neuropsychiatric testing. However, her symptoms while admitted due to fit with Lewy body dementia the waxing and waning nature on it as well as her verbal and physical aggression are some well-known signs of this type of dementia. As discussed, we expect this to be her new baseline in terms of this dementia and she will likely require assyqq-iaf-dznln care and supervision so as to not hurt herself or others, as well as help with her activities of daily living, taking her medications, among others. As she does have caretakers at home, we will discharge her under the care of her daughter and usual senior warehouse clerk with Home Health services. We recommend considering the possibility of finding placement for her in a long- term care facility if she did need any more specialized care or continues to be difficult to manage at home. Per discussion with Mrs. Keys's daughter, we have stopped her gabapentin in the hospital. We do not believe this to be the cause of her mental status as her dementia seems to be the culprit. We will restart all of her other home medications at discharge. Additionally, she will have Haldol 5mg orally every 6 hours as needed for agitation. We recommend follow-up with her PCP as well as Urology to discuss her hospitalization and care going forward. Pending Studies at Discharge: No Stand-Alone Forms: My [facility] [place], Smoking Cessation Skilled Items Patient informed of condition?: Yes DNR: No Discharge Level of Care: Other Communicable Disease: No Discharge Prognosis: Stable Lines: None Urinary Catheter: No Medications and DC Order Prescriptions: New haloperidol 5 mg tablet 5 mg PO Q6H PRN (Reason: agitation) 7 Days Qty: 28 RF: 0 Continued cyanocobalamin (vitamin B-12) [Vitamin B-12] 1,000 mcg Tablet 1,000 mcg PO QAM RF: 0 methenamine hippurate 1 gram tablet 1 g PO BID RF: 0 doxazosin [Cardura] 1 mg tablet 1 mg PO HS RF: 0 Premarin 0.625 mg/gram cream 0.5 applic vaginal UD RF: 0 lisinopril 5 mg tablet 5 mg PO DAILY RF: 0 Levemir U-100 Insulin 100 unit/mL solution See Rx Instructions .ROUTE .COMPLEX RF: 0 aspirin 81 mg Tablet,Delayed Release (Dr/Ec) 81 mg PO QAM RF: 0 meloxicam 7.5 mg Tablet 7.5 mg PO QAM RF: 0 Discontinued gabapentin 300 mg capsule 300 mg PO BID RF: 0 Discharge Orders: Discharge Order (Routine); Ordered 11/20/20 Ordered By: Rafael Yen/Other Patient Handouts: Urinary Tract Infections in Women Admission Data Admit Date/Time: 11/18/20 16:24 Attending Provider: Carlitos Taylor Admit Provider: Carlitos Taylor Primary Care Provider: Zhanna Bauer Other Providers: Marce Tarango ; Shai Escobedo Other Interventions: Discharge Summary Assessment (RN) Last Done: 11/20/20 10:46 Supervising Physician Co-Signing Physician Notes I personally examined the patient and verified all mcallister points of history and exam, discussed case, and agree with decision making with Dr Colorado. sitting up eating breakfast. got napkin significantly intertwined with cream of wheat. assisted in extracation. Vitals noted, pleasantly confused. No distress. Breathing unlabored no accessory muscle use good effort. Skin shows no rashes no pallor or icterus. Dementia with agitationappears mostly consistent with progressive Lewy body dementia. Supportive care. for [facility] Resident Activity Tracking Resident Involvement: Resident Care Provided Care Provided: Adult Hospital Medicine
[2020-11-19] MEDS: lisinopril 5 MG TAB PO SCH (10:45)
--- NOTE | 2020-11-19 13:19 | Hospitalist Progress Note ---
Date of Service November 19, 2020 Assessment & Plan (1) HTN (hypertension): (2) Delirium: (3) IDDM (insulin dependent diabetes mellitus): (4) GERD (gastroesophageal reflux disease): (5) HLD (hyperlipidemia): (6) Lewy body dementia: Plan: 79yo with history of delirium, urinary retention, cystitis, IDDM, anemia, CKD, HLD, GERD admitted for acute encephalopathy. Dementia - CT Head negative for acute changes; CT A/P negative for infectious origin, CXR negative for pneumonia - Per chart review she had concerning features consistent with Lewy Body Dementia at neurology visit on 09/04/2019 - Was sent for formal neuropsych testing by neurologist, which was not completed due to COVID-19 pandemic according to phone conversation with patient's daughter Rosalba - Rosalba also relayed via telephone that she had initially been pleasantly confused over the past few years. However, did report that as of the last 4-5 months Renay became aggressive both physically and verbally - Daughter mentions that her mother has possibly had issues with becoming agitated in the past when her gabapentin has been stopped. But this current behavior seems to be more related to dementia, especially the srmktg-bal-okceyt/intermittently aggressive nature that may be present with Lewy Body dementia - Her gabapentin had been at 300mg BID--this dose is fairly low and is less likely to cause these types of reactions--continue to hold at [place] - 11/18: Discussed with patient's daughter Rosalba (RONNIE) and she prefers not to plan for placement at this time, prefers to take patient home with caregivers that are staffed 22hrs per day plus home health through [facility] when medically stable - 11/19: Patient was planned to DC home but patient's daughter Rosalba (RONNIE) contacted Case Management expressing preference for placement--will have bed available at [facility] tomorrow - Last admission lyme titers positive for IgG, WB confirmed two bands positive IgG. No hx known lyme disease, never treated. However, DLB - No electrolyte derangements - Haloperidol 5mg IM q6h PRN agitation - Has required single dose of haloperidol while admitted and several doses of Ativan for two specific episodes of agitation/aggression Chronic cystitis - Hall removed out of hospital on 11/15, but replaced in ER due to patient's worsening mental status. - 300-400 ml urine drained, no evidence of urinary obstruction - UA negative except patient's recurrent budding yeast - Urology consulted - No acute intervention warranted at this time. - Continue supportive care and close monitoring. - Will arrange outpatient follow-up with urology. - Continue Cardura and methenamine at DC IDDM - Home regimen levemir 20 units AM, 10 units PM - SSI while admitted - Continue home regimen at [place] HTN - Continue lisinopril, ASA DVT prophylaxis: Lovenox 40mg SQ daily Diet: DM2, HH, soft bite sized Code Status: Full Code Dispo: MedSurg--placement tomorrow Admission and Anticipated Discharge Date Admission Date: November 18, 2020 Supervising Physician Co-Signing Physician Notes I personally examined the patient and verified all mcallister points of history and exam, discussed case, and agree with decision making with Dr Colorado. Resting comfortably. for [facility] tomorrow Vitals noted, resting comfortably. No distress. Breathing unlabored no accessory muscle use good effort. Skin shows no rashes no pallor or icterus. Dementia with agitationappears mostly consistent with progressive Lewy body dementia. Supportive care. for [facility] tomorrow. Subjective Patient seen at bedside. No acute events overnight. She did not require any Haldol or Ativan. She has been pleasantly confused but hasn't had issues. Review of Systems Review of Systems: per HPI Physical Exam Physical Exam: Constitutional: thin, no acute distress Cardiac: RRR, no murmurs, gallops or rubs. Normal S1, S2 Pulm: breathing easily on room air, CTAB Extremities: 2+ peripheral pulses, no edema Neuro: No focal neuro deficits, moves all extremities equally Results & Data Results & Data ([facility]) Vital Signs (Past 12 Hours) Vital Signs Temp Pulse Resp BP Pulse Ox 11/19/20 07:24 36.5 C 86 16 158/79 H 97 Resident Activity Tracking Resident Involvement: Resident Care Provided Care Provided: Adult [facility]
--- NOTE | 2020-11-19 17:55 | Billing Data ---
Date of Service November 19, 2020 Coding Level of Care Code 62547 Subseq Hosp Care Lvl 1
[2020-11-20] MEDS ORDERED: diphenhydrAMINE 50 MG/ML VIAL IV ONE (02:00)
[2020-11-20] MEDS: HALOPERIDOL LACTATE 5 MG/ML 1 ML VIAL IM PRN (03:51)
[2020-11-20] MEDS ORDERED: OLANZapine ZYDIS 5 MG ORALLY DIS. TAB PO STA (04:39)
[2020-11-20] MEDS: OLANZapine ZYDIS 5 MG ORALLY DIS. TAB PO ONE ×4 (06:47→06:55)
[2020-11-20] MEDS: lisinopril 5 MG TAB PO SCH (08:20)
[2020-11-20] MEDS: ENOXAPARIN INJ 40 MG/0.4 ML SYR SQ SCH (08:20)
[2020-11-20] MEDS: ASPIRIN 81 MG ECTAB PO SCH (08:20)
[2020-11-20] MEDS: INSULIN ASPART 100 UNITS/ML 3 ML PEN SC SCH (09:42)
--- NOTE | 2020-11-20 13:09 | Billing Data ---
Date of Service November 20, 2020 Coding Level of Care Code D/C DAY MANAGEMENT <30 MINS
== END 2020-11-20 11:58 | disposition home or self-care (01) ==
LOC: 3W 22:03 → ED 22:03 → SUATTDRO 11-16 02:35 → 3W 11-16 03:29